=== PATIENT | male | born 1945 | race Caucasian/White ===

== ENCOUNTER 2019-04-22 17:12 | Inpatient (IN) | payer MEDICARE ==
[~2019-04-22] VITALS: Ht 177.8 cm; Wt 79.5 kg
[~2019-04-22 17:12] MED LIST: ASPIRIN EC81 M1 PO; CELEXA40 MG PO; GLUCOPHAGE850 MG PO; HYDROCODONE-APA1 TAB PO; IPRAT-ALBUT 0.5-3 ML UPD; NORVASC10 MG PO; PRILOSEC20 MG PO; ZOCOR20 MG PO
[2019-04-22] MEDS ORDERED: FAMOTIDINE10 MG PEG (17:16)
[2019-04-22] MEDS ORDERED: CARDURA2 MG PEG (17:16)
[2019-04-22] MEDS ORDERED: NEURONTIN 300300 MG PO (17:16)
[2019-04-22] MEDS ORDERED: LISINOPRIL40 MG PEG (17:17)
[2019-04-22] MEDS ORDERED: HYDRALAZINE HC100 MG PO (17:17)
[2019-04-22] MEDS ORDERED: BIOFREEZE118 ML TOPICAL (17:18)
[2019-04-22] MEDS ORDERED: ROBAXIN500 MG PEG (17:18)
[2019-04-22] MEDS ORDERED: ULTRAM50 MG PO (17:19)
[2019-04-22 17:52] LABS: BASOPHILS 0.2 % (0-2); EOSINOPHILS 0.8 % (0-7); HEMATOCRIT 31.4 % (42.0-54.0); HEMOGLOBIN 10.8 g/dL (13.5-17.5); IMMATURE GRANULOCYTES 0.4 % (0-5); LYMPHOCYTES 18.5 % (15-50); MCH 30.8 pg (26.0-34.0); MCHC 34.4 g/dL (31.0-37.0); MCV 89.5 fL (80.0-100.0); MEAN PLATELET VOLUME 9.5 fL (7.4-10.4); MONOCYTES 8.7 % (2-11); NEUTROPHILS 71.4 % (40-80); RBC 3.51 10x6/uL (4.20-6.10); RDW 15.9 % (11.5-14.5); WBC 9.5 10x3/uL (4.8-10.8)
[2019-04-22 17:53] LABS: PLATELET COUNT 193 10x3/uL (130-400)
[2019-04-22 18:08] LABS: ALKALINE PHOSPHATASE 73 U/L (46-116); ALT (SGPT) 23 U/L (10-68); BILIRUBIN - TOTAL 0.51 mg/dL (0.2-1.3); CALC OSMOLALITY 271 mosm/kg (275-300); CALCIUM 8.5 mg/dL (8.5-10.1); CARBON DIOXIDE 28.7 mmol/L (21.0-32.0); CHLORIDE - SERUM 101 mmol/L (98-107); CREATININE - SERUM 0.6 mg/dL (0.6-1.3); GLUCOSE 107 mg/dL (74-106); POTASSIUM - SERUM 4.2 mmol/L (3.5-5.1); PROTEIN - SERUM 6.4 g/dL (6.4-8.2); SODIUM 135 mmol/L (136-145); UREA NITROGEN 17 mg/dL (7-18); eGFR NON AFRICAN AMERICAN > 90 mL/min (90-120)
[2019-04-22 21:19] VITALS: BP 201/101
[2019-04-22 21:23] LABS: APPEARANCE SL CLDY (CLEAR); COLOR YELLOW (YELLOW); SPECIFIC GRAVITY 1.005 (1.005-1.020)
[2019-04-22 21:24] LABS: BILIRUBIN NEGATIVE (NEGATIVE); GLUCOSE NEGATIVE (NEGATIVE); KETONE NEGATIVE (NEGATIVE); NITRITE POSITIVE (NEGATIVE); PROTEIN NEGATIVE (NEGATIVE); UROBILINOGEN NORMAL (NORMAL)
[2019-04-22 21:25] LABS: BACTERIA MODERATE /hpf (NONE SEEN); EPITHELIAL CELLS 0-5 /hpf (0-5); RED CELLS - URINE RARE /hpf (0-5); WHITE CELLS - URINE 0-5 /hpf (0-5)
--- NOTE | 2019-04-22 21:42 | NUR ---
URINE TO LAB
[2019-04-22 23:34] VITALS: BP 153/77
--- NOTE | 2019-04-23 | NUR ---
PATIENT TO ROOM. DAUGHTER HELPED ANSWER QUESTIONS, ASSISTED WITH TRANSFERING PATIENT TO BED. PATIENT JAW SWOLLEN, RED AND WARM TO TOUCH.
[2019-04-23 03:43] VITALS: BP 155/81; BMI 26.4
--- NOTE | 2019-04-23 03:48 | NUR ---
PATIENT COMPLAINING OF PAIN IN RIGHT SIDE OF FACE. ASKED PATIENT IF HER WOULD LIKE AN ICE PACK. PATIENT STATED HE WOULD. APPLIED ICE.
[2019-04-23 04:42] LABS: BASOPHILS 0.3 % (0-2); EOSINOPHILS 0.3 % (0-7); HEMATOCRIT 33.2 % (42.0-54.0); HEMOGLOBIN 11.2 g/dL (13.5-17.5); IMMATURE GRANULOCYTES 0.3 % (0-5); LYMPHOCYTES 13.8 % (15-50); MCHC 33.7 g/dL (31.0-37.0); MEAN PLATELET VOLUME 9.4 fL (7.4-10.4); MONOCYTES 7.7 % (2-11); NEUTROPHILS 77.6 % (40-80); PLATELET COUNT 190 10x3/uL (130-400); RBC 3.73 10x6/uL (4.20-6.10); RDW 15.5 % (11.5-14.5); WBC 11.8 10x3/uL (4.8-10.8)
[2019-04-23 04:54] LABS: CALC OSMOLALITY 271 mosm/kg (275-300); CALCIUM 8.3 mg/dL (8.5-10.1); CARBON DIOXIDE 26.3 mmol/L (21.0-32.0); CHLORIDE - SERUM 101 mmol/L (98-107); CREATININE - SERUM 0.6 mg/dL (0.6-1.3); GLUCOSE 142 mg/dL (74-106); MAGNESIUM - SERUM 1.9 mg/dL (1.8-2.4); PHOSPHOROUS 3.8 mg/dL (2.5-4.9); SODIUM 135 mmol/L (136-145); UREA NITROGEN 13 mg/dL (7-18); eGFR NON AFRICAN AMERICAN > 90 mL/min (90-120)
[2019-04-23 08:53] VITALS: BP 186/97
[2019-04-23 08:56] VITALS: BMI 26.4
--- NOTE | 2019-04-23 11:47 | NUR ---
IV RIGHT AC HAD BEEN PULLED OUT. DC'D AND RESTARTED IN OUTER RIGHT AC WITH 22G X 1 ATTEMPT. PT TOLERATED WELL.
[2019-04-23 13:54] VITALS: BP 157/78
[2019-04-23 15:06] VITALS: Ht 177.8 cm; Wt 79.5 kg
[2019-04-23 15:31] LABS: % SATURATION 10 % (15-55); IRON 22 ug/dl (35-150); TOTAL IRON BIND CAPACITY 206 ug/dl (260-445); UNSAT IRON BIND CAPACITY 184 ug/dl (150-375)
[2019-04-23 18:25] VITALS: BP 167/82
--- NOTE | 2019-04-23 18:35 | NUR ---
RESTS IN BED WITH CALL LIGHT IN REACH. IV PATENT. WILL CONT. PLAN OF CARE.
--- NOTE | 2019-04-23 19:30 | NUR ---
SPOKE WITH FAMILY ABOUT PROPER POSITIONING, CHECKING RESIDUAL AND USING GRAVITY FOR SLOW BOLUS FEEDING TO HELP AVOID VOMITING AND ASPIRATION. ASSURED FAMILY THAT PROPER TECHNIQUE WILL BE EMPLOYED WITH FUTURE FEEDINGS. WROTE INSTRUCTIONS ON WHITE BOARD AND HOUSE SUPERVISORS NUMBER FOR FAMILY. NO OTHER NEEDS. FAMILY GOING HOME FOR NIGHT. WILL CONTINUE TO MONITOR.
[2019-04-23 20:00] VITALS: BP 123/60
--- NOTE | 2019-04-23 20:30 | NUR ---
REPOSITIONED PT, PULLED UP IN BED AND PUT GOWN ON. RAISED HOB TO 30 DEGREES. PT RESTING QUIETLY, EYES CLOSED. BED ALARM ON. CALL LIGHT IN REACH.
--- NOTE | 2019-04-23 22:00 | NUR ---
HOB AT 35 DEGREES. NO RESIDUAL NOTED IN TUBE. FLUSHED BEFORE AND AFTER MEDS. GAVE 1 CAN GLUCERNA FLUSHING AFTER EVERY 40 MLS ALL BY GRAVITY FOR TOTAL OF 240 FED AND 120 FLUSH. PT TOLERATED WELL WITH NO VOMITING OR REFLUX. LEFT HOB 30 DEGREES FOR ONE HOUR AFTER FEEDING. NO OTHER NEEDS. BED ALARM ON AND CALL LIGHT IN REACH.
[2019-04-24] VITALS: BP 97/55
--- NOTE | 2019-04-24 03:00 | NUR ---
PT C/O BACK PAIN. REPOSITIONED AND TURNED. OFFERED URINAL. PT STATES HE DOES NOT NEED TO VOID. RATES BACK PAIN 11/17. CHECKED RESIDUAL, NONE NOTED. HOB AT 30 DEGREES. GAVE ULTRAM 50 MG PER PEG TUBE. FLUSHED BEFORE AND AFTER. NO OTHER NEEDS. CALL LIGHT IN REACH.
[2019-04-24 04:00] VITALS: BP 104/60
[2019-04-24 05:01] LABS: BASOPHILS 0.3 % (0-2); EOSINOPHILS 1.1 % (0-7); HEMATOCRIT 28.5 % (42.0-54.0); HEMOGLOBIN 9.5 g/dL (13.5-17.5); IMMATURE GRANULOCYTES 0.4 % (0-5); LYMPHOCYTES 22.2 % (15-50); MCH 29.4 pg (26.0-34.0); MCHC 33.3 g/dL (31.0-37.0); MCV 88.2 fL (80.0-100.0); MEAN PLATELET VOLUME 9.3 fL (7.4-10.4); MONOCYTES 10.2 % (2-11); NEUTROPHILS 65.8 % (40-80); PLATELET COUNT 200 10x3/uL (130-400); RBC 3.23 10x6/uL (4.20-6.10); RDW 15.6 % (11.5-14.5); WBC 9.6 10x3/uL (4.8-10.8)
[2019-04-24 05:11] LABS: CALC OSMOLALITY 271 mosm/kg (275-300); CALCIUM 8.1 mg/dL (8.5-10.1); CARBON DIOXIDE 26.7 mmol/L (21.0-32.0); CHLORIDE - SERUM 102 mmol/L (98-107); CREATININE - SERUM 0.7 mg/dL (0.6-1.3); GLUCOSE 104 mg/dL (74-106); POTASSIUM - SERUM 3.9 mmol/L (3.5-5.1); SODIUM 135 mmol/L (136-145); eGFR NON AFRICAN AMERICAN > 90 mL/min (90-120)
[2019-04-24 05:16] LABS: UREA NITROGEN 17 mg/dL (7-18)
[2019-04-24 07:30] VITALS: BP 143/82
--- NOTE | 2019-04-24 07:41 | NUR ---
PT REQUESTED URINAL TO BE PLACED BETWEEN LEGS FOR A FEW MINUTES, STATES HE WILL CALL WHEN HE IS READY FOR IT TO BE TAKEN OUT. IV TO THE RIGHT AC IS SALINE LOCKED. BED IS IN LOW POSITION AND CALL LIGHT IS IN REACH. PATIENT DENIES ANY PAIN AT THIS TIME. WILL CONTINUE TO MONITOR
[2019-04-24 11:30] VITALS: BP 130/69
[2019-04-24 15:30] VITALS: BP 141/77
--- NOTE | 2019-04-24 19:30 | NUR ---
PT ALERT AND ORIENTED X4. CLEANED PT OF BOWEL MOVEMENT AND ADJUSTED POSITION TO LEFT SIDE AND SAT UP TO 40 DEGREE ANGLE. NO S/S OF DISTRESS AT THIS TIME. BED LOW CALL LIGHT WITHIN REACH. WILL CONTINUE TO MONITOR.
--- NOTE | 2019-04-24 19:37 | NUR ---
TELEMETRY INITIATED BY PRIMARY NURSE @ 1910. IMMEDIATE RHYTHM WAS 160'S SVT. REVIEWED MEDS, PT WAS TAKING CARDIZEM PER HOME MEDS, BUT THIS MED NOT ON CONTINUED MED LIST. PT DENIES PAIN OR DISCOMFORT. PRIMARY NURSE NOTIFYING MD FOR FURTHER ORDERS AFTER EKG OBTAINED.
[2019-04-24 20:00] VITALS: BP 153/76
--- NOTE | 2019-04-24 20:03 | NUR ---
PT RUNNING 173 ON TELEMETRY. EKG COMPLETE. JODEE BURNS PAGED
--- NOTE | 2019-04-24 20:25 | NUR ---
DR. LOUIS CONSULTED AND NOTIFIED. NEW ORDERS ESTABLISHED FOR CARDIZEM DRIP AT THIS TIME. CLINICAL REHAB SPECIALIST CALLED FOR MEDICATION. WILL CONTINUE TO MONITOR.
--- NOTE | 2019-04-24 20:26 | NUR ---
CARE BEING PROVIDED. PRIMARY NURSE HAS NOTIFIED ALL NECESSARY MDS/MOTHER HELPER AND CONSULT DR DANIELSON HAS BEEN CALLED WITH NEW ORDERS RECIEVED.
--- NOTE | 2019-04-24 21:08 | NUR ---
ADMINISTERED CARDIZEM 15MG SIVP X 1. CARDIZEM DRIP STARTED AT 10ML/HR TO RIGHT A/C. PT STATES SOME TIGHTNESS OF CHEST. WILL MONITOR RESPONSE TO MEDS GIVEN. CPOC. TELEMETRY IN PLACE.
--- NOTE | 2019-04-24 21:42 | NUR ---
PT NOW 95/SR. CATINA RAWLSIP INFUSING. WILL MONITOR.
[2019-04-25] VITALS: BP 115/63
--- NOTE | 2019-04-25 01:08 | NUR ---
ESTABLISHED 20G IV IN PT'S RIGHT WRIST. IV PATENT AND DRESSING INTACT. WILL CONTINUE TO MONITOR. VITALS STABLE AT THIS TIME.
--- NOTE | 2019-04-25 02:16 | NUR ---
PT RESTING IN BED WITH EYES CLOSED. PT HAS BRIEF MOMENTS OF APNEA. PT RUNNING 82 SINUS RYTHEM ON THE MONITOR. VITALS STABLE AT THIS TIME. NO S/S OF DISTRESS AT THIS TIME. BED LOW CALL LIGHT WITHIN REACH. WILL CONTINUE TO MONITOR.
--- NOTE | 2019-04-25 04:08 | NUR ---
PT RESTING IN BED WITH EYES CLOSED RR EVEN AND UNLABORED. NO S/S OF DISTRESS AT THIS TIME. BED LOW CALL LIGHT WITHIN REACH. WILL CONTINUE TO MONITOR.
[2019-04-25 04:30] VITALS: BP 135/71
[2019-04-25 04:50] LABS: EOSINOPHILS 2.6 % (0-7); HEMATOCRIT 28.5 % (42.0-54.0); HEMOGLOBIN 9.5 g/dL (13.5-17.5); IMMATURE GRANULOCYTES 0.3 % (0-5); MCH 29.9 pg (26.0-34.0); MCHC 33.3 g/dL (31.0-37.0); MCV 89.6 fL (80.0-100.0); MEAN PLATELET VOLUME 9.4 fL (7.4-10.4); MONOCYTES 11.9 % (2-11); NEUTROPHILS 58.2 % (40-80); PLATELET COUNT 214 10x3/uL (130-400); RBC 3.18 10x6/uL (4.20-6.10); RDW 15.4 % (11.5-14.5)
[2019-04-25 04:53] LABS: WBC 5.9 10x3/uL (4.8-10.8)
[2019-04-25 04:59] LABS: CALC OSMOLALITY 283 mosm/kg (275-300); CALCIUM 7.9 mg/dL (8.5-10.1); CARBON DIOXIDE 28.2 mmol/L (21.0-32.0); CHLORIDE - SERUM 107 mmol/L (98-107); CREATININE - SERUM 0.5 mg/dL (0.6-1.3); GLUCOSE 125 mg/dL (74-106); POTASSIUM - SERUM 3.9 mmol/L (3.5-5.1); SODIUM 141 mmol/L (136-145); UREA NITROGEN 19 mg/dL (7-18); eGFR NON AFRICAN AMERICAN > 90 mL/min (90-120)
--- NOTE | 2019-04-25 06:42 | NUR ---
I have reviewed this patient and I concur with the Shift Assessment completed by the Licensed Practical Nurse today this shift.
[2019-04-25 08:30] VITALS: BP 157/59
--- NOTE | 2019-04-25 08:44 | NUR ---
AM MEDS GIVEN VIA PEG TUBE AT THIS TIME. ALSO GAVE BOLUS FEEDING OF GLUCERNA 1.5. PT TOLERATED MEDS AND FEEDING WELL. PT A/O X4, RESP EVEN AND NONLABORED ON RA. RT WRIST INFUSING NS AT 100CC/HR AND RA AC INFUSING CARDIZEM AT 10CC/HR. PT DENIES ANY NEEDS AT THIS TIME. MARYSOL ONEILL APN AT BEDSIDE TO ASSESS PT. CALL LIGHT IN REACH, NAD NOTED,W ILL CONTINUE TO MONITOR.
--- NOTE | 2019-04-25 11:31 | NUR ---
BLOOD SUGAR OF 164, NO COVERAGE GIVEN AT THIS TIME. PT RESTING COMFORTABLY IN BED, DENIES ANY NEEDS AT THIS TIME. CALL LIGHT IN REACH, NAD NOTED, WILL CONTINUE TO MONITOR.
--- NOTE | 2019-04-25 12:16 | NUR ---
I spoke with Dr. Alarcon regarding patient diagnosis of parotitis. Dr Alarcon does not feel it is mumps but bacterial. Was started on 04/22/19 Vancomycin and Meropenem.
--- NOTE | 2019-04-25 12:24 | NUR ---
Nutrition Follow-up: Nurse reports pt tolerating TF. Per initial nutrition assessment, pt receiving Glucerna 1.5 QID + 60 mL flushes before and after feedings + 100 mL flush TID at [place]. Diet: Glucerna 1.5 QID Wt: 189# Last BM: 04/25 Labs noted: Na 141, Glu 125, Ca 7.9 Meds noted: Glucophage, NS 0.9% @ 100 mL/hr Continue Glucerna 1.[address] following.
[2019-04-25 13:04] VITALS: BP 124/55
--- NOTE | 2019-04-25 15:14 | NUR ---
GAVE NORCO FOR PAIN LEVEL OF 4/10. CAPACITOR ASSEMBLER AT BEDSIDE TO GET VITAL SIGNS. PT DENIES ANY OTHER NEEDS AT THIS TIME. CALL LIGHT IN REACH, NAD NOTED, WILL CONTINUE TO MONITOR.
[2019-04-25 15:56] VITALS: BP 117/62
--- NOTE | 2019-04-25 16:46 | NUR ---
BLOOD SUGAR OF 130, NO COVERAGE NEEDED PER S/S. PT RESTING COMFORTABLY IN BED, DENIES ANY NEEDS AT THIS TIME. CALL LIGHT IN REACH.
[2019-04-26] VITALS: BP 133/73
[2019-04-26 04:30] VITALS: BP 150/72
[2019-04-26 04:53] LABS: BASOPHILS 0.6 % (0-2); EOSINOPHILS 2.8 % (0-7); HEMATOCRIT 30.2 % (42.0-54.0); HEMOGLOBIN 10.2 g/dL (13.5-17.5); IMMATURE GRANULOCYTES 0.4 % (0-5); LYMPHOCYTES 24.5 % (15-50); MCH 29.7 pg (26.0-34.0); MCHC 33.8 g/dL (31.0-37.0); MEAN PLATELET VOLUME 9.2 fL (7.4-10.4); MONOCYTES 8.9 % (2-11); NEUTROPHILS 62.8 % (40-80); PLATELET COUNT 185 10x3/uL (130-400); RBC 3.43 10x6/uL (4.20-6.10); RDW 15.1 % (11.5-14.5); WBC 4.9 10x3/uL (4.8-10.8)
[2019-04-26 05:13] LABS: CALC OSMOLALITY 278 mosm/kg (275-300); CARBON DIOXIDE 27.4 mmol/L (21.0-32.0); CHLORIDE - SERUM 104 mmol/L (98-107); CREATININE - SERUM 0.5 mg/dL (0.6-1.3); GLUCOSE 114 mg/dL (74-106); POTASSIUM - SERUM 3.5 mmol/L (3.5-5.1); SODIUM 139 mmol/L (136-145); eGFR NON AFRICAN AMERICAN > 90 mL/min (90-120)
[2019-04-26 05:18] LABS: UREA NITROGEN 12 mg/dL (7-18)
--- NOTE | 2019-04-26 07:28 | NUR ---
REPORT RECEIVED. WILL CONTINUE WITH POC. PT CURRENTLY LYING SEMI FOWLERS. CALL LIGHT W/I REACH. PT IS RESTING AT THIS TIME WITH EYES CLOSED. RR EVEN AND UNLABORED ON RA. NS INFUSING @100ML/HR VIA L.WRIST PIV AND R.AC PIV IS SALINE LOCKED. G-TUBE CLAMPED. NO S/S OF DISTRESS NOTED. PT DENIES ANY NEEDS. WILL CTM.
[2019-04-26 10:03] VITALS: BP 165/99
--- NOTE | 2019-04-26 10:52 | NUR ---
AM MEDICATIONS ADMININSTERED VIA PEG TUBE. TUBE FEEDING PERFORMED. PEG FLUSHED BEFORE AND AFTER WITH 60ML OF WATER. PT TOLERATED WELL. NO S/S OF DISTRESS NOTED. WILL CTM.
[2019-04-26 12:00] VITALS: BP 146/65
--- NOTE | 2019-04-26 12:15 | NUR ---
PT HAD ONE EPISODE OF INCONTINENCE OF BOWEL. UPON ENTERING THE ROOM, THE PT WAS REQUESTING TO BE PLACED ON BEDPAN BUT A FAMILY MEMBER WALKED IN AND HE STATED THAT HE NO LONGER FELT THE NEED. I STEPPED OUT OF THE ROOM TO GET SUPPLIES AND REQUESTED NORCO FROM THE PT, WHEN ENTERING BACK INTO THE ROOM 5 MINUTES LATER, FAMILY MEMBER WAS IRRITATED THAT IT TOOK SEVERAL MINUTES TO COLLECT SUPPLIES THEREFORE SHE WENT AHEAD AND CLEANED PT. APOLOGIZED TO FAMILY THAT IT TOOK A FEW MINUTES TO GET WHAT THE PT NEEDED. SHE VERBALIZED UNDERSTANDING. WILL CTM.
--- NOTE | 2019-04-26 13:03 | EC ---
PATIENT:SHAYNE BRICEÑO DATE OF SERVICE: 04/22/19 SEX: M MEDICAL RECORD: [id number] DATE OF : [birth year] LOCATION:D.M2 D.211 AGE OF PATIENT: 73 ADMISSION DATE: 04/22/19 REFERRING PHYSICIAN: INTERPRETING PHYSICIAN: REBECCA DANIELSON MD ECHOCARDIOGRAM REPORT ECHO CHARGES 4 ECHO COMPLETE Date: 04/25/19 CLINICAL DIAGNOSIS: ATRIAL FLUTTER ECHOCARDIOGRAPHIC MEASUREMENTS (adult normal given) AC root (d.<3.7cm) 4.1 cm LV Septum d (<1.2 cm> 1.3 cm Valve Excursion 1.9 cm LV Septum (systole) 1.5 cm Left Atria (s.<4.0cm> 3.7 cm LVPW d(<1.2cm) 1.4 cm RV (d.<2.3cm) 3.8 cm LVPW (sytole) 1.8 cm LV diastole(<5.6CM) 5.1 cm MV E-F(>70mm/sec) cm LV systole 4.0 cm LVOT Diameter 1.8 cm MV exc.(>10mm) 1.8 cm Est.ejection fraction (50-75%) % DOPPLER: LVIT cm/sec A 63.0 cm/sec E 104 cm/sec LA cm/sec RVSP 29 mmHg LVOT 138 cm/sec AOP1/2T m/s Asc. Ao 199 cm/sec RVOT 94 cm/sec RA cm/sec PA 130 cm/sec AV Gradient Peak 15.86mmHg AV Mean 9.95 mmHg AV Area 2.0 cm MV Gradient Peak 5.05 mmHg MV Mean 1.89 mmHg MV Area cm COMMENTS: Certified Ophthalmic Technologist: 2 KADY ÁLVAREZ Cane Flume Chute Operator: 3 Dr. Villalobos TAPE# PACS Pericardial Effusion N DATE OF SERVICE: Adequate 2D, color flow, spectral Doppler, and M-mode. LVH is present. LV internal dimension is normal. Wall motion is normal. EF is greater than or equal to 55%. Aortic valve is tricuspid. No evidence of stenosis by Doppler interrogation. Left atrium is normal. Mitral valve shows no prolapse. Trace MR. Right-sided chambers are grossly normal. Trace TR. TRANSINT:[id number] Voice Confirmation ID: [id number] DOCUMENT ID: [id number] ECHOCARDIOGRAM REPORT [id number] BRICEÑO,REBECCA JASON MD at 1303 CC: [id number] DICTATION DATE: 04/25/19 1141 EXTRACORPOREAL TECHNICIAN: 04/25/19 1224 ADM IN [facility] [address] [id number]
--- NOTE | 2019-04-26 14:19 | NUR ---
I have reviewed this patient and I concur with the Shift Assessment completed by the Licensed Practical Nurse today this shift.
[2019-04-26 17:00] VITALS: BP 163/72
[2019-04-26 17:03] LABS: COLOR YELLOW (YELLOW)
[2019-04-26 17:04] LABS: APPEARANCE CLEAR (CLEAR); BILIRUBIN NEGATIVE (NEGATIVE); GLUCOSE NEGATIVE (NEGATIVE); KETONE NEGATIVE (NEGATIVE); NITRITE NEGATIVE (NEGATIVE); PROTEIN NEGATIVE (NEGATIVE); SPECIFIC GRAVITY 1.005 (1.005-1.020); UROBILINOGEN NORMAL (NORMAL)
--- NOTE | 2019-04-26 17:22 | NUR ---
IN AND OUT CATH PERFORMED. URINE ANALYSIS AND CULTURE SENT TO LAB. TUBE FEEDING PERFORMED AND PM MEDICATIONS ADMININSTERED. FAMILY AT BEDSIDE. PT DENIES ANY NEEDS. WILL CTM.
--- NOTE | 2019-04-26 19:53 | NUR ---
REPORT RECIEVED AND ROUNDING COMPLETE. PATIENT IN BED IN SUPINE POSITION. PATIENT HAS LOTS OF FAMILY IN THE ROOM AT THIS TIME. PATIENT ASKING FOR PAIN MEDICATION. WILL CHECK MAR AND TREAT ACCORDINGLY. PATIENT HAS RIGHT WRIST AND AC PIVS. PIVS SHOW NO S/SX OF INFECTION OR INFILTRATION AT THIS TIME. PATIENT HAS A PEG TUBE AND RECIEVES ALL HIS MED THROUGH IT. PATIENT HAS NO OTHER NEEDS AT THIS TIME. CALL LIGHT WITHIN REACH AND BED IN LOWEST POSITION.
[2019-04-26 20:00] VITALS: BP 161/81
[2019-04-27 00:30] VITALS: BP 151/72
--- NOTE | 2019-04-27 02:52 | NUR ---
I have reviewed this patient and I concur with the Shift Assessment completed by the Licensed Practical Nurse today this shift.
[2019-04-27 04:28] LABS: BASOPHILS 0.9 % (0-2); EOSINOPHILS 3.1 % (0-7); HEMATOCRIT 30.2 % (42.0-54.0); HEMOGLOBIN 10.2 g/dL (13.5-17.5); IMMATURE GRANULOCYTES 0.4 % (0-5); LYMPHOCYTES 35.5 % (15-50); MCH 29.3 pg (26.0-34.0); MCHC 33.8 g/dL (31.0-37.0); MCV 86.8 fL (80.0-100.0); MONOCYTES 11.3 % (2-11); NEUTROPHILS 48.8 % (40-80); PLATELET COUNT 191 10x3/uL (130-400); RBC 3.48 10x6/uL (4.20-6.10); RDW 14.9 % (11.5-14.5); WBC 4.6 10x3/uL (4.8-10.8)
[2019-04-27 04:30] VITALS: BP 156/87
[2019-04-27 04:53] LABS: CALC OSMOLALITY 272 mosm/kg (275-300); CALCIUM 7.9 mg/dL (8.5-10.1); CARBON DIOXIDE 26.7 mmol/L (21.0-32.0); CHLORIDE - SERUM 103 mmol/L (98-107); CREATININE - SERUM 0.5 mg/dL (0.6-1.3); GLUCOSE 99 mg/dL (74-106); POTASSIUM - SERUM 3.4 mmol/L (3.5-5.1); SODIUM 137 mmol/L (136-145); UREA NITROGEN 10 mg/dL (7-18); eGFR NON AFRICAN AMERICAN > 90 mL/min (90-120)
--- NOTE | 2019-04-27 07:20 | NUR ---
AM ROUNDS- PT IS RESTING COMFORTABLY IN BED WITH EYES OPEN, BREATHING EVEN AND UNLABORED, NO S/S OF DISTRESS NOTED AT THIS TIME. WILL CTM. 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
[2019-04-27 08:35] VITALS: BP 175/90
--- NOTE | 2019-04-27 09:03 | NUR ---
ADMINISTERED MORNING MEDICATION AT THIS TIME VIA PEG TUBE, FLUSHED WITH 60 CC BOLUS BEFORE AND AFTER ADMINISTRATION. NURSING STUDENTS AT BEDSIDE GIVING BED BATH. PT IS RESTING COMFORTABLY. DENIES ANY NEEDS. WILL CTM.
--- NOTE | 2019-04-27 11:45 | NUR ---
ASSESSED BLOOD SUGAR, NO INSULIN NEEDED PER SLIDING SCALE FOR BLOOD SUGAR OF 138. FAMILY AT BEDSIDE. INQUIRED ABOUT THE MEDICATIONS TAKEN BY PATIENT, PROVIDED EDUCATION TO PATIENT AND FAMILY MEMBERS. FAMILY REQUESTS BEING CONTATCED IF THE DOCTOR MAKES ROUNDS WHILE THEY ARE GONE. DENIES ANY OTHER NEEDS. PT RESTING COMFORTABLY IN BED AT THIS TIME. WILL CTM.
--- NOTE | 2019-04-27 12:27 | NUR ---
Nutrition Follow-up: Spoke with pt's nurse. She reports that pt is tolerating TF (Glucerna 1.5 QID). Per chart review, noted pt's reports pt sometimes has liquids PO without choking and was supposed to have a MBSS this week. Diet: Glucerna 1.5 QID Wt: 174# (rec reweigh; wt on 04/25 was 189#) Last BM: 04/26 Labs noted: Glu 99, Ca 7.9, K+ 3.4 Meds noted: Floranex, KCl, NS @ 100, Glucophage Continue current TF as tolerated. May consider ST consult. RD following.
[2019-04-27 12:45] VITALS: BP 102/48
--- NOTE | 2019-04-27 13:49 | NUR ---
PT IS GOING WITH XRAY FOR MODIFIED SWALLOW STUDY.
--- NOTE | 2019-04-27 14:27 | NUR ---
PT BACK IN ROOM. "PT CAN HAVE PUREE DIET AND NECTAR THICK LIQUIDS", PER MARIBEL, SPEECH THERAPY.
--- NOTE | 2019-04-27 15:54 | NUR ---
I have reviewed this patient and I concur with the Shift Assessment completed by the Licensed Practical Nurse today this shift.
[2019-04-27 16:45] VITALS: BP 143/82
--- NOTE | 2019-04-27 16:53 | MORECARE ---
CASE MANAGEMENT DISCHARGE SUMMARY PATIENT: SHAYNE BRICEÑO UNIT: [id number] ADM DATE: 04/22/19 AGE: 73 : 46 SEX: M ROOM/BED: D[facility] AUTHOR: MANNIE DIAL PHYSICIAN: REFERRING PHYSICIAN: KHOI SPAIN MD DATE OF SERVICE: 04/27/19 Discharge Plan Patient Name: SHAYNE BRICEÑO Facility: [facility]:[place] : 1945 Planned Disposition: Inpatient Rehab Anticipated Discharge Date: Discharge Date: Expected LOS: Initial Reviewer: [id number] Initial Review Date: 04/27/2019 Generated: 04/27/19 5:53 pm Coverage Notice Reviewer: [email or web address] Dez Skinner Notice Issued Date-Time: 04/27/2019 14:40 Notice Type: IM Discharge Notice Notice Delivered To: Family Member Relationship to Patient: Spouse Phlebotomy Technician Name: CHRISTIE BRICEÑO Delivery Method: HAND - Hand Delivered Tg Days: Prior Verbal Notification: Recipient Understood Notice: Yes Recipient Signature: Yes Med Rec Note Co-signed by Attending: Coverage Notice Comment: Reviewer: [email or web address] Dez Skinner Notice Issued Date-Time: 04/27/2019 9:05 Notice Type: Patient Choice Letter Notice Delivered To: Patient Relationship to Patient: Phlebotomy Technician Name: Delivery Method: HAND - Hand Delivered Tg Days: Prior Verbal Notification: Recipient Understood Notice: Yes Recipient Signature: Yes Med Rec Note Co-signed by Attending: Coverage Notice Comment: SANDEEP Patient Name: SHAYNE BRICEÑO Page [phone] at 1653 All edits/amendments must be made on the electronic document DICTATION DATE: 04/27/191652 ASSEMBLY OPERATOR: LENIN 04/27/191652 RPT#: [id number] OR DATE: STATUS: ADM IN [place] [address] [place] [address] END OF REPORT
--- NOTE | 2019-04-27 17:02 | MORECARE ---
CASE MANAGEMENT DISCHARGE SUMMARY PATIENT: SHAYNE BRICEÑO UNIT: [id number] ADM DATE: 04/22/19 AGE: 73 : 46 SEX: M ROOM/BED: D.2111 AUTHOR: JAYRO,DOC PHYSICIAN: REFERRING PHYSICIAN: KHOI SPAIN MD DATE OF SERVICE: 04/27/19 Discharge Plan Patient Name: SHAYNE BRICEÑO Facility: [facility]:[place] : 1945 Planned Disposition: Inpatient Rehab Anticipated Discharge Date: Discharge Date: Expected LOS: Initial Reviewer: [email or web address] Initial Review Date: 04/27/2019 Generated: 04/27/19 6:02 pm Comments DCP- Discharge Planning Updated by [id number]: Geovanni Skinner on 04/27/19 3:[address] Patient Name: SHAYNE BRICEÑO Admission Status: ER Accout number: [id number] Admission Date: 04-22-2019 : 1945 Admission Diagnosis:EDEMA, UNSPECIFIED Attending: KHOI SPAIN Current LOS: 5 Anticipated DC Date: Planned Disposition: Inpatient Rehab Primary Insurance: [employer] CHOICE PPO MCR ADVANT PLANNED [facility] Discharge Planning Comments: CM MET WITH PT IN ROOM TO DISCUSS DISCHARGE PLANNING AND NEEDS. PT STATES HE WAS AT [facility] AND MAY BE RETURNING THERE. CHOICE SIGNED. PT REQUESTED CM SPEAK TO HIS . CM LATER MET WITH PT'S WHO REPORTS THAT SHE WOULD LIKE PT CONSIDERED FOR INPATIENT REHAB AT [facility] IN [place]; SHE HAS DISCUSSED THIS WITH COMPLIANCE ENGINEER PRODUCTS AT [facility] AND SHE HOPES THIS LEVEL OF REHAB WILL BE APPROVED FOR PATIENT. IMPORTANT MESSAGE FROM MEDICARE PROVIDED AND EXPLAINED. CM TO CONTACT [facility], SOON POSSIBLE AND PROVIDE REFERRAL FOR INPATIENT REHAB SERVICES. PT WILL REQUIRE INSURANCE AUTHORIZATION FOR SERVICES. Occupational Health And Safety Adviser: Geovanni Skinner DCPIA - Discharge Planning Initial Assessment Updated by [id number]: Geovanni Skinner on 04/27/19 4:53 pm * Is the patient Alert and Oriented? Yes * How many steps to enter\exit or inside your home? * PCP DR. LOCO * [facility] [address] [facility] * Preadmission Environment Residential Facility * Facility Name [facility] * ADLs Partial Dependent * Partial ADLs (Assistance needed) Ambulation Bathing Dressing Medication Management Toileting Transfers * Equipment None * Other Equipment NO MEDICAL EQUIPMENT PROVIDER PREFERENCE * List name and contact numbers for known caregivers / representatives who currently or will assist patient after discharge: CHRISTIE BRICEÑO, SPOUSE, * Verbal permission to speak to the caregivers and representatives has been obtained from the patient. Yes * Community resources currently utilized None * Please name any agencies selected above. NONE * Additional services required to return to the preadmission environment? No * Can the patient safely return to the preadmission environment? Yes * Has this patient been hospitalized within the prior 30 days at any hospital? Yes Coverage Notice Reviewer: [id number] Skinner Notice Issued Date-Time: 04/27/2019 14:40 Notice Type: IM Discharge Notice Notice Delivered To: Family Member Relationship to Patient: Spouse Research Assistant Member Name: CHRISTIE BRICEÑO Delivery Method: HAND - Hand Delivered Tg Days: Prior Verbal Notification: Recipient Understood Notice: Yes Recipient Signature: Yes Med Rec Note Co-signed by Attending: Coverage Notice Comment: Reviewer: HERMILO Skinner Notice Issued Date-Time: 04/27/2019 9:05 Notice Type: Patient Choice Letter Notice Delivered To: Patient Relationship to Patient: Research Assistant Member Name: Delivery Method: HAND - Hand Delivered Tg Days: Prior Verbal Notification: Recipient Understood Notice: Yes Recipient Signature: Yes Med Rec Note Co-signed by Attending: Coverage Notice Comment: SANDEEP Ledesma DP export: 04/27/19 3:53 p Patient Name: SHAYNE BRICEÑO Page [phone] at 1702 All edits/amendments must be made on the electronic document DICTATION DATE: 04/27/191700 HOG CONFINEMENT SYSTEM MANAGER: LENIN 04/27/191700 RPT#: [id number] DC DATE: STATUS: ADM IN [facility] [address] [place] [address] END OF REPORT
--- NOTE | 2019-04-27 18:16 | NUR ---
ADMINISTERED INSULIN PER SLIDING SCALE FOR BLOOD SUGAR OF 170. PT FRIEND AT BEDSIDE, INQUIRED ABOUT IF PT SHOULD BE TAKING ASPIRIN AND XARELTO BECAUSE THEY ARE BLOOD THINNERS AND THE PT HAD A HEMORRHAGIC STROKE IN FEBRUARY OF 2019. WILL ASK DOCTOR TO CONFIRM. DENIES OTHER NEEDS. MEDICATION ADMINISTERED THROUGH PEG TUBE, NO PROBLEM. PT DIET WAS ADVANCED TO PUREE WITH THICKENED LIQUIDS, TIN STACKER INFORMED PT NEEDS ASSISTANCE EATING. WILL CTM.
--- NOTE | 2019-04-27 21:30 | NUR ---
AROUSES TO VERBAL STIMULI. NO COMPLAINTS VOCIED. RESP EVEN AND UNALBORED. NO DISTRESS NOTED. IV TO RIGHT WRIST INTACT WITHOUT REDNESS OR EDEMA NOTED. LEFT SIDE FLACID.HX OF STROKE. PEG TUBE PATENT WITH NO DRAINAGE FROM AROUND SITE. MED CRUSED AND GIVEN VIA PEG. TURNED AND POSITIONED FOR COMFORT. CL IN REACH
[2019-04-27 21:44] VITALS: BP 129/71
[2019-04-28 01:14] VITALS: BP 150/74
[2019-04-28 05:07] VITALS: BP 148/79
[2019-04-28 05:23] LABS: BASOPHILS 0.6 % (0-2); EOSINOPHILS 1.7 % (0-7); HEMATOCRIT 29.6 % (42.0-54.0); HEMOGLOBIN 10.1 g/dL (13.5-17.5); IMMATURE GRANULOCYTES 0.8 % (0-5); LYMPHOCYTES 29.8 % (15-50); MCH 29.6 pg (26.0-34.0); MCHC 34.1 g/dL (31.0-37.0); MCV 86.8 fL (80.0-100.0); MEAN PLATELET VOLUME 8.6 fL (7.4-10.4); MONOCYTES 10.6 % (2-11); NEUTROPHILS 56.5 % (40-80); PLATELET COUNT 170 10x3/uL (130-400); RBC 3.41 10x6/uL (4.20-6.10); RDW 15.2 % (11.5-14.5); WBC 5.3 10x3/uL (4.8-10.8)
[2019-04-28 05:56] LABS: CALC OSMOLALITY 280 mosm/kg (275-300); CALCIUM 8.1 mg/dL (8.5-10.1); CARBON DIOXIDE 26.4 mmol/L (21.0-32.0); CHLORIDE - SERUM 105 mmol/L (98-107); CREATININE - SERUM 0.6 mg/dL (0.6-1.3); GLUCOSE 111 mg/dL (74-106); POTASSIUM - SERUM 3.3 mmol/L (3.5-5.1); SODIUM 141 mmol/L (136-145); UREA NITROGEN 9 mg/dL (7-18); eGFR NON AFRICAN AMERICAN > 90 mL/min (90-120)
--- NOTE | 2019-04-28 07:35 | NUR ---
AM ROUNDS- PT IS RESTING COMFORTABLY IN BED WITH EYES CLOSED, BREATHING EVEN AND NONLABORED, NO S/S OF DISTRESS NOTED AT THIS TIME. BED IN LOWEST POSITION, BED RAILS X2, CALL LIGHT WITHIN REACH. PT HAS HISTORY OF A RIGHT SIDED STROKE IN FEBRUARY 2019, AFFECTING THE LEFT SIDE WHICH IS NOW FLACCID. PT IS ON ISOLATION FOR MULTI-RESISTANT ORGANISMS IN THE URINE. RIGHT WRIST IV WITH NORMAL SALINE @ 100 AND RIGHT AC (SALINE LOCKED), PT IS ON ROOM AIR AND RUNS SINUS RHYTHM ON TELEMETRY.
[2019-04-28 08:47] VITALS: BP 168/99
--- NOTE | 2019-04-28 08:48 | MORECARE ---
CASE MANAGEMENT DISCHARGE SUMMARY PATIENT: SHAYNE BRICEÑO UNIT: [id number] ADM DATE: 04/22/19 AGE: 73 : 46 SEX: M ROOM/BED: D.2111 AUTHOR: JAYRO,DOC PHYSICIAN: REFERRING PHYSICIAN: KHOI SPAIN MD DATE OF SERVICE: 04/28/19 Discharge Plan Patient Name: SHAYNE BRICEÑO Facility: [facility]:[place] : 1945 Planned Disposition: Inpatient Rehab Anticipated Discharge Date: Discharge Date: Expected LOS: Initial Reviewer: [email or web address] Initial Review Date: 04/27/2019 Generated: 04/28/19 9:48 am Comments DCP- Discharge Planning Updated by [id number]: Geovanni Skinner on 04/27/19 3:[address] Patient Name: HSAYNE BRICEÑO Admission Status: ER Accout number: [id number] Admission Date: 04-22-2019 : 1945 Admission Diagnosis:EDEMA, UNSPECIFIED Attending: KHOI SPAIN Current LOS: 5 Anticipated DC Date: Planned Disposition: Inpatient Rehab Primary Insurance: [employer] CHOICE PPO MCR ADVANT [facility]ANNED [facility] Discharge Planning Comments: CM MET WITH PT IN ROOM TO DISCUSS DISCHARGE PLANNING AND NEEDS. PT STATES HE WAS AT [facility] AND MAY BE RETURNING THERE. CHOICE SIGNED. PT REQUESTED CM SPEAK TO HIS . CM LATER MET WITH PT'S WHO REPORTS THAT SHE WOULD LIKE PT CONSIDERED FOR INPATIENT REHAB AT [facility] IN [place]; SHE HAS DISCUSSED THIS WITH ELECTRIC METER TESTER AT [facility] AND SHE HOPES THIS LEVEL OF REHAB WILL BE APPROVED FOR PATIENT. IMPORTANT MESSAGE FROM MEDICARE PROVIDED AND EXPLAINED. CM TO CONTACT [facility], SOON POSSIBLE AND PROVIDE REFERRAL FOR INPATIENT REHAB SERVICES. PT WILL REQUIRE INSURANCE AUTHORIZATION FOR SERVICES. Pumper Head: Geovanni Skinner DCPIA - Discharge Planning Initial Assessment Updated by [id number]: Geovanni Skinner on 04/27/19 4:53 pm * Is the patient Alert and Oriented? Yes * How many steps to enter\exit or inside your home? * PCP DR. LOCO * [facility] [address] [facility] * Preadmission Environment Long-Term Facility * Facility Name [facility] * ADLs Partial Dependent * Partial ADLs (Assistance needed) Ambulation Bathing Dressing Medication Management Toileting Transfers * Equipment None * Other Equipment NO MEDICAL EQUIPMENT PROVIDER PREFERENCE * List name and contact numbers for known caregivers / representatives who currently or will assist patient after discharge: CHRISTIE BRICEÑO, SPOUSE, * Verbal permission to speak to the caregivers and representatives has been obtained from the patient. Yes * Community resources currently utilized None * Please name any agencies selected above. NONE * Additional services required to return to the preadmission environment? No * Can the patient safely return to the preadmission environment? Yes * Has this patient been hospitalized within the prior 30 days at any hospital? Yes External Providers External Provider: [facility] David Contact Date: 04/28/2019 Service Request Date: Service Type: Resolution: Reviewer: Comments: Coverage Notice Reviewer: [email or web address] Skinner Notice Issued Date-Time: 04/27/2019 14:40 Notice Type: IM Discharge Notice Notice Delivered To: Family Member Relationship to Patient: Spouse Flattening Press Operator Name: CHRISTIE BRICEÑO Delivery Method: HAND - Hand Delivered Tg Days: Prior Verbal Notification: Recipient Understood Notice: Yes Recipient Signature: Yes Med Rec Note Co-signed by Attending: Coverage Notice Comment: Reviewer: HERMILO Skinner Notice Issued Date-Time: 04/27/2019 9:05 Notice Type: Patient Choice Letter Notice Delivered To: Patient Relationship to Patient: Flattening Press Operator Name: Delivery Method: HAND - Hand Delivered Tg Days: Prior Verbal Notification: Recipient Understood Notice: Yes Recipient Signature: Yes Med Rec Note Co-signed by Attending: Coverage Notice Comment: SANDEEP Ledesma DP export: 04/27/19 4:02 p Patient Name: SHAYNE BRICEÑO Page [phone] at 0848 All edits/amendments must be made on the electronic document DICTATION DATE: 04/28/19847 BROKERAGE OFFICE MANAGER: LENIN 04/28/19847 RPT#: [id number] DC DATE: STATUS: ADM IN [facility] [address] [place] [address] END OF REPORT
--- NOTE | 2019-04-28 09:07 | MORECARE ---
CASE MANAGEMENT DISCHARGE SUMMARY PATIENT: SHAYNE BRICEÑO UNIT: [id number] ADM DATE: 04/22/19 AGE: 73 : 46 SEX: M ROOM/BED: D[facility] AUTHOR: JAYRO,DOC PHYSICIAN: REFERRING PHYSICIAN: KHOI SPAIN MD DATE OF SERVICE: 04/28/19 Discharge Plan Patient Name: SHAYNE BRICEÑO Facility: [facility]:[place] : 1945 Planned Disposition: Inpatient Rehab Anticipated Discharge Date: Discharge Date: Expected LOS: Initial Reviewer: [id number] Initial Review Date: 04/27/2019 Generated: 04/28/19 10:06 am Comments DCP- Discharge Planning Updated by [email or web address]: Geovanni Skinner on 04/28/19 8:[address] Patient Name: SHAYNE BRICEÑO Encounter No: [id number] : 1945 Primary Insurance: HU[employer]NA CHOICE PPO [facility] ADVANT Anticipated DC Date: Planned Disposition: Inpatient Rehab External [facility] Provider[facility] Discharge Planning Comments: CM CALLED [facility], , PROVIDED REFERRAL FOR INPATIENT REHAB SERVICES. CM FAXED REFERRAL TO [facility] AT [phone]. CM WAITING OT EVALUATION AND WILL FAX TO [facility] SOON DOCUMENTED IN CHART. PATIENT WILL REQUIRE INSURANCE AUTHORIZATION FOR INPATIENT REHAB SERVICES. Highway Construction Inspector: Geovanni Skinner DCP- Discharge Planning Updated by [id number]: Geovanni Skinner on 04/27/19 3:[address] Patient Name: SHAYNE BRICEÑO Admission Status: ER Accout number: [id number] Admission Date: 04-22-2019 : 1945 Admission Diagnosis:EDEMA, UNSPECIFIED Attending: KHOI SPAIN Current LOS: 5 Anticipated DC Date: Planned Disposition: Inpatient Rehab Primary Insurance: [employer] CHOICE PPO [facility] ADVANT PLANNED EXTERNAL PROVIDER: [facility] INPATIENT [facility] Discharge Planning Comments: CM MET WITH PT IN ROOM TO DISCUSS DISCHARGE PLANNING AND NEEDS. PT STATES HE WAS AT [facility] FOR REHAB AND MAY BE RETURNING THERE. CHOICE SIGNED. PT REQUESTED CM SPEAK TO HIS . CM LATER MET WITH PT'S WHO REPORTS THAT SHE WOULD LIKE PT CONSIDERED FOR INPATIENT REHAB AT [facility] IN [place]; SHE HAS DISCUSSED THIS WITH FIRE ALARM DISPATCHER AT [facility] AND SHE HOPES THIS LEVEL OF REHAB WILL BE APPROVED FOR PATIENT. IMPORTANT MESSAGE FROM MEDICARE PROVIDED AND EXPLAINED. CM TO CONTACT [facility] [place], SOON POSSIBLE AND PROVIDE REFERRAL FOR INPATIENT REHAB SERVICES. PT WILL REQUIRE INSURANCE AUTHORIZATION FOR SERVICES. Highway Construction Inspector: Geovanni Skinner DCPIA - Discharge Planning Initial Assessment Updated by HERMILO: Geovanni Skinner on 04/27/19 4:53 pm * Is the patient Alert and Oriented? Yes * How many steps to enter\exit or inside your home? * PCP DR. LOCO * Pharmacy [facility] * Preadmission Environment Group Home Facility * Facility Name [facility] * ADLs Partial Dependent * Partial ADLs (Assistance needed) Ambulation Bathing Dressing Medication Management Toileting Transfers * Equipment None * Other Equipment NO MEDICAL EQUIPMENT PROVIDER PREFERENCE * List name and contact numbers for known caregivers / representatives who currently or will assist patient after discharge: CHRISTIE BRICEÑO, SPOUSE, * Verbal permission to speak to the caregivers and representatives has been obtained from the patient. Yes * Community resources currently utilized None * Please name any agencies selected above. NONE * Additional services required to return to the preadmission environment? No * Can the patient safely return to the preadmission environment? Yes * Has this patient been hospitalized within the prior 30 days at any hospital? Yes Coverage Notice Reviewer: [id number] Dez Skinner Notice Issued Date-Time: 04/27/2019 14:40 Notice Type: IM Discharge Notice Notice Delivered To: Family Member Relationship to Patient: Spouse Porcelain Enamel Installer Name: CHRISTIE BRICEÑO Delivery Method: HAND - Hand Delivered Tg Days: Prior Verbal Notification: Recipient Understood Notice: Yes Recipient Signature: Yes Med Rec Note Co-signed by Attending: Coverage Notice Comment: Reviewer: [id number] Dez Skinner Notice Issued Date-Time: 04/27/2019 9:05 Notice Type: Patient Choice Letter Notice Delivered To: Patient Relationship to Patient: Porcelain Enamel Installer Name: Delivery Method: HAND - Hand Delivered Tg Days: Prior Verbal Notification: Recipient Understood Notice: Yes Recipient Signature: Yes Med Rec Note Co-signed by Attending: Coverage Notice Comment: SANDEEP GAGE export: 04/28/19 7:48 a Patient Name: SHAYNE BRICEÑO Page [phone] at 0907 All edits/amendments must be made on the electronic document DICTATION DATE: 04/28/19905 LINE UP MACHINE OPERATOR: LENIN 04/28/19905 RPT#: [id number] DC DATE: STATUS: ADM IN [facility] [address] [place] [address] END OF REPORT
--- NOTE | 2019-04-28 10:02 | NUR ---
ADMINISTERED MORNING MEDICATION AT THIS TIME VIA PEG TUBE. FLUSHED BEFORE AND AFTER WITH 60 CC'S OF WATER. NO TROUBLE FLUSHING. HUNG IV ANTIBIOTIC. PT IS UPRIGHT IN BEDSIDE CHAIR, EATING BREAKFAST. REQUESTED TO GO BACK TO BED, PHYSICAL THERAPY INFORMED. DENIES OTHER NEEDS. WILL CTM.
--- NOTE | 2019-04-28 12:10 | NUR ---
ADMINISTERED MEDICATION VIA PEG TUBE, PRN POTASSIUM FOR POTASSIUM OF 3.5. AT BEDSIDE, STUDENT NURSES AT BEDSIDE. DENIES ANY NEEDS AT THIS TIME. WILL CTM.
[2019-04-28 12:30] VITALS: BP 119/59
--- NOTE | 2019-04-28 15:58 | NUR ---
ADMINISTERED MEDICATION VIA PEG TUBE, FLUSHED WITH 60 CC'S BEFORE AND AFTER. NO TROUBLE FLUSHING. ASSESSED BLOOD SUGAR NO INSULIN NEEDED FOR READING OF 130. DENIES ANY NEEDS. RESTING COMFORTABLY IN BED, AT BEDSIDE. WILL CTM.
--- NOTE | 2019-04-28 16:37 | NUR ---
I have reviewed this patient and I concur with the Shift Assessment completed by the Licensed Practical Nurse today this shift.
[2019-04-28 16:40] VITALS: BP 127/64
--- NOTE | 2019-04-28 17:43 | NUR ---
ADMINISTERED MEDICATION VIA PEG TUBE, FLUSHED BEFORE AND AFTER WITH 60 CC'S, NO TROUBLE FLUSHING. HUNG BAG OF IV IRON. PT IS RESTING COMFORTABLY WITH EYES CLOSED, BREATHING EVEN AND NONLABORED, NO S/S OF DISTRESS NOTED. WILL CTM.
--- NOTE | 2019-04-28 19:20 | NUR ---
OBSERVING CONTACT ISOLATION PT AWAKE WITH VISITER PRESENT AND SHE IS FULLY DAWNED IN PPE LCTA SKIN WARM AND DRY BOWEL SOUNDS X4 AND BED IS LOW I GAVE CALL LIGHT TO PT HE HAS SHOWED ABILITY TO USE IN THE PAST
[2019-04-28 20:00] VITALS: BP 120/63
[2019-04-29 00:32] VITALS: BP 148/85
--- NOTE | 2019-04-29 03:51 | NUR ---
I have reviewed this patient and I concur with the Shift Assessment completed by the Licensed Practical Nurse today this shift.
[2019-04-29 04:00] VITALS: BP 155/99
[2019-04-29 04:39] LABS: BASOPHILS 0.4 % (0-2); EOSINOPHILS 1.6 % (0-7); HEMATOCRIT 29.3 % (42.0-54.0); HEMOGLOBIN 9.8 g/dL (13.5-17.5); IMMATURE GRANULOCYTES 0.7 % (0-5); LYMPHOCYTES 29.3 % (15-50); MCH 29.4 pg (26.0-34.0); MCHC 33.4 g/dL (31.0-37.0); PLATELET COUNT 199 10x3/uL (130-400); RBC 3.33 10x6/uL (4.20-6.10); RDW 15.4 % (11.5-14.5)
[2019-04-29 04:51] LABS: WBC 6.7 10x3/uL (4.8-10.8)
[2019-04-29 05:06] LABS: ALBUMIN 2.6 g/dL (3.4-5.0); ALKALINE PHOSPHATASE 54 U/L (46-116); ALT (SGPT) 24 U/L (10-68); BILIRUBIN - TOTAL 0.45 mg/dL (0.2-1.3); CALCIUM 8.2 mg/dL (8.5-10.1); CARBON DIOXIDE 25.2 mmol/L (21.0-32.0); CHLORIDE - SERUM 106 mmol/L (98-107); CREATININE - SERUM 0.6 mg/dL (0.6-1.3); POTASSIUM - SERUM 3.5 mmol/L (3.5-5.1); PROTEIN - SERUM 5.5 g/dL (6.4-8.2); SODIUM 138 mmol/L (136-145); UREA NITROGEN 10 mg/dL (7-18); eGFR NON AFRICAN AMERICAN > 90 mL/min (90-120)
[2019-04-29 05:14] LABS: CALC OSMOLALITY 274 mosm/kg (275-300); GLUCOSE 90 mg/dL (74-106)
--- NOTE | 2019-04-29 06:52 | MORECARE ---
CASE MANAGEMENT DISCHARGE SUMMARY PATIENT: SHAYNE BRICEÑO UNIT: [id number] ADM DATE: 04/22/19 AGE: 73 : 46 SEX: M ROOM/BED: D.211 AUTHOR: JAYRO,DOC PHYSICIAN: REFERRING PHYSICIAN: KHOI SPAIN MD DATE OF SERVICE: 04/29/19 Discharge Plan Patient Name: SHAYNE BRICEÑO Facility: [facility]:[place] : 1945 Planned Disposition: Inpatient Rehab Anticipated Discharge Date: Discharge Date: Expected LOS: Initial Reviewer: [id number] Initial Review Date: 04/27/2019 Generated: 04/29/19 7:52 am DCP- Discharge Planning Updated by [email or web address]: Geovanni Skinner on 04/28/19 8:[address] Patient Name: SHAYNE BRICEÑO Encounter No: [id number] : 1945 Primary Insurance: HUMANA CHOICE PPO [facility] ADVANT Anticipated DC Date: Planned Disposition: Inpatient Rehab External Planned Provider[facility] Discharge Planning Comments: CM CALLED [facility], , PROVIDED REFERRAL FOR INPATIENT REHAB SERVICES. CM FAXED REFERRAL TO [facility] AT [phone]. CM WAITING OT EVALUATION AND WILL FAX TO [facility] SOON DOCUMENTED IN CHART. PATIENT WILL REQUIRE INSURANCE AUTHORIZATION FOR INPATIENT REHAB SERVICES. Electronic Die Maker: Geovanni Skinner DCP- Discharge Planning Updated by [id number]: Geovanni Skinner on 04/27/19 3:[address] Patient Name: SHAYNE BRICEÑO Admission Status: ER Accout number: [id number] Admission Date: 04-22-2019 : 1945 Admission Diagnosis:EDEMA, UNSPECIFIED Attending: KHOI SPAIN Current LOS: 5 Anticipated DC Date: Planned Disposition: Inpatient Rehab Primary Insurance: HUMANA CHOICE PPO MCR ADVANT PLANNED EXTERNAL PROVIDER: [facility] Discharge Planning Comments: CM MET WITH PT IN ROOM TO DISCUSS DISCHARGE PLANNING AND NEEDS. PT STATES HE WAS AT [facility] FOR REHAB AND MAY BE RETURNING THERE. CHOICE SIGNED. PT REQUESTED CM SPEAK TO HIS . CM LATER MET WITH PT'S WHO REPORTS THAT SHE WOULD LIKE PT CONSIDERED FOR INPATIENT REHAB AT [facility] IN [place]; SHE HAS DISCUSSED THIS WITH STAVE CUTTING SUPERVISOR AT [facility] AND SHE HOPES THIS LEVEL OF REHAB WILL BE APPROVED FOR PATIENT. IMPORTANT MESSAGE FROM MEDICARE PROVIDED AND EXPLAINED. CM TO CONTACT [facility] [place], SOON POSSIBLE AND PROVIDE REFERRAL FOR INPATIENT REHAB SERVICES. PT WILL REQUIRE INSURANCE AUTHORIZATION FOR SERVICES. Electronic Die Maker: Geovanni Skinner DCPIA - Discharge Planning Initial Assessment Updated by HERMILO: Geovanni Skinner on 04/27/19 4:53 pm * Is the patient Alert and Oriented? Yes * How many steps to enter\exit or inside your home? * PCP DR. LOCO * Pharmacy [facility] * Preadmission Environment Snf Facility * Facility Name [facility] * ADLs Partial Dependent * Partial ADLs (Assistance needed) Ambulation Bathing Dressing Medication Management Toileting Transfers * Equipment None * Other Equipment NO MEDICAL EQUIPMENT PROVIDER PREFERENCE * List name and contact numbers for known caregivers / representatives who currently or will assist patient after discharge: CHRISTIE BRICEÑO, SPOUSE, * Verbal permission to speak to the caregivers and representatives has been obtained from the patient. Yes * Community resources currently utilized None * Please name any agencies selected above. NONE * Additional services required to return to the preadmission environment? No * Can the patient safely return to the preadmission environment? Yes * Has this patient been hospitalized within the prior 30 days at any hospital? Yes Coverage Notice Reviewer: [id number] Dez Skinner Notice Issued Date-Time: 04/27/2019 14:40 Notice Type: IM Discharge Notice Notice Delivered To: Family Member Relationship to Patient: Spouse Entomology Teacher Name: CHRISTIE BRICEÑO Delivery Method: HAND - Hand Delivered Tg Days: Prior Verbal Notification: Recipient Understood Notice: Yes Recipient Signature: Yes Med Rec Note Co-signed by Attending: Coverage Notice Comment: Reviewer: [id number] Dez Skinner Notice Issued Date-Time: 04/27/2019 9:05 Notice Type: Patient Choice Letter Notice Delivered To: Patient Relationship to Patient: Entomology Teacher Name: Delivery Method: HAND - Hand Delivered Tg Days: Prior Verbal Notification: Recipient Understood Notice: Yes Recipient Signature: Yes Med Rec Note Co-signed by Attending: Coverage Notice Comment: SANDEEP GAGE export: 04/28/19 8:07 a Patient Name: SHAYNE BRICEÑO Page [phone] at 0652 All edits/amendments must be made on the electronic document DICTATION DATE: 04/29/19651 ENERGY ANALYST: LENIN 04/29/19651 RPT#: [id number] DC DATE: STATUS: ADM IN [address] [place] [address] END OF REPORT
--- NOTE | 2019-04-29 07:05 | MORECARE ---
CASE MANAGEMENT DISCHARGE SUMMARY PATIENT: SHAYNE BRICEÑO UNIT: [id number] ADM DATE: 04/22/19 AGE: 73 : 46 SEX: M ROOM/BED: D.2111 AUTHOR: JAYRO,DOC PHYSICIAN: REFERRING PHYSICIAN: KHOI SPAIN MD DATE OF SERVICE: 04/29/19 Discharge Plan Patient Name: SHAYNE BRICEÑO Facility: [facility]:[place] : 1945 Planned Disposition: Inpatient Rehab Anticipated Discharge Date: Discharge Date: Expected LOS: Initial Reviewer: [id number] Initial Review Date: 04/27/2019 Generated: 04/29/19 8:05 am Comments DCP- Discharge Planning Updated by [email or web address]: Geovanni Skinner on 04/29/19 6:[address] Patient Name: SHAYNE BRICEÑO Encounter No: [id number] : 1945 Primary Insurance: HUMANA CHOICE PPO [facility] ADVANT Anticipated DC Date: Planned Disposition: Inpatient Rehab External Planned Provider: [facility] INPATIENT [facility] Discharge Planning Comments: CM FAXED REFERRAL UPDATE WITH OCCUPATIONAL THERAPY EVALUATION TO [facility] AT [phone]. CM WAITING ADMISSION DETERMINATION WELL INSURANCE AUTHORIZATION FOR INPATIENT REHAB SERVICES AT [facility]. Green Building Materials Distributor: Geovanni Skinner DCP- Discharge Planning Updated by [id number]: Geovanni Skinner on 04/28/19 8:[address] Patient Name: SHAYNE BRICEÑO Encounter No: [id number] : 1945 Primary Insurance: HUMANA CHOICE PPO [facility] ADVANT Anticipated DC Date: Planned Disposition: Inpatient Rehab External Planned Provider: [facility] Discharge Planning Comments: CM CALLED [facility], , PROVIDED REFERRAL FOR INPATIENT REHAB SERVICES. CM FAXED REFERRAL TO [facility] AT [phone]. CM WAITING OT EVALUATION AND WILL FAX TO [facility] SOON DOCUMENTED IN CHART. PATIENT WILL REQUIRE INSURANCE AUTHORIZATION FOR INPATIENT REHAB SERVICES. Green Building Materials Distributor: Geovanni Skinner DCP- Discharge Planning Updated by [email or web address]: Geovanni Skinner on 04/27/19 3:[address] Patient Name: SHAYNE BRICEÑO Admission Status: ER Accout number: [id number] Admission Date: 04-22-2019 : 1945 Admission Diagnosis:EDEMA, UNSPECIFIED Attending: KHOI SPAIN Current LOS: 5 Anticipated DC Date: Planned Disposition: Inpatient Rehab Primary Insurance: [employer] CHOICE PPO MCR ADVANT PLANNED EXTERNAL PROVIDER: [facility] [place] Discharge Planning Comments: CM MET WITH PT IN ROOM TO DISCUSS DISCHARGE PLANNING AND NEEDS. PT STATES HE WAS AT [facility] FOR REHAB AND MAY BE RETURNING THERE. CHOICE SIGNED. PT REQUESTED CM SPEAK TO HIS . CM LATER MET WITH PT'S WHO REPORTS THAT SHE WOULD LIKE PT CONSIDERED FOR INPATIENT REHAB AT [facility] [place]; SHE HAS DISCUSSED THIS WITH CRYPTOLOGIC SUPERVISOR AT [facility] AND SHE HOPES THIS LEVEL OF REHAB WILL BE APPROVED FOR PATIENT. IMPORTANT MESSAGE FROM MEDICARE PROVIDED AND EXPLAINED. CM TO CONTACT [facility] INPATIENT [facility], [place], SOON POSSIBLE AND PROVIDE REFERRAL FOR INPATIENT REHAB SERVICES. PT WILL REQUIRE INSURANCE AUTHORIZATION FOR SERVICES. Green Building Materials Distributor: Ge[facility] Skinner [facility] - Discharge Planning Initial Assessment Updated by [id number]: Geovanni Skinner on 04/27/19 4:53 pm * Is the patient Alert and Oriented? Yes * How many steps to enter\exit or inside your home? * PCP DR. LOCO * Pharmacy [facility] * Preadmission Environment Senior Care Facility * Facility Name [facility] * ADLs Partial Dependent * Partial ADLs (Assistance needed) Ambulation Bathing Dressing Medication Management Toileting Transfers * Equipment None * Other Equipment NO MEDICAL EQUIPMENT PROVIDER PREFERENCE * List name and contact numbers for known caregivers / representatives who currently or will assist patient after discharge: CHRISTIE BRICEÑO, SPOUSE, * Verbal permission to speak to the caregivers and representatives has been obtained from the patient. Yes * Community resources currently utilized None * Please name any agencies selected above. NONE * Additional services required to return to the preadmission environment? No * Can the patient safely return to the preadmission environment? Yes * Has this patient been hospitalized within the prior 30 days at any hospital? Yes Coverage Notice Reviewer: [id number] - Geovanni Skinner Notice Issued Date-Time: 04/27/2019 14:40 Notice Type: IM Discharge Notice Notice Delivered To: Family Member Relationship to Patient: Spouse Planting Machine Crewman Name: CHRISTIE BRICEÑO Delivery Method: HAND - Hand Delivered Tg Days: Prior Verbal Notification: Recipient Understood Notice: Yes Recipient Signature: Yes Med Rec Note Co-signed by Attending: Coverage Notice Comment: Reviewer: [id number] Dez Skinner Notice Issued Date-Time: 04/27/2019 9:05 Notice Type: Patient Choice Letter Notice Delivered To: Patient Relationship to Patient: Planting Machine Crewman Name: Delivery Method: HAND - Hand Delivered Tg Days: Prior Verbal Notification: Recipient Understood Notice: Yes Recipient Signature: Yes Med Rec Note Co-signed by Attending: Coverage Notice Comment: SANDEEP Ledesma DP export: 04/29/19 5:52 a Patient Name: SHAYNE BRICEÑO Page [phone] at 0705 All edits/amendments must be made on the electronic document DICTATION DATE: 04/29/19703 CUSTOMER RETENTION SPECIALIST: LENIN 04/29/1904 RPT#: [id number] DC DATE: STATUS: ADM IN [facility] [address] [place] [address] END OF REPORT
--- NOTE | 2019-04-29 08:05 | NUR ---
PT RESTING IN BED. BROUGHT BREAKFAST TRAY IN. "PUT IT ON TABLE, MY WILL BE IN SHORTLY TO FEED ME". NO S/S OF ACUTE DISTRESS. CL IN PLACE.
[2019-04-29 08:50] VITALS: BP 188/91
[2019-04-29 12:21] VITALS: BP 162/87
--- NOTE | 2019-04-29 12:28 | NUR ---
Nutrition Follow-up: Swallow study done. ST recs puree with nectar thick liquids. Pt reports that he does not care for the food and is not eating much. Per Dede ELLSWORTH, pt will still need some TF to meet nutritional needs. Wt: 183# Last BM: 04/27 per chart; pt reports 4-5 days ago Labs reviewed Meds reviewed Since pt now receiving PO diet, will change TF regimen: if pt eats <50% of meal, bolus 1 can Glucerna 1.5 via PEG with 60 mL flush before and after feeding. RD following.
--- NOTE | 2019-04-29 14:35 | NUR ---
OT NOTE: PT STATING THAT HIS STOMACH HURTS ADN HE FEELS NAUSEOUS. NOTIFIED NURSING. BED MOB WITH MAX ASSIST; SIT TO STAND WITH MAX ASSIST X 2; PROM TO L UE; REPOSITIONED IN BED WITH MAX ASSIST. LOUIE JUSTICE, OTR/L
--- NOTE | 2019-04-29 15:55 | MORECARE ---
CASE MANAGEMENT DISCHARGE SUMMARY PATIENT: SHAYNE BRICEÑO UNIT: [id number] ADM DATE: 04/22/19 AGE: 73 : 46 SEX: M ROOM/BED: D.2111 AUTHOR: JAYRO,DOC PHYSICIAN: REFERRING PHYSICIAN: KHOI SPAIN MD DATE OF SERVICE: 04/29/19 Discharge Plan Patient Name: SHAYNE BRICEÑO Facility: [facility]:[place] : 1945 Planned Disposition: Inpatient Rehab Anticipated Discharge Date: Discharge Date: Expected LOS: Initial Reviewer: [id number] Initial Review Date: 04/27/2019 Generated: 04/29/19 4:54 pm DCP- Discharge Planning Updated by [email or web address]: Geovanni Skinner on 04/29/19 6:[address] Patient Name: SHAYNE BRICEÑO Encounter No: [id number] : 1945 Primary Insurance: HUMANA CHOICE PPO [facility] ADVANT Anticipated DC Date: Planned Disposition: Inpatient Rehab External Planned Provider: [facility] INPATIENT [facility] Discharge Planning Comments: CM FAXED REFERRAL UPDATE WITH OCCUPATIONAL THERAPY EVALUATION TO [facility] AT [phone]. CM WAITING ADMISSION DETERMINATION WELL INSURANCE AUTHORIZATION FOR INPATIENT REHAB SERVICES AT [facility]. Bobbin Winder: Geovanni Skinner DCP- Discharge Planning Updated by [email or web address]: Geovanni Skinner on 04/28/19 8:[address] Patient Name: SHAYNE BRICEÑO Encounter No: [id number] : 1945 Primary Insurance: HUMANA CHOICE PPO [facility] ADVANT Anticipated DC Date: Planned Disposition: Inpatient Rehab External Planned Provider: [facility] Discharge Planning Comments: CM CALLED [facility], , PROVIDED REFERRAL FOR INPATIENT REHAB SERVICES. CM FAXED REFERRAL TO [facility] AT [phone]. CM WAITING OT EVALUATION AND WILL FAX TO [facility] SOON DOCUMENTED IN CHART. PATIENT WILL REQUIRE INSURANCE AUTHORIZATION FOR INPATIENT REHAB SERVICES. Bobbin Winder: Geovanni Skinner DCP- Discharge Planning Updated by [id number]: Geovanni Skinner on 04/27/19 3:[address] Patient Name: SHAYNE BRICEÑO Admission Status: ER Accout number: [id number] Admission Date: 04-22-2019 : 1945 Admission Diagnosis:EDEMA, UNSPECIFIED Attending: KHOI SPAIN Current LOS: 5 Anticipated DC Date: Planned Disposition: Inpatient Rehab Primary Insurance: [employer] CHOICE PPO MCR ADVANT PLANNED EXTERNAL PROVIDER: [facility], [place] Discharge Planning Comments: CM MET WITH PT IN ROOM TO DISCUSS DISCHARGE PLANNING AND NEEDS. PT STATES HE WAS AT [facility] FOR REHAB AND MAY BE RETURNING THERE. CHOICE SIGNED. PT REQUESTED CM SPEAK TO HIS . CM LATER MET WITH PT'S WHO REPORTS THAT SHE WOULD LIKE PT CONSIDERED FOR INPATIENT REHAB AT [facility] IN [place]; SHE HAS DISCUSSED THIS WITH MANUFACTURING TEACHER AT [facility] AND SHE HOPES THIS LEVEL OF REHAB WILL BE APPROVED FOR PATIENT. IMPORTANT MESSAGE FROM MEDICARE PROVIDED AND EXPLAINED. CM TO CONTACT [facility] IN[facility]IENT [facility], [place], SOON POSSIBLE AND PROVIDE REFERRAL FOR INPATIENT REHAB SERVICES. PT WILL REQUIRE INSURANCE AUTHORIZATION FOR SERVICES. Bobbin Winder: Ge[facility] Skinner [facility] - Discharge Planning Initial Assessment Updated by [id number]: Geovanni Skinner on 04/27/19 4:53 pm * Is the patient Alert and Oriented? Yes * How many steps to enter\exit or inside your home? * PCP DR. LOCO * [facility] * Preadmission Environment [facility] Facility * Facility Name [facility] * ADLs Partial Dependent * Partial ADLs (Assistance needed) Ambulation Bathing Dressing Medication Management Toileting Transfers * Equipment None * Other Equipment NO MEDICAL EQUIPMENT PROVIDER PREFERENCE * List name and contact numbers for known caregivers / representatives who currently or will assist patient after discharge: CHRISTIE BRICEÑO, SPOUSE, * Verbal permission to speak to the caregivers and representatives has been obtained from the patient. Yes * Community resources currently utilized None * Please name any agencies selected above. NONE * Additional services required to return to the preadmission environment? No * Can the patient safely return to the preadmission environment? Yes * Has this patient been hospitalized within the prior 30 days at any hospital? Yes Coverage Notice Reviewer: [id number] - Geovanni Skinner Notice Issued Date-Time: 04/27/2019 14:40 Notice Type: IM Discharge Notice Notice Delivered To: Family Member Relationship to Patient: Spouse Sole Stainer Name: CHRISTIE BRICEÑO Delivery Method: HAND - Hand Delivered Tg Days: Prior Verbal Notification: Recipient Understood Notice: Yes Recipient Signature: Yes Med Rec Note Co-signed by Attending: Coverage Notice Comment: Reviewer: [id number] Dez Skinner Notice Issued Date-Time: 04/27/2019 9:05 Notice Type: Patient Choice Letter Notice Delivered To: Patient Relationship to Patient: Sole Stainer Name: Delivery Method: HAND - Hand Delivered Tg Days: Prior Verbal Notification: Recipient Understood Notice: Yes Recipient Signature: Yes Med Rec Note Co-signed by Attending: Coverage Notice Comment: SANDEEP Ledesma DP export: 04/29/19 6:05 a Patient Name: SHAYNE BRICEÑO Page [phone] at 1555 All edits/amendments must be made on the electronic document DICTATION DATE: 04/29/19 1554 EMPLOYMENT SERVICES DIRECTOR: LENIN 04/29/19 1554 RPT#: [id number] MO DATE: STATUS: ADM IN [facility] [address] [place] [address] END OF REPORT
--- NOTE | 2019-04-29 16:09 | MORECARE ---
CASE MANAGEMENT DISCHARGE SUMMARY PATIENT: SHAYNE BRICEÑO UNIT: [id number] ADM DATE: 04/22/19 AGE: 73 : 46 SEX: M ROOM/BED: D.2111 AUTHOR: JAYRO,DOC PHYSICIAN: REFERRING PHYSICIAN: KHOI SPAIN MD DATE OF SERVICE: 04/29/19 Discharge Plan Patient Name: SHAYNE BRICEÑO Facility: [facility]:[place] : 1945 Planned Disposition: Inpatient Rehab Anticipated Discharge Date: Discharge Date: Expected LOS: Initial Reviewer: [id number] Initial Review Date: 04/27/2019 Generated: 04/29/19 5:09 pm Comments DCP- Discharge Planning Updated by [id number]: Geovanni Skinner on 04/29/19 3:[address] Patient Name: SHAYNE BRICEÑO Encounter No: [id number] : 1945 Primary Insurance: HUMANA CHOICE PPO MCR ADVANT Anticipated DC Date: Planned Disposition: Inpatient Rehab External Planned Provider: [facility] DCP follow-up note: CM RECEIVED PHONE MESSAGE FROM ALEC OF [facility] [employer], , EXTENSION [phone], WHO INFORMED CM THAT PT HAS BEEN DECLINED FOR INPATIENT REHAB WITH RECOMMENDATION FOR [facility]. CM NOTIFIED JODEE SANZ WHO WILL DISCUSS WITH PHYSICIAN. IF PEER TO PEER REVIEW IS DESIRED, IT CAN BE ARRANGED PRIOR TO 05-05-19, BY CALLING [employer] AT . Geovanni Skinner, CASE DEANN DCP- Discharge Planning Updated by [id number]: Geovanni Skinner on 04/29/19 6:[address] Patient Name: SHAYNE BRICEÑO Encounter No: [id number] : 1945 Primary Insurance: HUMANA CHOICE PPO MCR ADVANT Anticipated DC Date: Planned Disposition: Inpatient Rehab External Planned Provider: [facility] Discharge Planning Comments: CM FAXED REFERRAL UPDATE WITH OCCUPATIONAL THERAPY EVALUATION TO [facility] AT [phone]. CM WAITING ADMISSION DETERMINATION WELL INSURANCE AUTHORIZATION FOR INPATIENT REHAB SERVICES AT [facility]. Roving Changer: Geovanni Skinner DCP- Discharge Planning Updated by [id number]: Geovanni Skinner on 04/28/19 8:[address] Patient Name: SHAYNE BRICEÑO Encounter No: [id number] : 1945 Primary Insurance: HUMANA CHOICE PPO MCR ADVANT Anticipated DC Date: Planned Disposition: Inpatient Rehab External Planned Provider[facility] Discharge Planning Comments: CM CALLED [facility], , PROVIDED REFERRAL FOR INPATIENT REHAB SERVICES. CM FAXED REFERRAL TO [facility] AT [phone]. CM WAITING OT EVALUATION AND WILL FAX TO [facility] SOON DOCUMENTED IN CHART. PATIENT WILL REQUIRE INSURANCE AUTHORIZATION FOR INPATIENT REHAB SERVICES. Roving Changer: Geovanni Skinner DCP- Discharge Planning Updated by [email or web address]: Geovanni Skinner on 04/27/19 3:[address] Patient Name: SHAYNE BRICEÑO Admission Status: ER Accout number: [id number] Admission Date: 04-22-2019 : 1945 Admission Diagnosis:EDEMA, UNSPECIFIED Attending: KHOI SPAIN Current LOS: 5 Anticipated DC Date: Planned Disposition: Inpatient Rehab Primary Insurance: HUMANA CHOICE PPO MCR ADVANT PLANNED EXTERNAL PROVIDER[facility] Discharge Planning Comments: CM MET WITH PT IN ROOM TO DISCUSS DISCHARGE PLANNING AND NEEDS. PT STATES HE WAS AT [facility] FOR REHAB AND MAY BE RETURNING THERE. CHOICE SIGNED. PT REQUESTED CM SPEAK TO HIS . CM LATER MET WITH PT'S WHO REPORTS THAT SHE WOULD LIKE PT CONSIDERED FOR INPATIENT REHAB AT [facility] IN [place]; SHE HAS DISCUSSED THIS WITH FIRE INVESTIGATION LIEUTENANT AT [facility] AND SHE HOPES THIS LEVEL OF REHAB WILL BE APPROVED FOR PATIENT. IMPORTANT MESSAGE FROM MEDICARE PROVIDED AND EXPLAINED. CM TO CONTACT [facility] AND PROVIDE REFERRAL FOR INPATIENT REHAB SERVICES. PT WILL REQUIRE INSURANCE AUTHORIZATION FOR SERVICES. Roving Changer: Geovanni Skinner DCPIA - Discharge Planning Initial Assessment Updated by [id number]: Geovanni Skinner on 04/27/19 4:53 pm * Is the patient Alert and Oriented? Yes * How many steps to enter\exit or inside your home? * PCP DR. LOCO * Pharmacy [facility] [address] * Preadmission Environment [facility] Facility * Facility Name [facility] * ADLs Partial Dependent * Partial ADLs (Assistance needed) Ambulation Bathing Dressing Medication Management Toileting Transfers * Equipment None * Other Equipment NO MEDICAL EQUIPMENT PROVIDER PREFERENCE * List name and contact numbers for known caregivers / representatives who currently or will assist patient after discharge: CHRISTIE BRICEÑO, SPOUSE, * Verbal permission to speak to the caregivers and representatives has been obtained from the patient. Yes * Community resources currently utilized None * Please name any agencies selected above. NONE * Additional services required to return to the preadmission environment? No * Can the patient safely return to the preadmission environment? Yes * Has this patient been hospitalized within the prior 30 days at any hospital? Yes Coverage Notice Reviewer: [id number] Skinner Notice Issued Date-Time: 04/27/2019 14:40 Notice Type: IM Discharge Notice Notice Delivered To: Family Member Relationship to Patient: Spouse Piggyback Clerk Name: CHRITSIE BRICEÑO Delivery Method: HAND - Hand Delivered Tg Days: Prior Verbal Notification: Recipient Understood Notice: Yes Recipient Signature: Yes Med Rec Note Co-signed by Attending: Coverage Notice Comment: Reviewer: HERMILO Skinner Notice Issued Date-Time: 04/27/2019 9:05 Notice Type: Patient Choice Letter Notice Delivered To: Patient Relationship to Patient: Piggyback Clerk Name: Delivery Method: HAND - Hand Delivered Tg Days: Prior Verbal Notification: Recipient Understood Notice: Yes Recipient Signature: Yes Med Rec Note Co-signed by Attending: Coverage Notice Comment: SANDEEP Ledesma DP export: 04/29/19 2:55 p Patient Name: SHAYNE BRICEÑO Page [id number] at 1609 All edits/amendments must be made on the electronic document DICTATION DATE: 04/29/19 160 FIELD CASHIER: LENIN 04/29/19 160 RPT#: [id number] [place] DATE: STATUS: ADM IN [facility] [address] [place] [address] END OF REPORT
[2019-04-29 16:50] VITALS: BP 114/55
--- NOTE | 2019-04-29 18:59 | NUR ---
PT RESTING IN BED. DC IV IN R FA AND R AC. RESITED 22G TO R FA. NS @100ML/HR. IV PATENT. NO S/S OF ACUTE DISTRESS. CL IN PLACE.
--- NOTE | 2019-04-29 19:27 | NUR ---
RECEIVED REPORT, WILL ASSUME CARE OF PT, SLEEPING NO DISTRESS NOTICED AT THIS TIME, BED IS LOW, SRX2, CALL LIGHT IN REACH, BED ALARM IS ON, WILL CONTINUE PLAN OF CARE
[2019-04-29 20:00] VITALS: BP 122/58
--- NOTE | 2019-04-29 22:03 | NUR ---
COMPLAINS OF BACK PAIN, GAVE NORCO ORDER
[2019-04-30 00:08] VITALS: BP 114/52
[2019-04-30 04:00] VITALS: BP 154/79
[2019-04-30 04:58] LABS: BASOPHILS 0.4 % (0-2); EOSINOPHILS 1.9 % (0-7); HEMOGLOBIN 10.2 g/dL (13.5-17.5); IMMATURE GRANULOCYTES 0.6 % (0-5); LYMPHOCYTES 30.4 % (15-50); MCH 29.8 pg (26.0-34.0); MCV 87.7 fL (80.0-100.0); MEAN PLATELET VOLUME 8.9 fL (7.4-10.4); MONOCYTES 11.4 % (2-11); NEUTROPHILS 55.3 % (40-80); PLATELET COUNT 186 10x3/uL (130-400); RBC 3.42 10x6/uL (4.20-6.10); RDW 15.4 % (11.5-14.5); WBC 6.9 10x3/uL (4.8-10.8)
[2019-04-30 05:32] LABS: ALBUMIN 2.7 g/dL (3.4-5.0); ALKALINE PHOSPHATASE 59 U/L (46-116); ALT (SGPT) 28 U/L (10-68); BILIRUBIN - TOTAL 0.28 mg/dL (0.2-1.3); CALC OSMOLALITY 280 mosm/kg (275-300); CALCIUM 8.3 mg/dL (8.5-10.1); CHLORIDE - SERUM 104 mmol/L (98-107); CREATININE - SERUM 0.7 mg/dL (0.6-1.3); GLUCOSE 108 mg/dL (74-106); POTASSIUM - SERUM 3.5 mmol/L (3.5-5.1); PROTEIN - SERUM 5.6 g/dL (6.4-8.2); SODIUM 140 mmol/L (136-145); eGFR NON AFRICAN AMERICAN > 90 mL/min (90-120)
[2019-04-30 05:36] LABS: UREA NITROGEN 14 mg/dL (7-18)
--- NOTE | 2019-04-30 05:48 | NUR ---
I have reviewed this patient and I concur with the Shift Assessment completed by the Licensed Practical Nurse today this shift.
--- NOTE | 2019-04-30 07:53 | NUR ---
PT RESTING PEACEFULLY, BREATHS EVEN/REGULAR/UNLABORED. NO SIGNS/SYMPTOMS OF ACUTE DISTRESS NOTED AT THIS TIME. NO FFAMILY PRESENT AT BEDSIDE. DID NOT FURTHER DISTURB. CL IN REACH, SRX2.
[2019-04-30 09:36] VITALS: BP 169/84
[2019-04-30 13:42] VITALS: BP 137/70
[2019-04-30 18:25] VITALS: BP 178/56
--- NOTE | 2019-04-30 19:10 | NUR ---
RECEIVED REPORT, WILL ASSUME CARE OF PT, ROBERT HILL IN ROOM CLEANING PT UP, BED IS LOW, SRX2, CALL LIGHT IN REACH, WILL CONTINUE PLAN OF CARE
[2019-04-30 20:00] VITALS: BP 147/75
[2019-05-01] VITALS: BP 152/65
--- NOTE | 2019-05-01 02:13 | NUR ---
I have reviewed this patient and I concur with the Shift Assessment completed by the Licensed Practical Nurse today this shift.
[2019-05-01 04:00] VITALS: BP 154/76
[2019-05-01 04:52] LABS: BASOPHILS 0.4 % (0-2); EOSINOPHILS 2.2 % (0-7); HEMATOCRIT 29.4 % (42.0-54.0); HEMOGLOBIN 9.8 g/dL (13.5-17.5); IMMATURE GRANULOCYTES 0.4 % (0-5); LYMPHOCYTES 31.2 % (15-50); MCH 29.3 pg (26.0-34.0); MCHC 33.3 g/dL (31.0-37.0); MCV 87.8 fL (80.0-100.0); MEAN PLATELET VOLUME 8.7 fL (7.4-10.4); MONOCYTES 10.2 % (2-11); NEUTROPHILS 55.6 % (40-80); PLATELET COUNT 174 10x3/uL (130-400); RBC 3.35 10x6/uL (4.20-6.10); RDW 15.2 % (11.5-14.5); WBC 6.9 10x3/uL (4.8-10.8)
[2019-05-01 05:15] LABS: ALBUMIN 2.7 g/dL (3.4-5.0); ALKALINE PHOSPHATASE 58 U/L (46-116); ALT (SGPT) 31 U/L (10-68); BILIRUBIN - TOTAL 0.31 mg/dL (0.2-1.3); CALC OSMOLALITY 279 mosm/kg (275-300); CALCIUM 8.4 mg/dL (8.5-10.1); CARBON DIOXIDE 28.1 mmol/L (21.0-32.0); CHLORIDE - SERUM 104 mmol/L (98-107); CREATININE - SERUM 0.7 mg/dL (0.6-1.3); GLUCOSE 106 mg/dL (74-106); POTASSIUM - SERUM 3.4 mmol/L (3.5-5.1); PROTEIN - SERUM 5.6 g/dL (6.4-8.2); SODIUM 140 mmol/L (136-145); UREA NITROGEN 14 mg/dL (7-18); eGFR NON AFRICAN AMERICAN > 90 mL/min (90-120)
--- NOTE | 2019-05-01 07:45 | NUR ---
PT AWAKE AND ORIENTED, SLOW TO RESPOND BUT NOT OUTSIDE THE PTS NORMAL. STATES HE'S HAPPY WITH THE TRAPIZE BAR AND HAS BEEN USING IT SUCCESSFULLY. NO COMPLAINTS, CONCERNS, OR QUESTIONS. NO FAMILY PRESENT AT BEDSIDE AT THIS TIME. CL IN REACH, SRX2.
[2019-05-01 13:47] VITALS: BP 108/54
[2019-05-01 17:13] VITALS: BP 138/64
--- NOTE | 2019-05-01 18:50 | NUR ---
PT RESITNG PEACEFULLY. CLEANED AND DRIED. NO COMPLAINTS/CONCERNS VOICED AT THSI TIME. NO FAMILY PRESENT. CL IN REACH, SRX2.
--- NOTE | 2019-05-01 19:15 | NUR ---
RECEIVED REPORT, WILL ASSUME CARE OF PT, PT IS SLEEPING, NO DISTRESS NOTICED AT THIS TIME, BED IS LOW, SRX2, CALL LIGHT IN REACH, WILL CONTINUE PLAN OF CARE
[2019-05-01 20:00] VITALS: BP 146/72
[2019-05-02] VITALS (7 sets, daily range): BP systolic 123–162; BP diastolic 56–864
--- NOTE | 2019-05-02 00:46 | NUR ---
I have reviewed this patient and I concur with the Shift Assessment completed by the Licensed Practical Nurse today this shift.
[2019-05-02 05:23] LABS: BASOPHILS 0.7 % (0-2); EOSINOPHILS 2.3 % (0-7); HEMATOCRIT 27.1 % (42.0-54.0); HEMOGLOBIN 9.1 g/dL (13.5-17.5); IMMATURE GRANULOCYTES 0.3 % (0-5); LYMPHOCYTES 34.5 % (15-50); MCH 29.6 pg (26.0-34.0); MCHC 33.6 g/dL (31.0-37.0); MCV 88.3 fL (80.0-100.0); MEAN PLATELET VOLUME 9.4 fL (7.4-10.4); MONOCYTES 9.7 % (2-11); NEUTROPHILS 52.5 % (40-80); PLATELET COUNT 168 10x3/uL (130-400); RBC 3.07 10x6/uL (4.20-6.10); RDW 15.4 % (11.5-14.5); WBC 5.8 10x3/uL (4.8-10.8)
[2019-05-02 05:47] LABS: ALBUMIN 2.5 g/dL (3.4-5.0); ALKALINE PHOSPHATASE 52 U/L (46-116); ALT (SGPT) 29 U/L (10-68); BILIRUBIN - TOTAL 0.31 mg/dL (0.2-1.3); CALC OSMOLALITY 280 mosm/kg (275-300); CALCIUM 8.2 mg/dL (8.5-10.1); CARBON DIOXIDE 28.2 mmol/L (21.0-32.0); CHLORIDE - SERUM 105 mmol/L (98-107); CREATININE - SERUM 0.7 mg/dL (0.6-1.3); GLUCOSE 87 mg/dL (74-106); POTASSIUM - SERUM 3.1 mmol/L (3.5-5.1); PROTEIN - SERUM 5.5 g/dL (6.4-8.2); SODIUM 141 mmol/L (136-145); UREA NITROGEN 14 mg/dL (7-18); eGFR NON AFRICAN AMERICAN > 90 mL/min (90-120)
--- NOTE | 2019-05-02 07:22 | NUR ---
PT RESTING PEACEFULLY WHEN I ENTERED, NO FAMILY PRESENT AT BEDSIDE. BREATHS EVEN, REGULAR, UNLABORED, NO SIGNS/SYMPTOMS OF ACUTE DISTRESS NOTED AT THIS TIME. CL IN REACH, SRX2, CHANGED I/V BAG. TRAPEZE IN PLACE.
--- NOTE | 2019-05-02 08:30 | MORECARE ---
CASE MANAGEMENT DISCHARGE SUMMARY PATIENT: SHAYNE BRICEÑO UNIT: [id number] ADM DATE: 04/22/19 AGE: 73 : 46 SEX: M ROOM/BED: D.2111 AUTHOR: JAYRO,DOC PHYSICIAN: REFERRING PHYSICIAN: KHOI SPAIN MD DATE OF SERVICE: 05/02/19 Discharge Plan Patient Name: SHAYNE BRICEÑO Facility: [facility]:[place] : 1945 Planned Disposition: Nursing Home Facility Anticipated Discharge Date: Discharge Date: Expected LOS: Initial Reviewer: [id number] Initial Review Date: 04/27/2019 Generated: 05/02/19 9:30 am Comments DCP- Discharge Planning Updated by [email or web address]: Geovanni Skinner on 05/02/19 7:[address] Patient Name: SHAYNE BRICEÑO Encounter No: [id number] : 1945 Primary Insurance: HUMANA CHOICE PPO MCR ADVANT Anticipated DC Date: Planned Disposition: Nursing Home Facility External Planned Provider: : DCP follow-up note: PT HAS BEEN DECLINED ON 04-29-19 BY INSURANCE FOR INPATIENT REHAB WITH RECOMMENDATION FOR DETENTION REHAB. CM FAXED UPDATE TO [facility] FOR POSSIBLE RETURN TO DETENTION REHAB IF PHYSICIAN AGREES WITH INSURANCE DETERMINATION. IF PEER TO PEER REVIEW IS DESIRED, IT CAN BE ARRANGED PRIOR TO 05-05-19, BY CALLING [employer] AT . Geovanni Skinner, BENIGNO MANAGEMENT DCP- Discharge Planning Updated by [id number]: Geovanni Skinner on 04/29/19 3:[address] Patient Name: SHAYNE BRICEÑO Encounter No: [id number] : 1945 Primary Insurance: HUMANA CHOICE PPO MCR ADVANT Anticipated DC Date: Planned Disposition: Inpatient Rehab External [facility] DCP follow-up note: CM RECEIVED PHONE MESSAGE FROM [facility] OF [employer], , EXTENSION [phone], WHO INFORMED CM THAT PT HAS BEEN DECLINED FOR INPATIENT REHAB WITH RECOMMENDATION FOR [facility]ENTION REHAB. CM NOTIFIED JODEE SANZ WHO WILL DISCUSS WITH PHYSICIAN. IF PEER TO PEER REVIEW IS DESIRED, IT CAN BE ARRANGED PRIOR TO 05-05-19, BY CALLING [facility] AT . BENIGNO Layton MANAGEMENT DCP- Discharge Planning Updated by [id number]: Geovanni Skinner on 04/29/19 6:[address] Patient Name: SHAYNE BRICEÑO Encounter No: [id number] : 1945 Primary Insurance: HUMANA CHOICE PPO MCR ADVANT Anticipated DC Date: Planned Disposition: Inpatient Rehab External Planned Provider[facility] Discharge Planning Comments: CM FAXED REFERRAL UPDATE WITH OCCUPATIONAL THERAPY EVALUATION TO [facility] AT [phone]. CM WAITING ADMISSION DETERMINATION WELL INSURANCE AUTHORIZATION FOR INPATIENT REHAB SERVICES AT [facility]. Management Scientist: Geovanni Skinner DCP- Discharge Planning Updated by [id number]: Geovanni Skinner on 04/28/19 8:[address] Patient Name: SHAYNE BRICEÑO Encounter No: [id number] : 1945 Primary Insurance: HUMANA CHOICE PPO [facility] ADVANT Anticipated DC Date: Planned Disposition: Inpatient Rehab External Planned Provider: [facility] Discharge Planning Comments: CM CALLED [facility], , PROVIDED REFERRAL FOR INPATIENT REHAB SERVICES. CM FAXED REFERRAL TO [facility] AT [phone]. CM WAITING OT EVALUATION AND WILL FAX TO [facility] SOON DOCUMENTED IN CHART. PATIENT WILL REQUIRE INSURANCE AUTHORIZATION FOR INPATIENT REHAB SERVICES. Management Scientist: Geovanni Skinner DCP- Discharge Planning Updated by [id number]: Geovanni Skinner on 04/27/19 3:[address] Patient Name: SHAYNE BRICEÑO Admission Status: ER Accout number: [id number] Admission Date: 04-22-2019 : 1945 Admission Diagnosis:EDEMA, UNSPECIFIED Attending: KHOI SPAIN Current LOS: 5 Anticipated DC Date: Planned Disposition: Inpatient Rehab Primary Insurance: HUMANA CHOICE PPO MCR ADVANT PLANNED EXTERNAL PROVIDER: [facility] Discharge Planning Comments: CM MET WITH PT IN ROOM TO DISCUSS DISCHARGE PLANNING AND NEEDS. PT STATES HE WAS AT [facility] FOR REHAB AND MAY BE RETURNING THERE. CHOICE SIGNED. PT REQUESTED CM SPEAK TO HIS . CM LATER MET WITH PT'S WHO REPORTS THAT SHE WOULD LIKE PT CONSIDERED FOR INPATIENT REHAB AT [facility] IN [place]; SHE HAS DISCUSSED THIS WITH PROCESS PLANT OPERATOR AT [facility] AND SHE HOPES THIS LEVEL OF REHAB WILL BE APPROVED FOR PATIENT. IMPORTANT MESSAGE FROM MEDICARE PROVIDED AND EXPLAINED. CM TO CONTACT [facility] INPATIENT REHAB, [place], SOON POSSIBLE AND PROVIDE REFERRAL FOR INPATIENT REHAB SERVICES. PT WILL REQUIRE INSURANCE AUTHORIZATION FOR SERVICES. Management Scientist: Geovanni Skinner DCPIA - Discharge Planning Initial Assessment Updated by [id number]: Geovanni Skinner on 04/27/19 4:53 pm * Is the patient Alert and Oriented? Yes * How many steps to enter\exit or inside your home? * PCP DR. LCOO * [facility] * Preadmission Environment Nursing Home Facility * Facility Name [facility] * ADLs Partial Dependent * Partial ADLs (Assistance needed) Ambulation Bathing Dressing Medication Management Toileting Transfers * Equipment None * Other Equipment NO MEDICAL EQUIPMENT PROVIDER PREFERENCE * List name and contact numbers for known caregivers / representatives who currently or will assist patient after discharge: CHRISTIE BRICEÑO, SPOUSE, * Verbal permission to speak to the caregivers and representatives has been obtained from the patient. Yes * Community resources currently utilized None * Please name any agencies selected above. NONE * Additional services required to return to the preadmission environment? No * Can the patient safely return to the preadmission environment? Yes * Has this patient been hospitalized within the prior 30 days at any hospital? Yes External Providers External Provider: [facility] Next Contact Date: 05/02/2019 Service Request Date: Service Type: Resolution: Reviewer: Comments: Coverage Notice Reviewer: [id number] Dez Skinner Notice Issued Date-Time: 04/27/2019 14:40 Notice Type: IM Discharge Notice Notice Delivered To: Family Member Relationship to Patient: Spouse Traffic Maintenance Supervisor Name: CHRISTIE BRICEÑO Delivery Method: HAND - Hand Delivered Tg Days: Prior Verbal Notification: Recipient Understood Notice: Yes Recipient Signature: Yes Med Rec Note Co-signed by Attending: Coverage Notice Comment: Reviewer: [id number] Dez Skinner Notice Issued Date-Time: 04/27/2019 9:05 Notice Type: Patient Choice Letter Notice Delivered To: Patient Relationship to Patient: Traffic Maintenance Supervisor Name: Delivery Method: HAND - Hand Delivered Tg Days: Prior Verbal Notification: Recipient Understood Notice: Yes Recipient Signature: Yes Med Rec Note Co-signed by Attending: Coverage Notice Comment: SANDEEP Ledesma DP export: 04/29/19 3:09 p Patient Name: SHAYNE BRICEÑO Page [id number] at 0830 All edits/amendments must be made on the electronic document DICTATION DATE: 05/02/19829 MINISTER ASSISTANT: LENIN 05/02/19829 RPT#: [id number] DC DATE: STATUS: ADM IN [facility] [address] [place] [address] END OF REPORT
--- NOTE | 2019-05-02 08:38 | MORECARE ---
CASE MANAGEMENT DISCHARGE SUMMARY PATIENT: SHAYNE BRICEÑO UNIT: [id number] ADM DATE: 04/22/19 AGE: 73 : 46 SEX: M ROOM/BED: D.2111 AUTHOR: JAYRO,DOC PHYSICIAN: REFERRING PHYSICIAN: KHOI SPAIN MD DATE OF SERVICE: 05/02/19 Discharge Plan Patient Name: SHAYNE BRICEÑO Facility: [facility]:[place] : 1945 Planned Disposition: Half-Way Facility Anticipated Discharge Date: Discharge Date: Expected LOS: Initial Reviewer: [id number] Initial Review Date: 04/27/2019 Generated: 05/02/19 9:37 am Comments DCP- Discharge Planning Updated by [id number]: Geovanni Skinner on 05/02/19 7:[address] Patient Name: SHAYNE BRICEÑO Encounter No: [id number] : 1945 Primary Insurance: HUMANA CHOICE PPO MCR ADVANT Anticipated DC Date: Planned Disposition: Half-Way Facility External Planned Provider: : DCP follow-up note: PT HAS BEEN DECLINED ON 04-29-19 BY INSURANCE FOR INPATIENT REHAB WITH RECOMMENDATION FOR LONG-TERM REHAB. CM [facility]ED UPDATE [facility], , FOR POSSIBLE RETURN TO LONG-TERM REHAB IF PHYSICIAN AGREES WITH INSURANCE DETERMINATION. IF PEER TO PEER REVIEW IS DESIRED, IT CAN BE ARRANGED PRIOR TO 05-05-19, BY CALLING [employer] AT . Geovanni Skinner, CASE MANAGEMENT DCP- Discharge Planning Updated by [id number]: Geovanni Skinner on 04/29/19 3:[address] Patient Name: SHAYNE BRICEÑO Encounter No: [id number] : 1945 Primary Insurance: HUMANA CHOICE PPO MCR ADVANT Anticipated DC Date: Planned Disposition: Inpatient Rehab External [facility] DCP follow-up note: CM RECEIVED PHONE MESSAGE FROM [facility] OF [employer], , EXTENSION [phone], WHO INFORMED CM THAT PT HAS BEEN DECLINED FOR INPATIENT REHAB WITH RECOMMENDATION FOR LONG-TERM REHAB. CM NOTIFIED JODEE SANZ WHO WILL DISCUSS WITH PHYSICIAN. IF PEER TO PEER REVIEW IS DESIRED, IT CAN BE ARRANGED PRIOR TO 05-05-19, BY CALLING [employer] AT . Geovanni Skinner, CASE MANAGEMENT DCP- Discharge Planning Updated by [id number]: Geovanni Skinner on 04/29/19 6:[address] Patient Name: SHAYNE BRICEÑO Encounter No: [id number] : 1945 Primary Insurance: HUMANA CHOICE PPO MCR ADVANT Anticipated DC Date: Planned Disposition: Inpatient Rehab External Planned Provider: [facility] Discharge Planning Comments: CM FAXED REFERRAL UPDATE WITH OCCUPATIONAL THERAPY EVALUATION TO [facility] AT [phone]. CM WAITING ADMISSION DETERMINATION WELL INSURANCE AUTHORIZATION FOR INPATIENT REHAB SERVICES AT [facility]. Black Pickler: Geovanni Skinner DCP- Discharge Planning Updated by [id number]: Geovanni Skinner on 04/28/19 8:[address] Patient Name: SHAYNE BRICEÑO Encounter No: [id number] : 1945 Primary Insurance: HUMANA CHOICE PPO [facility] ADVANT Anticipated DC Date: Planned Disposition: Inpatient Rehab External Planned Provider: [facility] INPATIENT [facility] Discharge Planning Comments: CM CALLED [facility], , PROVIDED REFERRAL FOR INPATIENT REHAB SERVICES. CM FAXED REFERRAL TO [facility] AT [phone]. CM WAITING OT EVALUATION AND WILL FAX TO [facility] SOON DOCUMENTED IN CHART. PATIENT WILL REQUIRE INSURANCE AUTHORIZATION FOR INPATIENT REHAB SERVICES. Black Pickler: Geovanni Skinner DCP- Discharge Planning Updated by [id number]: Geovanni Skinner on 04/27/19 3:[address] Patient Name: SHAYNE BRICEÑO Admission Status: ER Accout number: [id number] Admission Date: 04-22-2019 : 1945 Admission Diagnosis:EDEMA, UNSPECIFIED Attending: KHOI SPAIN Current LOS: 5 Anticipated DC Date: Planned Disposition: Inpatient Rehab Primary Insurance: HUMANA CHOICE PPO MCR ADVANT PLANNED EXTERNAL PROVIDER: [facility] Discharge Planning Comments: CM MET WITH PT IN ROOM TO DISCUSS DISCHARGE PLANNING AND NEEDS. PT STATES HE WAS AT [facility] FOR REHAB AND MAY BE RETURNING THERE. CHOICE SIGNED. PT REQUESTED CM SPEAK TO HIS . CM LATER MET WITH PT'S WHO REPORTS THAT SHE WOULD LIKE PT CONSIDERED FOR INPATIENT REHAB AT [facility] [place]; SHE HAS DISCUSSED THIS WITH BAND LOG MILL AND CARRIAGE OPERATOR AT [facility] AND SHE HOPES THIS LEVEL OF REHAB WILL BE APPROVED FOR PATIENT. IMPORTANT MESSAGE FROM MEDICARE PROVIDED AND EXPLAINED. CM TO CONTACT [facility] [place] AND PROVIDE REFERRAL FOR INPATIENT REHAB SERVICES. PT WILL REQUIRE INSURANCE AUTHORIZATION FOR SERVICES. Black Pickler: Geovanni Skinner DCPIA - Discharge Planning Initial Assessment Updated by [id number]: Geovanni Skinner on 04/27/19 4:53 pm * Is the patient Alert and Oriented? Yes * How many steps to enter\exit or inside your home? * PCP DR. LOCO * [facility] * Preadmission Environment Half-Way Facility * Facility Name [facility] * ADLs Partial Dependent * Partial ADLs (Assistance needed) Ambulation Bathing Dressing Medication Management Toileting Transfers * Equipment None * Other Equipment NO MEDICAL EQUIPMENT PROVIDER PREFERENCE * List name and contact numbers for known caregivers / representatives who currently or will assist patient after discharge: CHRISTIE BRICEÑO, SPOUSE, * Verbal permission to speak to the caregivers and representatives has been obtained from the patient. Yes * Community resources currently utilized None * Please name any agencies selected above. NONE * Additional services required to return to the preadmission environment? No * Can the patient safely return to the preadmission environment? Yes * Has this patient been hospitalized within the prior 30 days at any hospital? Yes Coverage Notice Reviewer: [id number] Dez Skinner Notice Issued Date-Time: 04/27/2019 14:40 Notice Type: IM Discharge Notice Notice Delivered To: Family Member Relationship to Patient: Spouse Autism Tutor Name: CHRISTIE BRICEÑO Delivery Method: HAND - Hand Delivered Tg Days: Prior Verbal Notification: Recipient Understood Notice: Yes Recipient Signature: Yes Med Rec Note Co-signed by Attending: Coverage Notice Comment: Reviewer: [id number] Dez Skinner Notice Issued Date-Time: 04/27/2019 9:05 Notice Type: Patient Choice Letter Notice Delivered To: Patient Relationship to Patient: Autism Tutor Name: Delivery Method: HAND - Hand Delivered Tg Days: Prior Verbal Notification: Recipient Understood Notice: Yes Recipient Signature: Yes Med Rec Note Co-signed by Attending: Coverage Notice Comment: SANDEEP Ledesma DP export: 05/02/19 7:30 a Patient Name: SHAYNE BRICEÑO Page [id number] at 0838 All edits/amendments must be made on the electronic document DICTATION DATE: 05/02/19836 LABORER TUR[employer] FARM: LENIN 05/02/19836 RPT#: [id number] DC DATE: STATUS: ADM IN [facility] [address] [place] [address] END OF REPORT
--- NOTE | 2019-05-02 12:44 | MORECARE ---
CASE MANAGEMENT DISCHARGE SUMMARY PATIENT: SHAYNE BRICEÑO UNIT: [id number] ADM DATE: 04/22/19 AGE: 73 : 47 SEX: M ROOM/BED: D.2111 AUTHOR: JAYRO,DOC PHYSICIAN: REFERRING PHYSICIAN: KHOI SPAIN MD DATE OF SERVICE: 05/02/19 Discharge Plan Patient Name: SHAYNE BRICEÑO Facility: [facility]:[place] : 1945 Planned Disposition: Penitentiary Facility Anticipated Discharge Date: Discharge Date: Expected LOS: Initial Reviewer: [id number] Initial Review Date: 04/27/2019 Generated: 05/02/19 1:43 pm Comments DCP- Discharge Planning Updated by [id number]: Geovanni Skinner on 05/02/19 11:[address] Patient Name: SHAYNE BRICEÑO Encounter No: [id number] : 1945 Primary Insurance: [employer] CHOICE PPO MCR ADVANT Anticipated DC Date: Planned Disposition: Penitentiary Facility External Planned Provider: [facility] DCP follow-up note: CM SPOKE TO JODEE THOMPSON REGARDING INPATIENT REHAB DENIAL THAT WAS RECEIVED ON THURSDAY, JODEE THOMPSON AGREED WITH ASSISTED AND DIRECTED CM TO CHECK WITH DR. SPAIN REGARDING PEER TO PEER WITH INSURANCE [employer]. CM CONTACTED DR. SPAIN WHO DECLINED PEER TO PEER AND AGREED WITH ASSISTED PLACEMENT FOR REHAB. CM CALLED AND SPOKE TO PT'S SPOUSE, CHRISTIE KEITA, WHO DISAGREED WITH THE INSURANCE COMPANY AND ASKED FOR APPEAL NUMBER THAT SHE CAN CALL. CM CALLED CARSON AT [facility], , WHO WILL CHECK TO SEE IF ANY FAX WAS RECEIVED FROM INSURANCE [employer]. SHE WAS NOT ABLE TO LOCATE A FAXED DENIAL. CM CALLED PT'S INSURANCE COMPANY, [employer] AT , SPOKE TO DANIEL WHO ADVISED THAT THE CLAIM HAD NOT BEEN DENIED, AND THAT THE REQUIREMENTS ENGINEER REACHED OUT FOR PEER TO PEER WITH HOSPITAL PHYSICIAN PRIOR TO MAKING DETERMINATION REGARDING INPATIENT REHAB. DANIEL JACOBSON INFORMED CM THAT PT DOES NOT HAVE ANY APPEAL RIGHTS UNLESS THE CLAIM IS DENIEDS. CM SPOKE TO DR. SPAIN WHO IS WILLING FOR PEER TO PEER TOMORROW, 05-03-19. CM CALLED [employer] AT , SPOKE TO DANIEL AND ARRANGED FOR DR. ERICKSON OF [facility] TO CALL DR. SPAIN 05-03-19 BETWEEN 1:30PM AND 1:45 PM FOR PEER TO PEER. CM NOTIFIED DR. SPAIN AND PT'S SPOUSE. PT'S SPOUSE ADVISED THAT SHE IS NOT THINKING OF RETURNING PT TO [facility] IF INPATIENT IS DECLINED AND WILL LOOK INTO OTHER ASSISTED FACILITIES "PLAN B" AND WILL LET CM KNOW WHAT HER CHOICE WILL BE. CM WAITING PEER TO PEER DISCUSSION BETWEEN DR. SPAIN AND DR. ERICKSON FOR INSURANCE TO MAKE DETERMINATION REGARDING INPATIENT REHAB SERVICES. Geovanni Skinner, CASE MANAGEMENT Geovanni Skinner DCP- Discharge Planning Updated by [id number]: Geovanni Skinner on 05/02/19 7:[address] Patient Name: SHAYNE BRICEÑO Encounter No: [id number] : 1945 Primary Insurance: [employer] CHOICE PPO MCR ADVANT Anticipated DC Date: Planned Disposition: Penitentiary Facility External Planned Provider: : DCP follow-up note: PT HAS BEEN DECLINED ON 04-29-19 BY INSURANCE FOR INPATIENT REHAB WITH RECOMMENDATION FOR ASSISTED REHAB. CM FAXED UPDATE TO [facility], , FOR POSSIBLE RETURN TO ASSISTED REHAB IF PHYSICIAN AGREES WITH INSURANCE DETERMINATION. IF PEER TO PEER REVIEW IS DESIRED, IT CAN BE ARRANGED PRIOR TO 05-05-19, BY CALLING [employer] AT . BENIGNO Layton DCP- Discharge Planning Updated by [id number]: Geovanni Skinner on 04/29/19 3:[address] Patient Name: SHAYNE BRICEÑO Encounter No: [id number] : 1945 Primary Insurance: [employer] CHOICE PPO MCR ADVANT Anticipated DC Date: Planned Disposition: Inpatient Rehab External Planned Provider: [facility] [place] DCP follow-up note: CM RECEIVED PHONE MESSAGE FROM [facility], , EXTENSION [phone], WHO INFORMED CM THAT PT HAS BEEN DECLINED FOR INPATIENT REHAB WITH RECOMMENDATION FOR ASSISTED REHAB. CM NOTIFIED JODEE SANZ WHO WILL DISCUSS WITH PHYSICIAN. IF PEER TO PEER REVIEW IS DESIRED, IT CAN BE ARRANGED PRIOR TO 05-05-19, BY CALLING [employer] AT . BENIGNO Layton MANAGEMENT DCP- Discharge Planning Updated by [id number]: Geovanni Skinner on 04/29/19 6:[address] Patient Name: SHAYNE BRICEÑO Encounter No: [id number] : 1945 Primary Insurance: [employer] CHOICE PPO MCR ADVANT Anticipated DC Date: Planned Disposition: Inpatient Rehab External Planned Provider: [facility]PATIENT [facility] Discharge Planning Comments: CM FAXED REFERRAL UPDATE WITH OCCUPATIONAL THERAPY EVALUATION TO [facility] AT [phone]. CM WAITING ADMISSION DETERMINATION WELL INSURANCE AUTHORIZATION FOR INPATIENT REHAB SERVICES AT [facility]. Department Mgr: Geovanni Skinner DCP- Discharge Planning Updated by [id number]: Geovanni Skinner on 04/28/19 8:[address] Patient Name: SHAYNE BRICEÑO Encounter No: [id number] : 1945 Primary Insurance: HU[employer] CHOICE PPO [facility] ADVANT Anticipated DC Date: Planned Disposition: Inpatient Rehab External Planned Provider: [facility] Discharge Planning Comments: CM CALLED CARSON OF [facility], , PROVIDED REFERRAL FOR INPATIENT REHAB SERVICES. CM FAXED REFERRAL TO [facility] AT [phone]. CM WAITING OT EVALUATION AND WILL FAX TO [facility] SOON DOCUMENTED IN CHART. PATIENT WILL REQUIRE INSURANCE AUTHORIZATION FOR INPATIENT REHAB SERVICES. Department Mgr: Geovanni Skinner DCP- Discharge Planning Updated by [id number]: Geovanni Skinner on 04/27/19 3:[address] Patient Name: SHAYNE BRICEÑO Admission Status: ER Accout number: [id number] Admission Date: 04-22-2019 : 1945 Admission Diagnosis:EDEMA, UNSPECIFIED Attending: KOHI SPAIN Current LOS: 5 Anticipated DC Date: Planned Disposition: Inpatient Rehab Primary Insurance: [employer] CHOICE PPO MCR ADVANT PLANNED EXTERNAL PROVIDER: [facility] Discharge Planning Comments: CM MET WITH PT IN ROOM TO DISCUSS DISCHARGE PLANNING AND NEEDS. PT STATES HE WAS AT [facility] FOR REHAB AND MAY BE RETURNING THERE. CHOICE SIGNED. PT REQUESTED CM SPEAK TO HIS . CM LATER MET WITH PT'S WHO REPORTS THAT SHE WOULD LIKE PT CONSIDERED FOR INPATIENT REHAB AT [facility] IN [place]; SHE HAS DISCUSSED THIS WITH CIVIL LABORATORY TECHNICIAN AT [facility] AND SHE HOPES THIS LEVEL OF REHAB WILL BE APPROVED FOR PATIENT. IMPORTANT MESSAGE FROM MEDICARE PROVIDED AND EXPLAINED. CM TO CONTACT [facility] [place], SOON POSSIBLE AND PROVIDE REFERRAL FOR INPATIENT REHAB SERVICES. PT WILL REQUIRE INSURANCE AUTHORIZATION FOR SERVICES. Department Mgr: Geovanni Skinner DCPIA - Discharge Planning Initial Assessment Updated by HERMILO: Geovanni Skinner on 04/27/19 4:53 pm * Is the patient Alert and Oriented? Yes * How many steps to enter\\exit or inside your home? * PCP DR. LOCO * [facility] * Preadmission Environment Penitentiary Facility * Facility Name [facility] * ADLs Partial Dependent * Partial ADLs (Assistance needed) Ambulation Bathing Dressing Medication Management Toileting Transfers * Equipment None * Other Equipment NO MEDICAL EQUIPMENT PROVIDER PREFERENCE * List name and contact numbers for known caregivers / representatives who currently or will assist patient after discharge: CHRISTIE BRICEÑO, SPOUSE, * Verbal permission to speak to the caregivers and representatives has been obtained from the patient. Yes * Community resources currently utilized None * Please name any agencies selected above. NONE * Additional services required to return to the preadmission environment? No * Can the patient safely return to the preadmission environment? Yes * Has this patient been hospitalized within the prior 30 days at any hospital? Yes Coverage Notice Reviewer: [id number] Dez Skinner Notice Issued Date-Time: 04/27/2019 14:40 Notice Type: IM Discharge Notice Notice Delivered To: Family Member Relationship to Patient: Spouse Financial Accounting Manager Name: CHRISTIE BRICEÑO Delivery Method: HAND - Hand Delivered Tg Days: Prior Verbal Notification: Recipient Understood Notice: Yes Recipient Signature: Yes Med Rec Note Co-signed by Attending: Coverage Notice Comment: Reviewer: [id number] Dez Skinner Notice Issued Date-Time: 04/27/2019 9:05 Notice Type: Patient Choice Letter Notice Delivered To: Patient Relationship to Patient: Financial Accounting Manager Name: Delivery Method: HAND - Hand Delivered Tg Days: Prior Verbal Notification: Recipient Understood Notice: Yes Recipient Signature: Yes Med Rec Note Co-signed by Attending: Coverage Notice Comment: SANDEEP Ledesma DP export: 05/02/19 7:38 a Patient Name: SHAYNE BRICEÑO Page [id number] at 1244 All edits/amendments must be made on the electronic document DICTATION DATE: 05/02/191242 SALESPERSON AUTOMOBILES: LENIN 05/02/19 1243 RPT#: [id number] DC DATE: STATUS: ADM IN [facility] [address] [place] [address] END OF REPORT
--- NOTE | 2019-05-02 12:59 | NUR ---
Nutrition Follow-up: Spoke with pt's nurse who stated that pt ate >=50% of meals yesterday so did not receive TF but ate <50% of breakfast so received bolus of 1 can Glucerna 1.5. Also reports pt experienced diarrhea Thursday but none currently. ST following; they continue to rec puree with nectar thick liquids. Diet: Diabetic, Puree with [place] Thick Liquids Glucerna 1.5, bolus 1 can if pt eats <50% of meal Wt: 175# Last BM: 05/01 Labs noted: K+ 3.1, Ca 8.2 Meds noted: KCl, Glucophage, NS @ 100, Floranex Continue current diet/TF as tolerated. RD following.
--- NOTE | 2019-05-02 14:32 | NUR ---
OT NOTE: PT COMPLETED BED MOB WITH MAX A FOR SUPINE TO SIT. PT EXHIBITED DECREASED TRUNK CONTROL AND REQUIRED MIN A FOR STATIC SITTING AT EOB. PT COMPLETED BED TO CHAIR TRANSFER WITH MAX A X2. PT COMPLETED SIMPLE FACE WASH WITH SET UP. PT COMPLETED POSITIONING OF LUE WITH MAX A. PT STATED THAT HIS LUE WAS PAINFUL. CRUZ NOTIFIED NURSING. THANK YOU, NANCY MO
--- NOTE | 2019-05-02 14:37 | NUR ---
OT NOTE: PT REQUIRED REPOSITIONING IN CHAIR WITH MAX A X2. PT CHAIR EXTENDING OUT TO PREVENT SLIDING. PT IS EXHIBITING INCREASED TRUNK EXTENSION AND DECREASED TRUNK CONTROL. THANK YOU, NANCY MO
--- NOTE | 2019-05-02 14:54 | NUR ---
I have reviewed this patient and I concur with the Shift Assessment completed by the Licensed Practical Nurse today this shift.
--- NOTE | 2019-05-02 19:10 | NUR ---
PT CARE ASSUMED. BEDSIDE SHIFT REPORT COMPLETE. PT IN BED RR EVEN AND UNLABORED. NO S/S OF DISTRESS NOTED. PT VOICES NO C/O OF PAIN OR DISCOMFORT AT THIS TIME. NO NEEDS EXPRESSED. CALL LIGHT IN REACH. WILL CPOC.
[2019-05-03 04:00] VITALS: BP 168/74
[2019-05-03 06:27] LABS: BASOPHILS 0.5 % (0-2); EOSINOPHILS 1.9 % (0-7); HEMATOCRIT 29.7 % (42.0-54.0); IMMATURE GRANULOCYTES 0.5 % (0-5); LYMPHOCYTES 28.4 % (15-50); MCH 29.7 pg (26.0-34.0); MCHC 33.7 g/dL (31.0-37.0); MCV 88.1 fL (80.0-100.0); MEAN PLATELET VOLUME 9.5 fL (7.4-10.4); MONOCYTES 9.6 % (2-11); NEUTROPHILS 59.1 % (40-80); PLATELET COUNT 187 10x3/uL (130-400); RBC 3.37 10x6/uL (4.20-6.10); RDW 15.3 % (11.5-14.5); WBC 6.3 10x3/uL (4.8-10.8)
[2019-05-03 06:48] LABS: ALBUMIN 2.8 g/dL (3.4-5.0); ALKALINE PHOSPHATASE 59 U/L (46-116); ALT (SGPT) 31 U/L (10-68); BILIRUBIN - TOTAL 0.52 mg/dL (0.2-1.3); CALC OSMOLALITY 278 mosm/kg (275-300); CALCIUM 8.5 mg/dL (8.5-10.1); CARBON DIOXIDE 26.9 mmol/L (21.0-32.0); CHLORIDE - SERUM 104 mmol/L (98-107); CREATININE - SERUM 0.8 mg/dL (0.6-1.3); GLUCOSE 85 mg/dL (74-106); PROTEIN - SERUM 6.1 g/dL (6.4-8.2); SODIUM 141 mmol/L (136-145); UREA NITROGEN 11 mg/dL (7-18); eGFR NON AFRICAN AMERICAN > 90 mL/min (90-120)
--- NOTE | 2019-05-03 07:00 | NUR ---
RECEIVED REPORT. ASSUMED CARE OF PATIENT. CALL LIGHT WITHIN REACH. NO DISTRESS. RESTING WITH EYES CLOSED, RESP EVEN AND UNLABORED.
--- NOTE | 2019-05-03 07:20 | MORECARE ---
CASE MANAGEMENT DISCHARGE SUMMARY PATIENT: SHAYNE BRICEÑO UNIT: [id number] ADM DATE: 04/22/19 AGE: 73 : 46 SEX: M ROOM/BED: D.2111 AUTHOR: JAYRO,DOC PHYSICIAN: REFERRING PHYSICIAN: KHOI SPAIN MD DATE OF SERVICE: 05/03/19 Discharge Plan Patient Name: SHAYNE BRICEÑO Facility: [facility]:[place] : 1945 Planned Disposition: Snf Facility Anticipated Discharge Date: Discharge Date: Expected LOS: Initial Reviewer: [id number] Initial Review Date: 04/27/2019 Generated: 05/03/19 8:20 am Comments DCP- Discharge Planning Updated by [id number]: Geovanni Skinner on 05/02/19 11:[address] Patient Name: SHAYNE BRICEÑO Encounter No: [id number] : 1945 Primary Insurance: [employer] CHOICE PPO MCR ADVANT Anticipated DC Date: Planned Disposition: Snf Facility External Planned Provider: [facility] DCP follow-up note: CM SPOKE TO JODEE THOMPSON REGARDING INPATIENT REHAB DENIAL THAT WAS RECEIVED ON THURSDAY, JODEE THOMPSON AGREED WITH INTERMEDIATE AND DIRECTED CM TO CHECK WITH DR. SPAIN REGARDING PEER TO PEER WITH INS[employer]ANCE [employer]. CM CONTACTED DR. SPAIN WHO DECLINED PEER TO PEER AND AGREED WITH INTERMEDIATE PLACEMENT FOR REHAB. CM CALLED AND SPOKE TO PT'S SPOUSE, CHRISTIE KEITA, WHO DISAGREED WITH THE INSURANCE COMPANY AND ASKED FOR APPEAL NUMBER THAT SHE CAN CALL. CM CALLED CARSON AT [facility], , WHO WILL CHECK TO SEE IF ANY FAX WAS RECEIVED FROM INSURANCE [employer]. SHE WAS NOT ABLE TO LOCATE A FAXED DENIAL. CM CALLED PT'S INSURANCE COMPANY, [employer] AT , SPOKE TO DANIEL WHO ADVISED THAT THE CLAIM HAD NOT BEEN DENIED, AND THAT THE WAITER/WAITRESS CLUB REACHED OUT FOR PEER TO PEER WITH HOSPITAL PHYSICIAN PRIOR TO MAKING DETERMINATION REGARDING INPATIENT REHAB. DANIEL JACOBSON INFORMED CM THAT PT DOES NOT HAVE ANY APPEAL RIGHTS UNLESS THE CLAIM IS DENIEDS. CM SPOKE TO DR. SPAIN WHO IS WILLING FOR PEER TO PEER TOMORROW, 05-03-19. CM CALLED [employer] AT , SPOKE TO DANIEL AND ARRANGED FOR DR. ERICKSON OF [facility] TO CALL DR. SPAIN 05-03-19 BETWEEN 1:30PM AND 1:45 PM FOR PEER TO PEER. CM NOTIFIED DR. SPAIN AND PT'S SPOUSE. PT'S SPOUSE ADVISED THAT SHE IS NOT THINKING OF RETURNING PT TO [facility] IF INPATIENT IS DECLINED AND WILL LOOK INTO OTHER INTERMEDIATE FACILITIES "PLAN B" AND WILL LET CM KNOW WHAT HER CHOICE WILL BE. CM WAITING PEER TO PEER DISCUSSION BETWEEN DR. SPAIN AND DR. ERICKSON FOR INSURANCE TO MAKE DETERMINATION REGARDING INPATIENT REHAB SERVICES. Geovanni Skinner, CASE MANAGEMENT Geovanni Skinner DCP- Discharge Planning Updated by [id number]: Geovanni Skinner on 05/02/19 7:[address] Patient Name: SHAYNE BRICEÑO Encounter No: [id number] : 1945 Primary Insurance: [employer] CHO[employer] PPO MCR ADVANT Anticipated DC Date: Planned Disposition: Snf Facility External Planned Provider: : DCP follow-up note: PT HAS BEEN DECLINED ON 04-29-19 BY INSURANCE FOR INPATIENT REHAB WITH RECOMMENDATION FOR INTERMEDIATE REHAB. CM FAXED UPDATE TO [facility], , FOR POSSIBLE RETURN TO INTERMEDIATE REHAB IF PHYSICIAN AGREES WITH INSURANCE DETERMINATION. IF PEER TO PEER REVIEW IS DESIRED, IT CAN BE ARRANGED PRIOR TO 05-05-19, BY CALLING [employer] AT . BENIGNO Layton DCP- Discharge Planning Updated by [id number]: Geovanni Skinner on 04/29/19 3:[address] Patient Name: SHAYNE BRICEÑO Encounter No: [id number] : 1945 Primary Insurance: [employer] CHO[employer] PPO MCR ADVANT Anticipated DC Date: Planned Disposition: Inpatient Rehab External Planned Provider: [facility] [place] DCP follow-up note: CM RECEIVED PHONE MESSAGE FROM [facility] [employer], , EXTENSION [phone], WHO INFORMED CM THAT PT HAS BEEN DECLINED FOR INPATIENT REHAB WITH RECOMMENDATION FOR INTERMEDIATE REHAB. CM NOTIFIED JODEE SANZ WHO WILL DISCUSS WITH PHYSICIAN. IF PEER TO PEER REVIEW IS DESIRED, IT CAN BE ARRANGED PRIOR TO 05-05-19, BY CALLING [employer] AT . BENIGNO Layton MANAGEMENT DCP- Discharge Planning Updated by [id number]: Geovanni Skinner on 04/29/19 6:[address] Patient Name: SHAYNE BRICEÑO Encounter No: [id number] : 1945 Primary Insurance: [employer] CHO[employer] PPO MCR ADVANT Anticipated DC Date: Planned Disposition: Inpatient Rehab External Planned Provider: [facility] Discharge Planning Comments: CM FAXED REFERRAL UPDATE WITH OCCUPATIONAL THERAPY EVALUATION TO [facility] AT [phone]. CM WAITING ADMISSION DETERMINATION WELL INSURANCE AUTHORIZATION FOR INPATIENT REHAB SERVICES AT [facility]. Orthotist/Prosthetist: Geovanni Skinner DCP- Discharge Planning Updated by [id number]: Geovanni Skinner on 04/28/19 8:[address] Patient Name: SHAYNE BRICEÑO Encounter No: [id number] : 1945 Primary Insurance: [employer] CHOICE PPO [facility] ADVANT Anticipated DC Date: Planned Disposition: Inpatient Rehab External Planned Provider: [facility] Discharge Planning Comments: CM CALLED CARSON OF [facility], , PROVIDED REFERRAL FOR INPATIENT REHAB SERVICES. CM FAXED REFERRAL TO [facility] AT [phone]. CM WAITING OT EVALUATION AND WILL FAX TO [facility] SOON DOCUMENTED IN CHART. PATIENT WILL REQUIRE INSURANCE AUTHORIZATION FOR INPATIENT REHAB SERVICES. Orthotist/Prosthetist: Geovanni Skinner DCP- Discharge Planning Updated by [id number]: Geovanni Skinner on 04/27/19 3:[address] Patient Name: SHAYNE BRICEÑO Admission Status: ER Accout number: [id number] Admission Date: 04-22-2019 : 1945 Admission Diagnosis:EDEMA, UNSPECIFIED Attending: KHOI SPAIN Current LOS: 5 Anticipated DC Date: Planned Disposition: Inpatient Rehab Primary Insurance: [employer] CHOICE PPO MCR ADVANT PLANNED EXTERNAL PROVIDER: [facility] Discharge Planning Comments: CM MET WITH PT IN ROOM TO DISCUSS DISCHARGE PLANNING AND NEEDS. PT STATES HE WAS AT [facility] FOR REHAB AND MAY BE RETURNING THERE. CHOICE SIGNED. PT REQUESTED CM SPEAK TO HIS . CM LATER MET WITH PT'S WHO REPORTS THAT SHE WOULD LIKE PT CONSIDERED FOR INPATIENT REHAB AT [facility] IN [place]; SHE HAS DISCUSSED THIS WITH OFFSET PLATE MAKER AT [facility] AND SHE HOPES THIS LEVEL OF REHAB WILL BE APPROVED FOR PATIENT. IMPORTANT MESSAGE FROM MEDICARE PROVIDED AND EXPLAINED. CM TO CONTACT [facility] [place], SOON POSSIBLE AND PROVIDE REFERRAL FOR INPATIENT REHAB SERVICES. PT WILL REQUIRE INSURANCE AUTHORIZATION FOR SERVICES. Orthotist/Prosthetist: Geovanni Skinner DCPIA - Discharge Planning Initial Assessment Updated by HERMILO: Geovanni Skinner on 04/27/19 4:53 pm * Is the patient Alert and Oriented? Yes * How many steps to enter\\exit or inside your home? * PCP DR. LOCO * [facility] * Preadmission Environment Snf Facility * Facility Name [facility] * ADLs Partial Dependent * Partial ADLs (Assistance needed) Ambulation Bathing Dressing Medication Management Toileting Transfers * Equipment None * Other Equipment NO MEDICAL EQUIPMENT PROVIDER PREFERENCE * List name and contact numbers for known caregivers / representatives who currently or will assist patient after discharge: CHRISTIE BRICEÑO, SPOUSE, * Verbal permission to speak to the caregivers and representatives has been obtained from the patient. Yes * Community resources currently utilized None * Please name any agencies selected above. NONE * Additional services required to return to the preadmission environment? No * Can the patient safely return to the preadmission environment? Yes * Has this patient been hospitalized within the prior 30 days at any hospital? Yes Coverage Notice Reviewer: [id number] Dez Skinner Notice Issued Date-Time: 04/27/2019 14:40 Notice Type: IM Discharge Notice Notice Delivered To: Family Member Relationship to Patient: Spouse Stone Carver Name: CHRISTIE BRICEÑO Delivery Method: HAND - Hand Delivered Tg Days: Prior Verbal Notification: Recipient Understood Notice: Yes Recipient Signature: Yes Med Rec Note Co-signed by Attending: Coverage Notice Comment: Reviewer: [id number] Dez Skinner Notice Issued Date-Time: 04/27/2019 9:05 Notice Type: Patient Choice Letter Notice Delivered To: Patient Relationship to Patient: Stone Carver Name: Delivery Method: HAND - Hand Delivered Tg Days: Prior Verbal Notification: Recipient Understood Notice: Yes Recipient Signature: Yes Med Rec Note Co-signed by Attending: Coverage Notice Comment: SANDEEP Ledesma DP export: 05/02/19 11:44 a Patient Name: SHAYNE BRICEÑO Page 61811 at 0720 All edits/amendments must be made on the electronic document DICTATION DATE: 05/03/19719 RETURN TO VENDOR: LENIN 05/03/19719 RPT#: [id number] DC DATE: STATUS: ADM IN [facility] [address] [place] [address] END OF REPORT
[2019-05-03 08:00] VITALS: BP 186/85
--- NOTE | 2019-05-03 09:30 | NUR ---
22 GAUGE IV REMOVED FROM RIGHT FOREARM, CATHETER TIP INTACT. NO BLEEDING FROM SITE. 2X2 GAUZE APPLIED AND SECURED WITH TAPE. NO DISTRESS.
--- NOTE | 2019-05-03 10:30 | NUR ---
JOEL DONALDSON ATTEMPTED TO PLACE IV X 2 TO RIGHT FOREARM, UNSUCCESSFUL EACH ATTEMPT. VASCUALR NURSE HAS BEEN CALLED.
--- NOTE | 2019-05-03 11:07 | NUR ---
22 GAUGE IV PLACED TO RIGHT WRIST X 1 STICK VIA VASCULAR ACCESS NURSE SANDER. TAPED, DATED AND SECURED. TOLERATED IV PLACEMENT WELL. NO DISTRESS.
--- NOTE | 2019-05-03 11:24 | NUR ---
FSBS 109. NO INSULIN PER SLIDING SCALE.
[2019-05-03 12:04] VITALS: BP 128/55
[2019-05-03 15:07] VITALS: BP 137/81
--- NOTE | 2019-05-03 15:08 | NUR ---
PATIENTS GOING HOME FOR A LITTLE WHILE AND MADE A REQUEST THAT THE MD GIVE THE PATEINT SOMETHING TO HELP HIM SLEEP AT NIGHT SO HE DOESN'T SLEEP ALL DAY.
--- NOTE | 2019-05-03 15:16 | NUR ---
OT NOTE: PT REQUIRED MAX A SIMPLE BED MOB TASKS. PT COMPLETED GROOMING TASKS WITH RUE REQUIRED SET UP. PT COMPLETED LUE POSITIONING WITH MAX A. THANK YOU, NANCY MO
--- NOTE | 2019-05-03 16:30 | NUR ---
FSBS 129. NO INSULIN PER SLIDING SCALE.
--- NOTE | 2019-05-03 17:11 | MORECARE ---
CASE MANAGEMENT DISCHARGE SUMMARY PATIENT: SHAYNE BRICEÑO UNIT: [id number] ADM DATE: 04/22/19 AGE: 73 : 46 SEX: M ROOM/BED: D.2111 AUTHOR: JAYRODOC PHYSICIAN: REFERRING PHYSICIAN: KHOI SPAIN MD DATE OF SERVICE: 05/03/19 Discharge Plan Patient Name: SHAYNE BRICEÑO Facility: [facility]:[place] : 1945 Planned Disposition: Senior Living Facility Anticipated Discharge Date: Discharge Date: Expected LOS: Initial Reviewer: [id number] Initial Review Date: 04/27/2019 Generated: 05/03/19 6:10 pm Comments DCP- Discharge Planning Updated by [id number]: Geovanni Skinner on 05/03/19 4:[address] Patient Name: SHAYNE BRICEÑO Encounter No: [id number] : 1945 Primary Insurance: HUMANA CHOICE PPO MCR ADVANT Anticipated DC Date: Planned Disposition: Senior Living Facility External Planned Provider: WAITING ON FAMILY DECISION DCP follow-up note: CM RECEIVED INPATIENT REHAB DENIAL. CM PROVIDED COPY TO PT WHO INSTRUCTED CM TO CALL HIS . CM ALLED CHRISTIE BRICEÑO, SPOUSE, , INFORMED OF DENIAL AND COPY IN PT'S ROOM. CHRISTIE STATES SHE WILL CALL INSURANCE COMPANY TOMORROW TO APPEAL THE DECISION. CHRISTIE HAS NOT MADE ANY DECISION REGARDING FDC FACILITY PLACEMENT AND IS WAITING ON HER DAUGHTERS TO ASSIST HER WITH DECISION. CM EXPLAINED THAT PT IS MEDICALLY STABLE FOR DISCHARGE NOW AND FDC CHOICES NEED TO BE MADE EVEN IF THEY ARE APPEALING INSURANCE DECISION. CHRISTIE REPORTS SHE WILL CALL INSURANCE AND PROVIDE FDC FACILITY CHOICES SOON POSSIBLE. INSURANCE DECLINED INPATIENT REHAB. IS GOING TO CALL INSURANCE TO APPEAL DENIAL OF INPATIENT REHAB. SPEAKING TO FAMILY TO MAKE FDC FACILITY CHOICES. CM WAITING ON PT'S TO PROVIDE FDC FACLITY CHOICES. Geovanni Skinner, CASE MANAGEMENT DCP- Discharge Planning Updated by [id number]: Geovanni Skinner on 05/02/19 11:[address] Patient Name: SHAYNE BRICEÑO Encounter No: [id number] : 1945 Primary Insurance: HUMANA CHOICE PPO MCR ADVANT Anticipated DC Date: Planned Disposition: Senior Living Facility External Planned Provider: [facility] DCP follow-up note: CM SPOKE TO JODEE THOMPSON REGARDING INPATIENT REHAB DENIAL THAT WAS RECEIVED ON THURSDAY, JODEE THOMPSON AGREED WITH FDC AND DIRECTED CM TO CHECK WITH DR. SPAIN REGARDING PEER TO PEER WITH INSURANCE COMPANY. CM CONTACTED DR. SPAIN WHO DECLINED PEER TO PEER AND AGREED WITH FDC PLACEMENT FOR REHAB. CM CALLED AND SPOKE TO PT'S SPOUSE, CHRISTIE KEITA, WHO DISAGREED WITH THE INSURANCE COMPANY AND ASKED FOR APPEAL NUMBER THAT SHE CAN CALL. CM CALLED CARSON AT [facility], , WHO WILL CHECK TO SEE IF ANY FAX WAS RECEIVED FROM INSURANCE COMPANY. SHE WAS NOT ABLE TO LOCATE A FAXED DENIAL. CM CALLED PT'S INSURANCE COMPANY, [employer] AT , SPOKE TO DANIEL WHO ADVISED THAT THE CLAIM HAD NOT BEEN DENIED, AND THAT THE PIPE [employer] SERVICE REACHED OUT FOR PEER TO PEER WITH HOSPITAL PHYSICIAN PRIOR TO MAKING DETERMINATION REGARDING INPATIENT REHAB. DANIEL JACOBSON INFORMED CM THAT PT DOES NOT HAVE ANY APPEAL RIGHTS UNLESS THE CLAIM IS DENIEDS. CM SPOKE TO DR. SPAIN WHO IS WILLING FOR PEER TO PEER TOMORROW, 05-03-19. CM CALLED [employer] AT , SPOKE TO DANIEL AND ARRANGED FOR DR. ERICKSON OF [employer] TO CALL DR. SPAIN 05-03-19 BETWEEN 1:30PM AND 1:45 PM FOR PEER TO PEER. CM NOTIFIED DR. SPAIN AND PT'S SPOUSE. PT'S SPOUSE ADVISED THAT SHE IS NOT THINKING OF RETURNING PT TO [facility] IF INPATIENT IS DECLINED AND WILL LOOK INTO OTHER FDC FACILITIES "PLAN B" AND WILL LET CM KNOW WHAT HER CHOICE WILL BE. CM WAITING PEER TO PEER DISCUSSION BETWEEN DR. SPAIN AND DR. ERICKSON FOR INSURANCE TO MAKE DETERMINATION REGARDING INPATIENT REHAB SERVICES. Geovanni Skinner, CASE MANAGEMENT Geovanni Skinner DCP- Discharge Planning Updated by [id number]: Geovanni Skinner on 05/02/19 7:[address] Patient Name: SHAYNE BRICEÑO Encounter No: [id number] : 1945 Primary Insurance: HUMANA CHOICE PPO MCR ADVANT Anticipated DC Date: Planned Disposition: Senior Living Facility External Planned Provider: : DCP follow-up note: PT HAS BEEN DECLINED ON 04-29-19 BY INSURANCE FOR INPATIENT REHAB WITH RECOMMENDATION FOR FDC REHAB. CM FAXED UPDATE TO [facility], , FOR POSSIBLE RETURN TO FDC REHAB IF PHYSICIAN AGREES WITH INSURANCE DETERMINATION. IF PEER TO PEER REVIEW IS DESIRED, IT CAN BE ARRANGED PRIOR TO 05-05-19, BY CALLING [employer] AT . BENIGNO Layton DCP- Discharge Planning Updated by [id number]: Geovanni Skinner on 04/29/19 3:[address] Patient Name: SHAYNE BRICEÑO Encounter No: [id number] : 1945 Primary Insurance: HUMANA CHOICE PPO MCR ADVANT Anticipated DC Date: Planned Disposition: Inpatient Rehab External Planned Provider: [facility] INPATIENT [facility] DCP follow-up note: CM RECEIVED PHONE MESSAGE FROM [facility] OF [employer], , EXTENSION [phone], WHO INFORMED CM THAT PT HAS BEEN DECLINED FOR INPATIENT REHAB WITH RECOMMENDATION FOR FDC REHAB. CM NOTIFIED JODEE SANZ WHO WILL DISCUSS WITH PHYSICIAN. IF PEER TO PEER REVIEW IS DESIRED, IT CAN BE ARRANGED PRIOR TO 05-05-19, BY CALLING [employer] AT . BENIGNO Layton DCP- Discharge Planning Updated by [id number]: Geovanni Skinner on 04/29/19 6:[address] Patient Name: SHAYNE BRICEÑO Encounter No: [id number] : 1945 Primary Insurance: HUMANA CHOICE PPO MCR ADVANT Anticipated DC Date: Planned Disposition: Inpatient Rehab External Planned Provider: [facility] Discharge Planning Comments: CM FAXED REFERRAL UPDATE WITH OCCUPATIONAL THERAPY EVALUATION TO [facility] AT [phone]. CM WAITING ADMISSION DETERMINATION WELL INSURANCE AUTHORIZATION FOR INPATIENT REHAB SERVICES AT [facility]. Metal Box Maker: Geovanni Skinner DCP- Discharge Planning Updated by [id number]: Geovanni Skinner on 04/28/19 8:[address] Patient Name: SHAYNE BRICEÑO Encounter No: [id number] : 1945 Primary Insurance: HUMANA CHOICE PPO MCR ADVANT Anticipated DC Date: Planned Disposition: Inpatient Rehab External Planned Provider[facility] Discharge Planning Comments: CM CALLED CARSON OF [facility], , PROVIDED REFERRAL FOR INPATIENT REHAB SERVICES. CM FAXED REFERRAL TO [facility] AT [phone]. CM WAITING OT EVALUATION AND WILL FAX TO [facility] SOON DOCUMENTED IN CHART. PATIENT WILL REQUIRE INSURANCE AUTHORIZATION FOR INPATIENT REHAB SERVICES. Metal Box Maker: Geovanni Skinner DCP- Discharge Planning Updated by [id number]: Geovanni Skinner on 04/27/19 3:[address] Patient Name: SHAYNE BRICEÑO Admission Status: ER Accout number: [id number] Admission Date: 04-22-2019 : 1945 Admission Diagnosis:EDEMA, UNSPECIFIED Attending: KHOI SPAIN Current LOS: 5 Anticipated DC Date: Planned Disposition: Inpatient Rehab Primary Insurance: HUMANA CHOICE PPO MCR ADVANT PLANNED EXTERNAL PROVIDER[facility] Discharge Planning Comments: CM MET WITH PT IN ROOM TO DISCUSS DISCHARGE PLANNING AND NEEDS. PT STATES HE WAS AT [facility] FOR REHAB AND MAY BE RETURNING THERE. CHOICE SIGNED. PT REQUESTED CM SPEAK TO HIS . CM LATER MET WITH PT'S WHO REPORTS THAT SHE WOULD LIKE PT CONSIDERED FOR INPATIENT REHAB AT [facility] IN [place]; SHE HAS DISCUSSED THIS WITH GRAIN LOADER AT [facility] AND SHE HOPES THIS LEVEL OF REHAB WILL BE APPROVED FOR PATIENT. IMPORTANT MESSAGE FROM MEDICARE PROVIDED AND EXPLAINED. CM TO CONTACT [facility] [place], SOON POSSIBLE AND PROVIDE REFERRAL FOR INPATIENT REHAB SERVICES. PT WILL REQUIRE INSURANCE AUTHORIZATION FOR SERVICES. Metal Box Maker: Geovanni Skinner DCPIA - Discharge Planning Initial Assessment Updated by [email or web address]: Geovanni Skinner on 04/27/19 4:53 pm * Is the patient Alert and Oriented? Yes * How many steps to enter\\exit or inside your home? * PCP DR. LOCO * Pharmacy [facility] * Preadmission Environment Senior Living Facility * Facility Name [facility] * ADLs Partial Dependent * Partial ADLs (Assistance needed) Ambulation Bathing Dressing Medication Management Toileting Transfers * Equipment None * Other Equipment NO MEDICAL EQUIPMENT PROVIDER PREFERENCE * List name and contact numbers for known caregivers / representatives who currently or will assist patient after discharge: CHRISTIE BRICEÑO, SPOUSE, * Verbal permission to speak to the caregivers and representatives has been obtained from the patient. Yes * Community resources currently utilized None * Please name any agencies selected above. NONE * Additional services required to return to the preadmission environment? No * Can the patient safely return to the preadmission environment? Yes * Has this patient been hospitalized within the prior 30 days at any hospital? Yes Coverage Notice Reviewer: [id number] Skinner Notice Issued Date-Time: 04/27/2019 14:40 Notice Type: IM Discharge Notice Notice Delivered To: Family Member Relationship to Patient: Spouse Communication And Outreach Manager Name: CHRISTIE BRICEÑO Delivery Method: HAND - Hand Delivered Tg Days: Prior Verbal Notification: Recipient Understood Notice: Yes Recipient Signature: Yes Med Rec Note Co-signed by Attending: Coverage Notice Comment: Reviewer: [id number] Skinner Notice Issued Date-Time: 04/27/2019 9:05 Notice Type: Patient Choice Letter Notice Delivered To: Patient Relationship to Patient: Communication And Outreach Manager Name: Delivery Method: HAND - Hand Delivered Tg Days: Prior Verbal Notification: Recipient Understood Notice: Yes Recipient Signature: Yes Med Rec Note Co-signed by Attending: Coverage Notice Comment: SANDEEP GAGE export: 05/03/19 6:20 a Patient Name: SHAYNE BRICEÑO Page 14635 at 1711 All edits/amendments must be made on the electronic document DICTATION DATE: 05/03/191709 CHAMBER WALKER: LENIN 05/03/191709 RPT#: [id number] DC DATE: STATUS: ADM IN [facility] [address] [place] [address] END OF REPORT
--- NOTE | 2019-05-03 17:20 | MORECARE ---
CASE MANAGEMENT DISCHARGE SUMMARY PATIENT: SHAYNE BRICEÑO UNIT: [id number] ADM DATE: 04/22/19 AGE: 73 : 46 SEX: M ROOM/BED: D.2111 AUTHOR: JAYRO,DOC PHYSICIAN: REFERRING PHYSICIAN: KHOI SPAIN MD DATE OF SERVICE: 05/03/19 Discharge Plan Patient Name: SHAYNE BRICEÑO Facility: [facility]:[place] : 1945 Planned Disposition: Group Home Facility Anticipated Discharge Date: Discharge Date: Expected LOS: Initial Reviewer: [id number] Initial Review Date: 04/27/2019 Generated: 05/03/19 6:20 pm Comments DCP- Discharge Planning Updated by [email or web address]: Geovanni Skinner on 05/03/19 4:[address] Patient Name: SHAYNE BRICEÑO Encounter No: [id number] : 1945 Primary Insurance: HUMANA CHOICE PPO MCR ADVANT Anticipated DC Date: Planned Disposition: Group Home Facility External Planned Provider: WAITING ON FAMILY DECISION DCP follow-up note: CM RECEIVED INPATIENT REHAB DENIAL. CM PROVIDED COPY TO PT WHO INSTRUCTED CM TO CALL HIS . CM ALLED CHRISTIE BRICEÑO, SPOUSE, , INFORMED OF DENIAL AND COPY IN PT'S ROOM. CHRISTIE STATES SHE WILL CALL INSURANCE COMPANY TOMORROW TO APPEAL THE DECISION. CHRISTIE HAS NOT MADE ANY DECISION REGARDING FDC FACILITY PLACEMENT AND IS WAITING ON HER DAUGHTERS TO ASSIST HER WITH DECISION. CM EXPLAINED THAT PT IS MEDICALLY STABLE FOR DISCHARGE NOW AND FDC CHOICES NEED TO BE MADE EVEN IF THEY ARE APPEALING INSURANCE DECISION. CHRISTIE REPORTS SHE WILL CALL INSURANCE AND PROVIDE FDC FACILITY CHOICES SOON POSSIBLE. CHRISTIE IS NOT WANTING TO RETURN PT TO [facility]. INSURANCE DECLINED INPATIENT REHAB. IS GOING TO CALL INSURANCE TO APPEAL DENIAL OF INPATIENT REHAB. SPEAKING TO FAMILY TO MAKE FDC FACILITY CHOICES. CM WAITING ON PT'S TO PROVIDE FDC FACLITY CHOICES. Geovanni Skinner, CASE MANAGEMENT DCP- Discharge Planning Updated by [id number]: Geovanni Skinner on 05/02/19 11:[address] Patient Name: SHAYNE BRICEÑO Encounter No: [id number] : 1945 Primary Insurance: HUMANA CHOICE PPO MCR ADVANT Anticipated DC Date: Planned Disposition: Group Home Facility External Planned Provider: [facility] DCP follow-up note: CM SPOKE TO JODEE THOMPSON REGARDING INPATIENT REHAB DENIAL THAT WAS RECEIVED ON THURSDAY, JODEE THOMPSON AGREED WITH FDC AND DIRECTED CM TO CHECK WITH DR. SPAIN REGARDING PEER TO PEER WITH INSURANCE COMPANY. CM CONTACTED DR. SPAIN WHO DECLINED PEER TO PEER AND AGREED WITH FDC PLACEMENT FOR REHAB. CM CALLED AND SPOKE TO PT'S SPOUSE, CHRISTIE KEITA, WHO DISAGREED WITH THE INSURANCE COMPANY AND ASKED FOR APPEAL NUMBER THAT SHE CAN CALL. CM CALLED CARSON AT [facility], , WHO WILL CHECK TO SEE IF ANY FAX WAS RECEIVED FROM INSURANCE COMPANY. SHE WAS NOT ABLE TO LOCATE A FAXED DENIAL. CM CALLED PT'S INSURANCE COMPANY, [employer] AT , SPOKE TO DANIEL WHO ADVISED THAT THE CLAIM HAD NOT BEEN DENIED, AND THAT THE ORNAMENTAL BRICK INSTALLER REACHED OUT FOR PEER TO PEER WITH HOSPITAL PHYSICIAN PRIOR TO MAKING DETERMINATION REGARDING INPATIENT REHAB. DANIEL JACOBSON INFORMED CM THAT PT DOES NOT HAVE ANY APPEAL RIGHTS UNLESS THE CLAIM IS DENIEDS. CM SPOKE TO DR. SPAIN WHO IS WILLING FOR PEER TO PEER TOMORROW, 05-03-19. CM CALLED [employer] AT , SPOKE TO DANIEL AND ARRANGED FOR DR. ERICKSON OF [employer] TO CALL DR. SPAIN 05-03-19 BETWEEN 1:30PM AND 1:45 PM FOR PEER TO PEER. CM NOTIFIED DR. SPAIN AND PT'S SPOUSE. PT'S SPOUSE ADVISED THAT SHE IS NOT THINKING OF RETURNING PT TO [facility] IF INPATIENT IS DECLINED AND WILL LOOK INTO OTHER FDC FACILITIES "PLAN B" AND WILL LET CM KNOW WHAT HER CHOICE WILL BE. CM WAITING PEER TO PEER DISCUSSION BETWEEN DR. SPAIN AND DR. ERICKSON FOR INSURANCE TO MAKE DETERMINATION REGARDING INPATIENT REHAB SERVICES. Geovanni Skinner, CASE MANAGEMENT Geovanni Skinner DCP- Discharge Planning Updated by [id number]: Geovanni Skinner on 05/02/19 7:[address] Patient Name: SHAYNE BRICEÑO Encounter No: [id number] : 1945 Primary Insurance: HUMANA CHOICE PPO MCR ADVANT Anticipated DC Date: Planned Disposition: Group Home Facility External Planned Provider: : DCP follow-up note: PT HAS BEEN DECLINED ON 04-29-19 BY INSURANCE FOR INPATIENT REHAB WITH RECOMMENDATION FOR FDC REHAB. CM FAXED UPDATE TO [facility], , FOR POSSIBLE RETURN TO FDC REHAB IF PHYSICIAN AGREES WITH INSURANCE DETERMINATION. IF PEER TO PEER REVIEW IS DESIRED, IT CAN BE ARRANGED PRIOR TO 05-05-19, BY CALLING [employer] AT . BENIGNO Layton DCP- Discharge Planning Updated by [id number]: Geovanni Skinner on 04/29/19 3:[address] Patient Name: SHAYNE BRICEÑO Encounter No: [id number] : 1945 Primary Insurance: HUMANA CHOICE PPO MCR ADVANT Anticipated DC Date: Planned Disposition: Inpatient Rehab External Planned Provider: [facility] INPATIENT [facility] DCP follow-up note: CM RECEIVED PHONE MESSAGE FROM [facility] OF [employer], , EXTENSION [phone], WHO INFORMED CM THAT PT HAS BEEN DECLINED FOR INPATIENT REHAB WITH RECOMMENDATION FOR FDC REHAB. CM NOTIFIED JODEE SANZ WHO WILL DISCUSS WITH PHYSICIAN. IF PEER TO PEER REVIEW IS DESIRED, IT CAN BE ARRANGED PRIOR TO 05-05-19, BY CALLING [employer] AT . BENIGNO Layton DCP- Discharge Planning Updated by [id number]: Geovanni Skinner on 04/29/19 6:[address] Patient Name: SHAYNE BRICEÑO Encounter No: [id number] : 1945 Primary Insurance: HUMANA CHOICE PPO MCR ADVANT Anticipated DC Date: Planned Disposition: Inpatient Rehab External Planned Provider: [facility] INPATIENT [facility] Discharge Planning Comments: CM FAXED REFERRAL UPDATE WITH OCCUPATIONAL THERAPY EVALUATION TO [facility] AT [phone]. CM WAITING ADMISSION DETERMINATION WELL INSURANCE AUTHORIZATION FOR INPATIENT REHAB SERVICES AT [facility]. Chrome Plater Helper: Geovanni Skinner DCP- Discharge Planning Updated by [id number]: Geovanni Skinner on 04/28/19 8:[address] Patient Name: SHAYNE BRICEÑO Encounter No: [id number] : 1945 Primary Insurance: HUMANA CHOICE PPO MCR ADVANT Anticipated DC Date: Planned Disposition: Inpatient Rehab External Planned Provider: [facility] INPATIENT [facility] Discharge Planning Comments: CM CALLED CARSON OF [facility], , PROVIDED REFERRAL FOR INPATIENT REHAB SERVICES. CM FAXED REFERRAL TO [facility] AT [phone]. CM WAITING OT EVALUATION AND WILL FAX TO [facility] SOON DOCUMENTED IN CHART. PATIENT WILL REQUIRE INSURANCE AUTHORIZATION FOR INPATIENT REHAB SERVICES. Chrome Plater Helper: Geovanni Skinner DCP- Discharge Planning Updated by [id number]: Geovanni Skinner on 04/27/19 3:[address] Patient Name: SHAYNE BRICEÑO Admission Status: ER Accout number: [id number] Admission Date: 04-22-2019 : 1945 Admission Diagnosis:EDEMA, UNSPECIFIED Attending: KHOI SPAIN Current LOS: 5 Anticipated DC Date: Planned Disposition: Inpatient Rehab Primary Insurance: HUMANA CHOICE PPO MCR ADVANT PLANNED EXTERNAL PROVIDER[facility] Discharge Planning Comments: CM MET WITH PT IN ROOM TO DISCUSS DISCHARGE PLANNING AND NEEDS. PT STATES HE WAS AT [facility] FOR REHAB AND MAY BE RETURNING THERE. CHOICE SIGNED. PT REQUESTED CM SPEAK TO HIS . CM LATER MET WITH PT'S WHO REPORTS THAT SHE WOULD LIKE PT CONSIDERED FOR INPATIENT REHAB AT [facility] IN [place]; SHE HAS DISCUSSED THIS WITH PIPE CLEANING MACHINE OPERATOR AT [facility] AND SHE HOPES THIS LEVEL OF REHAB WILL BE APPROVED FOR PATIENT. IMPORTANT MESSAGE FROM MEDICARE PROVIDED AND EXPLAINED. CM TO CONTACT [facility] SOON POSSIBLE AND PROVIDE REFERRAL FOR INPATIENT REHAB SERVICES. PT WILL REQUIRE INSURANCE AUTHORIZATION FOR SERVICES. Chrome Plater Helper: Geovanni Skinner DCPIA - Discharge Planning Initial Assessment Updated by [id number]: Geovanni Skinner on 04/27/19 4:53 pm * Is the patient Alert and Oriented? Yes * How many steps to enter\\exit or inside your home? * PCP DR. LOCO * Pharmacy [facility] * Preadmission Environment Group Home Facility * Facility Name [facility] * ADLs Partial Dependent * Partial ADLs (Assistance needed) Ambulation Bathing Dressing Medication Management Toileting Transfers * Equipment None * Other Equipment NO MEDICAL EQUIPMENT PROVIDER PREFERENCE * List name and contact numbers for known caregivers / representatives who currently or will assist patient after discharge: CHRISTIE BRICEÑO, SPOUSE, * Verbal permission to speak to the caregivers and representatives has been obtained from the patient. Yes * Community resources currently utilized None * Please name any agencies selected above. NONE * Additional services required to return to the preadmission environment? No * Can the patient safely return to the preadmission environment? Yes * Has this patient been hospitalized within the prior 30 days at any hospital? Yes Coverage Notice Reviewer: [id number] Skinner Notice Issued Date-Time: 04/27/2019 14:40 Notice Type: IM Discharge Notice Notice Delivered To: Family Member Relationship to Patient: Spouse Weigher Alloy Name: CHRISTIE BRICEÑO Delivery Method: HAND - Hand Delivered Tg Days: Prior Verbal Notification: Recipient Understood Notice: Yes Recipient Signature: Yes Med Rec Note Co-signed by Attending: Coverage Notice Comment: Reviewer: [id number] Skinner Notice Issued Date-Time: 04/27/2019 9:05 Notice Type: Patient Choice Letter Notice Delivered To: Patient Relationship to Patient: Weigher Alloy Name: Delivery Method: HAND - Hand Delivered Tg Days: Prior Verbal Notification: Recipient Understood Notice: Yes Recipient Signature: Yes Med Rec Note Co-signed by Attending: Coverage Notice Comment: SANDEEP GAGE export: 05/03/19 4:11 p Patient Name: SHAYNE BRICEÑO Page [id number] at 1720 All edits/amendments must be made on the electronic document DICTATION DATE: 05/03/191719 STOCK TRADER: LENIN 05/03/191719 RPT#: [id number] DC DATE: STATUS: ADM IN [facility] [address] [place] [address] END OF REPORT
--- NOTE | 2019-05-03 18:15 | NUR ---
COMPLETE LINEN CHANGE AND INCONTINENT CARES PROVIDED. NO DISTRESS. PATIENT NOW RESTING IN BED WITH ATTENTION TOWARD TELEVISION. CALL LIGHT WITHINR EACH. IV FLUIDS INFUSING ORDERED.
--- NOTE | 2019-05-03 19:56 | NUR ---
PT CARE ASSUMED. BEDSIDE SHIFT REPORT COMPLETE. PP EVEN AND UNLABORED ON RA. NO S/S OF DISTESS NOTED AT THIS TIME. PT HAD A LARGE BM, BED CHANGE PROVIDED. NO FURTHER VOICED C/O OR CONCERNS AT THIS TIME. NO NEEDS EXPRESSED. WILL CPOC.
[2019-05-03 20:00] VITALS: BP 153/70
[2019-05-04] VITALS: BP 147/68
[2019-05-04 04:00] VITALS: BP 136/66
[2019-05-04 06:24] LABS: CALC OSMOLALITY 277 mosm/kg (275-300); CALCIUM 8.6 mg/dL (8.5-10.1); CARBON DIOXIDE 28.6 mmol/L (21.0-32.0); CHLORIDE - SERUM 102 mmol/L (98-107); CREATININE - SERUM 0.7 mg/dL (0.6-1.3); GLUCOSE 101 mg/dL (74-106); SODIUM 139 mmol/L (136-145); UREA NITROGEN 13 mg/dL (7-18); eGFR NON AFRICAN AMERICAN > 90 mL/min (90-120)
--- NOTE | 2019-05-04 07:10 | NUR ---
REPORT RECEIVED FOR DISABILITY MANAGER AND PATIENT CARE ASSUMED. PATIENT LAYING IN BED ON LEFT SIDE WITH EYES CLOSED AND BREATHING EVENLY. PATIENT IS STABLE AND VSS. WILL CONTINUE WITH PLAN OF CARE. SR UP X 2 BED IN LOW POSITION AND CALL LIGHT IN REACH.
--- NOTE | 2019-05-04 07:10 | NUR ---
REPORT RECEIVED FROM TELEGRAPH DISPATCHER AND PATIENT CARE ASSUMED. PATIENT LAYING IN BED ON LEFT SIDE WITH EYES CLOSED AND BREATHING EVENLY. WILL CONTINUE WITH PLAN OF CARE. SR UP X 2 BED IN LOW POSITION AND CALL LIGHT IN REACH.
[2019-05-04 07:25] LABS: POTASSIUM - SERUM 2.9 mmol/L (3.5-5.1)
[2019-05-04 07:30] LABS: BASOPHILS 0.3 % (0-2); EOSINOPHILS 1.5 % (0-7); HEMATOCRIT 29.4 % (42.0-54.0); IMMATURE GRANULOCYTES 0.5 % (0-5); LYMPHOCYTES 26.2 % (15-50); MCH 29.7 pg (26.0-34.0); MCV 87.2 fL (80.0-100.0); MEAN PLATELET VOLUME 9.3 fL (7.4-10.4); MONOCYTES 9.7 % (2-11); NEUTROPHILS 61.8 % (40-80); PLATELET COUNT 194 10x3/uL (130-400); RBC 3.37 10x6/uL (4.20-6.10); RDW 15.2 % (11.5-14.5); WBC 6.2 10x3/uL (4.8-10.8)
--- NOTE | 2019-05-04 10:00 | NUR ---
PATIENT IS STABLE AND VSS. PATIENT DENIES ANY NEEDS OR PAIN. AT BS. WILL CONTINUE TO MONITOR. SR UP X 2 BEDE IN LOW POSITION AND CALL LIGHT IN REACH.
--- NOTE | 2019-05-04 11:30 | NUR ---
PATIENT UP TO BS CHAIR WITH PT. AT SIDE. WILL CONTINUE TO MONITOR. CALL LIGHT IN REACH.
[2019-05-04 12:56] VITALS: BP 146/68
--- NOTE | 2019-05-04 13:20 | NUR ---
PATIENT BACK TO BED WITH PT. PATIENT IS STABLE AND VSS. AND DTR AT BS. WILL CONTINUE TO MONITOR. SR UP X 2 BED IN LOW POSITION AND CALL LIGHT IN REACH.
--- NOTE | 2019-05-04 15:01 | MORECARE ---
CASE MANAGEMENT DISCHARGE SUMMARY PATIENT: SHAYNE BRICEÑO UNIT: [id number] ADM DATE: 04/22/19 AGE: 73 : 47 SEX: M ROOM/BED: D.2111 AUTHOR: JAYRO,DOC PHYSICIAN: REFERRING PHYSICIAN: KHOI SPAIN MD DATE OF SERVICE: 05/04/19 Discharge Plan Patient Name: SHAYNE BRICEÑO Facility: [facility]:[place] : 1945 Planned Disposition: Fdc Facility Anticipated Discharge Date: Discharge Date: Expected LOS: Initial Reviewer: [id number] Initial Review Date: 04/27/2019 Generated: 05/04/19 4:00 pm Comments DCP- Discharge Planning Updated by [email or web address]: Dinorah Fay on 05/04/19 1:[address] SPOKE WITH ISRAEL WITH [facility]. SHE WANTED TO SEE IF I WAS AWARE OF THE PATIENT FILING A [employer] APPEAL TO DISCHARGE. I EXPLAINED YES AND THAT I HAVE ALREADY FAXED THE INFORMATION TO [employer] LETTING THEM KNOW THAT THE PATIENT IS NOT DISCHARGED. I HAVE EXPLAINED THAT THE HAD CALLED [facility] TO ASK THEM TO FIGHT THE DENIAL FOR INPATIENT REHAB FOR THEM THAT SHE WAS UNHAPPY THAT THE P2P WAS UNSUCCESSFUL. ALL INFORMATION WAS GIVEN TO ISRAEL THAT SHE REQUESTED. SHE NOW HAS MY DIRECT NUMBER AND WILL CALL ME IF SHE HAS ANY FURTHER QUESTIONS OR NEEDS ANY FURTHER INFORMATION. DCP- Discharge Planning Updated by [id number]: Geovanni Skinner on 05/03/19 4:[address] Patient Name: SHAYNE BRICEÑO Encounter No: [id number] : 1945 Primary Insurance: [employer] CHOICE PPO MCR ADVANT Anticipated DC Date: Planned Disposition: Fdc Facility External Planned Provider: WAITING ON FAMILY DECISION DCP follow-up note: CM RECEIVED INPATIENT REHAB DENIAL. CM PROVIDED COPY TO PT WHO INSTRUCTED CM TO CALL HIS . CM ALLED CHRISTIE BRICEÑO, SPOUSE, , INFORMED OF DENIAL AND COPY IN PT'S ROOM. CHRISTIE STATES SHE WILL CALL INSURANCE COMPANY TOMORROW TO APPEAL THE DECISION. CHRISTIE HAS NOT MADE ANY DECISION REGARDING USP FACILITY PLACEMENT AND IS WAITING ON HER DAUGHTERS TO ASSIST HER WITH DECISION. CM EXPLAINED THAT PT IS MEDICALLY STABLE FOR DISCHARGE NOW AND USP CHOICES NEED TO BE MADE EVEN IF THEY ARE APPEALING INSURANCE DECISION. CHRISTIE REPORTS SHE WILL CALL INSURANCE AND PROVIDE USP FACILITY CHOICES SOON POSSIBLE. CHRISTIE IS NOT WANTING TO RETURN PT TO [facility] INSURANCE DECLINED INPATIENT REHAB. IS GOING TO CALL INSURANCE TO APPEAL DENIAL OF INPATIENT REHAB. SPEAKING TO FAMILY TO MAKE USP FACILITY CHOICES. CM WAITING ON PT'S TO PROVIDE USP FACLITY CHOICES. Geovanni Skinner, CASE MANAGEMENT DCP- Discharge Planning Updated by [id number]: Geovanni Skinner on 05/02/19 11:[address] Patient Name: SHAYNE BRICEÑO Encounter No: [id number] : 1945 Primary Insurance: [employer] CHOICE PPO MCR ADVANT Anticipated DC Date: Planned Disposition: Fdc Facility External Planned Provider: [facility] DCP follow-up note: CM SPOKE TO JODEE THOMPSON REGARDING INPATIENT REHAB DENIAL THAT WAS RECEIVED ON THURSDAY, JODEE THOMPSON AGREED WITH [facility] AND DIRECTED CM TO CHECK WITH DR. SPAIN REGARDING PEER TO PEER WITH INSURANCE COMPANY. CM CONTACTED DR. SPAIN WHO DECLINED PEER TO PEER AND AGREED WITH USP PLACEMENT FOR REHAB. CM CALLED AND SPOKE TO PT'S SPOUSE, CHRISTIE KEITA, WHO DISAGREED WITH THE INSURANCE COMPANY AND ASKED FOR APPEAL NUMBER THAT SHE CAN CALL. CM CALLED [facility]SON AT [facility], , WHO WILL CHECK TO SEE IF ANY FAX WAS RECEIVED FROM INSURANCE COMPANY. SHE WAS NOT ABLE TO LOCATE A FAXED DENIAL. CM CALLED PT'S INSURANCE COMPANY, [employer] AT , SPOKE TO DANIEL WHO ADVISED THAT THE CLAIM HAD NOT BEEN DENIED, AND THAT THE BALANCE WHEEL SCREW HOLE DRILLER REACHED OUT FOR PEER TO PEER WITH HOSPITAL PHYSICIAN PRIOR TO MAKING DETERMINATION REGARDING INPATIENT REHAB. DANIEL JACOBSON INFORMED CM THAT PT DOES NOT HAVE ANY APPEAL RIGHTS UNLESS THE CLAIM IS DENIEDS. CM SPOKE TO DR. SPAIN WHO IS WILLING FOR PEER TO PEER TOMORROW, 05-03-19. CM CALLED [employer] AT , SPOKE TO DANIEL AND ARRANGED FOR DR. ERICKSON OF [employer] TO CALL DR. SPAIN 05-03-19 BETWEEN 1:30PM AND 1:45 PM FOR PEER TO PEER. CM NOTIFIED DR. SPAIN AND PT'S SPOUSE. PT'S SPOUSE ADVISED THAT SHE IS NOT THINKING OF RETURNING PT TO [facility] IF INPATIENT IS DECLINED AND WILL LOOK INTO OTHER USP FACILITIES "PLAN B" AND WILL LET CM KNOW WHAT HER CHOICE WILL BE. CM WAITING PEER TO PEER DISCUSSION BETWEEN DR. SPAIN AND DR. ERICKSON FOR INSURANCE TO MAKE DETERMINATION REGARDING INPATIENT REHAB SERVICES. Geovanni Skinner, CASE MANAGEMENT Geovanni Skinner DCP- Discharge Planning Updated by [id number]: Geovanni Skinner on 05/02/19 7:[address] Patient Name: SHAYNE BRICEÑO Encounter No: [id number] : 1945 Primary Insurance: HU[employer]NA CHOICE PPO [facility] ADVANT Anticipated DC Date: Planned Disposition: Fdc Facility External Planned Provider: : DCP follow-up note: PT HAS BEEN DECLINED ON 04-29-19 BY INSURANCE FOR INPATIENT REHAB WITH RECOMMENDATION FOR [facility] REHAB. CM FAXED UPDATE TO [facility], , FOR POSSIBLE RETURN TO [facility] REHAB IF PHYSICIAN AGREES WITH INSURANCE DETERMINATION. IF PEER TO PEER REVIEW IS DESIRED, IT CAN BE ARRANGED PRIOR TO 05-05-19, BY CALLING [employer] AT . BENIGNO Layton DCP- Discharge Planning Updated by [id number]: Geovanni Skinner on 04/29/19 3:[address] Patient Name: SHAYNE BRICEÑO Encounter No: [id number] : 1945 Primary Insurance: HU[employer] CHOICE PPO [facility] ADVANT Anticipated DC Date: Planned Disposition: Inpatient Rehab External Planned Provider: [facility] [place] DCP follow-up note: CM RECEIVED PHONE MESSAGE FROM [facility] OF [employer], , EXTENSION [phone], WHO INFORMED CM THAT PT HAS BEEN DECLINED FOR INPATIENT REHAB WITH RECOMMENDATION FOR [facility] REHAB. CM NOTIFIED JODEE SANZ WHO WILL DISCUSS WITH PHYSICIAN. IF PEER TO PEER REVIEW IS DESIRED, IT CAN BE ARRANGED PRIOR TO 05-05-19, BY CALLING [employer] AT . BENIGNO Layton DCP- Discharge Planning Updated by [id number]: Geovanni Skinner on 04/29/19 6:[address] Patient Name: SHAYNE BRICEÑO Encounter No: [id number] : 1945 Primary Insurance: [employer] CHOICE PPO MCR ADVANT Anticipated DC Date: Planned Disposition: Inpatient Rehab External Planned Provider[facility] Discharge Planning Comments: CM FAXED REFERRAL UPDATE WITH OCCUPATIONAL THERAPY EVALUATION TO [facility] AT [phone]. CM WAITING ADMISSION DETERMINATION WELL INSURANCE AUTHORIZATION FOR INPATIENT REHAB SERVICES AT [facility]. Plant Etiologist: Geovanni Skinner DCP- Discharge Planning Updated by [id number]: Geovanni Skinner on 04/28/19 8:[address] Patient Name: SHAYNE BRICEÑO Encounter No: [id number] : 1945 Primary Insurance: [employer] CHOICE PPO MCR ADVANT Anticipated DC Date: Planned Disposition: Inpatient Rehab External Planned Provider: [facility] INPATIENT [facility] Discharge Planning Comments: CM CALLED [facility] OF [facility], , PROVIDED REFERRAL FOR INPATIENT REHAB SERVICES. CM FAXED REFERRAL TO [facility] AT [phone]. CM WAITING OT EVALUATION AND WILL FAX TO [facility] SOON DOCUMENTED IN CHART. PATIENT WILL REQUIRE INSURANCE AUTHORIZATION FOR INPATIENT REHAB SERVICES. Plant Etiologist: Geovanni Skinner DCP- Discharge Planning Updated by [id number]: Geovanni Skinner on 04/27/19 3:[address] Patient Name: SHAYNE BRICEÑO Admission Status: ER Accout number: [id number] Admission Date: 04-22-2019 : 1945 Admission Diagnosis:EDEMA, UNSPECIFIED Attending: KHOI SPAIN Current LOS: 5 Anticipated DC Date: Planned Disposition: Inpatient Rehab Primary Insurance: [employer] CHOICE PPO MCR ADVANT PLANNED EXTERNAL PROVIDER: [facility] INPATIENT [facility] Discharge Planning Comments: CM MET WITH PT IN ROOM TO DISCUSS DISCHARGE PLANNING AND NEEDS. PT STATES HE WAS AT [facility] FOR REHAB AND MAY BE RETURNING THERE. CHOICE SIGNED. PT REQUESTED CM SPEAK TO HIS . CM LATER MET WITH PT'S WHO REPORTS THAT SHE WOULD LIKE PT CONSIDERED FOR INPATIENT REHAB AT [facility] IN [place]; SHE HAS DISCUSSED THIS WITH MOTION PICTURE CAMERA LENS TECHNICIAN AT [facility] AND SHE HOPES THIS LEVEL OF REHAB WILL BE APPROVED FOR PATIENT. IMPORTANT MESSAGE FROM MEDICARE PROVIDED AND EXPLAINED. CM TO CONTACT [facility] [place], SOON POSSIBLE AND PROVIDE REFERRAL FOR INPATIENT REHAB SERVICES. PT WILL REQUIRE INSURANCE AUTHORIZATION FOR SERVICES. Plant Etiologist: Geovanni Skinner DCPIA - Discharge Planning Initial Assessment Updated by [id number]: Geovanni Skinner on 04/27/19 4:53 pm * Is the patient Alert and Oriented? Yes * How many steps to enter\\exit or inside your home? * PCP DR. LOCO * Pharmacy [facility] * Preadmission Environment Fdc Facility * Facility Name [facility] * ADLs Partial Dependent * Partial ADLs (Assistance needed) Ambulation Bathing Dressing Medication Management Toileting Transfers * Equipment None * Other Equipment NO MEDICAL EQUIPMENT PROVIDER PREFERENCE * List name and contact numbers for known caregivers / representatives who currently or will assist patient after discharge: CHRISTIE BRICEÑO, SPOUSE, * Verbal permission to speak to the caregivers and representatives has been obtained from the patient. Yes * Community resources currently utilized None * Please name any agencies selected above. NONE * Additional services required to return to the preadmission environment? No * Can the patient safely return to the preadmission environment? Yes * Has this patient been hospitalized within the prior 30 days at any hospital? Yes Coverage Notice Reviewer: [id number] Dez Skinner Notice Issued Date-Time: 04/27/2019 14:40 Notice Type: IM Discharge Notice Notice Delivered To: Family Member Relationship to Patient: Spouse Press Officer Name: CHRISTIE BRICEÑO Delivery Method: HAND - Hand Delivered Tg Days: Prior Verbal Notification: Recipient Understood Notice: Yes Recipient Signature: Yes Med Rec Note Co-signed by Attending: Coverage Notice Comment: Reviewer: [email or web address] Dez Skinner Notice Issued Date-Time: 04/27/2019 9:05 Notice Type: Patient Choice Letter Notice Delivered To: Patient Relationship to Patient: Press Officer Name: Delivery Method: HAND - Hand Delivered Tg Days: Prior Verbal Notification: Recipient Understood Notice: Yes Recipient Signature: Yes Med Rec Note Co-signed by Attending: Coverage Notice Comment: SANDEEP Ledesma DP export: 05/03/19 4:20 p Patient Name: SHAYNE BRICEÑO Page [phone] at 1501 All edits/amendments must be made on the electronic document DICTATION DATE: 05/04/191499 AUTOMATIC GRINDING MACHINE OPERATOR: LENIN 05/04/191499 RPT#: [id number] DC DATE: STATUS: ADM IN [facility] [address] [place] [address] END OF REPORT
--- NOTE | 2019-05-04 16:22 | NUR ---
PATIENT LAYING IN BED ON BACK. EYES ARE CLOSED AND BREATHING EVENLY. SR UP X 2 BED IN LOW POSITION AND CALL LIGHT IN REACH.
--- NOTE | 2019-05-04 16:29 | NUR ---
OT NOTE: PT COMPLETED LUE PROM TO FACILITATE NEURO PLASTICITY. PT COMPLETED BED MOB WITH MAX A. PT COMPLETED SIT TO STAND WITH TOTAL A. PT COMPLETED FACE WASH WITH SET UP USING RUE. THANK YOU, NANCY MO
[2019-05-04 17:27] VITALS: BP 142/69
[2019-05-04 20:00] VITALS: BP 154/69
[2019-05-05] VITALS: BP 142/68
[2019-05-05 04:00] VITALS: BP 131/72
[2019-05-05 06:57] LABS: BASOPHILS 0.3 % (0-2); EOSINOPHILS 2.7 % (0-7); HEMATOCRIT 30.5 % (42.0-54.0); HEMOGLOBIN 10.2 g/dL (13.5-17.5); IMMATURE GRANULOCYTES 0.3 % (0-5); LYMPHOCYTES 30.7 % (15-50); MCH 29.4 pg (26.0-34.0); MCHC 33.4 g/dL (31.0-37.0); MCV 87.9 fL (80.0-100.0); MEAN PLATELET VOLUME 9.4 fL (7.4-10.4); MONOCYTES 9.2 % (2-11); NEUTROPHILS 56.8 % (40-80); PLATELET COUNT 202 10x3/uL (130-400); RBC 3.47 10x6/uL (4.20-6.10); RDW 15.3 % (11.5-14.5); WBC 5.9 10x3/uL (4.8-10.8)
--- NOTE | 2019-05-05 07:10 | NUR ---
REPORT RECEIVED FROM MATERIAL CONTROL SPECIALIST AND PATIENT CARE ASSUMED. PATIENT LAYING IN BED ON BACK WITH EYES CLOSED AND BREATHING EVENLY. WILL CONTINUE WITH PLAN OF CARE. SR UP X 2 BED IN LOW POSITION AND CALL LIGHT IN REACH.
[2019-05-05 07:13] LABS: CALC OSMOLALITY 279 mosm/kg (275-300); CALCIUM 8.7 mg/dL (8.5-10.1); CARBON DIOXIDE 27.8 mmol/L (21.0-32.0); CHLORIDE - SERUM 105 mmol/L (98-107); CREATININE - SERUM 0.8 mg/dL (0.6-1.3); GLUCOSE 92 mg/dL (74-106); POTASSIUM - SERUM 3.3 mmol/L (3.5-5.1); SODIUM 140 mmol/L (136-145); UREA NITROGEN 14 mg/dL (7-18); eGFR NON AFRICAN AMERICAN > 90 mL/min (90-120)
[2019-05-05 08:00] VITALS: BP 164/71
--- NOTE | 2019-05-05 11:30 | NUR ---
PATIENT HAD BEDBATH, ORAL CARE AND COMPLETE LINEN CHANGE. PATIENT IS STABLE AND VSS. WILL CONTINUE TO MONITOR. SR UP X 2 BED IN LOW POSITION AND CALL LIGHT IN REACH.
[2019-05-05 12:00] VITALS: BP 180/89
--- NOTE | 2019-05-05 13:32 | NUR ---
Nutrition Follow-up: Discussed pt with nurse, Kera. She reports pt typically only eats ~10% of meals and has been receiving Glucerna 1.5 via PEG TID with tolerance. Being followed by ST; continues to rec puree with nectar thick liquids. Diet: Diabetic, Puree, [place] Thick Liquids Glucerna 1.5 - bolus 1 can if meal intake <50% No new wt Labs reviewed Meds reviewed Continue current diet as tolerated with consistencies per ST. +1 can Glucerna 1.5 @ 1999 in addition to current TF regimen. RD following.
--- NOTE | 2019-05-05 14:15 | NUR ---
PATIENT HAD LARGE, LIQUID BROWN STOOL. PATIENT CLEANED AND COMPLETE LINEN CHANGE. SR UP X 2 BED IN LOW POSITION AND CALL LIGHT IN REACH.
--- NOTE | 2019-05-05 15:48 | NUR ---
OT NOTE: PT COMPLETED LUE PROM TO FACILITATE FUNCTIONAL RETURN. PT COMPLETED BED MOB WITH MAX A. PT COMPLETED TRANSFER WITH TOTAL A. PT COMPLETED SIMPLE FACE WASH WITH SET UP USING RUE. PT COMPLETED EOB SITTING BALANCE WITH MAX A. PT EXHIBITS POOR TRUNK STABILITY/CONTROL. THANK YOU, NANCY MO
--- NOTE | 2019-05-05 15:51 | NUR ---
OT NOTE: PT COMPLETED SIT TO STAND WITH TOTAL A. PT COMPLETED LUE POSITIONING WITH MAX A. THANK YOU, NANCY MO
[2019-05-05 16:00] VITALS: BP 139/65
--- NOTE | 2019-05-05 16:40 | MORECARE ---
CASE MANAGEMENT DISCHARGE SUMMARY PATIENT: SHAYNE BRICEÑO UNIT: [id number] ADM DATE: 04/22/19 AGE: 73 : 47 SEX: M ROOM/BED: D.2111 AUTHOR: JAYRODOC PHYSICIAN: REFERRING PHYSICIAN: KHOI SPAIN MD DATE OF SERVICE: 05/05/19 Discharge Plan Patient Name: SHAYNE BRICEÑO Facility: [facility]:[place] : 1945 Planned Disposition: Halfway Facility Anticipated Discharge Date: Discharge Date: Expected LOS: Initial Reviewer: [id number] Initial Review Date: 04/27/2019 Generated: 05/05/19 5:40 pm Comments DCP- Discharge Planning Updated by [id number]: April Strong on 05/05/19 3:[address] Patient Name: SHAYNE BRICEÑO Admission Status: ER Accout number: [id number] Admission Date: 04-22-2019 : 1945 Admission Diagnosis:EDEMA, UNSPECIFIED Attending: KHOI SPAIN Current LOS: 13 Anticipated DC Date: Planned Disposition: Halfway Facility Primary Insurance: [employer] CHOICE PPO MCR ADVANT Discharge Planning Comments: CM AND DR. SPAIN SPOKE AT LENGTH WITH PATIENT TODAY. [facility] [place] AND THEY WILL DISCUSS WHAT SNF. I WILL MEET WITH HER TOMORROW. CM TO FOLLOW. Cell Reliner: April Strong DCP- Discharge Planning Updated by [id number]: Dinorah Fay on 05/04/19 1:[address] SPOKE WITH ISRAEL WITH [facility]. SHE WANTED TO SEE IF I WAS AWARE OF THE PATIENT FILING A [employer] APPEAL TO DISCHARGE. I EXPLAINED YES AND THAT I HAVE ALREADY FAXED THE INFORMATION TO [employer] LETTING THEM KNOW THAT THE PATIENT IS NOT DISCHARGED. I HAVE EXPLAINED THAT THE HAD CALLED [facility] TO ASK THEM TO FIGHT THE DENIAL FOR INPATIENT REHAB FOR THEM THAT SHE WAS UNHAPPY THAT THE P2P WAS UNSUCCESSFUL. ALL INFORMATION WAS GIVEN TO ISRAEL THAT SHE REQUESTED. SHE NOW HAS MY DIRECT NUMBER AND WILL CALL ME IF SHE HAS ANY FURTHER QUESTIONS OR NEEDS ANY FURTHER INFORMATION. DCP- Discharge Planning Updated by [id number]: Geovanni Skinner on 05/03/19 4:[address] Patient Name: SHAYNE BRICEÑO Encounter No: [id number] : 1945 Primary Insurance: [employer] CHOICE PPO MCR ADVANT Anticipated DC Date: Planned Disposition: Halfway Facility External Planned Provider: WAITING ON FAMILY DECISION DCP follow-up note: CM RECEIVED INPATIENT REHAB DENIAL. CM PROVIDED COPY TO PT WHO INSTRUCTED CM TO CALL HIS . CM ALLED CHRISTIE BRICEÑO, SPOUSE, , INFORMED OF DENIAL AND COPY IN PT'S ROOM. CHRISTIE STATES SHE WILL CALL INSURANCE COMPANY TOMORROW TO APPEAL THE DECISION. CHRISTIE HAS NOT MADE ANY DECISION REGARDING SHELTER FACILITY PLACEMENT AND IS WAITING ON HER DAUGHTERS TO ASSIST HER WITH DECISION. CM EXPLAINED THAT PT IS MEDICALLY STABLE FOR DISCHARGE NOW AND SHELTER CHOICES NEED TO BE MADE EVEN IF THEY ARE APPEALING INSURANCE DECISION. CHRISTIE REPORTS SHE WILL CALL INSURANCE AND PROVIDE SHELTER FACILITY CHOICES SOON POSSIBLE. CHRISTIE IS NOT WANTING TO RETURN PT TO [facility]. INSURANCE DECLINED INPATIENT REHAB. IS GOING TO CALL INSURANCE TO APPEAL DENIAL OF INPATIENT REHAB. SPEAKING TO FAMILY TO MAKE SHELTER FACILITY CHOICES. CM WAITING ON PT'S TO PROVIDE SHELTER FACLITY CHOICES. Geovanni Skinner, CASE MANAGEMENT DCP- Discharge Planning Updated by [id number]: Geovanni Skinner on 05/02/19 11:[address] Patient Name: SHAYNE BRICEÑO Encounter No: [id number] : 1945 Primary Insurance: [employer] CHOICE PPO MCR ADVANT Anticipated DC Date: Planned Disposition: Halfway Facility External Planned Provider: [facility] DCP follow-up note: CM SPOKE TO JODEE THOMPSON REGARDING INPATIENT REHAB DENIAL THAT WAS RECEIVED ON THURSDAY, JODEE THOMPSON AGREED WITH SHELTER AND DIRECTED CM TO CHECK WITH DR. SPAIN REGARDING PEER TO PEER WITH INSURANCE COMPANY. CM CONTACTED DR. SPAIN WHO DECLINED PEER TO PEER AND AGREED WITH SHELTER PLACEMENT FOR REHAB. CM CALLED AND SPOKE TO PT'S SPOUSE, CHRISTIE KEITA, WHO DISAGREED WITH THE INSURANCE COMPANY AND ASKED FOR APPEAL NUMBER THAT SHE CAN CALL. CM CALLED CARSON AT [facility], , WHO WILL CHECK TO SEE IF ANY FAX WAS RECEIVED FROM INSURANCE [employer]. SHE WAS NOT ABLE TO LOCATE A FAXED DENIAL. CM CALLED PT'S INSURANCE COMPANY, [employer] AT , SPOKE TO DANIEL WHO ADVISED THAT THE CLAIM HAD NOT BEEN DENIED, AND THAT THE WINDOWS DEPLOYMENT TECHNICIAN REACHED OUT FOR PEER TO PEER WITH HOSPITAL PHYSICIAN PRIOR TO MAKING DETERMINATION REGARDING INPATIENT REHAB. DANIEL JACOBSON INFORMED CM THAT PT DOES NOT HAVE ANY APPEAL RIGHTS UNLESS THE CLAIM IS DENIEDS. CM SPOKE TO DR. SPAIN WHO IS WILLING FOR PEER TO PEER TOMORROW, 05-03-19. CM CALLED [employer] AT , SPOKE TO DANIEL AND ARRANGED FOR DR. ERICKSON OF [employer] TO CALL DR. SPAIN 05-03-19 BETWEEN 1:30PM AND 1:45 PM FOR PEER TO PEER. CM NOTIFIED DR. SPAIN AND PT'S SPOUSE. PT'S SPOUSE ADVISED THAT SHE IS NOT THINKING OF RETURNING PT TO [facility] IF INPATIENT IS DECLINED AND WILL LOOK INTO OTHER SHELTER FACILITIES "PLAN B" AND WILL LET CM KNOW WHAT HER CHOICE WILL BE. CM WAITING PEER TO PEER DISCUSSION BETWEEN DR. SPAIN AND DR. ERICKSON FOR INSURANCE TO MAKE DETERMINATION REGARDING INPATIENT REHAB SERVICES. Geovanni Skinner, CASE MANAGEMENT Geovanni Skinner DCP- Discharge Planning Updated by [id number]: Geovanni Skinner on 05/02/19 7:[address] Patient Name: SHAYNE BRICEÑO Encounter No: [id number] : 1945 Primary Insurance: [employer] CHOICE PPO MCR ADVANT Anticipated DC Date: Planned Disposition: Halfway Facility External Planned Provider: : DCP follow-up note: PT HAS BEEN DECLINED ON 04-29-19 BY INSURANCE FOR INPATIENT REHAB WITH RECOMMENDATION FOR SHELTER REHAB. CM FAXED UPDATE TO [facility], , FOR POSSIBLE RETURN TO SHELTER REHAB IF PHYSICIAN AGREES WITH INSURANCE DETERMINATION. IF PEER TO PEER REVIEW IS DESIRED, IT CAN BE ARRANGED PRIOR TO 05-05-19, BY CALLING [employer] AT . Geovanni Skinner, CASE MANAGEMENT DCP- Discharge Planning Updated by [id number]: Geovanni Skinner on 04/29/19 3:[address] Patient Name: SHAYNE BRICEÑO Encounter No: [id number] : 1945 Primary Insurance: [employer] CHOICE PPO MCR ADVANT Anticipated DC Date: Planned Disposition: Inpatient Rehab External Planned Provider: [facility] DCP follow-up note: CM RECEIVED PHONE MESSAGE FROM [facility] OF [employer], , EXTENSION [phone], WHO INFORMED CM THAT PT HAS BEEN DECLINED FOR INPATIENT REHAB WITH RECOMMENDATION FOR SHELTER REHAB. CM NOTIFIED JODEE SANZ WHO WILL DISCUSS WITH PHYSICIAN. IF PEER TO PEER REVIEW IS DESIRED, IT CAN BE ARRANGED PRIOR TO 05-05-19, BY CALLING [employer] AT . Geovanni Skinner, CASE MANAGEMENT DCP- Discharge Planning Updated by [id number]: Geovanni Skinner on 04/29/19 6:[address] Patient Name: SHAYNE BRICEÑO Encounter No: [id number] : 1945 Primary Insurance: [employer] CHOICE PPO MCR ADVANT Anticipated DC Date: Planned Disposition: Inpatient Rehab External Planned Provider: [facility] INPATIENT [facility] Discharge Planning Comments: CM FAXED REFERRAL UPDATE WITH OCCUPATIONAL THERAPY EVALUATION TO [facility] AT [phone]. CM WAITING ADMISSION DETERMINATION WELL INSURANCE AUTHORIZATION FOR INPATIENT REHAB SERVICES AT [facility]. Cell Reliner: Geovanni Skinner DCP- Discharge Planning Updated by [id number]: Geovanni Skinner on 04/28/19 8:[address] Patient Name: SHAYNE BRICEÑO Encounter No: [id number] : 1945 Primary Insurance: [employer]NA New [employer] MD PPO MCR ADVANT Anticipated DC Date: Planned Disposition: Inpatient Rehab External Planned Provider: [facility] INPATIENT [facility] Discharge Planning Comments: CM CALLED CARSON OF [facility], , PROVIDED REFERRAL FOR INPATIENT REHAB SERVICES. CM FAXED REFERRAL TO [facility] AT [phone]. CM WAITING OT EVALUATION AND WILL FAX TO [facility] SOON DOCUMENTED IN CHART. PATIENT WILL REQUIRE INSURANCE AUTHORIZATION FOR INPATIENT REHAB SERVICES. Cell Reliner: Geovanni Skinner DCP- Discharge Planning Updated by [id number]: Geovanni Skinner on 04/27/19 3:[address] Patient Name: SHAYNE BRICEÑO Admission Status: ER Accout number: [id number] Admission Date: 04-22-2019 : 1945 Admission Diagnosis:EDEMA, UNSPECIFIED Attending: KHOI SPAIN Current LOS: 5 Anticipated DC Date: Planned Disposition: Inpatient Rehab Primary Insurance: [employer] CHOICE PPO MCR ADVANT PLANNED EXTERNAL [facility] Discharge Planning Comments: CM MET WITH PT IN ROOM TO DISCUSS DISCHARGE PLANNING AND NEEDS. PT STATES HE WAS AT [facility] FOR REHAB AND MAY BE RETURNING THERE. CHOICE SIGNED. PT REQUESTED CM SPEAK TO HIS . CM LATER MET WITH PT'S WHO REPORTS THAT SHE WOULD LIKE PT CONSIDERED FOR INPATIENT REHAB AT [facility] IN [place]; SHE HAS DISCUSSED THIS WITH CHAIRMAN OF THE BOARD AT [facility] AND SHE HOPES THIS LEVEL OF REHAB WILL BE APPROVED FOR PATIENT. IMPORTANT MESSAGE FROM MEDICARE PROVIDED AND EXPLAINED. CM TO CONTACT [facility] INPATIENT REHAB, [place], SOON POSSIBLE AND PROVIDE REFERRAL FOR INPATIENT REHAB SERVICES. PT WILL REQUIRE INSURANCE AUTHORIZATION FOR SERVICES. Cell Reliner: Geovanni Skinner DCPIA - Discharge Planning Initial Assessment Updated by [id number]: Geovanni Skinner on 04/27/19 4:53 pm * Is the patient Alert and Oriented? Yes * How many steps to enter\\exit or inside your home? * PCP DR. LOCO * [facility] * Preadmission Environment Halfway Facility * Facility Name [facility] * ADLs Partial Dependent * Partial ADLs (Assistance needed) Ambulation Bathing Dressing Medication Management Toileting Transfers * Equipment None * Other Equipment NO MEDICAL EQUIPMENT PROVIDER PREFERENCE * List name and contact numbers for known caregivers / representatives who currently or will assist patient after discharge: CHRISTIE BRICEÑO, SPOUSE, * Verbal permission to speak to the caregivers and representatives has been obtained from the patient. Yes * Community resources currently utilized None * Please name any agencies selected above. NONE * Additional services required to return to the preadmission environment? No * Can the patient safely return to the preadmission environment? Yes * Has this patient been hospitalized within the prior 30 days at any hospital? Yes Coverage Notice Reviewer: [id number] - Geovanni Skinner Notice Issued Date-Time: 04/27/2019 14:40 Notice Type: IM Discharge Notice Notice Delivered To: Family Member Relationship to Patient: Spouse Commercial Title Examiner Name: CHRISTIE BRICEÑO Delivery Method: HAND - Hand Delivered Tg Days: Prior Verbal Notification: Recipient Understood Notice: Yes Recipient Signature: Yes Med Rec Note Co-signed by Attending: Coverage Notice Comment: Reviewer: [id number] Dez Skinner Notice Issued Date-Time: 04/27/2019 9:05 Notice Type: Patient Choice Letter Notice Delivered To: Patient Relationship to Patient: Commercial Title Examiner Name: Delivery Method: HAND - Hand Delivered Tg Days: Prior Verbal Notification: Recipient Understood Notice: Yes Recipient Signature: Yes Med Rec Note Co-signed by Attending: Coverage Notice Comment: SANDEEP Ledesma DP export: 05/04/19 2:01 p Patient Name: SHAYNE BRICEÑO Page [id number] at 1640 All edits/amendments must be made on the electronic document DICTATION DATE: 05/05/19 1640 GREY GOODS MARKER: LENIN 05/05/19 1640 RPT#: [id number] DC DATE: STATUS: ADM IN [facility] [address] [place] [address] END OF REPORT
--- NOTE | 2019-05-05 17:58 | NUR ---
PATIENT SITTING UP IN BED . FAMILY ATTEMPTING TO FEED PATIENT . PATIENT IS REFUSING. OTHERWISE, PATIENT IS STABLE AND VSS. WILL CONTINUE TO MONITOR. SR UP X 2 BED IN LOW POSITION AND CALL LIGHT IN REACH.
[2019-05-05 20:00] VITALS: BP 145/64
--- NOTE | 2019-05-05 21:04 | NUR ---
PT CARE ASSUMED. BEDSIDE SHIFT REPORT COMPLETED. PT IN BED RR EVEN AND UNLABORED ON RA. NO S/S OF DISTRESS NOTED AT THIS TIME. PT DENIES NEEDS. INCONT CARE PROVIDED. NO FURTHER NEEDS EXPRESSED. CALL LIGHT IN REACH. WILL CPOC.
[2019-05-06] VITALS: BP 141/69
[2019-05-06 04:30] VITALS: BP 158/78
[2019-05-06 05:36] LABS: BASOPHILS 0.4 % (0-2); EOSINOPHILS 2.9 % (0-7); HEMATOCRIT 31.6 % (42.0-54.0); HEMOGLOBIN 10.4 g/dL (13.5-17.5); IMMATURE GRANULOCYTES 0.4 % (0-5); LYMPHOCYTES 33.5 % (15-50); MCH 29.5 pg (26.0-34.0); MCHC 32.9 g/dL (31.0-37.0); MCV 89.8 fL (80.0-100.0); MEAN PLATELET VOLUME 8.9 fL (7.4-10.4); MONOCYTES 7.3 % (2-11); NEUTROPHILS 55.5 % (40-80); PLATELET COUNT 179 10x3/uL (130-400); RBC 3.52 10x6/uL (4.20-6.10); RDW 14.9 % (11.5-14.5); WBC 5.5 10x3/uL (4.8-10.8)
[2019-05-06 05:53] LABS: CALC OSMOLALITY 278 mosm/kg (275-300); CALCIUM 8.7 mg/dL (8.5-10.1); CARBON DIOXIDE 27.9 mmol/L (21.0-32.0); CHLORIDE - SERUM 101 mmol/L (98-107); CREATININE - SERUM 0.8 mg/dL (0.6-1.3); GLUCOSE 103 mg/dL (74-106); POTASSIUM - SERUM 3.4 mmol/L (3.5-5.1); SODIUM 139 mmol/L (136-145); UREA NITROGEN 14 mg/dL (7-18); eGFR NON AFRICAN AMERICAN > 90 mL/min (90-120)
--- NOTE | 2019-05-06 07:10 | NUR ---
REPORT RECEVED FROM DOGMAN/WOMAN AND PATIENT CARE ASSUMED. PATIENT LAYING IN BED ON BACK WITH EYES CLOSED AND BREATHING EVENLY. VSS. WILL CONTINUE WITH PLAN OF CARE. SR UP X 2 BED IN LOW POSITION AND CALL LIGHT IN REACH.
[2019-05-06 08:20] VITALS: BP 138/78
--- NOTE | 2019-05-06 09:51 | NUR ---
PATIENT COMPLAINS OF PAIN AT A 10 AND STATES TYLENOL NOT HELPING. PATIENT STATES TAKES HYDROCODONE AT HOME. CALLED JODEE LEIVA AND RECEIVED NEW ORDER FOR HYDROCODONE 7.5 MG PO EVERY 4 HOURS PRN. REPOSITIONED PATIENT FOR COMFORT. SR UP X 2 BED IN LOW POSITION AND CALL LIGHT IN REACH.
[2019-05-06 12:13] VITALS: BP 136/61
--- NOTE | 2019-05-06 14:46 | NUR ---
OT NOTE: PT COMPLETED LUE PROM TO FACILITATE AROM. PT COMPLETED BED MOB TASKS WITH MAX/TOTAL A. THANK YOU, NANCY MO
--- NOTE | 2019-05-06 14:58 | MORECARE ---
CASE MANAGEMENT DISCHARGE SUMMARY PATIENT: SHAYNE BRICEÑO UNIT: [id number] ADM DATE: 04/22/19 AGE: 73 : 46 SEX: M ROOM/BED: D.2111 AUTHOR: JAYRODOC PHYSICIAN: REFERRING PHYSICIAN: KHOI SPAIN MD DATE OF SERVICE: 05/06/19 Discharge Plan Patient Name: SHAYNE BRICEÑO Facility: [facility]:[place] : 1945 Planned Disposition: Residential Facility Anticipated Discharge Date: Discharge Date: Expected LOS: Initial Reviewer: [id number] Initial Review Date: 04/27/2019 Generated: 05/06/19 3:57 pm Comments DCP- Discharge Planning Updated by [id number]: April Strong on 05/05/19 3:[address] Patient Name: SHAYNE BRICEÑO Admission Status: ER Accout number: [id number] Admission Date: 04-22-2019 : 1945 Admission Diagnosis:EDEMA, UNSPECIFIED Attending: KHOI SPAIN Current LOS: 13 Anticipated DC Date: Planned Disposition: Residential Facility Primary Insurance: [employer] CHOICE PPO MCR ADVANT Discharge Planning Comments: CM AND DR. SPAIN SPOKE AT LENGTH WITH PATIENT TODAY. [facility] [place] AND THEY WILL DISCUSS WHAT SNF. I WILL MEET WITH HER TOMORROW. CM TO FOLLOW. Sign Designer: April Strong DCP- Discharge Planning Updated by [id number]: Dinorah Fay on 05/04/19 1:[address] SPOKE WITH ISRAEL WITH [facility]. SHE WANTED TO SEE IF I WAS AWARE OF THE PATIENT FILING A [employer] APPEAL TO DISCHARGE. I EXPLAINED YES AND THAT I HAVE ALREADY FAXED THE INFORMATION TO [employer] LETTING THEM KNOW THAT THE PATIENT IS NOT DISCHARGED. I HAVE EXPLAINED THAT THE HAD CALLED [facility] TO ASK THEM TO FIGHT THE DENIAL FOR INPATIENT REHAB FOR THEM THAT SHE WAS UNHAPPY THAT THE P2P WAS UNSUCCESSFUL. ALL INFORMATION WAS GIVEN TO ISRAEL THAT SHE REQUESTED. SHE NOW HAS MY DIRECT NUMBER AND WILL CALL ME IF SHE HAS ANY FURTHER QUESTIONS OR NEEDS ANY FURTHER INFORMATION. DCP- Discharge Planning Updated by [id number]: Geovanni Skinner on 05/03/19 4:[address] Patient Name: SHAYNE BRICEÑO Encounter No: [id number] : 1945 Primary Insurance: [employer] CHOICE PPO MCR ADVANT Anticipated DC Date: Planned Disposition: Residential Facility External Planned Provider: WAITING ON FAMILY DECISION DCP follow-up note: CM RECEIVED INPATIENT REHAB DENIAL. CM PROVIDED COPY TO PT WHO INSTRUCTED CM TO CALL HIS . CM ALLED CHRISTIE BRICEÑO, SPOUSE, , INFORMED OF DENIAL AND COPY IN PT'S ROOM. CHRISTIE STATES SHE WILL CALL INSURANCE COMPANY TOMORROW TO APPEAL THE DECISION. CHRISTIE HAS NOT MADE ANY DECISION REGARDING INTERMEDIATE FACILITY PLACEMENT AND IS WAITING ON HER DAUGHTERS TO ASSIST HER WITH DECISION. CM EXPLAINED THAT PT IS MEDICALLY STABLE FOR DISCHARGE NOW AND INTERMEDIATE CHOICES NEED TO BE MADE EVEN IF THEY ARE APPEALING INSURANCE DECISION. CHRISTIE REPORTS SHE WILL CALL INSURANCE AND PROVIDE INTERMEDIATE FACILITY CHOICES SOON POSSIBLE. CHRISTIE IS NOT WANTING TO RETURN PT TO [facility]. INSURANCE DECLINED INPATIENT REHAB. IS GOING TO CALL INSURANCE TO APPEAL DENIAL OF INPATIENT REHAB. SPEAKING TO FAMILY TO MAKE INTERMEDIATE FACILITY CHOICES. CM WAITING ON PT'S TO PROVIDE INTERMEDIATE FACLITY CHOICES. Geovanni Skinner, CASE MANAGEMENT DCP- Discharge Planning Updated by [id number]: Geovanni Skinner on 05/02/19 11:[address] Patient Name: SHAYNE BRICEÑO Encounter No: [id number] : 1945 Primary Insurance: HU[employer]NA CHOICE PPO MCR ADVANT Anticipated DC Date: Planned Disposition: Residential Facility External Planned Provider: [facility] DCP follow-up note: CM SPOKE TO JODEE THOMPSON REGARDING INPATIENT REHAB DENIAL THAT WAS RECEIVED ON THURSDAY, JODEE THOMPSON AGREED WITH INTERMEDIATE AND DIRECTED CM TO CHECK WITH DR. SPAIN REGARDING PEER TO PEER WITH INSURANCE COMPANY. CM CONTACTED DR. SPAIN WHO DECLINED PEER TO PEER AND AGREED WITH INTERMEDIATE PLACEMENT FOR REHAB. CM CALLED AND SPOKE TO PT'S SPOUSE, CHRISTIE KEITA, WHO DISAGREED WITH THE INSURANCE COMPANY AND ASKED FOR APPEAL NUMBER THAT SHE CAN CALL. CM CALLED CARSON AT [facility], , WHO WILL CHECK TO SEE IF ANY FAX WAS RECEIVED FROM INSURANCE [employer]. SHE WAS NOT ABLE TO LOCATE A FAXED DENIAL. CM CALLED PT'S INSURANCE COMPANY, [employer] AT , SPOKE TO DANIEL WHO ADVISED THAT THE CLAIM HAD NOT BEEN DENIED, AND THAT THE LIBRARY CIRCULATION ASSISTANT REACHED OUT FOR PEER TO PEER WITH HOSPITAL PHYSICIAN PRIOR TO MAKING DETERMINATION REGARDING INPATIENT REHAB. DANIEL JACOBSON INFORMED CM THAT PT DOES NOT HAVE ANY APPEAL RIGHTS UNLESS THE CLAIM IS DENIEDS. CM SPOKE TO DR. SPAIN WHO IS WILLING FOR PEER TO PEER TOMORROW, 05-03-19. CM CALLED [employer] AT , SPOKE TO DANIEL AND ARRANGED FOR DR. ERICKSON OF [employer] TO CALL DR. SPAIN 05-03-19 BETWEEN 1:30PM AND 1:45 PM FOR PEER TO PEER. CM NOTIFIED DR. SPAIN AND PT'S SPOUSE. PT'S SPOUSE ADVISED THAT SHE IS NOT THINKING OF RETURNING PT TO [facility] IF INPATIENT IS DECLINED AND WILL LOOK INTO OTHER INTERMEDIATE FACILITIES "PLAN B" AND WILL LET CM KNOW WHAT HER CHOICE WILL BE. CM WAITING PEER TO PEER DISCUSSION BETWEEN DR. SPAIN AND DR. ERICKSON FOR INSURANCE TO MAKE DETERMINATION REGARDING INPATIENT REHAB SERVICES. Geovanni Skinner, CASE MANAGEMENT Geovanni Skinner DCP- Discharge Planning Updated by [id number]: Geovanni Skinner on 05/02/19 7:[address] Patient Name: SHAYNE BRICEÑO Encounter No: [id number] : 1945 Primary Insurance: HU[employer]NA CHOICE PPO MCR ADVANT Anticipated DC Date: Planned Disposition: Residential Facility External Planned Provider: : DCP follow-up note: PT HAS BEEN DECLINED ON 04-29-19 BY INSURANCE FOR INPATIENT REHAB WITH RECOMMENDATION FOR INTERMEDIATE REHAB. CM FAXED UPDATE TO [facility], , FOR POSSIBLE RETURN TO INTERMEDIATE REHAB IF PHYSICIAN AGREES WITH INSURANCE DETERMINATION. IF PEER TO PEER REVIEW IS DESIRED, IT CAN BE ARRANGED PRIOR TO 05-05-19, BY CALLING [employer] AT . Geovanni Skinner, CASE MANAGEMENT DCP- Discharge Planning Updated by [id number]: Geovanni Skinner on 04/29/19 3:[address] Patient Name: SHAYNE BRICEÑO Encounter No: [id number] : 1945 Primary Insurance: [employer] CHOICE PPO MCR ADVANT Anticipated DC Date: Planned Disposition: Inpatient Rehab External Planned Provider: [facility] DCP follow-up note: CM RECEIVED PHONE MESSAGE FROM [facility] OF [employer], , EXTENSION [phone], WHO INFORMED CM THAT PT HAS BEEN DECLINED FOR INPATIENT REHAB WITH RECOMMENDATION FOR INTERMEDIATE REHAB. CM NOTIFIED JODEE SANZ WHO WILL DISCUSS WITH PHYSICIAN. IF PEER TO PEER REVIEW IS DESIRED, IT CAN BE ARRANGED PRIOR TO 05-05-19, BY CALLING [employer] AT . Geovanni Skinner, CASE MANAGEMENT DCP- Discharge Planning Updated by [email or web address]: Geovanni Skinner on 04/29/19 6:[address] Patient Name: SHAYNE BRICEÑO Encounter No: [id number] : 1945 Primary Insurance: [employer] CHOICE PPO MCR ADVANT Anticipated DC Date: Planned Disposition: Inpatient Rehab External Planned Provider: [facility] INPATIENT [facility] Discharge Planning Comments: CM FAXED REFERRAL UPDATE WITH OCCUPATIONAL THERAPY EVALUATION TO [facility] AT [phone]. CM WAITING ADMISSION DETERMINATION WELL INSURANCE AUTHORIZATION FOR INPATIENT REHAB SERVICES AT [facility]. Sign Designer: Geovanni Skinner DCP- Discharge Planning Updated by [id number]: Geovanni Skinner on 04/28/19 8:[address] Patient Name: SHAYNE BRICEÑO Encounter No: [id number] : 1945 Primary Insurance: [employer]NA [employer] PPO MCR ADVANT Anticipated DC Date: Planned Disposition: Inpatient Rehab External Planned Provider: [facility] INPATIENT [facility] Discharge Planning Comments: CM CALLED CARSON OF [facility], , PROVIDED REFERRAL FOR INPATIENT REHAB SERVICES. CM FAXED REFERRAL TO [facility] AT [phone]. CM WAITING OT EVALUATION AND WILL FAX TO [facility] SOON DOCUMENTED IN CHART. PATIENT WILL REQUIRE INSURANCE AUTHORIZATION FOR INPATIENT REHAB SERVICES. Sign Designer: Geovanni Skinner DCP- Discharge Planning Updated by [id number]: Geovanni Skinner on 04/27/19 3:[address] Patient Name: SHAYNE BRICEÑO Admission Status: ER Accout number: [id number] Admission Date: 04-22-2019 : 1945 Admission Diagnosis:EDEMA, UNSPECIFIED Attending: KHOI SPAIN Current LOS: 5 Anticipated DC Date: Planned Disposition: Inpatient Rehab Primary Insurance: [employer]NA CHOICE PPO MCR ADVANT PLANNED [facility] Discharge Planning Comments: CM MET WITH PT IN ROOM TO DISCUSS DISCHARGE PLANNING AND NEEDS. PT STATES HE WAS AT [facility] FOR REHAB AND MAY BE RETURNING THERE. CHOICE SIGNED. PT REQUESTED CM SPEAK TO HIS . CM LATER MET WITH PT'S WHO REPORTS THAT SHE WOULD LIKE PT CONSIDERED FOR INPATIENT REHAB AT [facility] IN [place]; SHE HAS DISCUSSED THIS WITH NURSE PLASTICS AT [facility] AND SHE HOPES THIS LEVEL OF REHAB WILL BE APPROVED FOR PATIENT. IMPORTANT MESSAGE FROM MEDICARE PROVIDED AND EXPLAINED. CM TO CONTACT [facility] INPATIENT REHAB, [place], SOON POSSIBLE AND PROVIDE REFERRAL FOR INPATIENT REHAB SERVICES. PT WILL REQUIRE INSURANCE AUTHORIZATION FOR SERVICES. Sign Designer: Geovanni Skinner DCPIA - Discharge Planning Initial Assessment Updated by [id number]: Geovanni Skinner on 04/27/19 4:53 pm * Is the patient Alert and Oriented? Yes * How many steps to enter\\exit or inside your home? * PCP DR. LOCO * [facility] * Preadmission Environment Residential Facility * Facility Name [facility] * ADLs Partial Dependent * Partial ADLs (Assistance needed) Ambulation Bathing Dressing Medication Management Toileting Transfers * Equipment None * Other Equipment NO MEDICAL EQUIPMENT PROVIDER PREFERENCE * List name and contact numbers for known caregivers / representatives who currently or will assist patient after discharge: CHRISTIE BRICEÑO, SPOUSE, * Verbal permission to speak to the caregivers and representatives has been obtained from the patient. Yes * Community resources currently utilized None * Please name any agencies selected above. NONE * Additional services required to return to the preadmission environment? No * Can the patient safely return to the preadmission environment? Yes * Has this patient been hospitalized within the prior 30 days at any hospital? Yes External Providers External Provider: [facility] Next Contact Date: Service Request Date: Service Type: Resolution: Reviewer: Comments: Coverage Notice Reviewer: [id number] - Geovanni Skinner Notice Issued Date-Time: 04/27/2019 14:40 Notice Type: IM Discharge Notice Notice Delivered To: Family Member Relationship to Patient: Spouse Executive Vice President Name: CHRISTIE BRICEÑO Delivery Method: HAND - Hand Delivered Tg Days: Prior Verbal Notification: Recipient Understood Notice: Yes Recipient Signature: Yes Med Rec Note Co-signed by Attending: Coverage Notice Comment: Reviewer: [id number] - Geovanni Skinner Notice Issued Date-Time: 04/27/2019 9:05 Notice Type: Patient Choice Letter Notice Delivered To: Patient Relationship to Patient: Executive Vice President Name: Delivery Method: HAND - Hand Delivered Tg Days: Prior Verbal Notification: Recipient Understood Notice: Yes Recipient Signature: Yes Med Rec Note Co-signed by Attending: Coverage Notice Comment: SANDEEP Ledesma DP export: 05/05/19 3:40 p Patient Name: SHAYNE BRICEÑO Page 68571 at 1458 All edits/amendments must be made on the electronic document DICTATION DATE: 05/06/191456 BLOWING WEASAND: LENIN 05/06/191456 RPT#: [id number] DC DATE: STATUS: ADM IN [facility] [address] [place] [address] END OF REPORT
--- NOTE | 2019-05-06 15:07 | MORECARE ---
CASE MANAGEMENT DISCHARGE SUMMARY PATIENT: SHAYNE BRICEÑO UNIT: [id number] ADM DATE: 04/22/19 AGE: 73 : 46 SEX: M ROOM/BED: D.2111 AUTHOR: MANNIE DIAL PHYSICIAN: REFERRING PHYSICIAN: KHOI SPAIN MD DATE OF SERVICE: 05/06/19 Discharge Plan Patient Name: SHAYNE BRICEÑO Facility: [facility]:[place] : 1945 Planned Disposition: Fci Facility Anticipated Discharge Date: Discharge Date: Expected LOS: Initial Reviewer: [id number] Initial Review Date: 04/27/2019 Generated: 05/06/19 4:06 pm Comments DCP- Discharge Planning Updated by [id number]: Aprilsandy Strong on 05/06/19 2:[address] Patient Name: SHAYNE BRICEÑO Admission Status: ER Accout number: [id number] Admission Date: 04-22-2019 : 1945 Admission Diagnosis:EDEMA, UNSPECIFIED Attending: KHOI SPAIN Current LOS: 14 Anticipated DC Date: Planned Disposition: Fci Facility Primary Insurance: HUMANA CHOICE PPO [facility] ADVANT Discharge Planning Comments: I SPOKE WITH THE PATIENT'S AND SHE WOULD LIKE [facility]. I FAXED REFERRAL AND SHE WILL SIGN SANTOS. CM TO FOLLOW AND ASSIST. Pulling Unit Operator: April Strong DCP- Discharge Planning Updated by [id number]: April Strong on 05/05/19 3:[address] Patient Name: SHAYNE BRICEÑO Admission Status: ER Accout number: [id number] Admission Date: 04-22-2019 : 1945 Admission Diagnosis:EDEMA, UNSPECIFIED Attending: KHOI SPAIN Current LOS: 13 Anticipated DC Date: Planned Disposition: Fci Facility Primary Insurance: [employer] CHOICE PPO [facility] ADVANT Discharge Planning Comments: CM AND DR. SPAIN SPOKE AT LENGTH WITH PATIENT TODAY. OTHER DAUGHTER IS COMING IN TONIGHT FROM OUT OF TOWN AND THEY WILL DISCUSS WHAT SNF. I WILL MEET WITH HER TOMORROW. CM TO FOLLOW. Pulling Unit Operator: April Strong DCP- Discharge Planning Updated by [id number]: Dinorah Fay on 05/04/19 1:[address] SPOKE WITH ISRAEL WITH [employer]. SHE WANTED TO SEE IF I WAS AWARE OF THE PATIENT FILING A [employer] APPEAL TO DISCHARGE. I EXPLAINED YES AND THAT I HAVE ALREADY FAXED THE INFORMATION TO [employer] LETTING THEM KNOW THAT THE PATIENT IS NOT DISCHARGED. I HAVE EXPLAINED THAT THE HAD CALLED [employer] TO ASK THEM TO FIGHT THE DENIAL FOR INPATIENT REHAB FOR THEM THAT SHE WAS UNHAPPY THAT THE P2P WAS UNSUCCESSFUL. ALL INFORMATION WAS GIVEN TO ISRAEL THAT SHE REQUESTED. SHE NOW HAS MY DIRECT NUMBER AND WILL CALL ME IF SHE HAS ANY FURTHER QUESTIONS OR NEEDS ANY FURTHER INFORMATION. DCP- Discharge Planning Updated by [id number]: Geovanni Skinner on 05/03/19 4:[address] Patient Name: SHAYNE BRICEÑO Encounter No: [id number] : 1945 Primary Insurance: [employer] CHOICE PPO MCR ADVANT Anticipated DC Date: Planned Disposition: Fci Facility External Planned Provider: WAITING ON FAMILY DECISION DCP follow-up note: CM RECEIVED INPATIENT REHAB DENIAL. CM PROVIDED COPY TO PT WHO INSTRUCTED CM TO CALL HIS . CM ALLED CHRISTIE BRICEÑO, SPOUSE, , INFORMED OF DENIAL AND COPY IN PT'S ROOM. CHRISTIE STATES SHE WILL CALL INSURANCE COMPANY TOMORROW TO APPEAL THE DECISION. CHRISTIE HAS NOT MADE ANY DECISION REGARDING FDC FACILITY PLACEMENT AND IS WAITING ON HER DAUGHTERS TO ASSIST HER WITH DECISION. CM EXPLAINED THAT PT IS MEDICALLY STABLE FOR DISCHARGE NOW AND FDC CHOICES NEED TO BE MADE EVEN IF THEY ARE APPEALING INSURANCE DECISION. CHRISTIE REPORTS SHE WILL CALL INSURANCE AND PROVIDE FDC FACILITY CHOICES SOON POSSIBLE. CHRISTIE IS NOT WANTING TO RETURN PT TO [facility]. INSURANCE DECLINED INPATIENT REHAB. IS GOING TO CALL INSURANCE TO APPEAL DENIAL OF INPATIENT REHAB. SPEAKING TO FAMILY TO MAKE FDC FACILITY CHOICES. CM WAITING ON PT'S TO PROVIDE FDC FACLITY CHOICES. Geovanni Skinner, CASE MANAGEMENT DCP- Discharge Planning Updated by [id number]: Geovanni Skinner on 05/02/19 11:[address] Patient Name: SHAYNE BRICEÑO Encounter No: [id number] : 1945 Primary Insurance: [employer] CHOICE PPO MCR ADVANT Anticipated DC Date: Planned Disposition: Fci Facility External Planned Provider: [facility] DCP follow-up note: CM SPOKE TO JODEE THOMPSON REGARDING INPATIENT REHAB DENIAL THAT WAS RECEIVED ON THURSDAY, JODEE THOMPSON AGREED WITH FDC AND DIRECTED CM TO CHECK WITH DR. SPAIN REGARDING PEER TO PEER WITH INSURANCE COMPANY. CM CONTACTED DR. SPAIN WHO DECLINED PEER TO PEER AND AGREED WITH FDC PLACEMENT FOR REHAB. CM CALLED AND SPOKE TO PT'S SPOUSE, CHRISTIE KEITA, WHO DISAGREED WITH THE INSURANCE COMPANY AND ASKED FOR APPEAL NUMBER THAT SHE CAN CALL. CM CALLED CARSON AT [facility], , WHO WILL CHECK TO SEE IF ANY FAX WAS RECEIVED FROM INSURANCE COMPANY. SHE WAS NOT ABLE TO LOCATE A FAXED DENIAL. CM CALLED PT'S INSURANCE COMPANY, [employer] AT , SPOKE TO DANIEL WHO ADVISED THAT THE CLAIM HAD NOT BEEN DENIED, AND THAT THE FSR REACHED OUT FOR PEER TO PEER WITH HOSPITAL PHYSICIAN PRIOR TO MAKING DETERMINATION REGARDING INPATIENT REHAB. DANIEL JACOBSON INFORMED CM THAT PT DOES NOT HAVE ANY APPEAL RIGHTS UNLESS THE CLAIM IS DENIEDS. CM SPOKE TO DR. SPAIN WHO IS WILLING FOR PEER TO PEER TOMORROW, 05-03-19. CM CALLED [employer] AT , SPOKE TO DANIEL AND ARRANGED FOR DR. ERICKSON OF [employer] TO CALL DR. SPAIN 05-03-19 BETWEEN 1:30PM AND 1:45 PM FOR PEER TO PEER. CM NOTIFIED DR. SPAIN AND PT'S SPOUSE. PT'S SPOUSE ADVISED THAT SHE IS NOT THINKING OF RETURNING PT TO [facility] IF INPATIENT IS DECLINED AND WILL LOOK INTO OTHER FDC FACILITIES "PLAN B" AND WILL LET CM KNOW WHAT HER CHOICE WILL BE. CM WAITING PEER TO PEER DISCUSSION BETWEEN DR. SPAIN AND DR. ERICKSON FOR INSURANCE TO MAKE DETERMINATION REGARDING INPATIENT REHAB SERVICES. Geovanni Skinner, CASE MANAGEMENT Geovanni Skinner DCP- Discharge Planning Updated by [id number]: Geovanni Skinner on 05/02/19 7:[address] Patient Name: SHAYNE BRICEÑO Encounter No: [id number] : 1945 Primary Insurance: [employer] CHOICE PPO MCR ADVANT Anticipated DC Date: Planned Disposition: Fci Facility External Planned Provider: : DCP follow-up note: PT HAS BEEN DECLINED ON 04-29-19 BY INSURANCE FOR INPATIENT REHAB WITH RECOMMENDATION FOR FDC REHAB. CM FAXED UPDATE TO [facility], , FOR POSSIBLE RETURN TO FDC REHAB IF PHYSICIAN AGREES WITH INSURANCE DETERMINATION. IF PEER TO PEER REVIEW IS DESIRED, IT CAN BE ARRANGED PRIOR TO 05-05-19, BY CALLING [employer] AT . BENIGNO Layton DCP- Discharge Planning Updated by [id number]: Geovanni Skinner on 04/29/19 3:[address] Patient Name: SHAYNE BRICEÑO Encounter No: [id number] : 1945 Primary Insurance: [employer] CHO[employer] PPO MCR ADVANT Anticipated DC Date: Planned Disposition: Inpatient Rehab External Planned Provider: [facility] DCP follow-up note: CM RECEIVED PHONE MESSAGE FROM ALEC OF [employer], , EXTENSION [phone], WHO INFORMED CM THAT PT HAS BEEN DECLINED FOR INPATIENT REHAB WITH RECOMMENDATION FOR FDC REHAB. CM NOTIFIED JODEE SANZ WHO WILL DISCUSS WITH PHYSICIAN. IF PEER TO PEER REVIEW IS DESIRED, IT CAN BE ARRANGED PRIOR TO 05-05-19, BY CALLING [employer] AT . BENIGNO Layton DCP- Discharge Planning Updated by [id number]: Geovanni Skinner on 04/29/19 6:[address] Patient Name: SHAYNE BRICEÑO Encounter No: [id number] : 1945 Primary Insurance: [employer] CHO[employer] PPO MCR ADVANT Anticipated DC Date: Planned Disposition: Inpatient Rehab External Planned Provider: [facility] Discharge Planning Comments: CM FAXED REFERRAL UPDATE WITH OCCUPATIONAL THERAPY EVALUATION TO [facility] AT [phone]. CM WAITING ADMISSION DETERMINATION WELL INSURANCE AUTHORIZATION FOR INPATIENT REHAB SERVICES AT [facility]. Pulling Unit Operator: Geovanni Skinner DCP- Discharge Planning Updated by [id number]: Geovanni Skinner on 04/28/19 8:[address] Patient Name: SHAYNE BRICEÑO Encounter No: [id number] : 1945 Primary Insurance: [employer] CHOICE PPO MCR ADVANT Anticipated DC Date: Planned Disposition: Inpatient Rehab External Planned Provider: [facility] Discharge Planning Comments: CM CALLED CARSON OF [facility], , PROVIDED REFERRAL FOR INPATIENT REHAB SERVICES. CM FAXED REFERRAL TO [facility] AT [phone]. CM WAITING OT EVALUATION AND WILL FAX TO [facility] SOON DOCUMENTED IN CHART. PATIENT WILL REQUIRE INSURANCE AUTHORIZATION FOR INPATIENT REHAB SERVICES. Pulling Unit Operator: Geovanni Skinner DCP- Discharge Planning Updated by [id number]: Geovanni Skinner on 04/27/19 3:[address] Patient Name: SHAYNE BRICEÑO Admission Status: ER Accout number: [id number] Admission Date: 04-22-2019 : 1945 Admission Diagnosis:EDEMA, UNSPECIFIED Attending: KHOI SPAIN Current LOS: 5 Anticipated DC Date: Planned Disposition: Inpatient Rehab Primary Insurance: [employer] CHOICE PPO MCR ADVANT PLANNED EXTERNAL [facility] Discharge Planning Comments: CM MET WITH PT IN ROOM TO DISCUSS DISCHARGE PLANNING AND NEEDS. PT STATES HE WAS AT [facility] FOR REHAB AND MAY BE RETURNING THERE. CHOICE SIGNED. PT REQUESTED CM SPEAK TO HIS . CM LATER MET WITH PT'S WHO REPORTS THAT SHE WOULD LIKE PT CONSIDERED FOR INPATIENT REHAB AT [facility] IN [place]; SHE HAS DISCUSSED THIS WITH [employer] REPAIRER AT [facility] AND SHE HOPES THIS LEVEL OF REHAB WILL BE APPROVED FOR PATIENT. IMPORTANT MESSAGE FROM MEDICARE PROVIDED AND EXPLAINED. CM TO CONTACT [facility] INPATIENT REH[facility], [place], SOON POSSIBLE AND PROVIDE REFERRAL FOR INPATIENT REHAB SERVICES. PT WILL REQUIRE INSURANCE AUTHORIZATION FOR SERVICES. Pulling Unit Operator: Geovanni Skinner DCPIA - Discharge Planning Initial Assessment Updated by [id number]: Geovanni Skinner on 04/27/19 4:53 pm * Is the patient Alert and Oriented? Yes * How many steps to enter\\exit or inside your home? * PCP DR. LOCO * Pharmacy [facility] [address] * Preadmission Environment Fci Facility * Facility Name [facility] * ADLs Partial Dependent * Partial ADLs (Assistance needed) Ambulation Bathing Dressing Medication Management Toileting Transfers * Equipment None * Other Equipment NO MEDICAL EQUIPMENT PROVIDER PREFERENCE * List name and contact numbers for known caregivers / representatives who currently or will assist patient after discharge: CHRISTIE BRICEÑO, SPOUSE, * Verbal permission to speak to the caregivers and representatives has been obtained from the patient. Yes * Community resources currently utilized None * Please name any agencies selected above. NONE * Additional services required to return to the preadmission environment? No * Can the patient safely return to the preadmission environment? Yes * Has this patient been hospitalized within the prior 30 days at any hospital? Yes Coverage Notice Reviewer: [id number] Dez Skinner Notice Issued Date-Time: 04/27/2019 14:40 Notice Type: IM Discharge Notice Notice Delivered To: Family Member Relationship to Patient: Spouse Admissions Gate Attendant Name: CHRISTIE BRICEÑO Delivery Method: HAND - Hand Delivered Tg Days: Prior Verbal Notification: Recipient Understood Notice: Yes Recipient Signature: Yes Med Rec Note Co-signed by Attending: Coverage Notice Comment: Reviewer: [id number] Skinner Notice Issued Date-Time: 04/27/2019 9:05 Notice Type: Patient Choice Letter Notice Delivered To: Patient Relationship to Patient: Admissions Gate Attendant Name: Delivery Method: HAND - Hand Delivered Tg Days: Prior Verbal Notification: Recipient Understood Notice: Yes Recipient Signature: Yes Med Rec Note Co-signed by Attending: Coverage Notice Comment: SANDEEP Ledesma DP export: 05/06/19 1:58 p Patient Name: SHAYNE BRICEÑO Page 76520 at 1507 All edits/amendments must be made on the electronic document DICTATION DATE: 05/06/19 1506 RN WOUND CARE: LENIN 05/06/19 1506 RPT#: [id number] DC DATE: STATUS: ADM IN [facility] [address] [place] [address] END OF REPORT
--- NOTE | 2019-05-06 16:11 | NUR ---
PATIENT RESTING COMFORTABLY IN BED. AT BS. PATIENT DENIES ANY PAIN. PATIENT IS STABLE AND VSS. WILL CONTINUE TO MONITOR.
[2019-05-06 16:14] VITALS: BP 127/72
--- NOTE | 2019-05-06 19:15 | NUR ---
PATIENT ALERT AND ORIENTED WHEN ENTERING THE ROOM. HOB AT 30 DEGREE ANGLE. PT RESPONDS WHEN SPOKEN TO. PATIENT INCONTINENT OF BOWEL. BED CHANGE PROVIDED. PATIENT HAS PEG TUBE IN THE UPPER LEFT QUADRANT. SITE IS CLEAN WITH NO REDNESS OR IRRITATION NOTED AROUND THE INSERTION SITE. DENIES FURTHER NEEDS AT THIS TIME. CONTACT ISOLATION PRECAUTIONS. PATIENT ROOM CLOSE TO NURSES STATION FOR CONTINUAL MONTIORING. CPOC.
[2019-05-06 20:00] VITALS: BP 108/58
--- NOTE | 2019-05-06 20:00 | NUR ---
PATIENT VSS 108/58. SPOKE WITH CHARGE NURSE, KALYN MALDONADO AND REVEIWED 100 MG OF HYDRALAZINE. CHARGE NURSE ADVISED TO HOLD HYDRALAZINE AT THIS TIME.
[2019-05-07] VITALS: BP 115/56
--- NOTE | 2019-05-07 02:01 | NUR ---
I have reviewed this patient and I concur with the Shift Assessment completed by the Licensed Practical Nurse today this shift.
[2019-05-07 04:00] VITALS: BP 145/66
[2019-05-07 05:13] LABS: BASOPHILS 0.5 % (0-2); EOSINOPHILS 2.7 % (0-7); HEMATOCRIT 31.9 % (42.0-54.0); HEMOGLOBIN 10.4 g/dL (13.5-17.5); LYMPHOCYTES 36.6 % (15-50); MCH 29.5 pg (26.0-34.0); MCHC 32.6 g/dL (31.0-37.0); MCV 90.6 fL (80.0-100.0); MEAN PLATELET VOLUME 9.3 fL (7.4-10.4); NEUTROPHILS 51.2 % (40-80); RBC 3.52 10x6/uL (4.20-6.10); RDW 15.1 % (11.5-14.5); WBC 5.6 10x3/uL (4.8-10.8)
[2019-05-07 05:24] LABS: PLATELET COUNT 222 10x3/uL (130-400)
[2019-05-07 05:46] LABS: CALC OSMOLALITY 281 mosm/kg (275-300); CALCIUM 8.7 mg/dL (8.5-10.1); CARBON DIOXIDE 29.1 mmol/L (21.0-32.0); CHLORIDE - SERUM 102 mmol/L (98-107); CREATININE - SERUM 0.9 mg/dL (0.6-1.3); GLUCOSE 98 mg/dL (74-106); POTASSIUM - SERUM 3.7 mmol/L (3.5-5.1); SODIUM 140 mmol/L (136-145); eGFR NON AFRICAN AMERICAN 88 mL/min (90-120)
[2019-05-07 05:47] LABS: UREA NITROGEN 21 mg/dL (7-18)
[2019-05-07 09:17] VITALS: BP 164/77
--- NOTE | 2019-05-07 12:26 | NUR ---
MOVED PATIENT AND REPOSITIONED. PEG TUBE FEEDING WENT WELL. DRAINS BY GRAVITY.
[2019-05-07 12:29] VITALS: BP 144/71
[2019-05-07 16:52] VITALS: BP 137/69
[2019-05-07 20:00] VITALS: BP 150/100
--- NOTE | 2019-05-07 22:20 | NUR ---
INITIAL ROUNDS COMPLETED AT 1915HRS. PT RESTING WITH EYES CLOSED. RESP EVEN AND REGULAR. ASSESSMENT COMPLETED AT 1999 HRS. VSS. PT ALERT,FOLLOWS COMMANDS WELL. NO IV. L SIDE FLACCID THOUGH PT ABLE TO DRAW UP L LEG. LUNGS DIMINISHED IN BASES BILAT. PEG TUBE NOTED. BUTTOCKS SLIGHTLY RED. PT INCONTINENT OF URINE. INCONTINENT CARE DONE. PT REPOSITIONED IN BED FOR COMFORT. FSBS 119. NO COVERAGE NEEDED. 1 CAN GLUCERNA 1.5 GIVEN VIA GRAVITY TO PEG AND FLUSHED WITH 60CC OF H2O. PM MEDS GIVEN. PT INCONTINENT OF STOOL AT 2154 HRS. INCONTINENT CARE DONE. PT REPOSITIONED IN BED. PT CURRNTLY WATCHING TV. SR UP X2, CALL LIGHT WITHIN REACH, HOB UP 30 DEGREES AND BED ALARM ON.
[2019-05-08] VITALS: BP 113/57
--- NOTE | 2019-05-08 00:42 | NUR ---
PT RESTING WITH EYES CLOSED. RESP EVEN AND REGULAR. SR UP X2,CALL LIGHT WITHIN REACH AND BED ALARM ON.
--- NOTE | 2019-05-08 02:10 | NUR ---
PT RESTING WITH EYES CLOSED. RESP EVEN AND REGULAR. SR UP X2, CALL LIGHT WITHIN REACH AND BED ALARM ON.
[2019-05-08 04:00] VITALS: BP 145/63
--- NOTE | 2019-05-08 04:28 | NUR ---
PT AWAKE; DENIES ANY DISCOMFORT. PT CLEAN AND DRY AT THIS TIME. SR UP X2, CALL LIGHT WITHIN REACH AND BED ALARM ON.
--- NOTE | 2019-05-08 05:38 | NUR ---
VSS THROUGHOUT NIGHT. PT DENIED ANY DISCOMFORT. INC OF STOOL AND URINE X1 DURING SHIFT. NEEDS MET; WILL CONTINUE TO MONITOR.
[2019-05-08 06:58] LABS: BASOPHILS 0.4 % (0-2); EOSINOPHILS 2.5 % (0-7); HEMATOCRIT 31.5 % (42.0-54.0); HEMOGLOBIN 10.3 g/dL (13.5-17.5); IMMATURE GRANULOCYTES 0.2 % (0-5); LYMPHOCYTES 34.6 % (15-50); MCH 29.6 pg (26.0-34.0); MCHC 32.7 g/dL (31.0-37.0); MCV 90.5 fL (80.0-100.0); MEAN PLATELET VOLUME 9.4 fL (7.4-10.4); MONOCYTES 10.2 % (2-11); NEUTROPHILS 52.1 % (40-80); PLATELET COUNT 195 10x3/uL (130-400); RBC 3.48 10x6/uL (4.20-6.10); RDW 14.9 % (11.5-14.5); WBC 5.1 10x3/uL (4.8-10.8)
--- NOTE | 2019-05-08 07:10 | NUR ---
PT RESTING PEACEFULLY, NO SIGNS/SYMTPOMS OF ACUTE DISTRESS. BREATHS EVEN, REGULAR AND UNALBORED. CL IN REACH, SRX2, NO FAMILY PRESENT AT BEDSIDE.
[2019-05-08 07:16] LABS: CALC OSMOLALITY 283 mosm/kg (275-300); CALCIUM 8.6 mg/dL (8.5-10.1); CARBON DIOXIDE 29.4 mmol/L (21.0-32.0); CHLORIDE - SERUM 103 mmol/L (98-107); CREATININE - SERUM 0.8 mg/dL (0.6-1.3); GLUCOSE 110 mg/dL (74-106); POTASSIUM - SERUM 3.5 mmol/L (3.5-5.1); SODIUM 140 mmol/L (136-145); UREA NITROGEN 24 mg/dL (7-18); eGFR NON AFRICAN AMERICAN > 90 mL/min (90-120)
[2019-05-08 08:36] VITALS: BP 147/70
[2019-05-08 12:17] VITALS: BP 144/74
--- NOTE | 2019-05-08 16:25 | NUR ---
I have reviewed this patient and I concur with the Shift Assessment completed by the Licensed Practical Nurse today this shift.
[2019-05-08 16:45] VITALS: BP 134/68
[2019-05-08 20:00] VITALS: BP 143/68
--- NOTE | 2019-05-08 22:00 | NUR ---
INITIAL ROUNDS COMPLETED AT 1910 HRS. PT DENIED ANY DISCOMFORT. URINAL EMPTIED OF 350CC OF URINE. ASSESSMENT COMPLETED AT 1999 HRS. VSS. PT ALERT, FOLLOW COMMANDS AND ANSWERS QUESTIONS APPROPRIATELY. NO IV. LUNGS DIMINISHED IN BASES BILAT. L ARM FLACCID. L LEG ABLE TO DRAW UP. PALPABLE PERIPHERAL PULSES. PT INCONTINENT OF URINE. INCONTINENT CARE DONE. BUTTOCKS SLIGHTLY RED. PM FSBS 158. 4 UNITS REG INSULIN GIVEN SUB-Q TO UPPER L ARM. PM MEDS GIVEN CRUSHED IN PUDDING WITH HOB UP 40 DEGREES. PT SWALLOWED WTIHOUT DIFFICULTY. 1 CAN GLUCERNA 1.5 GIVEN FREE FLOW GRAVITY VIA PEG FOLLOWED BY 60CC OF H2O. PT CURRENTLY WATCHING A FOOTBALL GAME. SR UP X2, CALL LIGHT WITHIN REACH AND BED ALRM ON.
--- NOTE | 2019-05-08 23:39 | NUR ---
PT REPOSITIONED ONTO R SIDE. EXPLAINED TO PT RATIONALE FOR GETTING OFF L HIP AT THIS TIME. STATED UNDERSTANDING. SR UP X2,CALL LIGHT WITHIN REACH AND BED ALARM ON.
[2019-05-09] VITALS: BP 132/84
--- NOTE | 2019-05-09 01:58 | NUR ---
PT RESTING WTIH EYES CLOSED. RESP EVEN AND REGULAR. SR UP X2, CALL LIGHT WITHIN REACH AND BED ALARM ON.
--- NOTE | 2019-05-09 04:26 | NUR ---
PT RESTING WITH EYES CLOSED. RESP EVEN AND REGULAR. PT REPOSITIONED ONTO BACK. SR UP X3, CALL LIGHT WITHIN REACH.
[2019-05-09 04:30] VITALS: BP 136/83
--- NOTE | 2019-05-09 06:22 | NUR ---
VSS THROUGHOUT NIGHT. PT DENIED ANY DISCOMFORT. AM FSBS 103. NO COVERAGE NECESSARY. NEEDS MET; WILL CONTINUE TO MONITOR.
--- NOTE | 2019-05-09 07:39 | NUR ---
PT AWAKE AND ORIENTED, CL IN REACH, SRX2. VERY SLEEPY, DOES NOT WANT TO BE DISTURBED AT THIS TIME. C
[2019-05-09 08:08] VITALS: BP 156/73
[2019-05-09 11:54] VITALS: BP 145/67
--- NOTE | 2019-05-09 11:57 | NUR ---
OT NOTE: PRACTICED EXTENSIVE BED MOB TRAINING IN ATTEMPTS TO IMPROVE INDEP. PT ABLE TO PERFORM MAJORITY OF SUPINE TO SIT WITH NUMEROUS VERBAL CUES ONLY, HOWEVER, MOD ASSIST FOR PUSHING UP TO SITTING POSITION. PRACTICED SITTING BALANCE ACT AND PT CONTINUES TO BE UNABLE TO RIGHT HIMSELF WITHOUT VERBAL AND TACTILE CUES. PRACTICED STANDING WITH USE OF SAMIR WALKER AND MAX ASSIST. REQUIRED POSITIONING AND BLOCKING OF L KNEE, HOWEVER, PT WAS ABLE TO MAINTAIN STANDING FOR APPROX 1.5 MIN. BACK TO BED WITH MOD ASSIST. PT WITH INCONT OF BOWEL. PT WAS CLEANED AND ENCORPORATED ROLLING AND POSITIONING WHILE CLEANING PT. LOUIE JUSTICE, OTR/L
--- NOTE | 2019-05-09 14:14 | NUR ---
OT NOTE: ASSISTED TO EOB AND TO STANDING TO ALLOW NURSING TO PLACE EGGCRATE ON BED. MOD ASSIST FOR SUPINE TO SIT. WITH ASSIST OF P.T , WE WERE ABLE TO STAND PT WITH PLATFORM WALKER AND BLOCK L LE WITH L UE IN ARM TROUGH. PT AGAIN ABLE TO STAND FOR APPROX 2 MIN. BACK TO BED WITH MOD ASSIST. LOUIE JUSTICE, OTR/L
[2019-05-09 16:13] VITALS: BP 126/73
--- NOTE | 2019-05-09 17:33 | NUR ---
I have reviewed this patient and I concur with the Shift Assessment completed by the Licensed Practical Nurse today this shift.
--- NOTE | 2019-05-09 19:30 | NUR ---
PT OPENS EYES TO VERBAL, FOLLOWS COMMANDS,PEG INTACT AND CLAMPED, BRIEF IN USE FOR INCONTINENCE, NO DISTRESS NOTED
[2019-05-09 20:00] VITALS: BP 158/74
[2019-05-10 00:30] VITALS: BP 127/60
[2019-05-10 04:30] VITALS: BP 143/76
[2019-05-10 06:20] LABS: BASOPHILS 0.7 % (0-2); EOSINOPHILS 2.4 % (0-7); HEMATOCRIT 31.6 % (42.0-54.0); HEMOGLOBIN 10.3 g/dL (13.5-17.5); IMMATURE GRANULOCYTES 0.2 % (0-5); LYMPHOCYTES 37.4 % (15-50); MCH 29.3 pg (26.0-34.0); MCHC 32.6 g/dL (31.0-37.0); MCV 89.8 fL (80.0-100.0); MEAN PLATELET VOLUME 9.8 fL (7.4-10.4); MONOCYTES 10.1 % (2-11); NEUTROPHILS 49.2 % (40-80); PLATELET COUNT 223 10x3/uL (130-400); RBC 3.52 10x6/uL (4.20-6.10); RDW 14.8 % (11.5-14.5); WBC 5.8 10x3/uL (4.8-10.8)
[2019-05-10 06:22] LABS: CALC OSMOLALITY 278 mosm/kg (275-300); CALCIUM 8.9 mg/dL (8.5-10.1); CARBON DIOXIDE 28.4 mmol/L (21.0-32.0); CHLORIDE - SERUM 101 mmol/L (98-107); CREATININE - SERUM 0.7 mg/dL (0.6-1.3); GLUCOSE 99 mg/dL (74-106); POTASSIUM - SERUM 3.3 mmol/L (3.5-5.1); SODIUM 138 mmol/L (136-145); UREA NITROGEN 22 mg/dL (7-18); eGFR NON AFRICAN AMERICAN > 90 mL/min (90-120)
--- NOTE | 2019-05-10 07:25 | NUR ---
REPORT RECEIVED. WILL CONTINUE WITH POC. PT CURRENTLY LYING SEMI FOWLERS. CALL LIGHT W/I REACH. RR EVEN AND UNLABORED ON RA. NO PIV NOTED. PT DENIES ANY NEEDS AT THIS TIME. NO S/S OF DISTRESS NOTED. WILL CTM.
[2019-05-10 07:35] VITALS: BP 152/74
--- NOTE | 2019-05-10 09:51 | NUR ---
AM MEDICATIONS CRUSHED AND ADMININSTERED VIA PEG TUBE ALONG WITH ONE CAN OF TUBE FEEDING. WILL CTM.
[2019-05-10 11:07] VITALS: BP 103/54
--- NOTE | 2019-05-10 11:39 | NUR ---
OT NOTE: PRACTICED EXTENSIVE BED MOB WITH MOD ASSIST. HAD PT DO MUCH ON HIS OWN POSSIBLE. SITTING BALANCE FAIR WITH MIN TACTILE AND MOD VERBAL CUES FOR RIGHTING SELF. MAX ASSIST TO TRANSFER TO CHAIR. ATTEMPTED AROM EXS.. PT WITH TRACE QUAD AND HAMSTRING MOVEMENT IN L LE. NO MOVEMENT IN L UE AT THIS TIME. PROM AND POSITIONING TO L UE. LOUIE JUSTICE, OTR/L
[2019-05-10 15:15] VITALS: BP 137/65
--- NOTE | 2019-05-10 16:08 | NUR ---
I have reviewed this patient and I concur with the Shift Assessment completed by the Licensed Practical Nurse today this shift.
--- NOTE | 2019-05-10 17:54 | NUR ---
PM MEDICATIONS ADMININSTERED VIA PEG. TUBE FEEDING COMPLETED. PT CURRENTLY EATING DINNER. NO S/S OF DISTRESS NOTED. PT DENIES ANY NEEDS. WILL CTM.
--- NOTE | 2019-05-10 19:38 | NUR ---
BEDSIDE REPORT RECEIVED FROM DAY SHIFT, PT CARE ASSUMED. INTRODUCED SELF AND WROTE NAME ON BOARD. PT LYING IN BED WATCHING TV AND FEEDING SELF WITHOUT DIFFICULTY. DENIES ANY NEEDS AT THIS TIME. BED IN LOWEST POSITION, SR X3, CALL LIGHT WITHIN REACH. WILL CONTINUE TO MONITOR.
[2019-05-10 20:00] VITALS: BP 138/68
--- NOTE | 2019-05-10 22:37 | NUR ---
PT LYING IN BED WITH EYES CLOSED, RR EVEN AND NONLABORED, NO S/S OF DISTRESS, AROUSES EASILY TO VOICE. FSBS 109. NIGHT TIME MEDS ADMINISTERED, PER ORDER. DENIES ANY OTHER NEEDS AT THIS TIME. BED IN LOWEST POSITION, SR X2, CALL LIGHT WITHIN REACH. WILL CONTINUE TO MONITOR.
[2019-05-11] VITALS: BP 136/72
[2019-05-11 04:00] VITALS: BP 110/72
[2019-05-11 05:40] LABS: BASOPHILS 0.6 % (0-2); CALC OSMOLALITY 281 mosm/kg (275-300); CALCIUM 8.6 mg/dL (8.5-10.1); CHLORIDE - SERUM 103 mmol/L (98-107); EOSINOPHILS 2.2 % (0-7); GLUCOSE 101 mg/dL (74-106); HEMATOCRIT 30.9 % (42.0-54.0); HEMOGLOBIN 10.2 g/dL (13.5-17.5); LYMPHOCYTES 37.1 % (15-50); MCH 29.6 pg (26.0-34.0); MCV 89.6 fL (80.0-100.0); MEAN PLATELET VOLUME 9.9 fL (7.4-10.4); MONOCYTES 10.4 % (2-11); NEUTROPHILS 49.7 % (40-80); PLATELET COUNT 225 10x3/uL (130-400); POTASSIUM - SERUM 3.8 mmol/L (3.5-5.1); RBC 3.45 10x6/uL (4.20-6.10); RDW 14.8 % (11.5-14.5); SODIUM 139 mmol/L (136-145); UREA NITROGEN 23 mg/dL (7-18); eGFR NON AFRICAN AMERICAN 88 mL/min (90-120)
[2019-05-11 05:49] LABS: CREATININE - SERUM 0.9 mg/dL (0.6-1.3)
--- NOTE | 2019-05-11 07:19 | MORECARE ---
CASE MANAGEMENT DISCHARGE SUMMARY PATIENT: SHAYNE BRICEÑO UNIT: [id number] ADM DATE: 04/22/19 AGE: 73 : 46 SEX: M ROOM/BED: D.2111 AUTHOR: MANNIE DIAL PHYSICIAN: REFERRING PHYSICIAN: KHOI SPAIN MD DATE OF SERVICE: 05/11/19 Discharge Plan Patient Name: SHAYNE BRICEÑO Facility: [facility]:[place] : 1945 Planned Disposition: Halfway Facility Anticipated Discharge Date: Discharge Date: Expected LOS: Initial Reviewer: [id number] Initial Review Date: 04/27/2019 Generated: 05/11/19 8:19 am Comments DCP- Discharge Planning Updated by [id number]: Geovanni Skinner on 05/11/19 6:[address] Patient Name: SHAYNE BRICEÑO Encounter No: [id number] : 1945 Primary Insurance: HUMANA CHOICE PPO MCR ADVANT Anticipated DC Date: Planned Disposition: Halfway Facility External Planned Provider: [facility], MEDICARE REHAB BED LATE ENTRY FROM 05-10-19. DCP follow-up note: CM RECEIVED CALL FROM NICK [facility] WHO IS PROCESSING PT FOR REHAB ADMISSION TO [place]. NICK REQUESTED UPDATED PHYSICIAN NOTES AND THERAPY NOTES TO SUBMIT TO INSURANCE. CM FAXED REQUESTED INFORMAITION TO NICK MANDEL, . CM WAITING INSURANCE AUTHORIZATION FOR REHAB SERVICES AT [facility] AND [facility]. BENIGNO DUKE DCP- Discharge Planning Updated by [id number]: April Strong on 05/06/19 2:[address] Patient Name: SHAYNE BRICEÑO Admission Status: ER Accout number: [id number] Admission Date: 04-22-2019 : 1945 Admission Diagnosis:EDEMA, UNSPECIFIED Attending: KHOI SPAIN Current LOS: 14 Anticipated DC Date: Planned Disposition: Halfway Facility Primary Insurance: HUMANA CHOICE PPO MCR ADVANT Discharge Planning Comments: I SPOKE WITH THE PATIENT'S AND SHE WOULD LIKE [facility]. I FAXED REFERRAL AND SHE WILL SIGN SANTOS. CM TO FOLLOW AND ASSIST. Quality Assurance Consultant: April Strong DCP- Discharge Planning Updated by [id number]: April Strong on 05/05/19 3:[address] Patient Name: SHAYNE BRICEÑO Admission Status: ER Accout number: [id number] Admission Date: 04-22-2019 : 1945 Admission Diagnosis:EDEMA, UNSPECIFIED Attending: KHOI SPAIN Current LOS: 13 Anticipated DC Date: Planned Disposition: Halfway Facility Primary Insurance: HUMANA CHOICE PPO MCR ADVANT Discharge Planning Comments: CM AND DR. SPAIN SPOKE AT LENGTH WITH PATIENT TODAY. OTHER DAUGHTER IS COMING IN TONIGHT FROM OUT OF TOWN AND THEY WILL DISCUSS WHAT SNF. I WILL MEET WITH HER TOMORROW. CM TO FOLLOW. Quality Assurance Consultant: April Strong DCP- Discharge Planning Updated by [id number]: Dinorah Sumeet on 05/04/19 1:[address] SPOKE WITH ISRAEL WITH [facility]. SHE WANTED TO SEE IF I WAS AWARE OF THE PATIENT FILING A [facility] APPEAL TO DISCHARGE. I EXPLAINED YES AND THAT I HAVE ALREADY FAXED THE INFORMATION TO [facility] LETTING THEM KNOW THAT THE PATIENT IS NOT DISCHARGED. I HAVE EXPLAINED THAT THE HAD CALLED [facility] TO ASK THEM TO FIGHT THE DENIAL FOR INPATIENT REHAB FOR THEM THAT SHE WAS UNHAPPY THAT THE P2P WAS UNSUCCESSFUL. ALL INFORMATION WAS GIVEN TO ISRAEL THAT SHE REQUESTED. SHE NOW HAS MY DIRECT NUMBER AND WILL CALL ME IF SHE HAS ANY FURTHER QUESTIONS OR NEEDS ANY FURTHER INFORMATION. DCP- Discharge Planning Updated by [id number]: Geovanni Skinner on 05/03/19 4:[address] Patient Name: SHAYNE BRICEÑO Encounter No: [id number] : 1945 Primary Insurance: HUMANA CHOICE PPO MCR ADVANT Anticipated DC Date: Planned Disposition: Halfway Facility External Planned Provider: WAITING ON FAMILY DECISION DCP follow-up note: CM RECEIVED INPATIENT REHAB DENIAL. CM PROVIDED COPY TO PT WHO INSTRUCTED CM TO CALL HIS . CM ALLED CHRISTIE BRICEÑO, SPOUSE, , INFORMED OF DENIAL AND COPY IN PT'S ROOM. CHRISTIE STATES SHE WILL CALL INSURANCE COMPANY TOMORROW TO APPEAL THE DECISION. CHRISTIE HAS NOT MADE ANY DECISION REGARDING [facility] FACILITY PLACEMENT AND IS WAITING ON HER DAUGHTERS TO ASSIST HER WITH DECISION. CM EXPLAINED THAT PT IS MEDICALLY STABLE FOR DISCHARGE NOW AND [facility] CHOICES NEED TO BE MADE EVEN IF THEY ARE APPEALING INSURANCE DECISION. CHRISTIE REPORTS SHE WILL CALL INSURANCE AND PROVIDE [facility] FACILITY CHOICES SOON POSSIBLE. CHRISTIE IS NOT WANTING TO RETURN PT TO [facility]. INSURANCE DECLINED INPATIENT REHAB. IS GOING TO CALL INSURANCE TO APPEAL DENIAL OF INPATIENT REHAB. SPEAKING TO FAMILY TO MAKE [facility] FACILITY CHOICES. CM WAITING ON PT'S TO PROVIDE [facility] FACLITY CHOICES. Geovanni Skinner, CASE MANAGEMENT DCP- Discharge Planning Updated by [id number]: Geovanni Skinner on 05/02/19 11:[address] Patient Name: SHAYNE BRICEÑO Encounter No: [id number] : 1945 Primary Insurance: HUMANA CHOICE PPO MCR ADVANT Anticipated DC Date: Planned Disposition: Halfway Facility External Planned Provider: [facility] DCP follow-up note: CM SPOKE TO JODEE THOMPSON REGARDING INPATIENT REHAB DENIAL THAT WAS RECEIVED ON THURSDAY, JODEE THOMPSON AGREED WITH [facility] AND DIRECTED CM TO CHECK WITH DR. SPAIN REGARDING PEER TO PEER WITH INSURANCE COMPANY. CM CONTACTED DR. SPAIN WHO DECLINED PEER TO PEER AND AGREED WITH [facility] PLACEMENT FOR REHAB. CM CALLED AND SPOKE TO PT'S SPOUSE, CHRISTIE KEITA, WHO DISAGREED WITH THE INSURANCE COMPANY AND ASKED FOR APPEAL NUMBER THAT SHE CAN CALL. CM CALLED CARSON AT [facility], , WHO WILL CHECK TO SEE IF ANY FAX WAS RECEIVED FROM INSURANCE COMPANY. SHE WAS NOT ABLE TO LOCATE A FAXED DENIAL. CM CALLED PT'S INSURANCE COMPANY, [employer] [facility] , SPOKE TO DANIEL WHO ADVISED THAT THE CLAIM HAD NOT BEEN DENIED, AND THAT THE PATTERN FINISHER REACHED OUT FOR PEER TO PEER WITH HOSPITAL PHYSICIAN PRIOR TO MAKING DETERMINATION REGARDING INPATIENT REHAB. DANIEL JACOBSON INFORMED CM THAT PT DOES NOT HAVE ANY APPEAL RIGHTS UNLESS THE CLAIM IS DENIEDS. CM SPOKE TO DR. SPAIN WHO IS WILLING FOR PEER TO PEER TOMORROW, 05-03-19. CM CALLED [employer] [facility] , SPOKE TO DANIEL AND ARRANGED FOR DR. ERICKSON OF [employer] TO CALL DR. SPAIN 05-03-19 BETWEEN 1:30PM AND 1:45 PM FOR PEER TO PEER. CM NOTIFIED DR. SPAIN AND PT'S SPOUSE. PT'S SPOUSE ADVISED THAT SHE IS NOT THINKING OF RETURNING PT TO [facility] IF INPATIENT IS DECLINED AND WILL LOOK INTO OTHER [facility] FACILITIES "PLAN B" AND WILL LET CM KNOW WHAT HER CHOICE WILL BE. CM WAITING PEER TO PEER DISCUSSION BETWEEN DR. SPAIN AND DR. ERICKSON FOR INSURANCE TO MAKE DETERMINATION REGARDING INPATIENT REHAB SERVICES. Gevoanni Skinner, CASE MANAGEMENT Geovanni Skinner DCP- Discharge Planning Updated by [id number]: Geovanni Skinner on 05/02/19 7:[address] Patient Name: SHAYNE BRICEÑO Encounter No: [id number] : 1945 Primary Insurance: HUMANA CHOICE PPO MCR ADVANT Anticipated DC Date: Planned Disposition: Halfway Facility External Planned Provider: : DCP follow-up note: PT HAS BEEN DECLINED ON 04-29-19 BY INSURANCE FOR INPATIENT REHAB WITH RECOMMENDATION FOR [facility] RE[facility]AB. CM FAXED UPDATE TO [facility] AND [facility], , FOR POSSIBLE RETURN TO [facility] RE[facility]AB IF PHYSICIAN AGREES WITH INSURANCE DETERMINATION. IF PEER TO PEER REVIEW IS DESIRED, IT CAN BE ARRANGED PRIOR TO 05-05-19, BY CALLING [employer] [facility] . BENIGNO Duke DCP- Discharge Planning Updated by [id number]: Geovanni Skinner on 04/29/19 3:[address] Patient Name: SHAYNE BRICEÑO Encounter No: [id number] : 1945 Primary Insurance: HUMANA CHOICE PPO MCR ADVANT Anticipated DC Date: Planned Disposition: Inpatient Rehab External Planned Provider: [facility] [place] DCP follow-up note: CM RECEIVED PHONE MESSAGE FROM [facility] OF [employer], , EXTENSION [id number], WHO INFORMED CM THAT PT HAS BEEN DECLINED FOR INPATIENT REHAB WITH RECOMMENDATION FOR [facility] RE[facility]AB. CM NOTIFIED JODEE SANZ WHO WILL DISCUSS WITH PHYSICIAN. IF PEER TO PEER REVIEW IS DESIRED, IT CAN BE ARRANGED PRIOR TO 05-05-19, BY CALLING [employer] [facility] . BENIGNO Duke DCP- Discharge Planning Updated by [id number]: Geovanni Skinner on 04/29/19 6:[address] Patient Name: SHAYNE BRICEÑO Encounter No: [id number] : 1945 Primary Insurance: HUMANA CHOICE PPO MCR ADVANT Anticipated DC Date: Planned Disposition: Inpatient Rehab External Planned Provider[facility] Discharge Planning Comments: CM FAXED REFERRAL UPDATE WITH OCCUPATIONAL THERAPY EVALUATION TO [facility] AT [phone]. CM WAITING ADMISSION DETERMINATION WELL INSURANCE AUTHORIZATION FOR INPATIENT REHAB SERVICES AT [facility]. Quality Assurance Consultant: Geovanni Skinner DCP- Discharge Planning Updated by [id number]: Geovanni Skinner on 04/28/19 8:[address] Patient Name: SHAYNE BRICEÑO Encounter No: [id number] : 1945 Primary Insurance: HUMANA CHOICE PPO MCR ADVANT Anticipated DC Date: Planned Disposition: Inpatient Rehab External Planned Provider: [facility]PATIENT [facility] Discharge Planning Comments: CM CALLED [facility] OF [facility], , PROVIDED REFERRAL FOR INPATIENT REHAB SERVICES. CM FAXED REFERRAL TO [facility] AT [phone]. CM WAITING OT EVALUATION AND WILL FAX TO [facility] SOON DOCUMENTED IN CHART. PATIENT WILL REQUIRE INSURANCE AUTHORIZATION FOR INPATIENT REHAB SERVICES. Quality Assurance Consultant: Geovanni Skinner DCP- Discharge Planning Updated by [id number]: Geovanni Skinner on 04/27/19 3:[address] Patient Name: SHAYNE BRICEÑO Admission Status: ER Accout number: [id number] Admission Date: 04-22-2019 : 1945 Admission Diagnosis:EDEMA, UNSPECIFIED Attending: KHOI SAPIN Current LOS: 5 Anticipated DC Date: Planned Disposition: Inpatient Rehab Primary Insurance: HUMANA CHOICE PPO MCR ADVANT PLANNED EXTERNAL PROVIDER: [facility] INPATIENT [facility] Discharge Planning Comments: CM MET WITH PT IN ROOM TO DISCUSS DISCHARGE PLANNING AND NEEDS. PT STATES HE WAS AT [facility] FOR REHAB AND MAY BE RETURNING THERE. CHOICE SIGNED. PT REQUESTED CM SPEAK TO HIS . CM LATER MET WITH PT'S WHO REPORTS THAT SHE WOULD LIKE PT CONSIDERED FOR INPATIENT REHAB AT [facility] IN [place]; SHE HAS DISCUSSED THIS WITH HEADING MACHINE OPERATOR AT [facility] AND SHE HOPES THIS LEVEL OF REHAB WILL BE APPROVED FOR PATIENT. IMPORTANT MESSAGE FROM MEDICARE PROVIDED AND EXPLAINED. CM TO CONTACT [facility], [place], SOON POSSIBLE AND PROVIDE REFERRAL FOR INPATIENT REHAB SERVICES. PT WILL REQUIRE INSURANCE AUTHORIZATION FOR SERVICES. Quality Assurance Consultant: Geovanni Skinner DCPIA - Discharge Planning Initial Assessment Updated by [id number]: Geovanni Skinner on 04/27/19 4:53 pm * Is the patient Alert and Oriented? Yes * How many steps to enter\\exit or inside your home? * PCP DR. LOCO * Pharmacy [facility] * Preadmission Environment Halfway Facility * Facility Name [facility] * ADLs Partial Dependent * Partial ADLs (Assistance needed) Ambulation Bathing Dressing Medication Management Toileting Transfers * Equipment None * Other Equipment NO MEDICAL EQUIPMENT PROVIDER PREFERENCE * List name and contact numbers for known caregivers / representatives who currently or will assist patient after discharge: CHRISTIE BRICEÑO, SPOUSE, * Verbal permission to speak to the caregivers and representatives has been obtained from the patient. Yes * Community resources currently utilized None * Please name any agencies selected above. NONE * Additional services required to return to the preadmission environment? No * Can the patient safely return to the preadmission environment? Yes * Has this patient been hospitalized within the prior 30 days at any hospital? Yes Coverage Notice Reviewer: [id number] Dez Skinner Notice Issued Date-Time: 04/27/2019 14:40 Notice Type: IM Discharge Notice Notice Delivered To: Family Member Relationship to Patient: Spouse Mind Reader Name: CHRISTIE BRICEÑO Delivery Method: HAND - Hand Delivered Tg Days: Prior Verbal Notification: Recipient Understood Notice: Yes Recipient Signature: Yes Med Rec Note Co-signed by Attending: Coverage Notice Comment: Reviewer: [id number] - Geovanni Skinner Notice Issued Date-Time: 04/27/2019 9:05 Notice Type: Patient Choice Letter Notice Delivered To: Patient Relationship to Patient: Mind Reader Name: Delivery Method: HAND - Hand Delivered Tg Days: Prior Verbal Notification: Recipient Understood Notice: Yes Recipient Signature: Yes Med Rec Note Co-signed by Attending: Coverage Notice Comment: SANDEEP Reviewer: [email or web address] Dez Strong Notice Issued Date-Time: 05/06/2019 15:59 Notice Type: Patient Choice Letter Notice Delivered To: Family Member Relationship to Patient: Mind Reader Name: Delivery Method: HAND - Hand Delivered Tg Days: Prior Verbal Notification: Recipient Understood Notice: Yes Recipient Signature: Yes Med Rec Note Co-signed by Attending: Coverage Notice Comment: [facility] for [facility] Last DP export: 05/06/19 2:07 p Patient Name: SHAYNE BRICEÑO Page [id number] at 0719 All edits/amendments must be made on the electronic document DICTATION DATE: 05/11/19717 RESIDENTIAL PROGRAM DIRECTOR: LENIN 05/11/19717 RPT#: [id number] DC DATE: STATUS: ADM IN [facility] [address] [place] [address] END OF REPORT
--- NOTE | 2019-05-11 07:26 | MORECARE ---
CASE MANAGEMENT DISCHARGE SUMMARY PATIENT: SHAYNE BRICEÑO UNIT: [id number] ADM DATE: 04/22/19 AGE: 73 : 47 SEX: M ROOM/BED: D.2111 AUTHOR: MANNIE DIAL PHYSICIAN: REFERRING PHYSICIAN: KHOI SPAIN MD DATE OF SERVICE: 05/11/19 Discharge Plan Patient Name: SHAYNE BRICEÑO Facility: [facility]:[place] : 1945 Planned Disposition: [facility] Facility Anticipated Discharge Date: Discharge Date: Expected LOS: Initial Reviewer: [email or web address] Initial Review Date: 04/27/2019 Generated: 05/11/19 8:25 am Comments DCP- Discharge Planning Updated by [id number]: Geovanni Skinner on 05/11/19 6:[address] Patient Name: SHAYNE BRICEÑO Encounter No: [id number] : 1945 Primary Insurance: HU[employer]NA CHOICE PPO MCR ADVANT Anticipated DC Date: Planned Disposition: [facility] Facility External Planned Provider: [facility], MEDICARE REHAB BED LATE ENTRY FROM 05-10-19. DCP follow-up note: CM RECEIVED CALL FROM [facility] WHO IS PROCESSING PT FOR REHAB ADMISSION TO [place]. NICK REQUESTED UPDATED PHYSICIAN NOTES AND THERAPY NOTES TO SUBMIT TO INSURANCE. CM FAXED REQUESTED INFORMAITION TO NICK AMNDEL, . CM WAITING INSURANCE AUTHORIZATION FOR REHAB SERVICES AT [facility]. BENIGNO DUKE DCP- Discharge Planning Updated by [id number]: April Strong on 05/06/19 2:[address] Patient Name: SHAYNE BRICEÑO Admission Status: ER Accout number: [id number] Admission Date: 04-22-2019 : 1945 Admission Diagnosis:EDEMA, UNSPECIFIED Attending: KHOI SPAIN Current LOS: 14 Anticipated DC Date: Planned Disposition: [facility] Facility Primary Insurance: HUMANA CHOICE PPO MCR ADVANT Discharge Planning Comments: I SPOKE WITH THE PATIENT'S AND SHE WOULD LIKE [facility]. I FAXED REFERRAL AND SHE WILL SIGN SANTOS. CM TO FOLLOW AND ASSIST. Cadastral Engineer: April Strong DCP- Discharge Planning Updated by [id number]: April Strong on 05/05/19 3:[address] Patient Name: SHAYNE BRICEÑO Admission Status: ER Accout number: [id number] Admission Date: 04-22-2019 : 1945 Admission Diagnosis:EDEMA, UNSPECIFIED Attending: KHOI SPAIN Current LOS: 13 Anticipated DC Date: Planned Disposition: [facility] Facility Primary Insurance: HUMANA CHOICE PPO MCR ADVANT Discharge Planning Comments: CM AND DR. SPAIN SPOKE AT LENGTH WITH PATIENT TODAY. OTHER DAUGHTER IS COMING IN TONIGHT FROM OUT OF TOWN AND THEY WILL DISCUSS WHAT SNF. I WILL MEET WITH HER TOMORROW. CM TO FOLLOW. Cadastral Engineer: April Strong DCP- Discharge Planning Updated by [id number]: Dinorah Sumeet on 05/04/19 1:[address] SPOKE WITH ISRAEL WITH [facility]. SHE WANTED TO SEE IF I WAS AWARE OF THE PATIENT FILING A [facility] APPEAL TO DISCHARGE. I EXPLAINED YES AND THAT I HAVE ALREADY FAXED THE INFORMATION TO [facility] LETTING THEM KNOW THAT THE PATIENT IS NOT DISCHARGED. I HAVE EXPLAINED THAT THE HAD CALLED [facility] TO ASK THEM TO FIGHT THE DENIAL FOR INPATIENT REHAB FOR THEM THAT SHE WAS UNHAPPY THAT THE P2P WAS UNSUCCESSFUL. ALL INFORMATION WAS GIVEN TO ISRAEL THAT SHE REQUESTED. SHE NOW HAS MY DIRECT NUMBER AND WILL CALL ME IF SHE HAS ANY FURTHER QUESTIONS OR NEEDS ANY FURTHER INFORMATION. DCP- Discharge Planning Updated by [id number]: Geovanni Skinner on 05/03/19 4:[address] Patient Name: SHAYNE BRICEÑO Encounter No: [id number] : 1945 Primary Insurance: HUMANA CHOICE PPO MCR ADVANT Anticipated DC Date: Planned Disposition: [facility] Facility External Planned Provider: WAITING ON FAMILY DECISION DCP follow-up note: CM RECEIVED INPATIENT REHAB DENIAL. CM PROVIDED COPY TO PT WHO INSTRUCTED CM TO CALL HIS . CM ALLED CHRISTIE BRICEÑO, SPOUSE, , INFORMED OF DENIAL AND COPY IN PT'S ROOM. CHRISTIE STATES SHE WILL CALL INSURANCE COMPANY TOMORROW TO APPEAL THE DECISION. CHRISTIE HAS NOT MADE ANY DECISION REGARDING LONG-TERM FACILITY PLACEMENT AND IS WAITING ON HER DAUGHTERS TO ASSIST HER WITH DECISION. CM EXPLAINED THAT PT IS MEDICALLY STABLE FOR DISCHARGE NOW AND LONG-TERM CHOICES NEED TO BE MADE EVEN IF THEY ARE APPEALING INSURANCE DECISION. CHRISTIE REPORTS SHE WILL CALL INSURANCE AND PROVIDE LONG-TERM FACILITY CHOICES SOON POSSIBLE. CHRISTIE IS NOT WANTING TO RETURN PT TO [facility]. INSURANCE DECLINED INPATIENT REHAB. IS GOING TO CALL INSURANCE TO APPEAL DENIAL OF INPATIENT REHAB. SPEAKING TO FAMILY TO MAKE LONG-TERM FACILITY CHOICES. CM WAITING ON PT'S TO PROVIDE LONG-TERM FACLITY CHOICES. Geovanni Skinner, CASE MANAGEMENT DCP- Discharge Planning Updated by [id number]: Geovanni Skinner on 05/02/19 11:[address] Patient Name: SHAYNE BRICEÑO Encounter No: [id number] : 1945 Primary Insurance: HUMANA CHOICE PPO MCR ADVANT Anticipated DC Date: Planned Disposition: [facility] Facility External Planned Provider: [facility] DCP follow-up note: CM SPOKE TO JODEE THOMPSON REGARDING INPATIENT REHAB DENIAL THAT WAS RECEIVED ON THURSDAY, JODEE THOMPSON AGREED WITH LONG-TERM AND DIRECTED CM TO CHECK WITH DR. SPAIN REGARDING PEER TO PEER WITH INSURANCE COMPANY. CM CONTACTED DR. SPAIN WHO DECLINED PEER TO PEER AND AGREED WITH LONG-TERM PLACEMENT FOR REHAB. CM CALLED AND SPOKE TO PT'S SPOUSE, CHRISTIE KEITA, WHO DISAGREED WITH THE INSURANCE COMPANY AND ASKED FOR APPEAL NUMBER THAT SHE CAN CALL. CM CALLED CARSON AT [facility], , WHO WILL CHECK TO SEE IF ANY FAX WAS RECEIVED FROM INSURANCE COMPANY. SHE WAS NOT ABLE TO LOCATE A FAXED DENIAL. CM CALLED PT'S INSURANCE COMPANY, [employer] AT , SPOKE TO DANIEL WHO ADVISED THAT THE CLAIM HAD NOT BEEN DENIED, AND THAT THE POWERHOUSE OPERATOR REACHED OUT FOR PEER TO PEER WITH HOSPITAL PHYSICIAN PRIOR TO MAKING DETERMINATION REGARDING INPATIENT REHAB. DANIEL JACOBSON INFORMED CM THAT PT DOES NOT HAVE ANY APPEAL RIGHTS UNLESS THE CLAIM IS DENIEDS. CM SPOKE TO DR. SPAIN WHO IS WILLING FOR PEER TO PEER TOMORROW, 05-03-19. CM CALLED [employer] AT , SPOKE TO DANIEL AND ARRANGED FOR DR. ERICKSON OF [employer] TO CALL DR. SPAIN 05-03-19 BETWEEN 1:30PM AND 1:45 PM FOR PEER TO PEER. CM NOTIFIED DR. SPAIN AND PT'S SPOUSE. PT'S SPOUSE ADVISED THAT SHE IS NOT THINKING OF RETURNING PT TO [facility] IF INPATIENT IS DECLINED AND WILL LOOK INTO OTHER LONG-TERM FACILITIES "PLAN B" AND WILL LET CM KNOW WHAT HER CHOICE WILL BE. CM WAITING PEER TO PEER DISCUSSION BETWEEN DR. SPAIN AND DR. ERICKSON FOR INSUR[employer] TO MAKE DETERMINATION REGARDING INPATIENT REHAB SERVICES. Geovanni Skinner, CASE MANAGEMENT Geovanni Skinner DCP- Discharge Planning Updated by [id number]: Geovanni Skinner on 05/02/19 7:[address] Patient Name: SHAYNE BRICEÑO Encounter No: [id number] : 1945 Primary Insurance: HU[employer]NA CHOICE PPO MCR ADVANT Anticipated DC Date: Planned Disposition: [facility] Facility External Planned Provider: : DCP follow-up note: PT HAS BEEN DECLINED ON 04-29-19 BY INSURANCE FOR INPATIENT REHAB WITH RECOMMENDATION FOR LONG-TERM REHAB. CM FAXED UPDATE TO [facility], , FOR POSSIBLE RETURN TO LONG-TERM REHAB IF PHYSICIAN AGREES WITH INSURANCE DETERMINATION. IF PEER TO PEER REVIEW IS DESIRED, IT CAN BE ARRANGED PRIOR TO 05-05-19, BY CALLING [employer] AT . BENIGNO Duke DCP- Discharge Planning Updated by [id number]: Geovanni Skinner on 04/29/19 3:[address] Patient Name: SHAYNE BRICEÑO Encounter No: [id number] : 1945 Primary Insurance: HUMANA CHOICE PPO MCR ADVANT Anticipated DC Date: Planned Disposition: Inpatient Rehab External Planned Provider: [facility] [place] DCP follow-up note: CM RECEIVED PHONE MESSAGE FROM [facility] OF [employer], , EXTENSION [phone], WHO INFORMED CM THAT PT HAS BEEN DECLINED FOR INPATIENT REHAB WITH RECOMMENDATION FOR LONG-TERM REHAB. CM NOTIFIED JODEE SANZ WHO WILL DISCUSS WITH PHYSICIAN. IF PEER TO PEER REVIEW IS DESIRED, IT CAN BE ARRANGED PRIOR TO 05-05-19, BY CALLING [employer] AT . BENIGNO Duke DCP- Discharge Planning Updated by [id number]: Geovanni Skinner on 04/29/19 6:[address] Patient Name: SHAYNE BRICEÑO Encounter No: [id number] : 1945 Primary Insurance: HUMANA CHOICE PPO MCR ADVANT Anticipated DC Date: Planned Disposition: Inpatient Rehab External Planned Provider[facility] Discharge Planning Comments: CM FAXED REFERRAL UPDATE WITH OCCUPATIONAL THERAPY EVALUATION TO [facility] AT [phone]. CM WAITING ADMISSION DETERMINATION WELL INSURANCE AUTHORIZATION FOR INPATIENT REHAB SERVICES AT [facility]. Cadastral Engineer: Geovanni Skinner DCP- Discharge Planning Updated by [id number]: Geovanni Skinner on 04/28/19 8:[address] Patient Name: SHAYNE BRICEÑO Encounter No: [id number] : 1945 Primary Insurance: HUMANA CHOICE PPO MCR ADVANT Anticipated DC Date: Planned Disposition: Inpatient Rehab External Planned Provider: [facility] INPATIENT [facility] Discharge Planning Comments: CM CALLED CARSON OF [facility], , PROVIDED REFERRAL FOR INPATIENT REHAB SERVICES. CM FAXED REFERRAL TO [facility] AT [phone]. CM WAITING OT EVALUATION AND WILL FAX TO [facility] SOON DOCUMENTED IN CHART. PATIENT WILL REQUIRE INSURANCE AUTHORIZATION FOR INPATIENT REHAB SERVICES. Cadastral Engineer: Geovanni Skinner DCP- Discharge Planning Updated by [id number]: Geovanni Skinner on 04/27/19 3:[address] Patient Name: SHAYNE BRICEÑO Admission Status: ER Accout number: [id number] Admission Date: 04-22-2019 : 1945 Admission Diagnosis:EDEMA, UNSPECIFIED Attending: KHOI SPAIN Current LOS: 5 Anticipated DC Date: Planned Disposition: Inpatient Rehab Primary Insurance: HUMANA CHOICE PPO MCR ADVANT PLANNED EXTERNAL PROVIDER: [facility] INPATIENT [facility] Discharge Planning Comments: CM MET WITH PT IN ROOM TO DISCUSS DISCHARGE PLANNING AND NEEDS. PT STATES HE WAS AT [facility] FOR REHAB AND MAY BE RETURNING THERE. CHOICE SIGNED. PT REQUESTED CM SPEAK TO HIS . CM LATER MET WITH PT'S WHO REPORTS THAT SHE WOULD LIKE PT CONSIDERED FOR INPATIENT REHAB AT [facility] [place]; SHE HAS DISCUSSED THIS WITH FORESTRY ENGINEER AT [facility] AND SHE HOPES THIS LEVEL OF REHAB WILL BE APPROVED FOR PATIENT. IMPORTANT MESSAGE FROM MEDICARE PROVIDED AND EXPLAINED. CM TO CONTACT [facility], [place], SOON POSSIBLE AND PROVIDE REFERRAL FOR INPATIENT REHAB SERVICES. PT WILL REQUIRE INSURANCE AUTHORIZATION FOR SERVICES. Cadastral Engineer: Geovanni Skinner DCPIA - Discharge Planning Initial Assessment Updated by [id number]: Geovanni Skinner on 04/27/19 4:53 pm * Is the patient Alert and Oriented? Yes * How many steps to enter\\exit or inside your home? * PCP DR. LOCO * Pharmacy [facility] * Preadmission Environment [facility] Facility * [facility] * ADLs Partial Dependent * Partial ADLs (Assistance needed) Ambulation Bathing Dressing Medication Management Toileting Transfers * Equipment None * Other Equipment NO MEDICAL EQUIPMENT PROVIDER PREFERENCE * List name and contact numbers for known caregivers / representatives who currently or will assist patient after discharge: CHRISTIE BRICEÑO, SPOUSE, * Verbal permission to speak to the caregivers and representatives has been obtained from the patient. Yes * Community resources currently utilized None * Please name any agencies selected above. NONE * Additional services required to return to the preadmission environment? No * Can the patient safely return to the preadmission environment? Yes * Has this patient been hospitalized within the prior 30 days at any hospital? Yes Coverage Notice Reviewer: [id number] Dez Strong Notice Issued Date-Time: 05/06/2019 15:59 Notice Type: Patient Choice Letter Notice Delivered To: Family Member Relationship to Patient: Manager Assessment Name: Delivery Method: HAND - Hand Delivered Tg Days: Prior Verbal Notification: Recipient Understood Notice: Yes Recipient Signature: Yes Med Rec Note Co-signed by Attending: Coverage Notice Comment: [facility] for [facility] Reviewer: [id number] - Geovanni Skinner Notice Issued Date-Time: 04/27/2019 14:40 Notice Type: IM Discharge Notice Notice Delivered To: Family Member Relationship to Patient: Spouse Manager Assessment Name: CHRISTIE BRICEÑO Delivery Method: HAND - Hand Delivered Tg Days: Prior Verbal Notification: Recipient Understood Notice: Yes Recipient Signature: Yes Med Rec Note Co-signed by Attending: Coverage Notice Comment: Reviewer: [email or web address] Dez Skinner Notice Issued Date-Time: 04/27/2019 9:05 Notice Type: Patient Choice Letter Notice Delivered To: Patient Relationship to Patient: Manager Assessment Name: Delivery Method: HAND - Hand Delivered Tg Days: Prior Verbal Notification: Recipient Understood Notice: Yes Recipient Signature: Yes Med Rec Note Co-signed by Attending: Coverage Notice Comment: SANDEEP Ledesma DP export: 05/06/19 2:07 p Patient Name: SHAYNE BRICEÑO Page [id number] at 0726 All edits/amendments must be made on the electronic document DICTATION DATE: 05/11/19724 PULLER OVER: LENIN 05/11/19724 RPT#: [id number] DC DATE: STATUS: ADM IN [facility] [address] [place] [address] END OF REPORT
[2019-05-11 08:00] VITALS: BP 127/68
--- NOTE | 2019-05-11 12:01 | NUR ---
Nutrition Follow-up: Nurse reports pt did not eat breakfast this AM. Tolerating TF; reports some indigestion afterwards. ST continues to rec puree with nectar thick liquids. Diet: Diabetic, Puree with [place] Thick Liquids Glucerna 1.5 - bolus 1 can if <50% of meal eaten + 1 can @ 1999 No new wt Last BM: 05/11 Labs reviewed Meds reviewed Continue current diet/TF as tolerated. RD following.
[2019-05-11 13:59] VITALS: BP 134/62
--- NOTE | 2019-05-11 15:42 | NUR ---
OT NOTE: PRACTICED EXTENSIVE BED MOB INCLUDING ROLLING SIDE TO SIDE AND SUPINE TO SIT AND SIT TO SUPINE. PT DOING BETTER WITH THIS. CONT TO REQUIRE MIN/MOD ASSIST WITH SUPINE TO SIT AND SIT TO SUPINE. PRACTICED CORE STRENGTHENING ACT. PT VERY WEAK AND UNABLE TO MAINTAIN STATIC SITTING WITHOUT SUPPORT FOR GREATER THAN APPROX 20-30 SEC. PT ABLE TO WASH FACE WITH CLOTH AND R HAND. PRACTICED WASHING L HAND WITH R HAND. SIT TO STAND WITH MOD ASSIST X 2, BLOCKING R KNEE, AND PLATFORM WALKER. PROM TO L UE/LE. LOUIE JUSTICE, OTR/L
--- NOTE | 2019-05-11 16:52 | MORECARE ---
CASE MANAGEMENT DISCHARGE SUMMARY PATIENT: SHAYNE BRICEÑO UNIT: [id number] ADM DATE: 04/22/19 AGE: 73 : 47 SEX: M ROOM/BED: D.2111 AUTHOR: JAYRO,DOC PHYSICIAN: REFERRING PHYSICIAN: KHOI SPAIN MD DATE OF SERVICE: 05/11/19 Discharge Plan Patient Name: SHAYNE BRICEÑO Facility: [facility]:[place] : 1945 Planned Disposition: Nursing Home Facility Anticipated Discharge Date: Discharge Date: Expected LOS: Initial Reviewer: [id number] Initial Review Date: 04/27/2019 Generated: 05/11/19 5:52 pm Comments DCP- Discharge Planning Updated by [id number]: Santos Marmolejo on 05/11/19 3:[address] Patient Name: SHAYNE BRICEÑO Encounter No: [id number] : 1945 Primary Insurance: HUMANA CHOICE PPO MCR ADVANT Anticipated DC Date: Planned Disposition: Nursing Home Facility External Planned Provider: [facility], MEDICARE REHAB BED DCP follow-up note: CM RECEIVED CALL FROM [facility]TY [facility] WHO INFORMED CM THAT THEY ARE OFFERING PEER TO PEER REVIEW PRIOR TO DENIAL OF INTERMEDIATE REHAB REQUEST AND IT CAN BE DONE BEFORE 05-12-19 AT NOON. THE NUMBER TO CALL IS [phone], OPTION 5. THE PROVIDER CAN CALL THIS DIRECTLY FOR PEER TO PEER. THE PENDING DENIAL IS BASED ON INFORMATION PROVIDED DOES NOT SUPPORT PT'S ABILITY FOR REHAB SERVICES AND PT APPEARS TO BE MORE APPROPRIATE FOR PENITENTIARY CARE. CM NOTIFIED JODEE SANZ WHO INFORMED CM SHE WILL DO THE PEER TO PEER. CM SPOKE TO [facility], , NOTIFIED OF ABOVE. CM WAITING RESULT OF PEER TO PEER CALL TO INSURANCE COMPANY IN HOPES OF GETTING FURTHER INTERMEDIATE FACILITY SERVICES AUTHORIZED. Santos Marmolejo, CASE MANAGEMENT DCP- Discharge Planning Updated by [id number]: Santos Marmolejo on 05/11/19 6:[address] Patient Name: SHAYNE BRICEÑO Encounter No: [id number] : 1945 Primary Insurance: HUMANA CHOICE PPO MCR ADVANT Anticipated DC Date: Planned Disposition: Nursing Home Facility External Planned Provider: [facility]HAB BED LATE ENTRY FROM 05-10-19. DCP follow-up note: CM RECEIVED CALL FROM [facility]ICK [facility] WHO IS PROCESSING PT FOR REHAB ADMISSION TO [place]. NICK REQUESTED UPDATED PHYSICIAN NOTES AND THERAPY NOTES TO SUBMIT TO INSURANCE. CM FAXED REQUESTED INFORMAITION TO NICK MANDEL, . CM WAITING INSURANCE AUTHORIZATION FOR REHAB SERVICES AT [facility]. SANTOS MARMOLEJO, CASE MANAGEMENT DCP- Discharge Planning Updated by [id number]: April Strong on 05/06/19 2:[address] Patient Name: SHAYNE BRICEÑO Admission Status: ER Accout number: [id number] Admission Date: 04-22-2019 : 1945 Admission Diagnosis:EDEMA, UNSPECIFIED Attending: KHOI SPAIN Current LOS: 14 Anticipated DC Date: Planned Disposition: Nursing Home Facility Primary Insurance: HUMANA CHOICE PPO [facility] ADVANT Discharge Planning Comments: I SPOKE WITH THE PATIENT'S AND SHE WOULD LIKE [facility]. I FAXED REFERRAL AND SHE WILL SIGN SANTOS. CM TO FOLLOW AND ASSIST. Freelance Photographer: April Strong DCP- Discharge Planning Updated by [id number]: April Strong on 05/05/19 3:[address] Patient Name: SHAYNE BRICEÑO Admission Status: ER Accout number: [id number] Admission Date: 04-22-2019 : 1945 Admission Diagnosis:EDEMA, UNSPECIFIED Attending: KHOI SPAIN Current LOS: 13 Anticipated DC Date: Planned Disposition: Nursing Home Facility Primary Insurance: HUMANA CHOICE PPO [facility] ADVANT Discharge Planning Comments: CM AND DR. SPAIN SPOKE AT LENGTH WITH PATIENT TODAY. OTHER DAUGHTER IS COMING IN TONIGHT FROM OUT OF TOWN AND THEY WILL DISCUSS WHAT SNF. I WILL MEET WITH HER TOMORROW. CM TO FOLLOW. Freelance Photographer: April Strong DCP- Discharge Planning Updated by [id number]: Dinorah Fay on 05/04/19 1:[address] SPOKE WITH ISRAEL WITH [employer]. SHE WANTED TO SEE IF I WAS AWARE OF THE PATIENT FILING A [employer] APPEAL TO DISCHARGE. I EXPLAINED YES AND THAT I HAVE ALREADY FAXED THE INFORMATION TO [employer] LETTING THEM KNOW THAT THE PATIENT IS NOT DISCHARGED. I HAVE EXPLAINED THAT THE HAD CALLED [employer] TO ASK THEM TO FIGHT THE DENIAL FOR INPATIENT REHAB FOR THEM THAT SHE WAS UNHAPPY THAT THE P2P WAS UNSUCCESSFUL. ALL INFORMATION WAS GIVEN TO ISRAEL THAT SHE REQUESTED. SHE NOW HAS MY DIRECT NUMBER AND WILL CALL ME IF SHE HAS ANY FURTHER QUESTIONS OR NEEDS ANY FURTHER INFORMATION. DCP- Discharge Planning Updated by [id number]: Santos Marmolejo on 05/03/19 4:[address] Patient Name: SHAYNE BRICEÑO Encounter No: [id number] : 1945 Primary Insurance: HUMANA CHOICE PPO MCR ADVANT Anticipated DC Date: Planned Disposition: Nursing Home Facility External Planned Provider: WAITING ON FAMILY DECISION DCP follow-up note: CM RECEIVED INPATIENT REHAB DENIAL. CM PROVIDED COPY TO PT WHO INSTRUCTED CM TO CALL HIS . CM ALLED CHRISTIE BRICEÑO, SPOUSE, , INFORMED OF DENIAL AND COPY IN PT'S ROOM. CHRISTIE STATES SHE WILL CALL INSURANCE COMPANY TOMORROW TO APPEAL THE DECISION. CHRISTIE HAS NOT MADE ANY DECISION REGARDING INTERMEDIATE FACILITY PLACEMENT AND IS WAITING ON HER DAUGHTERS TO ASSIST HER WITH DECISION. CM EXPLAINED THAT PT IS MEDICALLY STABLE FOR DISCHARGE NOW AND INTERMEDIATE CHOICES NEED TO BE MADE EVEN IF THEY ARE APPEALING INSURANCE DECISION. CHRISTIE REPORTS SHE WILL CALL INSURANCE AND PROVIDE INTERMEDIATE FACILITY CHOICES SOON POSSIBLE. CHRISTIE IS NOT WANTING TO RETURN PT TO [facility]. INSURANCE DECLINED INPATIENT REHAB. IS GOING TO CALL INSURANCE TO APPEAL DENIAL OF INPATIENT REHAB. SPEAKING TO FAMILY TO MAKE INTERMEDIATE FACILITY CHOICES. CM WAITING ON PT'S TO PROVIDE INTERMEDIATE FACLITY CHOICES. Santos Marmolejo, CASE MANAGEMENT DCP- Discharge Planning Updated by [id number]: Santos Marmolejo on 05/02/19 11:[address] Patient Name: SHAYNE BRICEÑO Encounter No: [id number] : 1945 Primary Insurance: HUMANA CHOICE PPO MCR ADVANT Anticipated DC Date: Planned Disposition: Nursing Home Facility External Planned Provider: [facility] DCP follow-up note: CM SPOKE TO JODEE THOMPSON REGARDING INPATIENT REHAB DENIAL THAT WAS RECEIVED ON THURSDAY, JODEE THOMPSON AGREED WITH INTERMEDIATE AND DIRECTED CM TO CHECK WITH DR. SPAIN REGARDING PEER TO PEER WITH INSURANCE COMPANY. CM CONTACTED DR. SPAIN WHO DECLINED PEER TO PEER AND AGREED WITH INTERMEDIATE PLACEMENT FOR REHAB. CM CALLED AND SPOKE TO PT'S SPOUSE, CHRISTIE KEITA, WHO DISAGREED WITH THE INSURANCE COMPANY AND ASKED FOR APPEAL NUMBER THAT SHE CAN CALL. CM CALLED CARSON AT [facility], , WHO WILL CHECK TO SEE IF ANY FAX WAS RECEIVED FROM INSURANCE COMPANY. SHE WAS NOT ABLE TO LOCATE A FAXED DENIAL. CM CALLED PT'S INSURANCE COMPANY, [employer] AT , SPOKE TO DANIEL WHO ADVISED THAT THE CLAIM HAD NOT BEEN DENIED, AND THAT THE HOT WIRE GLASS TUBE CUTTER REACHED OUT FOR PEER TO PEER WITH HOSPITAL PHYSICIAN PRIOR TO MAKING DETERMINATION REGARDING INPATIENT REHAB. DANIEL JACOBSON INFORMED CM THAT PT DOES NOT HAVE ANY APPEAL RIGHTS UNLESS THE CLAIM IS DENIEDS. CM SPOKE TO DR. SPAIN WHO IS WILLING FOR PEER TO PEER TOMORROW, 05-03-19. CM CALLED CHRISTINA AT , SPOKE TO DANIEL AND ARRANGED FOR DR. ERICKSON OF [employer] TO CALL DR. SPAIN 05-03-19 BETWEEN 1:30PM AND 1:45 PM FOR PEER TO PEER. CM NOTIFIED DR. SPAIN AND PT'S SPOUSE. PT'S SPOUSE ADVISED THAT SHE IS NOT THINKING OF RETURNING PT TO [facility] IF INPATIENT IS DECLINED AND WILL LOOK INTO OTHER INTERMEDIATE FACILITIES "PLAN B" AND WILL LET CM KNOW WHAT HER CHOICE WILL BE. CM WAITING PEER TO PEER DISCUSSION BETWEEN DR. SPAIN AND DR. ERICKSON FOR INSUR[employer] TO MAKE DETERMINATION REGARDING INPATIENT REHAB SERVICES. Santos Marmolejo, CASE MANAGEMENT Santos Marmolejo DCP- Discharge Planning Updated by [id number]: Santos Marmolejo on 05/02/19 7:[address] Patient Name: SHAYNE BRICEÑO Encounter No: [id number] : 1945 Primary Insurance: HU[employer]NA CHOICE PPO MCR ADVANT Anticipated DC Date: Planned Disposition: Nursing Home Facility External Planned Provider: : DCP follow-up note: PT HAS BEEN DECLINED ON 04-29-19 BY INSURANCE FOR INPATIENT REHAB WITH RECOMMENDATION FOR INTERMEDIATE REHAB. CM FAXED UPDATE TO [facility], , FOR POSSIBLE RETURN TO INTERMEDIATE REHAB IF PHYSICIAN AGREES WITH INSURANCE DETERMINATION. IF PEER TO PEER REVIEW IS DESIRED, IT CAN BE ARRANGED PRIOR TO 05-05-19, BY CALLING [employer] AT . BENIGNO Layton DCP- Discharge Planning Updated by [id number]: Santos Marmolejo on 04/29/19 3:[address] Patient Name: SHAYNE BRICEÑO Encounter No: [id number] : 1945 Primary Insurance: HUMANA CHOICE PPO MCR ADVANT Anticipated DC Date: Planned Disposition: Inpatient Rehab External Planned Provider: [facility] DCP follow-up note: CM RECEIVED PHONE MESSAGE FROM [facility] OF [employer], , EXTENSION [id number], WHO INFORMED CM THAT PT HAS BEEN DECLINED FOR INPATIENT REHAB WITH RECOMMENDATION FOR INTERMEDIATE REHAB. CM NOTIFIED JODEE SANZ WHO WILL DISCUSS WITH PHYSICIAN. IF PEER TO PEER REVIEW IS DESIRED, IT CAN BE ARRANGED PRIOR TO 05-05-19, BY CALLING [employer] AT . BENIGNO Layton DCP- Discharge Planning Updated by [id number]: Santos Marmolejo on 04/29/19 6:[address] Patient Name: SHAYNE BRICEÑO Encounter No: [id number] : 1945 Primary Insurance: [employer] CHOICE PPO MCR ADVANT Anticipated DC Date: Planned Disposition: Inpatient Rehab External Planned Provider: [facility] Discharge Planning Comments: CM FAXED REFERRAL UPDATE WITH OCCUPATIONAL THERAPY EVALUATION TO [facility] AT [phone]. CM WAITING ADMISSION DETERMINATION WELL INSURANCE AUTHORIZATION FOR INPATIENT REHAB SERVICES AT [facility]. Freelance Photographer: Santos Marmolejo DCP- Discharge Planning Updated by [id number]: Santos Marmolejo on 04/28/19 8:[address] Patient Name: SHAYNE BRICEÑO Encounter No: [id number] : 1945 Primary Insurance: HU[employer]NA CHOICE PPO MCR ADVANT Anticipated DC Date: Planned Disposition: Inpatient Rehab External Planned Provider: [facility] Discharge Planning Comments: CM CALLED CARSON OF [facility], , PROVIDED REFERRAL FOR INPATIENT REHAB SERVICES. CM FAXED REFERRAL TO [facility] AT [phone]. CM WAITING OT EVALUATION AND WILL FAX TO [facility] SOON DOCUMENTED IN CHART. PATIENT WILL REQUIRE INSURANCE AUTHORIZATION FOR INPATIENT REHAB SERVICES. Freelance Photographer: Santos Marmolejo DCP- Discharge Planning Updated by [id number]: Santos Marmolejo on 04/27/19 3:[address] Patient Name: SHAYNE BRICEÑO Admission Status: ER Accout number: [id number] Admission Date: 04-22-2019 : 1945 Admission Diagnosis:EDEMA, UNSPECIFIED Attending: KHOI SPAIN Current LOS: 5 Anticipated DC Date: Planned Disposition: Inpatient Rehab Primary Insurance: [employer] CHOICE PPO MCR ADVANT PLANNED EXTERNAL PROVIDER: [facility] [place] Discharge Planning Comments: CM MET WITH PT IN ROOM TO DISCUSS DISCHARGE PLANNING AND NEEDS. PT STATES HE WAS AT [facility] FOR REHAB AND MAY BE RETURNING THERE. CHOICE SIGNED. PT REQUESTED CM SPEAK TO HIS . CM LATER MET WITH PT'S WHO REPORTS THAT SHE WOULD LIKE PT CONSIDERED FOR [facility] [place]; SHE HAS DISCUSSED THIS WITH INDUSTRIAL HEALTH AND SAFETY PROFESSOR AT [facility] AND SHE HOPES THIS LEVEL OF REHAB WILL BE APPROVED FOR PATIENT. IMPORTANT MESSAGE FROM MEDICARE PROVIDED AND EXPLAINED. CM TO CONTACT [facility] [place], SOON POSSIBLE AND PROVIDE REFERRAL FOR INPATIENT REHAB SERVICES. PT WILL REQUIRE INSURANCE AUTHORIZATION FOR SERVICES. Freelance Photographer: Santos Marmolejo MIPIA - Discharge Planning Initial Assessment Updated by [id number]: Santos Marmolejo on 04/27/19 4:53 pm * Is the patient Alert and Oriented? Yes * How many steps to enter\\exit or inside your home? * PCP DR. LOCO * [facility] * Preadmission Environment Nursing Home Facility * Facility Name [facility] * ADLs Partial Dependent * Partial ADLs (Assistance needed) Ambulation Bathing Dressing Medication Management Toileting Transfers * Equipment None * Other Equipment NO MEDICAL EQUIPMENT PROVIDER PREFERENCE * List name and contact numbers for known caregivers / representatives who currently or will assist patient after discharge: CHRISTIE BRICEÑO, SPOUSE, * Verbal permission to speak to the caregivers and representatives has been obtained from the patient. Yes * Community resources currently utilized None * Please name any agencies selected above. NONE * Additional services required to return to the preadmission environment? No * Can the patient safely return to the preadmission environment? Yes * Has this patient been hospitalized within the prior 30 days at any hospital? Yes Coverage Notice Reviewer: [id number] Dez Marmolejo Notice Issued Date-Time: 04/27/2019 14:40 Notice Type: IM Discharge Notice Notice Delivered To: Family Member Relationship to Patient: Spouse Ux Developer Designer Name: CHRISTIE BRICEÑO Delivery Method: HAND - Hand Delivered Tg Days: Prior Verbal Notification: Recipient Understood Notice: Yes Recipient Signature: Yes Med Rec Note Co-signed by Attending: Coverage Notice Comment: Reviewer: [id number] Dez Marmolejo Notice Issued Date-Time: 04/27/2019 9:05 Notice Type: Patient Choice Letter Notice Delivered To: Patient Relationship to Patient: Ux Developer Designer Name: Delivery Method: HAND - Hand Delivered Tg Days: Prior Verbal Notification: Recipient Understood Notice: Yes Recipient Signature: Yes Med Rec Note Co-signed by Attending: Coverage Notice Comment: SANDEEP Reviewer: [id number] Dez Strong Notice Issued Date-Time: 05/06/2019 15:59 Notice Type: Patient Choice Letter Notice Delivered To: Family Member Relationship to Patient: Ux Developer Designer Name: Delivery Method: HAND - Hand Delivered Tg Days: Prior Verbal Notification: Recipient Understood Notice: Yes Recipient Signature: Yes Med Rec Note Co-signed by Attending: Coverage Notice Comment: [facility] Last DP export: 05/11/19 6:26 a Patient Name: SHAYNE BRICEÑO Page [id number] at 1652 All edits/amendments must be made on the electronic document DICTATION DATE: 05/11/191651 CORE PILER: LENIN 05/11/191651 RPT#: [id number] DC DATE: STATUS: ADM IN [facility] [address] [place] [address] END OF REPORT
--- NOTE | 2019-05-11 17:00 | NUR ---
OT NOTE: PT COMPLETED BED MOB TASKS WITH MAX A. PT COMPLETED EOB SITTING BALANCE TO INCREASE/FACILITATE TRUNK CONTROL WITH MAX A. PT COMPLETED WT BEARING ON LUE. PT COMPLETED FACE WASHING WITH SET UP USING RUE. THANK YOU, NANCY MO
[2019-05-11 17:19] VITALS: BP 124/77; BP 159/73
--- NOTE | 2019-05-11 19:15 | NUR ---
REPORT RECEIVED, WILL CONTINUE POC. PATIENT IS A/OX3, BEDFAST. PATIENT IS INCONTINENT OF BOWEL. PEG TUBE TO LEFT SIDE OF ABDOMEN, CLAMPED, DRGS C/D/I. NO S/S OF DISTRESS OBSERVED. PATIENT DENIES NEEDS AT THIS TIME. CL IN REACH, BED LOCKED AND LOWERED. CONTACT PRECAUTIONS FOLLOWED. WILL CTM.
[2019-05-11 20:00] VITALS: BP 194/71
--- NOTE | 2019-05-11 22:00 | NUR ---
HS MEDS AND TUBE FEED ADMINISTERED. PATIENT TOLERATED WELL.
[2019-05-12] VITALS: BP 129/62
[2019-05-12 05:13] LABS: BASOPHILS 0.4 % (0-2); EOSINOPHILS 2.1 % (0-7); HEMATOCRIT 30.3 % (42.0-54.0); HEMOGLOBIN 9.9 g/dL (13.5-17.5); IMMATURE GRANULOCYTES 0.2 % (0-5); LYMPHOCYTES 44.6 % (15-50); MCH 29.2 pg (26.0-34.0); MCHC 32.7 g/dL (31.0-37.0); MCV 89.4 fL (80.0-100.0); MEAN PLATELET VOLUME 9.5 fL (7.4-10.4); MONOCYTES 10.1 % (2-11); NEUTROPHILS 42.6 % (40-80); PLATELET COUNT 221 10x3/uL (130-400); RBC 3.39 10x6/uL (4.20-6.10); RDW 14.6 % (11.5-14.5); WBC 5.2 10x3/uL (4.8-10.8)
[2019-05-12 05:31] LABS: CALC OSMOLALITY 278 mosm/kg (275-300); CALCIUM 8.7 mg/dL (8.5-10.1); CARBON DIOXIDE 30.3 mmol/L (21.0-32.0); CHLORIDE - SERUM 101 mmol/L (98-107); CREATININE - SERUM 0.7 mg/dL (0.6-1.3); GLUCOSE 104 mg/dL (74-106); POTASSIUM - SERUM 3.6 mmol/L (3.5-5.1); SODIUM 138 mmol/L (136-145); UREA NITROGEN 20 mg/dL (7-18); eGFR NON AFRICAN AMERICAN > 90 mL/min (90-120)
[2019-05-12 09:45] VITALS: BP 155/77
[2019-05-12 13:22] VITALS: BP 123/57
--- NOTE | 2019-05-12 17:31 | NUR ---
PT SET UP FOR MEALS. IS FEEDING HIMSELF SOUP. PILLS CRUSHED AND GIVEN IN APPLESAUCE. PT REFUSED FEED BOLUS. HE WANTS TO TRY TO EAT.
--- NOTE | 2019-05-12 17:35 | MORECARE ---
CASE MANAGEMENT DISCHARGE SUMMARY PATIENT: SHAYNE BRICEÑO UNIT: [id number] ADM DATE: 04/22/19 AGE: 73 : [birth year] SEX: M ROOM/BED: D.2111 AUTHOR: MANNIE DIAL PHYSICIAN: REFERRING PHYSICIAN: KHOI SPAIN MD DATE OF SERVICE: 05/12/19 Discharge Plan Patient Name: SHAYNE BRICEÑO Facility: [facility]:[place] : 1945 Planned Disposition: [facility] Facility Anticipated Discharge Date: Discharge Date: Expected LOS: Initial Reviewer: [id number] Initial Review Date: 04/27/2019 Generated: 05/12/19 6:35 pm Comments DCP- Discharge Planning Updated by [id number]: Santos Marmolejo on 05/12/19 4:[address] Patient Name: SHAYNE BRICEÑO Encounter No: [id number] : 1945 Primary Insurance: [employer] PPO MCR ADVANT Anticipated DC Date: Planned Disposition: [facility] Facility External Planned Provider: [facility], [facility] CARE MEDICAID BED DCP follow-up note: CM RECEIVED CALL FROM NICK MANDEL OF [facility] AND [facility], , PT HAS BEEN DECLINED REHAB SERVICES BY INSURANCE AT HALFWAY AND RECOMMENDED M[facility] CARE SERVICES. NICK WILL CALL PT'S SPOUSE AND DISCUSS DENIAL WELL POSSIBLE EXPEDITION SUPERVISOR CARE AT [facility]; NICK REPORTS EXPEDITION SUPERVISOR CARE BED IS AVAILABLE. CM WAITING ON MCC CARE ARRANGEMENTS BY [facility] AND PT'S SPOUSE. Santos Marmolejo, CASE MANAGEMENT DCP- Discharge Planning Updated by [id number]: Santos Marmolejo on 05/11/19 3:[address] Patient Name: SHAYNE BRICEÑO Encounter No: [id number] : 1945 Primary Insurance: HU[employer]NA CHOICE PPO MCR ADVANT Anticipated DC Date: Planned Disposition: [facility] Facility External Planned Provider: [facility], MEDICARE REHAB BED DCP follow-up note: CM RECEIVED CALL FROM ZORAIDA WHO INFORMED CM THAT THEY ARE OFFERING PEER TO PEER REVIEW PRIOR TO DENIAL OF HALFWAY REHAB REQUEST AND IT CAN BE DONE BEFORE 05-12-19 AT NOON. THE NUMBER TO CALL IS [phone], OPTION 5. THE PROVIDER CAN CALL THIS DIRECTLY FOR PEER TO PEER. THE PENDING DENIAL IS BASED ON INFORMATION PROVIDED DOES NOT SUPPORT PT'S ABILITY FOR REHAB SERVICES AND PT APPEARS TO BE MORE APPROPRIATE FOR EXPEDITION SUPERVISOR CARE. CM NOTIFIED JODEE SANZ WHO INFORMED CM SHE WILL DO THE PEER TO PEER. CM SPOKE TO DEBORAH OF [facility], , NOTIFIED OF ABOVE. CM WAITING RESULT OF PEER TO PEER CALL TO INSURANCE COMPANY IN HOPES OF GETTING FURTHER HALFWAY FACILITY SERVICES AUTHORIZED. Santos Marmolejo, CASE MANAGEMENT DCP- Discharge Planning Updated by [id number]: Santos Marmolejo on 05/11/19 6:[address] Patient Name: SHAYNE BRICEÑO Encounter No: [id number] : 1945 Primary Insurance: HUMANA CHOICE PPO MCR ADVANT Anticipated DC Date: Planned Disposition: [facility] Facility External Planned Provider: [facility] AND [facility], MEDICARE REHAB BED LATE ENTRY FROM 05-10-19. DCP follow-up note: CM RECEIVED CALL FROM NICK MANDEL OF [facility] WHO IS PROCESSING PT FOR REHAB ADMISSION TO [facility]. NICK REQUESTED UPDATED PHYSICIAN NOTES AND THERAPY NOTES TO SUBMIT TO INSURANCE. CM FAXED REQUESTED INFORMAITION TO NICK MANDEL, . CM WAITING INSURANCE AUTHORIZATION FOR REHAB SERVICES AT [facility]. SANTOS MARMOLEJO, CASE MANAGEMENT DCP- Discharge Planning Updated by [id number]: April Strong on 05/06/19 2:[address] Patient Name: SHAYNE BRICEÑO Admission Status: ER Accout number: [id number] Admission Date: 04-22-2019 : 1945 Admission Diagnosis:EDEMA, UNSPECIFIED Attending: KHOI SPAIN Current LOS: 14 Anticipated DC Date: Planned Disposition: [facility] Facility Primary Insurance: HUMANA CHOICE PPO MCR ADVANT Discharge Planning Comments: I SPOKE WITH THE PATIENT'S AND SHE WOULD LIKE [facility]. I FAXED REFERRAL AND SHE WILL SIGN SANTOS. CM TO FOLLOW AND ASSIST. Chlorinator: April Strong DCP- Discharge Planning Updated by [id number]: April Strong on 05/05/19 3:[address] Patient Name: SHAYNE BRICEÑO Admission Status: ER Accout number: [id number] Admission Date: 04-22-2019 : 1945 Admission Diagnosis:EDEMA, UNSPECIFIED Attending: KHOI SPAIN Current LOS: 13 Anticipated DC Date: Planned Disposition: [facility] Primary Insurance: HUMANA CHOICE PPO MCR ADVANT Discharge Planning Comments: CM AND DR. SPAIN SPOKE AT LENGTH WITH PATIENT TODAY. [facility] [place] AND THEY WILL DISCUSS WHAT SNF. I WILL MEET WITH HER TOMORROW. CM TO FOLLOW. Chlorinator: April Strong DCP- Discharge Planning Updated by [id number]: Dinorah Fay on 05/04/19 1:[address] SPOKE WITH ISRAEL WITH [facility]. SHE WANTED TO SEE IF I WAS AWARE OF THE PATIENT FILING A [employer] APPEAL TO DISCHARGE. I EXPLAINED YES AND THAT I HAVE ALREADY FAXED THE INFORMATION TO [employer] LETTING THEM KNOW THAT THE PATIENT IS NOT DISCHARGED. I HAVE EXPLAINED THAT THE HAD CALLED [employer] TO ASK THEM TO FIGHT THE DENIAL FOR INPATIENT REHAB FOR THEM THAT SHE WAS UNHAPPY THAT THE P2P WAS UNSUCCESSFUL. ALL INFORMATION WAS GIVEN TO ISRAEL THAT SHE REQUESTED. SHE NOW HAS MY DIRECT NUMBER AND WILL CALL ME IF SHE HAS ANY FURTHER QUESTIONS OR NEEDS ANY FURTHER INFORMATION. DCP- Discharge Planning Updated by [id number]: Santos Marmolejo on 05/03/19 4:[address] Patient Name: SHAYNE BRICEÑO Encounter No: [id number] : 1945 Primary Insurance: HUMANA CHOICE PPO MCR ADVANT Anticipated DC Date: Planned Disposition: [facility] Facility External Planned Provider: WAITING ON FAMILY DECISION DCP follow-up note: CM RECEIVED INPATIENT REHAB DENIAL. CM PROVIDED COPY TO PT WHO INSTRUCTED CM TO CALL HIS . CM ALLED CHRISTIE BRICEÑO, SPOUSE, , INFORMED OF DENIAL AND COPY IN PT'S ROOM. CHRISTIE STATES SHE WILL CALL INSURANCE COMPANY TOMORROW TO APPEAL THE DECISION. CHRISTIE HAS NOT MADE ANY DECISION REGARDING HALFWAY FACILITY PLACEMENT AND IS WAITING ON HER DAUGHTERS TO ASSIST HER WITH DECISION. CM EXPLAINED THAT PT IS MEDICALLY STABLE FOR DISCHARGE NOW AND HALFWAY CHOICES NEED TO BE MADE EVEN IF THEY ARE APPEALING INSURANCE DECISION. CHRISTIE REPORTS SHE WILL CALL INSURANCE AND PROVIDE HALFWAY FACILITY CHOICES SOON POSSIBLE. CHRISTIE IS NOT WANTING TO RETURN PT TO [facility]. INSURANCE DECLINED INPATIENT REHAB. IS GOING TO CALL INSURANCE TO APPEAL DENIAL OF INPATIENT REHAB. SPEAKING TO FAMILY TO MAKE HALFWAY FACILITY CHOICES. CM WAITING ON PT'S TO PROVIDE HALFWAY FACLITY CHOICES. Santos Marmolejo, CASE MANAGEMENT DCP- Discharge Planning Updated by [id number]: Santos Marmolejo on 05/02/19 11:[address] Patient Name: SHAYNE BRICEÑO Encounter No: [id number] : 1945 Primary Insurance: HU[employer] CHOICE PPO MCR ADVANT Anticipated DC Date: Planned Disposition: [facility] Facility External Planned Provider: [facility] DCP follow-up note: CM SPOKE TO JODEE THOMPSON REGARDING INPATIENT REHAB DENIAL THAT WAS RECEIVED ON THURSDAY, JODEE THOMPSON AGREED WITH HALFWAY AND DIRECTED CM TO CHECK WITH DR. SPAIN REGARDING PEER TO PEER WITH INSURANCE COMPANY. CM CONTACTED DR. SPAIN WHO DECLINED PEER TO PEER AND AGREED WITH HALFWAY PLACEMENT FOR REHAB. CM CALLED AND SPOKE TO PT'S SPOUSE, CHRISTIE KEITA, WHO DISAGREED WITH THE INSURANCE COMPANY AND ASKED FOR APPEAL NUMBER THAT SHE CAN CALL. CM CALLED CARSON AT [facility], , WHO WILL CHECK TO SEE IF ANY FAX WAS RECEIVED FROM INSURANCE COMPANY. SHE WAS NOT ABLE TO LOCATE A FAXED DENIAL. CM CALLED PT'S INSURANCE COMPANY, [employer] AT , SPOKE TO DANIEL WHO ADVISED THAT THE CLAIM HAD NOT BEEN DENIED, AND THAT THE DRAWBRIDGE OPERATOR REACHED OUT FOR PEER TO PEER WITH HOSPITAL PHYSICIAN PRIOR TO MAKING DETERMINATION REGARDING INPATIENT REHAB. DANIEL JACOBSON INFORMED CM THAT PT DOES NOT HAVE ANY APPEAL RIGHTS UNLESS THE CLAIM IS DENIEDS. CM SPOKE TO DR. SPAIN WHO IS WILLING FOR PEER TO PEER TOMORROW, 05-03-19. CM CALLED [employer] AT , SPOKE TO DANIEL AND ARRANGED FOR DR. ERICKSON OF [employer] TO CALL DR. SPAIN 05-03-19 BETWEEN 1:30PM AND 1:45 PM FOR PEER TO PEER. CM NOTIFIED DR. SPAIN AND PT'S SPOUSE. PT'S SPOUSE ADVISED THAT SHE IS NOT THINKING OF RETURNING PT TO [facility] IF INPATIENT IS DECLINED AND WILL LOOK INTO OTHER HALFWAY FACILITIES "PLAN B" AND WILL LET CM KNOW WHAT HER CHOICE WILL BE. CM WAITING PEER TO PEER DISCUSSION BETWEEN DR. SPAIN AND DR. ERICKSON FOR INSURANCE TO MAKE DETERMINATION REGARDING INPATIENT REHAB SERVICES. Santos Marmolejo CASE MANAGEMENT Santos Marmolejo DCP- Discharge Planning Updated by [id number]: Santos Marmolejo on 05/02/19 7:[address] Patient Name: SHAYNE BRICEÑO Encounter No: [id number] : 1945 Primary Insurance: HU[employer]NA CHOICE PPO MCR ADVANT Anticipated DC Date: Planned Disposition: [facility] External Planned Provider: : DCP follow-up note: PT HAS BEEN DECLINED ON 04-29-19 BY INSURANCE FOR INPATIENT REHAB WITH RECOMMENDATION FOR HALFWAY REHAB. CM FAXED UPDATE TO [facility], , FOR POSSIBLE RETURN TO HALFWAY REHAB IF PHYSICIAN AGREES WITH INSURANCE DETERMINATION. IF PEER TO PEER REVIEW IS DESIRED, IT CAN BE ARRANGED PRIOR TO 05-05-19, BY CALLING [employer] AT . BENIGNO Layton DCP- Discharge Planning Updated by [id number]: Santos Marmolejo on 04/29/19 3:[address] Patient Name: SHAYNE BRICEÑO Encounter No: [id number] : 1945 Primary Insurance: HU[employer]NA CHOICE PPO MCR ADVANT Anticipated DC Date: Planned Disposition: Inpatient Rehab External Planned [facility] DCP follow-up note: CM RECEIVED PHONE MESSAGE FROM [facility] OF [employer], , EXTENSION [phone], WHO INFORMED CM THAT PT HAS BEEN DECLINED FOR INPATIENT REHAB WITH RECOMMENDATION FOR HALFWAY REHAB. CM NOTIFIED JODEE SANZ WHO WILL DISCUSS WITH PHYSICIAN. IF PEER TO PEER REVIEW IS DESIRED, IT CAN BE ARRANGED PRIOR TO 05-05-19, BY CALLING [employer] AT . BENIGNO Layton DCP- Discharge Planning Updated by [id number]: Santos Marmolejo on 04/29/19 6:[address] Patient Name: SHAYNE BRICEÑO Encounter No: [id number] : 1945 Primary Insurance: HUMANA CHOICE PPO MCR ADVANT Anticipated DC Date: Planned Disposition: Inpatient Rehab External Planned Provider[facility] Discharge Planning Comments: CM FAXED REFERRAL UPDATE WITH OCCUPATIONAL THERAPY EVALUATION TO [facility] AT [phone]. CM WAITING ADMISSION DETERMINATION WELL INSURANCE AUTHORIZATION FOR INPATIENT REHAB SERVICES AT [facility]. Chlorinator: Santos Marmolejo DCP- Discharge Planning Updated by [email or web address]: Santos Marmolejo on 04/28/19 8:[address] Patient Name: SHAYNE BRICEÑO Encounter No: [id number] : 1945 Primary Insurance: HUMANA CHOICE PPO MCR ADVANT Anticipated DC Date: Planned Disposition: Inpatient Rehab External Planned Provider[facility] Discharge Planning Comments: CM CALLED CARSON OF [facility], , PROVIDED REFERRAL FOR INPATIENT REHAB SERVICES. CM FAXED REFERRAL TO [facility] AT [phone]. CM WAITING OT EVALUATION AND WILL FAX TO [facility] SOON DOCUMENTED IN CHART. PATIENT WILL REQUIRE INSURANCE AUTHORIZATION FOR INPATIENT REHAB SERVICES. Chlorinator: Santos Marmolejo [facility]- Discharge Planning Updated by [id number]: Santos Marmolejo on 04/27/19 3:[address] Patient Name: SHAYNE BRICEÑO Admission Status: ER Accout number: [id number] Admission Date: 04-22-2019 : 1945 Admission Diagnosis:EDEMA, UNSPECIFIED Attending: KHOI SPAIN Current LOS: 5 Anticipated DC Date: Planned Disposition: Inpatient Rehab Primary Insurance: HUMANA CHOICE PPO MCR ADVANT PLANNED EXTERNAL PROVIDER: [facility] INPATIENT [facility] Discharge Planning Comments: CM MET WITH PT IN ROOM TO DISCUSS DISCHARGE PLANNING AND NEEDS. PT STATES HE WAS AT [facility] FOR REHAB AND MAY BE RETURNING THERE. CHOICE SIGNED. PT REQUESTED CM SPEAK TO HIS . CM LATER MET WITH PT'S WHO REPORTS THAT SHE WOULD LIKE PT CONSIDERED FOR INPATIENT REHAB AT [facility] IN [place]; SHE HAS DISCUSSED THIS WITH SECURITY AGENT AT [facility] AND SHE HOPES THIS LEVEL OF REHAB WILL BE APPROVED FOR PATIENT. IMPORTANT MESSAGE FROM MEDICARE PROVIDED AND EXPLAINED. CM TO CONTACT [facility], SOON POSSIBLE AND PROVIDE REFERRAL FOR INPATIENT REHAB SERVICES. PT WILL REQUIRE INSURANCE AUTHORIZATION FOR SERVICES. Chlorinator: Santos Marmolejo DCPIA - Discharge Planning Initial Assessment Updated by [id number]: Santos Marmolejo on 04/27/19 4:53 pm * Is the patient Alert and Oriented? Yes * How many steps to enter\\exit or inside your home? * PCP DR. LOCO * Pharmacy [facility] [address] * Preadmission Environment [facility] * Facility Name [facility] * ADLs Partial Dependent * Partial ADLs (Assistance needed) Ambulation Bathing Dressing Medication Management Toileting Transfers * Equipment None * Other Equipment NO MEDICAL EQUIPMENT PROVIDER PREFERENCE * List name and contact numbers for known caregivers / representatives who currently or will assist patient after discharge: CHRISTIE BRICEÑO, SPOUSE, * Verbal permission to speak to the caregivers and representatives has been obtained from the patient. Yes * Community resources currently utilized None * Please name any agencies selected above. NONE * Additional services required to return to the preadmission environment? No * Can the patient safely return to the preadmission environment? Yes * Has this patient been hospitalized within the prior 30 days at any hospital? Yes Coverage Notice Reviewer: [id number] Dez Marmolejo Notice Issued Date-Time: 04/27/2019 14:40 Notice Type: IM Discharge Notice Notice Delivered To: Family Member Relationship to Patient: Spouse Sampler Pickup Name: CHRISTIE BRICEÑO Delivery Method: HAND - Hand Delivered Tg Days: Prior Verbal Notification: Recipient Understood Notice: Yes Recipient Signature: Yes Med Rec Note Co-signed by Attending: Coverage Notice Comment: Reviewer: [id number] Dez Marmolejo Notice Issued Date-Time: 04/27/2019 9:05 Notice Type: Patient Choice Letter Notice Delivered To: Patient Relationship to Patient: Sampler Pickup Name: Delivery Method: HAND - Hand Delivered Tg Days: Prior Verbal Notification: Recipient Understood Notice: Yes Recipient Signature: Yes Med Rec Note Co-signed by Attending: Coverage Notice Comment: SANDEEP Reviewer: [id number] - April Strong Notice Issued Date-Time: 05/06/2019 15:59 Notice Type: Patient Choice Letter Notice Delivered To: Family Member Relationship to Patient: Sampler Pickup Name: Delivery Method: HAND - Hand Delivered Tg Days: Prior Verbal Notification: Recipient Understood Notice: Yes Recipient Signature: Yes Med Rec Note Co-signed by Attending: Coverage Notice Comment: santos for [facility] Last DP export: 05/11/19 3:52 p Patient Name: SHAYNE BRICEÑO Page [phone] at 1735 All edits/amendments must be made on the electronic document DICTATION DATE: 05/12/191734 WEALTH MANAGEMENT ADVISOR: LENIN 05/12/191734 RPT#: [id number] DC DATE: STATUS: ADM IN [facility] [address] [place] [address] END OF REPORT
[2019-05-12 17:36] VITALS: BP 121/66
--- NOTE | 2019-05-12 19:30 | NUR ---
PT CARE ASSUMED. BEDSIDE SHIFT REPORT COMPLETE. PT A&O, RR EVEN AND UNLABORED ON RA. NO S/S OF DISTRESS NOTED AT THIS TIME. PT DENIES PAIN OR DISCOMFORT. NO NEEDS EXPRESSED. CALL LIGHT IN REACH. WILL CPOC.
[2019-05-12 20:00] VITALS: BP 155/66
[2019-05-13] VITALS: BP 123/56
[2019-05-13 04:00] VITALS: BP 143/66
[2019-05-13 05:12] LABS: BASOPHILS 0.4 % (0-2); EOSINOPHILS 1.1 % (0-7); HEMATOCRIT 30.2 % (42.0-54.0); HEMOGLOBIN 9.9 g/dL (13.5-17.5); IMMATURE GRANULOCYTES 0.3 % (0-5); LYMPHOCYTES 20.8 % (15-50); MCH 29.2 pg (26.0-34.0); MCHC 32.8 g/dL (31.0-37.0); MCV 89.1 fL (80.0-100.0); MEAN PLATELET VOLUME 9.6 fL (7.4-10.4); MONOCYTES 8.7 % (2-11); NEUTROPHILS 68.7 % (40-80); PLATELET COUNT 195 10x3/uL (130-400); RBC 3.39 10x6/uL (4.20-6.10); RDW 14.6 % (11.5-14.5)
[2019-05-13 05:28] LABS: CALC OSMOLALITY 278 mosm/kg (275-300); CALCIUM 8.7 mg/dL (8.5-10.1); CARBON DIOXIDE 30.6 mmol/L (21.0-32.0); CHLORIDE - SERUM 102 mmol/L (98-107); CREATININE - SERUM 0.8 mg/dL (0.6-1.3); GLUCOSE 100 mg/dL (74-106); POTASSIUM - SERUM 3.3 mmol/L (3.5-5.1); SODIUM 139 mmol/L (136-145); UREA NITROGEN 16 mg/dL (7-18); eGFR NON AFRICAN AMERICAN > 90 mL/min (90-120)
[2019-05-13 05:30] LABS: WBC 7.8 10x3/uL (4.8-10.8)
[2019-05-13 08:32] VITALS: BP 166/75
--- NOTE | 2019-05-13 10:23 | NUR ---
Joaquin GOT PT INTO RECLINER CHAIR. SPEECH THERAPY WORKING WITH PT NOW.
--- NOTE | 2019-05-13 11:40 | NUR ---
PT REFUSED LUNCH TRAY.
--- NOTE | 2019-05-13 17:43 | NUR ---
I have reviewed this patient and I concur with the Shift Assessment completed by the Licensed Practical Nurse today this shift.
--- NOTE | 2019-05-13 19:22 | NUR ---
RPEORT RECEIEVED AND ROUNDING COMPLETE. PATIENT IN BED IN LOW FOWLERS POSITION. PATIENT REQUESTING A DRINK OF WATER WHEN I ENTERED ROOM. ASSISTED PATIENT WITH THIS. PATIENT IS ON ISO FOR MDRO IN URINE. PATIENT STATES NO OTHER NEEDS AT THIS TIME. CALL LIGHT WITHIN REACH AND BED IN LOWEST POSITION. PATIENT SHOWING NO S/SX OF DISTRESS AT THIS TIME.
[2019-05-13 20:00] VITALS: BP 152/68
[2019-05-14] VITALS: BP 145/66
[2019-05-14 04:00] VITALS: BP 134/62
[2019-05-14 05:04] LABS: BASOPHILS 0.3 % (0-2); EOSINOPHILS 0.5 % (0-7); HEMATOCRIT 30.8 % (42.0-54.0); HEMOGLOBIN 10.1 g/dL (13.5-17.5); IMMATURE GRANULOCYTES 0.1 % (0-5); LYMPHOCYTES 18.5 % (15-50); MCH 29.4 pg (26.0-34.0); MCHC 32.8 g/dL (31.0-37.0); MCV 89.8 fL (80.0-100.0); MEAN PLATELET VOLUME 9.7 fL (7.4-10.4); MONOCYTES 7.5 % (2-11); NEUTROPHILS 73.1 % (40-80); PLATELET COUNT 183 10x3/uL (130-400); RBC 3.43 10x6/uL (4.20-6.10); RDW 14.8 % (11.5-14.5); WBC 7.6 10x3/uL (4.8-10.8)
[2019-05-14 05:17] LABS: CALC OSMOLALITY 278 mosm/kg (275-300); CARBON DIOXIDE 28.9 mmol/L (21.0-32.0); CHLORIDE - SERUM 101 mmol/L (98-107); CREATININE - SERUM 0.8 mg/dL (0.6-1.3); GLUCOSE 129 mg/dL (74-106); SODIUM 137 mmol/L (136-145); UREA NITROGEN 20 mg/dL (7-18); eGFR NON AFRICAN AMERICAN > 90 mL/min (90-120)
[2019-05-14 05:20] LABS: POTASSIUM - SERUM 3.9 mmol/L (3.5-5.1)
--- NOTE | 2019-05-14 07:00 | NUR ---
RECEIVED REPORT. ASSUMED CARE OF PATIENT. CALL LIGHT WITHIN REACH. RESP EVEN AND UNLABORED. EYES CLOSED, RESTING PEACEFULLY. NO DISTRESS. NO FAMILY AT BEDSIDE.
--- NOTE | 2019-05-14 09:30 | NUR ---
RESTING IN BED WITH EYES OPEN. PATIENT STATES HE IS NOT EATING THE MEALS PROVIDED TO HIM. PATIENT REFUSED ORAL MEDICATION ADMINISTRATION AND MEDICATIONS ADMINISTERED VIA GTUBE REQUESTED. CALL LIGHT WITHIN REACH. NO DISTRESS.
--- NOTE | 2019-05-14 10:15 | NUR ---
INCONTINENT CARE PROVIDED. NO DISTRESS.
[2019-05-14 10:35] VITALS: BP 131/71
--- NOTE | 2019-05-14 11:47 | NUR ---
fsbs 189. 4 units humulin r administered per sliding scale.
[2019-05-14 12:50] VITALS: BP 123/61
--- NOTE | 2019-05-14 13:45 | NUR ---
TUBE FEEDING ADMINISTERED. NO DISTRESS. ATTENTION TOWARD TELEVISION.
--- NOTE | 2019-05-14 16:48 | NUR ---
FSBS 115. NO INSULIN PER SLIDING SCALE.
--- NOTE | 2019-05-14 19:30 | NUR ---
PT RESTING IN BED AT A 40 DEGREE ANGLE. RR EVEN AND UNLABORED. WITALS STABLE. NO S/S OF DISTRESS AT THIS TIME. BED LOW CALL LIGHT WITHIN REACH. FALL PERCAUTIONS IN PLACE. WILL CONTINUE TO MONITOR.
[2019-05-14 20:00] VITALS: BP 146/64
--- NOTE | 2019-05-14 22:36 | NUR ---
CHANGED PT'S LINEN. PT RR EVEN AND UNLABORED AT THIS TIME. WILL CONTINUE TO MONITOR.
[2019-05-15 00:30] VITALS: BP 133/62
[2019-05-15 04:00] VITALS: BP 129/72
[2019-05-15 04:42] LABS: BASOPHILS 0.5 % (0-2); EOSINOPHILS 2.4 % (0-7); HEMATOCRIT 28.8 % (42.0-54.0); HEMOGLOBIN 9.4 g/dL (13.5-17.5); IMMATURE GRANULOCYTES 0.3 % (0-5); LYMPHOCYTES 30.6 % (15-50); MCHC 32.6 g/dL (31.0-37.0); MCV 88.9 fL (80.0-100.0); MEAN PLATELET VOLUME 9.6 fL (7.4-10.4); MONOCYTES 11.9 % (2-11); NEUTROPHILS 54.3 % (40-80); PLATELET COUNT 172 10x3/uL (130-400); RBC 3.24 10x6/uL (4.20-6.10); RDW 14.7 % (11.5-14.5); WBC 6.5 10x3/uL (4.8-10.8)
--- NOTE | 2019-05-15 04:54 | NUR ---
I have reviewed this patient and I concur with the Shift Assessment completed by the Licensed Practical Nurse today this shift.
[2019-05-15 05:00] LABS: ALKALINE PHOSPHATASE 65 U/L (46-116); ALT (SGPT) 15 U/L (10-68); BILIRUBIN - TOTAL 0.48 mg/dL (0.2-1.3); CALC OSMOLALITY 273 mosm/kg (275-300); CALCIUM 8.5 mg/dL (8.5-10.1); CHLORIDE - SERUM 99 mmol/L (98-107); CREATININE - SERUM 0.8 mg/dL (0.6-1.3); GLUCOSE 97 mg/dL (74-106); POTASSIUM - SERUM 3.7 mmol/L (3.5-5.1); PROTEIN - SERUM 6.4 g/dL (6.4-8.2); SODIUM 135 mmol/L (136-145); UREA NITROGEN 23 mg/dL (7-18); eGFR NON AFRICAN AMERICAN > 90 mL/min (90-120)
--- NOTE | 2019-05-15 05:42 | NUR ---
PT RESTING WITH EYES CLOSED RR EVEN AND UNLABORED. NO S/S OF DISTRESS AT THIS TIME. BED LOW CALL LIGHT WITHIN REACH. WILL CONTINUE TO MONITOR.
--- NOTE | 2019-05-15 07:00 | NUR ---
RECEIVED REPORT. ASSUMED CARE OF PATIENT. RESTING WELL WITH EYES CLOSED. RESP EVEN AND UNLABORED. NO DISTRESS. CALL LIGHT WITHIN REACH. NO FAMILY AT BEDSIDE.
[2019-05-15 07:51] VITALS: BP 149/70
--- NOTE | 2019-05-15 09:00 | NUR ---
PATIENT OOB TO CHAIR BY PT. NO DISTRESS.
--- NOTE | 2019-05-15 11:25 | NUR ---
FSBS 124. NO INSULIN PER SLIDING SCALE TO BE ADMINISTERED.
[2019-05-15 12:11] VITALS: BP 104/49
--- NOTE | 2019-05-15 13:20 | NUR ---
PATIENT REFUSED HIS SUPPLEMENT FEEDING OF GLUCERNA BECAUSE HE STATES HE IS FULL. PATIENT ATE ABOUT 40% OF NOON. MEAL.
--- NOTE | 2019-05-15 14:11 | NUR ---
REVIEWING PROGRESS NOTES. HAVE NOT DISCUSSED THIS PATIENT WITH ANY PROVIDER BUT THIS DOUGH PANNER IS LISTED IN PROGRESS NOTES.
[2019-05-15 15:39] VITALS: BP 124/63
--- NOTE | 2019-05-15 16:19 | NUR ---
PATIENTS HERE REQUESING MEDICAL RECORDS FOR THIS VISIT STAY. THE REQUEST IS FOR PERSONAL AND INSURANCE PURPOSES. MONIQUE, METEOROLOGICAL EQUIPMENT REPAIRER, TOOK PATIENT DOWNSTAIRS TO MEDICAL RECORDS OFFICE TO HAVE RECORDS PRINTED. THIS CONTACT PERSON COULD NOT PRINT RECORDS BEING REQUESTED DUE TO THIS WRITERS PRIVILEDGES.
--- NOTE | 2019-05-15 16:37 | NUR ---
FSBS 106. NO INSULIN PER SLIDING SCALE.
--- NOTE | 2019-05-15 17:28 | NUR ---
PATIENT CONSUMED ABOUT 25 PERCENT OF DINNER FED TO HIM BY HIS DAUGHTER. PATIENT TOLERATED SUPPLEMENTAL FEEDING AT THIS TIME. PATIENTS WAS PROVIDED A COMPLETE COPY OF PATIENTS MEDICAL RECORDS. SALES TEAM LEADER, PARVEZ, AUTHORIZED INSPECTOR WIRE [employer], TO PRINT THE MEDICAL RECORDS DUE TO HIDE DROPPER TERESA, NOT BEING HELPFUL AND SHORT WITH THE PATIENTS . SIGNED AUTHORIZATION FOR USE AND DISCLOURE OF PROTECT HEALTH INFORMATION SIGNED AND PLACED ON PATIENT CHART.
--- NOTE | 2019-05-15 19:35 | NUR ---
RECIEVED BEDSIDE REPORT FROM JOEL RODRIGUEZ. PT RESTING IN BED WITH EYES CLOSED. RR EVEN AND UNLABORED. NO S/S OF DISTRESS AT THIS TIME. BED LOW CALL LIGHT WITHIN REACH. WILL CONTINUE TO MONITOR.
[2019-05-15 20:00] VITALS: BP 140/66
--- NOTE | 2019-05-15 23:43 | NUR ---
PT COMPLAINS OF PAIN IN BACK. PRN TYLENOL GIVEN THROUGH PEG TUBE. WILL CONTINUE TO MONITOR.
[2019-05-16] VITALS: BP 104/46
--- NOTE | 2019-05-16 03:30 | NUR ---
PT RESTING IN BED WITH EYES CLOSED. RR EVEN AND UNLABORED. NO S/S OF DISTRESS. BED LOW CALL LIGHT WITHIN REACH. WILL CONTINUE TO MONITOR.
--- NOTE | 2019-05-16 03:51 | NUR ---
I have reviewed this patient and I concur with the Shift Assessment completed by the Licensed Practical Nurse today this shift.
[2019-05-16 04:00] VITALS: BP 110/52
[2019-05-16 04:29] LABS: BASOPHILS 0.3 % (0-2); EOSINOPHILS 3.2 % (0-7); HEMATOCRIT 29.5 % (42.0-54.0); HEMOGLOBIN 9.5 g/dL (13.5-17.5); IMMATURE GRANULOCYTES 0.2 % (0-5); LYMPHOCYTES 32.9 % (15-50); MCH 28.9 pg (26.0-34.0); MCHC 32.2 g/dL (31.0-37.0); MCV 89.7 fL (80.0-100.0); MEAN PLATELET VOLUME 9.9 fL (7.4-10.4); MONOCYTES 14.5 % (2-11); NEUTROPHILS 48.9 % (40-80); PLATELET COUNT 194 10x3/uL (130-400); RBC 3.29 10x6/uL (4.20-6.10); RDW 14.8 % (11.5-14.5); WBC 5.9 10x3/uL (4.8-10.8)
[2019-05-16 04:50] LABS: ALBUMIN 2.9 g/dL (3.4-5.0); ALKALINE PHOSPHATASE 61 U/L (46-116); BILIRUBIN - TOTAL 0.41 mg/dL (0.2-1.3); CALC OSMOLALITY 276 mosm/kg (275-300); CALCIUM 8.9 mg/dL (8.5-10.1); CARBON DIOXIDE 28.9 mmol/L (21.0-32.0); CHLORIDE - SERUM 100 mmol/L (98-107); CREATININE - SERUM 0.7 mg/dL (0.6-1.3); GLUCOSE 96 mg/dL (74-106); POTASSIUM - SERUM 3.9 mmol/L (3.5-5.1); PROTEIN - SERUM 6.4 g/dL (6.4-8.2); SODIUM 137 mmol/L (136-145); UREA NITROGEN 21 mg/dL (7-18); eGFR NON AFRICAN AMERICAN > 90 mL/min (90-120)
[2019-05-16 05:00] LABS: ALT (SGPT) 23 U/L (10-68)
--- NOTE | 2019-05-16 07:30 | NUR ---
REPORT RECIEVED. PT SITTING SEMI FOWLERS IN BED. RR EVEN AND UNLABORED. PT HAS A GTUBE TO THE LUQ. BED LOCKED AND IN LOWEST POISITION, CALL LIGHT WITHIN REACH. WILL CTM
[2019-05-16 09:28] VITALS: BP 138/59
[2019-05-16 11:06] VITALS: BP 111/50
[2019-05-16] MEDS ORDERED: BETAPACE 80 MG80 MG PO (12:29)
[2019-05-16] MEDS ORDERED: XARELTO20 MG PO (12:29)
--- NOTE | 2019-05-16 14:02 | MORECARE ---
CASE MANAGEMENT DISCHARGE SUMMARY PATIENT: SHAYNE BRICEÑO UNIT: [id number] ADM DATE: 04/22/19 AGE: 73 : 47 SEX: M ROOM/BED: D.2111 AUTHOR: MANNIE DIAL PHYSICIAN: REFERRING PHYSICIAN: KHOI SPAIN MD DATE OF SERVICE: 05/16/19 Discharge Plan Patient Name: SHAYNE BRICEÑO Facility: [facility]:[place] : 1945 Planned Disposition: Assisted Facility Anticipated Discharge Date: 05/16/19 Discharge Date: Expected LOS: 24 Initial Reviewer: [id number] Initial Review Date: 04/27/2019 Generated: 05/16/19 3:02 pm Comments DCP- Discharge Planning Updated by [id number]: Santos Marmolejo on 05/12/19 4:[address] Patient Name: SHAYNE BRICEÑO Encounter No: [id number] : 1945 Primary Insurance: [employer] PPO MCR ADVANT Anticipated DC Date: Planned Disposition: Assisted Facility External Planned Provider: [facility], CARE HOME CARE MEDICAID BED DCP follow-up note: CM RECEIVED CALL FROM NICK MANDEL OF [facility], , PT HAS BEEN DECLINED REHAB SERVICES BY INSURANCE AT RETIREMENT AND RECOMMENDED TRAINING LEAD CARE SERVICES. NICK WILL CALL PT'S SPOUSE AND DISCUSS DENIAL WELL POSSIBLE CARE HOME CARE AT [place]; NICK REPORTS CARE HOME CARE BED IS AVAILABLE. CM WAITING ON TRAINING LEAD CARE ARRANGEMENTS BY [facility] AND PT'S SPOUSE. Santos Marmolejo, CASE MANAGEMENT DCP- Discharge Planning Updated by [id number]: Santos Marmolejo on 05/11/19 3:[address] Patient Name: SHAYNE BRICEÑO Encounter No: [id number] : 1945 Primary Insurance: [employer] PPO MCR ADVANT Anticipated DC Date: Planned Disposition: Assisted Facility External Planned Provider: [facility], MEDICARE REHAB BED DCP follow-up note: CM RECEIVED CALL FROM [employer] WHO INFORMED CM THAT THEY ARE OFFERING PEER TO PEER REVIEW PRIOR TO DENIAL OF RETIREMENT REHAB REQUEST AND IT CAN BE DONE BEFORE 05-12-19 AT NOON. THE NUMBER TO CALL IS [phone], OPTION 5. THE PROVIDER CAN CALL THIS DIRECTLY FOR PEER TO PEER. THE PENDING DENIAL IS BASED ON INFORMATION PROVIDED DOES NOT SUPPORT PT'S ABILITY FOR REHAB SERVICES AND PT APPEARS TO BE MORE APPROPRIATE FOR TRAINING LEAD CARE. CM NOTIFIED JODEE SANZ WHO INFORMED CM SHE WILL DO THE PEER TO PEER. CM SPOKE TO [facility], , NOTIFIED OF ABOVE. CM WAITING RESULT OF PEER TO PEER CALL TO INSURANCE COMPANY IN HOPES OF GETTING FURTHER RETIREMENT FACILITY SERVICES AUTHORIZED. Santos Marmolejo, CASE MANAGEMENT DCP- Discharge Planning Updated by [id number]: Santos Marmolejo on 05/11/19 6:[address] Patient Name: SHAYNE BRICEÑO Encounter No: [id number] : 1945 Primary Insurance: [employer]NA CHOICE PPO MCR ADVANT Anticipated DC Date: Planned Disposition: Assisted Facility External Planned Provider: [facility], MEDICARE REHAB BED LATE ENTRY FROM 05-10-19. DCP follow-up note: CM RECEIVED CALL FROM NICK MANDEL OF [facility] WHO IS PROCESSING PT FOR REHAB ADMISSION TO [place]. NICK REQUESTED UPDATED PHYSICIAN NOTES AND THERAPY NOTES TO SUBMIT TO INSURANCE. CM FAXED REQUESTED INFORMAITION TO NICK MANDEL, . CM WAITING INSURANCE AUTHORIZATION FOR REHAB SERVICES AT [facility]. SANTOS MARMOLEJO CASE MANAGEMENT DCP- Discharge Planning Updated by [id number]: April Strong on 05/06/19 2:[address] Patient Name: SHAYNE BRICEÑO Admission Status: ER Accout number: [id number] Admission Date: 04-22-2019 : 1945 Admission Diagnosis:EDEMA, UNSPECIFIED Attending: KHOI SPAIN Current LOS: 14 Anticipated DC Date: Planned Disposition: Assisted Facility Primary Insurance: HUMANA CHOICE PPO MCR ADVANT Discharge Planning Comments: I SPOKE WITH THE PATIENT'S AND SHE WOULD LIKE [place] [facility]. I FAXED REFERRAL AND SHE WILL SIGN SANTOS. CM TO FOLLOW AND ASSIST. Windows Systems Administrator: April Strong DCP- Discharge Planning Updated by [id number]: April Strong on 05/05/19 3:[address] Patient Name: SHAYNE BRICEÑO Admission Status: ER Accout number: [id number] Admission Date: 04-22-2019 : 1945 Admission Diagnosis:EDEMA, UNSPECIFIED Attending: KHOI SPAIN Current LOS: 13 Anticipated DC Date: Planned Disposition: Assisted Facility Primary Insurance: HUMANA CHOICE PPO MCR ADVANT Discharge Planning Comments: CM AND DR. SPAIN SPOKE AT LENGTH WITH PATIENT TODAY. OTHER DAUGHTER IS COMING IN TONIGHT FROM OUT OF TOWN AND THEY WILL DISCUSS WHAT SNF. I WILL MEET WITH HER TOMORROW. CM TO FOLLOW. Windows Systems Administrator: April Strong DCP- Discharge Planning Updated by [id number]: Dinorah Fay on 05/04/19 1:[address] SPOKE WITH ISRAEL WITH [facility]. SHE WANTED TO SEE IF I WAS AWARE OF THE PATIENT FILING A [employer] APPEAL TO DISCHARGE. I EXPLAINED YES AND THAT I HAVE ALREADY FAXED THE INFORMATION TO [employer] LETTING THEM KNOW THAT THE PATIENT IS NOT DISCHARGED. I HAVE EXPLAINED THAT THE HAD CALLED [employer] TO ASK THEM TO FIGHT THE DENIAL FOR INPATIENT REHAB FOR THEM THAT SHE WAS UNHAPPY THAT THE P2P WAS UNSUCCESSFUL. ALL INFORMATION WAS GIVEN TO ISRAEL THAT SHE REQUESTED. SHE NOW HAS MY DIRECT NUMBER AND WILL CALL ME IF SHE HAS ANY FURTHER QUESTIONS OR NEEDS ANY FURTHER INFORMATION. DCP- Discharge Planning Updated by [id number]: Santos Marmolejo on 05/03/19 4:[address] Patient Name: SHAYNE BRICEÑO Encounter No: [id number] : 1945 Primary Insurance: HUMANA CHOICE PPO MCR ADVANT Anticipated DC Date: Planned Disposition: Assisted Facility External Planned Provider: WAITING ON FAMILY DECISION DCP follow-up note: CM RECEIVED INPATIENT REHAB DENIAL. CM PROVIDED COPY TO PT WHO INSTRUCTED CM TO CALL HIS . CM ALLED CHRISTIE BRICEÑO, SPOUSE, , INFORMED OF DENIAL AND COPY IN PT'S ROOM. CHRISTIE STATES SHE WILL CALL INSURANCE COMPANY TOMORROW TO APPEAL THE DECISION. CHRISTIE HAS NOT MADE ANY DECISION REGARDING RETIREMENT FACILITY PLACEMENT AND IS WAITING ON HER DAUGHTERS TO ASSIST HER WITH DECISION. CM EXPLAINED THAT PT IS MEDICALLY STABLE FOR DISCHARGE NOW AND RETIREMENT CHOICES NEED TO BE MADE EVEN IF THEY ARE APPEALING INSURANCE DECISION. CHRISTIE REPORTS SHE WILL CALL INSURANCE AND PROVIDE RETIREMENT FACILITY CHOICES SOON POSSIBLE. CHRISTIE IS NOT WANTING TO RETURN PT TO [facility]. INSURANCE DECLINED INPATIENT REHAB. IS GOING TO CALL INSURANCE TO APPEAL DENIAL OF INPATIENT REHAB. SPEAKING TO FAMILY TO MAKE RETIREMENT FACILITY CHOICES. CM WAITING ON PT'S TO PROVIDE RETIREMENT FACLITY CHOICES. Santos Marmolejo, CASE MANAGEMENT DCP- Discharge Planning Updated by [id number]: Santos Marmolejo on 05/02/19 11:[address] Patient Name: SHAYNE BRICEÑO Encounter No: [id number] : 1945 Primary Insurance: HUMANA CHOICE PPO MCR ADVANT Anticipated DC Date: Planned Disposition: Assisted Facility External Planned Provider: [facility] DCP follow-up note: CM SPOKE TO JODEE THOMPSON REGARDING INPATIENT REHAB DENIAL THAT WAS RECEIVED ON THURSDAY, JODEE THOMPSON AGREED WITH RETIREMENT AND DIRECTED CM TO CHECK WITH DR. SPAIN REGARDING PEER TO PEER WITH INSURANCE COMPANY. CM CONTACTED DR. SPAIN WHO DECLINED PEER TO PEER AND AGREED WITH RETIREMENT PLACEMENT FOR REHAB. CM CALLED AND SPOKE TO PT'S SPOUSE, CHRISTIE KEITA, WHO DISAGREED WITH THE INSURANCE COMPANY AND ASKED FOR APPEAL NUMBER THAT SHE CAN CALL. CM CALLED CARSON AT [facility], , WHO WILL CHECK TO SEE IF ANY FAX WAS RECEIVED FROM INSURANCE COMPANY. SHE WAS NOT ABLE TO LOCATE A FAXED DENIAL. CM CALLED PT'S INSURANCE COMPANY, [employer] AT , SPOKE TO DANIEL WHO ADVISED THAT THE CLAIM HAD NOT BEEN DENIED, AND THAT THE STONER HAND REACHED OUT FOR PEER TO PEER WITH HOSPITAL PHYSICIAN PRIOR TO MAKING DETERMINATION REGARDING INPATIENT REHAB. DANIEL JACOBSON INFORMED CM THAT PT DOES NOT HAVE ANY APPEAL RIGHTS UNLESS THE CLAIM IS DENIEDS. CM SPOKE TO DR. SPAIN WHO IS WILLING FOR PEER TO PEER TOMORROW, 05-03-19. CM CALLED [employer] AT , SPOKE TO DANIEL AND ARRANGED FOR DR. ERICKSON OF [employer] TO CALL DR. SPAIN 05-03-19 BETWEEN 1:30PM AND 1:45 PM FOR PEER TO PEER. CM NOTIFIED DR. SPAIN AND PT'S SPOUSE. PT'S SPOUSE ADVISED THAT SHE IS NOT THINKING OF RETURNING PT TO [facility] IF INPATIENT IS DECLINED AND WILL LOOK INTO OTHER RETIREMENT FACILITIES "PLAN B" AND WILL LET CM KNOW WHAT HER CHOICE WILL BE. CM WAITING PEER TO PEER DISCUSSION BETWEEN DR. SPAIN AND DR. ERICKSON FOR [employer] TO MAKE DETERMINATION REGARDING INPATIENT REHAB SERVICES. Santos Marmolejo, CASE MANAGEMENT Santos Marmolejo DCP- Discharge Planning Updated by [id number]: Santos Marmolejo on 05/02/19 7:[address] Patient Name: SHAYNE BRICEÑO Encounter No: [id number] : 1945 Primary Insurance: HU[employer]NA CHOICE PPO MCR ADVANT Anticipated DC Date: Planned Disposition: Assisted Facility External Planned Provider: : DCP follow-up note: PT HAS BEEN DECLINED ON 04-29-19 BY INSURANCE FOR INPATIENT REHAB WITH RECOMMENDATION FOR RETIREMENT REHAB. CM FAXED UPDATE TO [facility], , FOR POSSIBLE RETURN TO RETIREMENT REHAB IF PHYSICIAN AGREES WITH INSURANCE DETERMINATION. IF PEER TO PEER REVIEW IS DESIRED, IT CAN BE ARRANGED PRIOR TO 05-05-19, BY CALLING [employer] AT . BENIGNO Layton DCP- Discharge Planning Updated by [id number]: Santos Marmolejo on 04/29/19 3:[address] Patient Name: SHAYNE BRICEÑO Encounter No: [id number] : 1945 Primary Insurance: HU[employer]NA CHOICE PPO MCR ADVANT Anticipated DC Date: Planned Disposition: Inpatient Rehab External Planned Provider: [facility] [place] DCP follow-up note: CM RECEIVED PHONE MESSAGE FROM [facility] OF [employer], , EXTENSION [id number], WHO INFORMED CM THAT PT HAS BEEN DECLINED FOR INPATIENT REHAB WITH RECOMMENDATION FOR RETIREMENT REHAB. CM NOTIFIED JODEE SANZ WHO WILL DISCUSS WITH PHYSICIAN. IF PEER TO PEER REVIEW IS DESIRED, IT CAN BE ARRANGED PRIOR TO 05-05-19, BY CALLING [employer] AT . BENIGNO Layton MANAGEMENT DCP- Discharge Planning Updated by [id number]: Santos Marmolejo on 04/29/19 6:[address] Patient Name: SHAYNE BRICEÑO Encounter No: [id number] : 1945 Primary Insurance: HU[employer] CHOICE PPO MCR ADVANT Anticipated DC Date: Planned Disposition: Inpatient Rehab External Planned Provider[facility] Discharge Planning Comments: CM FAXED REFERRAL UPDATE WITH OCCUPATIONAL THERAPY EVALUATION TO [facility] AT [phone]. CM WAITING ADMISSION DETERMINATION WELL INSURANCE AUTHORIZATION FOR INPATIENT REHAB SERVICES AT [facility]. Windows Systems Administrator: Santos Marmoljeo DCP- Discharge Planning Updated by [id number]: Santos Marmolejo on 04/28/19 8:[address] Patient Name: SHAYNE BRICEÑO Encounter No: [id number] : 1945 Primary Insurance: HU[employer]NA CHOICE PPO MCR ADVANT Anticipated DC Date: Planned Disposition: Inpatient Rehab External Planned Provider: [facility] Discharge Planning Comments: CM CALLED CARSON OF [facility], , PROVIDED REFERRAL FOR INPATIENT REHAB SERVICES. CM FAXED REFERRAL TO [facility] AT [phone]. CM WAITING OT EVALUATION AND WILL FAX TO [facility] SOON DOCUMENTED IN CHART. PATIENT WILL REQUIRE INSURANCE AUTHORIZATION FOR INPATIENT REHAB SERVICES. Windows Systems Administrator: Santos Marmolejo DCP- Discharge Planning Updated by [id number]: Santos Marmolejo on 04/27/19 3:[address] Patient Name: SHAYNE BRICEÑO Admission Status: ER Accout number: [id number] Admission Date: 04-22-2019 : 1945 Admission Diagnosis:EDEMA, UNSPECIFIED Attending: KHOI SPAIN Current LOS: 5 Anticipated DC Date: Planned Disposition: Inpatient Rehab Primary Insurance: HUMANA CHOICE PPO MCR ADVANT PLANNED EXTERNAL PROVIDER: [facility] INPATIENT [facility] Discharge Planning Comments: CM MET WITH PT IN ROOM TO DISCUSS DISCHARGE PLANNING AND NEEDS. PT STATES HE WAS AT [facility] FOR REHAB AND MAY BE RETURNING THERE. CHOICE SIGNED. PT REQUESTED CM SPEAK TO HIS . CM LATER MET WITH PT'S WHO REPORTS THAT SHE WOULD LIKE PT CONSIDERED FOR INPATIENT REHAB AT [facility] IN [place]; SHE HAS DISCUSSED THIS WITH FIRE PREVENTION CAPTAIN AT [facility] AND SHE HOPES THIS LEVEL OF REHAB WILL BE APPROVED FOR PATIENT. IMPORTANT MESSAGE FROM MEDICARE PROVIDED AND EXPLAINED. [facility] SOON POSSIBLE AND PROVIDE REFERRAL FOR INPATIENT REHAB SERVICES. PT WILL REQUIRE INSURANCE AUTHORIZATION FOR SERVICES. Windows Systems Administrator: Santos Marmolejo DCPIA - Discharge Planning Initial Assessment Updated by [id number]: Santos Marmolejo on 04/27/19 4:53 pm * Is the patient Alert and Oriented? Yes * How many steps to enter\\exit or inside your home? * PCP DR. LOCO * Pharmacy [facility] [address] * Preadmission Environment Assisted Facility * [facility] * ADLs Partial Dependent * Partial ADLs (Assistance needed) Ambulation Bathing Dressing Medication Management Toileting Transfers * Equipment None * Other Equipment NO MEDICAL EQUIPMENT PROVIDER PREFERENCE * List name and contact numbers for known caregivers / representatives who currently or will assist patient after discharge: CHRISTIE BRICEÑO, SPOUSE, * Verbal permission to speak to the caregivers and representatives has been obtained from the patient. Yes * Community resources currently utilized None * Please name any agencies selected above. NONE * Additional services required to return to the preadmission environment? No * Can the patient safely return to the preadmission environment? Yes * Has this patient been hospitalized within the prior 30 days at any hospital? Yes Coverage Notice Reviewer: [id number] - Santos Marmolejo Notice Issued Date-Time: 04/27/2019 14:40 Notice Type: IM Discharge Notice Notice Delivered To: Family Member Relationship to Patient: Spouse Lobster Fisherman Name: CHRISTIE BRICEÑO Delivery Method: HAND - Hand Delivered Tg Days: Prior Verbal Notification: Recipient Understood Notice: Yes Recipient Signature: Yes Med Rec Note Co-signed by Attending: Coverage Notice Comment: Reviewer: [id number] Dez Marmolejo Notice Issued Date-Time: 04/27/2019 9:05 Notice Type: Patient Choice Letter Notice Delivered To: Patient Relationship to Patient: Lobster Fisherman Name: Delivery Method: HAND - Hand Delivered Tg Days: Prior Verbal Notification: Recipient Understood Notice: Yes Recipient Signature: Yes Med Rec Note Co-signed by Attending: Coverage Notice Comment: SANDEEP Reviewer: [id number] Dez Strong Notice Issued Date-Time: 05/06/2019 15:59 Notice Type: Patient Choice Letter Notice Delivered To: Family Member Relationship to Patient: Lobster Fisherman Name: Delivery Method: HAND - Hand Delivered Tg Days: Prior Verbal Notification: Recipient Understood Notice: Yes Recipient Signature: Yes Med Rec Note Co-signed by Attending: Coverage Notice Comment: santos for [facility] Last DP export: 05/12/19 4:35 p Patient Name: SHAYNE BRICEÑO Page [id number] at 1402 All edits/amendments must be made on the electronic document DICTATION DATE: 05/16/191401 BURSAR: LENIN 05/16/191401 RPT#: [id number] DC DATE: STATUS: ADM IN [facility] [address] [place] [address] END OF REPORT
--- NOTE | 2019-05-16 14:03 | NUR ---
REPORT CALLED TO CARMELITA AT [facility] AT THIS TIME. SHE SAID TRANSPORT IS RUNNING BEHIND AND SOMEONE WILL LET US KNOW AROUND WHEN THEY WILL BE HERE TO GET PT.
--- NOTE | 2019-05-16 14:20 | MORECARE ---
CASE MANAGEMENT DISCHARGE SUMMARY PATIENT: SHAYNE BRICEÑO UNIT: [id number] ADM DATE: 04/22/19 AGE: 73 : 47 SEX: M ROOM/BED: D.2111 AUTHOR: JAYRO,DOC PHYSICIAN: REFERRING PHYSICIAN: KHOI SPAIN MD DATE OF SERVICE: 05/16/19 Discharge Plan Patient Name: SHAYNE BRICEÑO Facility: [facility]:[address] : 1945 Planned Disposition: Nursing Home Facility Anticipated Discharge Date: 05/16/19 Discharge Date: Expected LOS: 24 Initial Reviewer: [id number] Initial Review Date: 04/27/2019 Generated: 05/16/19 3:19 pm Comments DCP- Discharge Planning Updated by [id number]: Geovanni Skinner on 05/16/19 1:[address] Patient Name: SHAYNE BRICEÑO Encounter No: [id number] : 1945 Primary Insurance: HUMANA CHOICE PPO MCR ADVANT Anticipated DC Date: 05-16-2019 Planned Disposition: Nursing Home Facility External Planned Provider: [facility], MEDICARE REHAB BED DCP follow-up note: EDIE CALL[place] AND [place]POKE [place] [facility] [place] [facility] ; NICK HAS TALKED TO PT'S SPOUSE WHO INFORMED NICK THAT SHE PLANS TO APPEAL THE DENIAL FOR SKILLED REHAB SERVICES WITH INSURANCE. CM CALLED AND SPOKE TO CHRISTIE BRICEÑO WHO INFORMED CM THAT SHE HAS APPEALED THE DENIAL FOR ASSISTED REHAB AND WILL CALL THE INSURANCE COMMMISSIONER TODAY. EDIE LATER INFORMED DR SPAIN AND TREATMENT TEAM OF THESE COMMUNICATIONS AT THE MULTIDISCIPLINARY TREATMENT TEAM MEETING. CM RECEIVED CALL FROM [facility]ICK [facility] [facility] [place] [facility], , THEY HAVE RECEIVED AUTHORIZATION FROM PT'S INSURANCE FOR ASSISTED, THEY WILL ACCEPT TODAY AND CAN CUTTER AND PASTER PRESS CLIPPINGS AT 3:30PM. CM CALLED AND SPOKE TO PT'S SPOUSE VIA PHONE WHO IS IN AGREEMENT WITH DISCHARGE PLAN. CM SPOKE TO PT IN ROOM WHO IS IN AGREEMENT WITH DISCHARGE PLAN. IMPORTANT MESSAGE FROM MEDICARE PROVIDED AND EXPLAINED. CM FAXED DISCHARGE INFORMATION TO [facility] VIA [employer] AT [phone]. FABRICS AND MATERIAL CUTTER AND BEDSIDE NURSE NOTIFIED. NURSE REPORT TO BE CALLED TO [facility] AT [phone]; [facility] TO CUTTER AND PASTER PRESS CLIPPINGS PT AT 4PM TODAY. Geovanni Skinner CASE MANAGEMENT DCP- Discharge Planning Updated by [id number]: Geovanni Skinner on 05/12/19 4:[address] Patient Name: SHAYNE BRICEÑO Encounter No: [id number] : 1945 Primary Insurance: HUMANA CHOICE PPO MCR ADVANT Anticipated DC Date: Planned Disposition: Nursing Home Facility External Planned Provider: [facility], DIGITAL PRE PRESS OPERATOR CARE MEDICAID BED DCP follow-up note: CM RECEIVED CALL FROM NICK MANDEL OF [facility], , PT HAS BEEN DECLINED REHAB SERVICES BY INSURANCE AT ASSISTED AND RECOMMENDED SENIOR CARE CARE SERVICES. NICK WILL CALL PT'S SPOUSE AND DISCUSS DENIAL WELL POSSIBLE SENIOR CARE CARE AT [facility]; NICK REPORTS SENIOR CARE CARE BED IS AVAILABLE. CM WAITING ON DIGITAL PRE PRESS OPERATOR CARE ARRANGEMENTS BY [facility] AND PT'S SPOUSE. Geovanni Skinner CASE MANAGEMENT DCP- Discharge Planning Updated by [id number]: Geovanni Skinner on 05/11/19 3:[address] Patient Name: SHAYNE BRICEÑO Encounter No: [id number] : 1945 Primary Insurance: HUMANA CHOICE PPO MCR ADVANT Anticipated DC Date: Planned Disposition: Nursing Home Facility External Planned Provider: [facility], MEDICARE REHAB BED DCP follow-up note: CM RECEIVED CALL FROM ZORAIDA WHO INFORMED CM THAT THEY ARE OFFERING PEER TO PEER REVIEW PRIOR TO DENIAL OF ASSISTED REHAB REQUEST AND IT CAN BE DONE BEFORE 05-12-19 AT NOON. THE NUMBER TO CALL IS [phone], OPTION 5. THE PROVIDER CAN CALL THIS DIRECTLY FOR PEER TO PEER. THE PENDING DENIAL IS BASED ON INFORMATION PROVIDED DOES NOT SUPPORT PT'S ABILITY FOR REHAB SERVICES AND PT APPEARS TO BE MORE APPROPRIATE FOR SENIOR CARE CARE. CM NOTIFIED JODEE SANZ WHO INFORMED CM SHE WILL DO THE PEER TO PEER. CM SPOKE TO DEBORAH OF [facility], , NOTIFIED OF ABOVE. CM WAITING RESULT OF PEER TO PEER CALL TO INSURANCE COMPANY IN HOPES OF GETTING FURTHER ASSISTED FACILITY SERVICES AUTHORIZED. BENIGNO Layton DCP- Discharge Planning Updated by [id number]: Geovanni Skinner on 05/11/19 6:[address] Patient Name: SHAYNE BRICEÑO Encounter No: [id number] : 1945 Primary Insurance: HUMANA CHOICE PPO MCR ADVANT Anticipated DC Date: Planned Disposition: Nursing Home Facility External Planned Provider: [facility], MEDICARE REHAB BED LATE ENTRY FROM 05-10-19. DCP follow-up note: CM RECEIVED CALL FROM NICK MANDEL [facility] WHO IS PROCESSING PT FOR REHAB ADMISSION TO [facility]. NICK REQUESTED UPDATED PHYSICIAN NOTES AND THERAPY NOTES TO SUBMIT TO INSURANCE. CM FAXED REQUESTED INFORMAITION TO NICK MANDEL, . CM WAITING INSURANCE AUTHORIZATION FOR REHAB SERVICES AT [facility]. BENIGNO LAYTON DCP- Discharge Planning Updated by [id number]: April Strong on 05/06/19 2:[address] Patient Name: SHAYNE BRICEÑO Admission Status: ER Accout number: [id number] Admission Date: 04-22-2019 : 1945 Admission Diagnosis:EDEMA, UNSPECIFIED Attending: KHOI SPAIN Current LOS: 14 Anticipated DC Date: Planned Disposition: Nursing Home Facility Primary Insurance: HUMANA CHOICE PPO MCR ADVANT Discharge Planning Comments: I SPOKE WITH THE PATIENT'S AND SHE WOULD LIKE [facility] SNF. I FAXED REFERRAL AND SHE WILL SIGN SANTOS. CM TO FOLLOW AND ASSIST. Pure Pak Machine Operator: April Strong DCP- Discharge Planning Updated by [id number]: April Strong on 05/05/19 3:[address] Patient Name: SHAYNE BRICEÑO Admission Status: ER Accout number: [id number] Admission Date: 04-22-2019 : 1945 Admission Diagnosis:EDEMA, UNSPECIFIED Attending: KHOI SPAIN Current LOS: 13 Anticipated DC Date: Planned Disposition: Nursing Home Facility Primary Insurance: HUMANA CHOICE PPO MCR ADVANT Discharge Planning Comments: CM AND DR. SPAIN SPOKE AT LENGTH WITH PATIENT TODAY. OTHER DAUGHTER IS COMING IN TONIGHT FROM OUT OF TOWN AND THEY WILL DISCUSS WHAT SNF. I WILL MEET WITH HER TOMORROW. CM TO FOLLOW. Pure Pak Machine Operator: April Strong DCP- Discharge Planning Updated by [id number]: Dinorah Fay on 05/04/19 1:[address] SPOKE WITH ISRAEL WITH CHRIST[facility]. SHE WANTED TO SEE IF I WAS AWARE OF THE PATIENT FILING A [employer] APPEAL TO DISCHARGE. I EXPLAINED YES AND THAT I HAVE ALREADY FAXED THE INFORMATION TO [employer] LETTING THEM KNOW THAT THE PATIENT IS NOT DISCHARGED. I HAVE EXPLAINED THAT THE HAD CALLED [facility] TO ASK THEM TO FIGHT THE DENIAL FOR INPATIENT REHAB FOR THEM THAT SHE WAS UNHAPPY THAT THE P2P WAS UNSUCCESSFUL. ALL INFORMATION WAS GIVEN TO ISRAEL THAT SHE REQUESTED. SHE NOW HAS MY DIRECT NUMBER AND WILL CALL ME IF SHE HAS ANY FURTHER QUESTIONS OR NEEDS ANY FURTHER INFORMATION. DCP- Discharge Planning Updated by [id number]: Geovanni Skinner on 05/03/19 4:[address] Patient Name: SHAYNE BRICEÑO Encounter No: [id number] : 1945 Primary Insurance: HUMANA CHOICE PPO MCR ADVANT Anticipated DC Date: Planned Disposition: Nursing Home Facility External Planned Provider: WAITING ON FAMILY DECISION DCP follow-up note: CM RECEIVED INPATIENT REHAB DENIAL. CM PROVIDED COPY TO PT WHO INSTRUCTED CM TO CALL HIS . CM ALLED CHRISTIE BRICEÑO, SPOUSE, , INFORMED OF DENIAL AND COPY IN PT'S ROOM. CHRISTIE STATES SHE WILL CALL INSURANCE COMPANY TOMORROW TO APPEAL THE DECISION. CHRISTIE HAS NOT MADE ANY DECISION REGARDING ASSISTED FACILITY PLACEMENT AND IS WAITING ON HER DAUGHTERS TO ASSIST HER WITH DECISION. CM EXPLAINED THAT PT IS MEDICALLY STABLE FOR DISCHARGE NOW AND ASSISTED CHOICES NEED TO BE MADE EVEN IF THEY ARE APPEALING INSURANCE DECISION. CHRISTIE REPORTS SHE WILL CALL INSURANCE AND PROVIDE ASSISTED FACILITY CHOICES SOON POSSIBLE. CHRISTIE IS NOT WANTING TO RETURN PT TO [facility]. INSURANCE DECLINED INPATIENT REHAB. IS GOING TO CALL INSURANCE TO APPEAL DENIAL OF INPATIENT REHAB. SPEAKING TO FAMILY TO MAKE ASSISTED FACILITY CHOICES. CM WAITING ON PT'S TO PROVIDE ASSISTED FACLITY CHOICES. Geovanni Skinner, CASE MANAGEMENT DCP- Discharge Planning Updated by [id number]: Geovanni Skinner on 05/02/19 11:[address] Patient Name: SHAYNE BRICEÑO Encounter No: [id number] : 1945 Primary Insurance: HUMANA CHOICE PPO MCR ADVANT Anticipated DC Date: Planned Disposition: Nursing Home Facility External Planned Provider: [facility] DCP follow-up note: CM SPOKE TO JODEE THOMPSON REGARDING INPATIENT REHAB DENIAL THAT WAS RECEIVED ON THURSDAY, JODEE THOMPSON AGREED WITH ASSISTED AND DIRECTED CM TO CHECK WITH DR. SPAIN REGARDING PEER TO PEER WITH INSURANCE COMPANY. CM CONTACTED DR. SPAIN WHO DECLINED PEER TO PEER AND AGREED WITH ASSISTED PLACEMENT FOR REHAB. CM CALLED AND SPOKE TO PT'S SPOUSE, CHRISTIE KEITA, WHO DISAGREED WITH THE INSURANCE COMPANY AND ASKED FOR APPEAL NUMBER THAT SHE CAN CALL. CM CALLED CARSON AT [facility], , WHO WILL CHECK TO SEE IF ANY FAX WAS RECEIVED FROM INSURANCE COMPANY. SHE WAS NOT ABLE TO LOCATE A FAXED DENIAL. CM CALLED PT'S INSURANCE COMPANY, [employer] AT , SPOKE TO DANIEL WHO ADVISED THAT THE CLAIM HAD NOT BEEN DENIED, AND THAT THE CANDLE WRAPPER REACHED OUT FOR PEER TO PEER WITH HOSPITAL PHYSICIAN PRIOR TO MAKING DETERMINATION REGARDING INPATIENT REHAB. DANIEL JACOBSON INFORMED CM THAT PT DOES NOT HAVE ANY APPEAL RIGHTS UNLESS THE CLAIM IS DENIEDS. CM SPOKE TO DR. SPAIN WHO IS WILLING FOR PEER TO PEER TOMORROW, 05-03-19. CM CALLED [employer] AT , SPOKE TO DANIEL AND ARRANGED FOR DR. ERICKSON OF [employer] TO CALL DR. SPAIN 05-03-19 BETWEEN 1:30PM AND 1:45 PM FOR PEER TO PEER. CM NOTIFIED DR. SPAIN AND PT'S SPOUSE. PT'S SPOUSE ADVISED THAT SHE IS NOT THINKING OF RETURNING PT TO [facility] IF INPATIENT IS DECLINED AND WILL LOOK INTO OTHER ASSISTED FACILITIES "PLAN B" AND WILL LET CM KNOW WHAT HER CHOICE WILL BE. CM WAITING PEER TO PEER DISCUSSION BETWEEN DR. SPAIN AND DR. ERICKSON FOR INSURANCE TO MAKE DETERMINATION REGARDING INPATIENT REHAB SERVICES. Geovanni Skinner, CASE MANAGEMENT Geovanni Skinner DCP- Discharge Planning Updated by [id number]: Geovanni Skinner on 05/02/19 7:[address] Patient Name: SHAYNE BRICEÑO Encounter No: [id number] : 1945 Primary Insurance: HUMANA CHOICE PPO MCR ADVANT Anticipated DC Date: Planned Disposition: Nursing Home Facility External Planned Provider: : DCP follow-up note: PT HAS BEEN DECLINED ON 04-29-19 BY INSURANCE FOR INPATIENT REHAB WITH RECOMMENDATION FOR ASSISTED REHAB. CM [facility], , FOR POSSIBLE RETURN TO ASSISTED REHAB IF PHYSICIAN AGREES WITH INSURANCE DETERMINATION. IF PEER TO PEER REVIEW IS DESIRED, IT CAN BE ARRANGED PRIOR TO 05-05-19, BY CALLING [employer] AT . BENIGNO Layton DCP- Discharge Planning Updated by [id number]: Geovanni Skinner on 04/29/19 3:[address] Patient Name: SHAYNE BRICEÑO Encounter No: [id number] : 1945 Primary Insurance: HUMANA CHOICE PPO MCR ADVANT Anticipated DC Date: Planned Disposition: Inpatient Rehab External Planned Provider: [facility] DCP follow-up note: CM RECEIVED PHONE MESSAGE FROM [facility] OF [employer], , EXTENSION [id number], WHO INFORMED CM THAT PT HAS BEEN DECLINED FOR INPATIENT REHAB WITH RECOMMENDATION FOR ASSISTED REHAB. CM NOTIFIED JODEE SANZ WHO WILL DISCUSS WITH PHYSICIAN. IF PEER TO PEER REVIEW IS DESIRED, IT CAN BE ARRANGED PRIOR TO 05-05-19, BY CALLING [employer] AT . BENIGNO Layton DCP- Discharge Planning Updated by [id number]: Geovanni Skinner on 04/29/19 6:[address] Patient Name: SHAYNE BRICEÑO Encounter No: [id number] : 1945 Primary Insurance: HUMANA CHOICE PPO MCR ADVANT Anticipated DC Date: Planned Disposition: Inpatient Rehab External Planned Provider: [facility] Discharge Planning Comments: CM FAXED REFERRAL UPDATE WITH OCCUPATIONAL THERAPY EVALUATION TO [facility] AT [phone]. CM WAITING ADMISSION DETERMINATION WELL INSURANCE AUTHORIZATION FOR INPATIENT REHAB SERVICES AT [facility]. Pure Pak Machine Operator: Geovanni Skinner DCP- Discharge Planning Updated by [id number]: Geovanni Skinner on 04/28/19 8:[address] Patient Name: SHAYNE BRICEÑO Encounter No: [id number] : 1945 Primary Insurance: HUMANA CHOICE PPO MCR ADVANT Anticipated DC Date: Planned Disposition: Inpatient Rehab External [facility] Discharge Planning Comments: CM CALLED CARSON OF [facility], , PROVIDED REFERRAL FOR INPATIENT REHAB SERVICES. CM FAXED REFERRAL TO [facility] AT [phone]. CM WAITING OT EVALUATION AND WILL FAX TO [facility] SOON DOCUMENTED IN CHART. PATIENT WILL REQUIRE INSURANCE AUTHORIZATION FOR INPATIENT REHAB SERVICES. Pure Pak Machine Operator: Geovanni Skinner DCP- Discharge Planning Updated by [id number]: Geovanni Skinner on 04/27/19 3:[address] Patient Name: SHAYNE BRICEÑO Admission Status: ER Accout number: [id number] Admission Date: 04-22-2019 : 1945 Admission Diagnosis:EDEMA, UNSPECIFIED Attending: KHOI SPAIN Current LOS: 5 Anticipated DC Date: Planned Disposition: Inpatient Rehab Primary Insurance: HUMANA CHOICE PPO MCR ADVANT PLANNED EXTERNAL [facility] Discharge Planning Comments: CM MET WITH PT IN ROOM TO DISCUSS DISCHARGE PLANNING AND NEEDS. PT STATES HE WAS AT [facility] FOR REHAB AND MAY BE RETURNING THERE. CHOICE SIGNED. PT REQUESTED CM SPEAK TO HIS . CM LATER MET WITH PT'S WHO REPORTS THAT SHE WOULD LIKE PT CONSIDERED FOR INPATIENT REHAB AT [facility] IN [place]; SHE HAS DISCUSSED THIS WITH [employer] AT [facility] AND SHE HOPES THIS LEVEL OF REHAB WILL BE APPROVED FOR PATIENT. IMPORTANT MESSAGE FROM MEDICARE PROVIDED AND EXPLAINED. CM TO CONTACT [facility] IN[facility]IENT RE[facility], [place], SOON POSSIBLE AND PROVIDE REFERRAL FOR INPATIENT REHAB SERVICES. PT WILL REQUIRE INSURANCE AUTHORIZATION FOR SERVICES. Pure Pak Machine Operator: Geovanni Skinner DCPIA - Discharge Planning Initial Assessment Updated by [id number]: Geovanni Skinner on 04/27/19 4:53 pm * Is the patient Alert and Oriented? Yes * How many steps to enter\\exit or inside your home? * PCP DR. LOCO * [facility] * Preadmission Environment Nursing Home Facility * Facility Name [facility] * ADLs Partial Dependent * Partial ADLs (Assistance needed) Ambulation Bathing Dressing Medication Management Toileting Transfers * Equipment None * Other Equipment NO MEDICAL EQUIPMENT PROVIDER PREFERENCE * List name and contact numbers for known caregivers / representatives who currently or will assist patient after discharge: CHRISTIE BRICEÑO, SPOUSE, * Verbal permission to speak to the caregivers and representatives has been obtained from the patient. Yes * Community resources currently utilized None * Please name any agencies selected above. NONE * Additional services required to return to the preadmission environment? No * Can the patient safely return to the preadmission environment? Yes * Has this patient been hospitalized within the prior 30 days at any hospital? Yes Coverage Notice Reviewer: [id number] Dez Strong Notice Issued Date-Time: 05/06/2019 15:59 Notice Type: Patient Choice Letter Notice Delivered To: Family Member Relationship to Patient: Bread Packer Name: Delivery Method: HAND - Hand Delivered Tg Days: Prior Verbal Notification: Recipient Understood Notice: Yes Recipient Signature: Yes Med Rec Note Co-signed by Attending: Coverage Notice Comment: [facility] Reviewer: [id number] Dez Skinner Notice Issued Date-Time: 04/27/2019 14:40 Notice Type: IM Discharge Notice Notice Delivered To: Family Member Relationship to Patient: Spouse Bread Packer Name: CHRISTIE BRICEÑO Delivery Method: HAND - Hand Delivered Tg Days: Prior Verbal Notification: Recipient Understood Notice: Yes Recipient Signature: Yes Med Rec Note Co-signed by Attending: Coverage Notice Comment: Reviewer: [id number] Skinner Notice Issued Date-Time: 05/16/2019 12:35 Notice Type: IM Discharge Notice Notice Delivered To: Patient Relationship to Patient: Bread Packer Name: Delivery Method: HAND - Hand Delivered Tg Days: Prior Verbal Notification: Recipient Understood Notice: Yes Recipient Signature: Yes Med Rec Note Co-signed by Attending: Coverage Notice Comment: Reviewer: [id number] Skinner Notice Issued Date-Time: 04/27/2019 9:05 Notice Type: Patient Choice Letter Notice Delivered To: Patient Relationship to Patient: Bread Packer Name: Delivery Method: HAND - Hand Delivered Tg Days: Prior Verbal Notification: Recipient Understood Notice: Yes Recipient Signature: Yes Med Rec Note Co-signed by Attending: Coverage Notice Comment: SANDEEP GAGE export: 05/16/19 1:02 p Patient Name: SHAYNE BRICEÑO Page [id number] at 1420 All edits/amendments must be made on the electronic document DICTATION DATE: 05/16/191418 FRESH WORK WRAPPER LAYER: LENIN 05/16/191418 RPT#: [id number] DC DATE: STATUS: ADM IN [facility] [address] [place] [address] END OF REPORT
--- NOTE | 2019-05-16 14:58 | NUR ---
I have reviewed this patient and I concur with the Shift Assessment completed by the Licensed Practical Nurse today this shift.
--- NOTE | 2019-05-16 15:14 | MORECARE ---
CASE MANAGEMENT DISCHARGE SUMMARY PATIENT: SHAYNE BRICEÑO UNIT: [id number] ADM DATE: 04/22/19 AGE: 73 : 47 SEX: M ROOM/BED: D.2111 AUTHOR: JAYRO,DOC PHYSICIAN: REFERRING PHYSICIAN: KHOI SPAIN MD DATE OF SERVICE: 05/16/19 Discharge Plan Patient Name: SHAYNE BRICEÑO Facility: [facility]:[place] : 1945 Planned Disposition: Senior Care Facility Anticipated Discharge Date: 05/16/19 Discharge Date: Expected LOS: 24 Initial Reviewer: [id number] Initial Review Date: 04/27/2019 Generated: 05/16/19 4:13 pm Comments DCP- Discharge Planning Updated by [id number]: Geovanni Skinner on 05/16/19 1:[address] Patient Name: SHAYNE BRICEÑO Encounter No: [id number] : 1945 Primary Insurance: HUMANA CHOICE PPO MCR ADVANT Anticipated DC Date: 05-16-2019 Planned Disposition: Senior Care Facility External Planned Provider: [facility], MEDICARE REHAB BED DCP follow-up note: EDIE CALLED AND SPOKE [place] [facility] ; NICK HAS TALKED TO PT'S SPOUSE WHO INFORMED NICK THAT SHE PLANS TO APPEAL THE DENIAL FOR SKILLED REHAB SERVICES WITH INSURANCE. CM CALLED AND SPOKE TO CHRISTIE BRICEÑO WHO INFORMED CM THAT SHE HAS APPEALED THE DENIAL FOR CORRECTION REHAB AND WILL CALL THE INSURANCE COMMMISSIONER TODAY. EDIE LATER INFORMED DR SPAIN AND TREATMENT TEAM OF THESE COMMUNICATIONS AT THE MULTIDISCIPLINARY TREATMENT TEAM MEETING. CM RECEIVED CALL FROM [facility], , THEY HAVE RECEIVED AUTHORIZATION FROM PT'S INSURANCE FOR CORRE[place], THEY WILL ACCEPT TODAY AND CAN DRY MOP MAKER AT 3:30PM. CM CALLED AND SPOKE TO PT'S SPOUSE VIA PHONE WHO IS IN AGREEMENT WITH DISCHARGE PLAN. CM SPOKE TO PT IN ROOM WHO IS IN AGREEMENT WITH DISCHARGE PLAN. IMPORTANT MESSAGE FROM MEDICARE PROVIDED AND EXPLAINED. CM FAXED DISCHARGE INFORMATION TO [facility] [employer] AT [phone]. ATHLETE MARKETING AGENT AND BEDSIDE NURSE NOTIFIED. NURSE REPORT TO BE CALLED TO [facility] AT [phone]; [facility] TO DRY MOP MAKER PT AT 4PM TODAY. Geovanni Skinner CASE MANAGEMENT DCP- Discharge Planning Updated by [id number]: Geovanni Skinner on 05/12/19 4:[address] Patient Name: SHAYNE BRICEÑO Encounter No: [id number] : 1945 Primary Insurance: HUMANA CHOICE PPO MCR ADVANT Anticipated DC Date: Planned Disposition: Senior Care Facility External Planned Provider: [facility], WELLNESS MANAGER CARE MEDICAID BED DCP follow-up note: CM RECEIVED CALL FROM NICK MANDEL OF [facility], , PT HAS BEEN DECLINED REHAB SERVICES BY INSURANCE AT [facility] AND RECOMMENDED [facility] CARE SERVICES. NICK WILL CALL PT'S SPOUSE AND DISCUSS DENIAL WELL POSSIBLE [facility] CARE AT [facility]; NICK REPORTS CH[facility] CARE BED IS AVAILABLE. CM WAITING ON WELLNESS MANAGER CARE ARRANGEMENTS BY [facility] AND PT'S SPOUSE. Geovanni Skinner CASE MANAGEMENT DCP- Discharge Planning Updated by [id number]: Geovanni Skinner on 05/11/19 3:[address] Patient Name: SHAYNE BRICEÑO Encounter No: [id number] : 1945 Primary Insurance: HUMANA CHOICE PPO MCR ADVANT Anticipated DC Date: Planned Disposition: Senior Care Facility External Planned Provider: [facility], MEDICARE REHAB BED DCP follow-up note: CM RECEIVED CALL FROM ZORAIDA WHO INFORMED CM THAT THEY ARE OFFERING PEER TO PEER REVIEW PRIOR TO DENIAL OF CORRECTION REHAB REQUEST AND IT CAN BE DONE BEFORE 05-12-19 AT NOON. THE NUMBER TO CALL IS [phone], OPTION 5. THE PROVIDER CAN CALL THIS DIRECTLY FOR PEER TO PEER. THE PENDING DENIAL IS BASED ON INFORMATION PROVIDED DOES NOT SUPPORT PT'S ABILITY FOR REHAB SERVICES AND PT APPEARS TO BE MORE APPROPRIATE FOR [facility] CARE. CM NOTIFIED JODEE SANZ WHO INFORMED CM SHE WILL DO THE PEER TO PEER. CM SPOKE TO DEBORAH OF [facility], , NOTIFIED OF ABOVE. CM WAITING RESULT OF PEER TO PEER CALL TO INSURANCE COMPANY IN HOPES OF GETTING FURTHER CORRECTION FACILITY SERVICES AUTHORIZED. BENIGNO Layton DCP- Discharge Planning Updated by [email or web address]: Geovanni Skinner on 05/11/19 6:[address] Patient Name: SHAYNE BRICEÑO Encounter No: [id number] : 1945 Primary Insurance: HUMANA CHOICE PPO MCR ADVANT Anticipated DC Date: Planned Disposition: Senior Care Facility External Planned Provider: [facility], MEDICARE REHAB BED LATE ENTRY FROM 05-10-19. DCP follow-up note: CM RECEIVED CALL FROM NICK [facility] WHO IS PROCESSING PT FOR REHAB ADMISSION TO [facility]. NICK REQUESTED UPDATED PHYSICIAN NOTES AND THERAPY NOTES TO SUBMIT TO INSURANCE. CM FAXED REQUESTED INFORMAITION TO NICK MANDEL, . CM WAITING INSURANCE AUTHORIZATION FOR REHAB SERVICES AT [facility]. BENIGNO LAYTON DCP- Discharge Planning Updated by [id number]: April Strong on 05/06/19 2:[address] Patient Name: SHAYNE BRICEÑO Admission Status: ER Accout number: [id number] Admission Date: 04-22-2019 : 1945 Admission Diagnosis:EDEMA, UNSPECIFIED Attending: KHOI SPAIN Current LOS: 14 Anticipated DC Date: Planned Disposition: Senior Care Facility Primary Insurance: HUMANA CHOICE PPO MCR ADVANT Discharge Planning Comments: I SPOKE WITH THE PATIENT'S AND SHE WOULD LIKE [facility]. I FAXED REFERRAL AND SHE WILL SIGN SANTOS. CM TO FOLLOW AND ASSIST. Resident Engineer: April Strong DCP- Discharge Planning Updated by [id number]: April Strong on 05/05/19 3:[address] Patient Name: SHAYNE BRICEÑO Admission Status: ER Accout number: [id number] Admission Date: 04-22-2019 : 1945 Admission Diagnosis:EDEMA, UNSPECIFIED Attending: KHOI SPAIN Current LOS: 13 Anticipated DC Date: Planned Disposition: Senior Care Facility Primary Insurance: HUMANA CHOICE PPO MCR ADVANT Discharge Planning Comments: CM AND DR. SPAIN SPOKE AT LENGTH WITH PATIENT TODAY. OTHER DAUGHTER IS COMING IN TONIGHT FROM OUT OF TOWN AND THEY WILL DISCUSS WHAT SNF. I WILL MEET WITH HER TOMORROW. CM TO FOLLOW. Resident Engineer: April Strong DCP- Discharge Planning Updated by [id number]: Dinorah Fay on 05/04/19 1:[address] SPOKE WITH ISRAEL WITH [facility]. SHE WANTED TO SEE IF I WAS AWARE OF THE PATIENT FILING A [employer] APPEAL TO DISCHARGE. I EXPLAINED YES AND THAT I HAVE ALREADY FAXED THE INFORMATION TO [employer] LETTING THEM KNOW THAT THE PATIENT IS NOT DISCHARGED. I HAVE EXPLAINED THAT THE HAD CALLED [employer] TO ASK THEM TO FIGHT THE DENIAL FOR INPATIENT REHAB FOR THEM THAT SHE WAS UNHAPPY THAT THE P2P WAS UNSUCCESSFUL. ALL INFORMATION WAS GIVEN TO ISRAEL THAT SHE REQUESTED. SHE NOW HAS MY DIRECT NUMBER AND WILL CALL ME IF SHE HAS ANY FURTHER QUESTIONS OR NEEDS ANY FURTHER INFORMATION. DCP- Discharge Planning Updated by [id number]: Geovanni Skinner on 05/03/19 4:[address] Patient Name: SHAYNE BRICEÑO Encounter No: [id number] : 1945 Primary Insurance: HUMANA CHOICE PPO MCR ADVANT Anticipated DC Date: Planned Disposition: Senior Care Facility External Planned Provider: WAITING ON FAMILY DECISION DCP follow-up note: CM RECEIVED INPATIENT REHAB DENIAL. CM PROVIDED COPY TO PT WHO INSTRUCTED CM TO CALL HIS . CM ALLED CHRISTIE BRICEÑO, SPOUSE, , INFORMED OF DENIAL AND COPY IN PT'S ROOM. CHRISTIE STATES SHE WILL CALL INSURANCE COMPANY TOMORROW TO APPEAL THE DECISION. CHRISTIE HAS NOT MADE ANY DECISION REGARDING CORRECTION FACILITY PLACEMENT AND IS WAITING ON HER DAUGHTERS TO ASSIST HER WITH DECISION. CM EXPLAINED THAT PT IS MEDICALLY STABLE FOR DISCHARGE NOW AND CORRECTION CHOICES NEED TO BE MADE EVEN IF THEY ARE APPEALING INSURANCE DECISION. CHRISTIE REPORTS SHE WILL CALL INSURANCE AND PROVIDE CORRECTION FACILITY CHOICES SOON POSSIBLE. CHRISTIE IS NOT WANTING TO RETURN PT TO [facility]. INSURANCE DECLINED INPATIENT REHAB. IS GOING TO CALL INSURANCE TO APPEAL DENIAL OF INPATIENT REHAB. SPEAKING TO FAMILY TO MAKE CORRECTION FACILITY CHOICES. CM WAITING ON PT'S TO PROVIDE CORRECTION FACLITY CHOICES. Geovanni Skinner, CASE MANAGEMENT DCP- Discharge Planning Updated by [id number]: Geovanni Skinenr on 05/02/19 11:[address] Patient Name: SHAYNE BRICEÑO Encounter No: [id number] : 1945 Primary Insurance: HUMANA CHOICE PPO MCR ADVANT Anticipated DC Date: Planned Disposition: Senior Care Facility External Planned Provider: [facility] DCP follow-up note: CM SPOKE TO JODEE THOMPSON REGARDING INPATIENT REHAB DENIAL THAT WAS RECEIVED ON THURSDAY, JODEE THOMPSON AGREED WITH CORRECTION AND DIRECTED CM TO CHECK WITH DR. SPAIN REGARDING PEER TO PEER WITH INSURANCE COMPANY. CM CONTACTED DR. SPAIN WHO DECLINED PEER TO PEER AND AGREED WITH CORRECTION PLACEMENT FOR REHAB. CM CALLED AND SPOKE TO PT'S SPOUSE, CHRISTIE KEITA, WHO DISAGREED WITH THE INSURANCE COMPANY AND ASKED FOR APPEAL NUMBER THAT SHE CAN CALL. CM CALLED CARSON AT [facility], , WHO WILL CHECK TO SEE IF ANY FAX WAS RECEIVED FROM INSURANCE COMPANY. SHE WAS NOT ABLE TO LOCATE A FAXED DENIAL. CM CALLED PT'S INSURANCE COMPANY, [employer] AT , SPOKE TO DANIEL WHO ADVISED THAT THE CLAIM HAD NOT BEEN DENIED, AND THAT THE BATCH ANALYST REACHED OUT FOR PEER TO PEER WITH HOSPITAL PHYSICIAN PRIOR TO MAKING DETERMINATION REGARDING INPATIENT REHAB. DANIEL JACOBSON INFORMED CM THAT PT DOES NOT HAVE ANY APPEAL RIGHTS UNLESS THE CLAIM IS DENIEDS. CM SPOKE TO DR. SPAIN WHO IS WILLING FOR PEER TO PEER TOMORROW, 05-03-19. CM CALLED [employer] AT , SPOKE TO DANIEL AND ARRANGED FOR DR. ERICKSON OF [employer] TO CALL DR. SPAIN 05-03-19 BETWEEN 1:30PM AND 1:45 PM FOR PEER TO PEER. CM NOTIFIED DR. SPAIN AND PT'S SPOUSE. PT'S SPOUSE ADVISED THAT SHE IS NOT THINKING OF RETURNING PT TO [facility] IF INPATIENT IS DECLINED AND WILL LOOK INTO OTHER CORRECTION FACILITIES "PLAN B" AND WILL LET CM KNOW WHAT HER CHOICE WILL BE. CM WAITING PEER TO PEER DISCUSSION BETWEEN DR. SPAIN AND DR. ERICKSON FOR INSURANCE TO MAKE DETERMINATION REGARDING INPATIENT REHAB SERVICES. Geovanni Skinner, CASE MANAGEMENT Geovanni Skinner DCP- Discharge Planning Updated by [id number]: Geovanni Skinner on 05/02/19 7:[address] Patient Name: SHAYNE BRICEÑO Encounter No: [id number] : 1945 Primary Insurance: HUMANA CHOICE PPO MCR ADVANT Anticipated DC Date: Planned Disposition: Senior Care Facility External Planned Provider: : DCP follow-up note: PT HAS BEEN DECLINED ON 04-29-19 BY INSURANCE FOR INPATIENT REHAB WITH RECOMMENDATION FOR CORRECTION REHAB. CM [facility], , FOR POSSIBLE RETURN TO CORRECTION REHAB IF PHYSICIAN AGREES WITH INSURANCE DETERMINATION. IF PEER TO PEER REVIEW IS DESIRED, IT CAN BE ARRANGED PRIOR TO 05-05-19, BY CALLING [employer] AT . BENIGNO Layton DCP- Discharge Planning Updated by [id number]: Geovanni Skinner on 04/29/19 3:[address] Patient Name: SHAYNE BRICEÑO Encounter No: [id number] : 1945 Primary Insurance: HUMANA CHOICE PPO MCR ADVANT Anticipated DC Date: Planned Disposition: Inpatient Rehab External Planned Provider: [facility] DCP follow-up note: CM RECEIVED PHONE MESSAGE FROM [facility] OF [employer], , EXTENSION [phone], WHO INFORMED CM THAT PT HAS BEEN DECLINED FOR INPATIENT REHAB WITH RECOMMENDATION FOR CORRECTION REHAB. CM NOTIFIED JODEE SANZ WHO WILL DISCUSS WITH PHYSICIAN. IF PEER TO PEER REVIEW IS DESIRED, IT CAN BE ARRANGED PRIOR TO 05-05-19, BY CALLING [employer] AT . BENIGNO Layton DCP- Discharge Planning Updated by [id number]: Geovanni Skinner on 04/29/19 6:[address] Patient Name: SHAYNE BRICEÑO Encounter No: [id number] : 1945 Primary Insurance: HUMANA CHOICE PPO MCR ADVANT Anticipated DC Date: Planned Disposition: Inpatient Rehab External Planned Provider: [facility] Discharge Planning Comments: CM FAXED REFERRAL UPDATE WITH OCCUPATIONAL THERAPY EVALUATION TO [facility] AT [phone]. CM WAITING ADMISSION DETERMINATION WELL INSURANCE AUTHORIZATION FOR INPATIENT REHAB SERVICES AT [facility]. Resident Engineer: Geovanni Skinner DCP- Discharge Planning Updated by [id number]: Geovanni Skinner on 04/28/19 8:[address] Patient Name: SHAYNE BRICEÑO Encounter No: [id number] : 1945 Primary Insurance: HUMANA CHOICE PPO MCR ADVANT Anticipated DC Date: Planned Disposition: Inpatient Rehab External Planned [facility] Discharge Planning Comments: CM CALLED CARSON OF [facility], , PROVIDED REFERRAL FOR INPATIENT REHAB SERVICES. CM FAXED REFERRAL TO [facility] AT [phone]. CM WAITING OT EVALUATION AND WILL FAX TO [facility] SOON DOCUMENTED IN CHART. PATIENT WILL REQUIRE INSURANCE AUTHORIZATION FOR INPATIENT REHAB SERVICES. Resident Engineer: Geovanni Skinner DCP- Discharge Planning Updated by [id number]: Geovanni Skinner on 04/27/19 3:[address] Patient Name: SHAYNE BRICEÑO Admission Status: ER Accout number: [id number] Admission Date: 04-22-2019 : 1945 Admission Diagnosis:EDEMA, UNSPECIFIED Attending: KHOI SPAIN Current LOS: 5 Anticipated DC Date: Planned Disposition: Inpatient Rehab Primary Insurance: HUMANA CHOICE PPO MCR ADVANT PLANNED EXTERNAL PROVIDER[facility] Discharge Planning Comments: CM MET WITH PT IN ROOM TO DISCUSS DISCHARGE PLANNING AND NEEDS. PT STATES HE WAS AT [facility] FOR REHAB AND MAY BE RETURNING THERE. CHOICE SIGNED. PT REQUESTED CM SPEAK TO HIS . CM LATER MET WITH PT'S WHO REPORTS THAT SHE WOULD LIKE PT CONSIDERED FOR INPATIENT REHAB AT [facility] IN [place]; SHE HAS DISCUSSED THIS WITH STUDENT SERVICES DEAN AT [facility] AND SHE HOPES THIS LEVEL OF REHAB WILL BE APPROVED FOR PATIENT. IMPORTANT MESSAGE FROM MEDICARE PROVIDED AND EXPLAINED. CM TO CONTACT [facility] INPATIENT REHAB, [place], SOON POSSIBLE AND PROVIDE REFERRAL FOR INPATIENT REHAB SERVICES. PT WILL REQUIRE INSURANCE AUTHORIZATION FOR SERVICES. Resident Engineer: Geovanni Skinner DCPIA - Discharge Planning Initial Assessment Updated by [id number]: Geovanni Skinner on 04/27/19 4:53 pm * Is the patient Alert and Oriented? Yes * How many steps to enter\\exit or inside your home? * PCP DR. LOCO * Pharmacy [facility] * Preadmission Environment Senior Care Facility * Facility Name [facility] * ADLs Partial Dependent * Partial ADLs (Assistance needed) Ambulation Bathing Dressing Medication Management Toileting Transfers * Equipment None * Other Equipment NO MEDICAL EQUIPMENT PROVIDER PREFERENCE * List name and contact numbers for known caregivers / representatives who currently or will assist patient after discharge: CHRISTIE BRICEÑO, SPOUSE, * Verbal permission to speak to the caregivers and representatives has been obtained from the patient. Yes * Community resources currently utilized None * Please name any agencies selected above. NONE * Additional services required to return to the preadmission environment? No * Can the patient safely return to the preadmission environment? Yes * Has this patient been hospitalized within the prior 30 days at any hospital? Yes Coverage Notice Reviewer: [id number] Dez Strong Notice Issued Date-Time: 05/06/2019 15:59 Notice Type: Patient Choice Letter Notice Delivered To: Family Member Relationship to Patient: Retail Stock Clerk Name: Delivery Method: HAND - Hand Delivered Tg Days: Prior Verbal Notification: Recipient Understood Notice: Yes Recipient Signature: Yes Med Rec Note Co-signed by Attending: Coverage Notice Comment: [facility] Reviewer: [email or web address] Dez Skinner Notice Issued Date-Time: 04/27/2019 14:40 Notice Type: IM Discharge Notice Notice Delivered To: Family Member Relationship to Patient: Spouse Retail Stock Clerk Name: CHRISTIE BRICEÑO Delivery Method: HAND - Hand Delivered Tg Days: Prior Verbal Notification: Recipient Understood Notice: Yes Recipient Signature: Yes Med Rec Note Co-signed by Attending: Coverage Notice Comment: Reviewer: [id number] Skinner Notice Issued Date-Time: 05/16/2019 12:35 Notice Type: IM Discharge Notice Notice Delivered To: Patient Relationship to Patient: Retail Stock Clerk Name: Delivery Method: HAND - Hand Delivered Tg Days: Prior Verbal Notification: Recipient Understood Notice: Yes Recipient Signature: Yes Med Rec Note Co-signed by Attending: Coverage Notice Comment: Reviewer: [id number] Skinner Notice Issued Date-Time: 04/27/2019 9:05 Notice Type: Patient Choice Letter Notice Delivered To: Patient Relationship to Patient: Retail Stock Clerk Name: Delivery Method: HAND - Hand Delivered Tg Days: Prior Verbal Notification: Recipient Understood Notice: Yes Recipient Signature: Yes Med Rec Note Co-signed by Attending: Coverage Notice Comment: SANDEEP GAGE export: 05/16/19 1:19 p Patient Name: SHAYNE BRICEÑO Page [id number] at 1514 All edits/amendments must be made on the electronic document DICTATION DATE: 05/16/191512 INDEPENDENT BEAUTY CONSULTANT: LENIN 05/16/191512 RPT#: [id number] DC DATE: STATUS: ADM IN [facility] [address] [place] [address] END OF REPORT
--- NOTE | 2019-05-16 16:23 | NUR ---
DC PAPERWORK GONE OVER AND SIGNED WITH PT. ALL QUESTIONS ANSWERED. PT PICKED UP BY TRANSPORT PERSONAL TO GO TO [facility] VIA WHEELCHAIR. ALL VALUBLES REMOVED FROM ROOM AT THIS TIME.
--- NOTE | 2019-05-16 18:02 | NUR ---
OT NOTE: PT COMPLETED LUE PROM TO FACILITATE FUNCTIONAL RETURN. PT COMPLETED LUE POSITIONING TO DECREASE RISK OF SKIN BREAKDOWN WITH MAX A. PT COMPLETED ORAL HYGIENE WITH SET UP USING RUE. PT COMPLETED FACE WASHING WITH SET UP USING RUE. THANK YOU, NANCY MO
--- NOTE | 2019-05-27 09:50 | CN ---
PATIENT NAME:SHAYNE MICHELLE MEDICAL RECORD: [id number] : [birth year] LOCATION:D. D.2111 ADMIT DATE: 04/22/19 ACCOUNT: [id number] CONSULTING PHYSICIAN: ISABELL LINDO MD REFERRING PHYSICIAN: KHOI SPAIN MD DATE OF CONSULTATION: 04/26/2019 HISTORY OF PRESENT ILLNESS: Mr. Michelle is a 73-year-old male admitted from detention a couple days ago with right facial swelling. He is on antibiotics, had a cc, it is just parotiditis. PHYSICAL EXAMINATION: ORAL CAVITY AND OROPHARYNX: He has obvious right parotitis. Mouth is extremely dry. NECK: No masses other than the right parotid gland swollen and tender slightly, but no trismus from that. NOSE: Normal. IMPRESSION: Right parotitis. White count is really not elevated. He is diabetic. His mouth is dry. Just recommended some rehydration, lemon wedges, mouth swabs. He is already on antibiotics including vancomycin and Rocephin. I am not sure what those are for, but either one of those would be fine. They should respond in a few days. TRANSINT:[id number] Voice Confirmation ID: [id number] DOCUMENT ID: [id number] ISABELL LINDO MD at 0950 CC: [id number] DICTATION DATE: 04/26/19 1213 CARBON CAPTURE POWER PLANT OPERATOR: 04/26/19 1249 DIS IN 05/16/19 [id number] [place] [address]
== END 2019-05-16 16:24 | DRG 154 ==
LOC: D.ER 17:12 → D.M2 22:26
PROVIDERS: Family Medicine; ADMIT Internal Medicine Nephrology; ATTEND Internal Medicine Nephrology
DX: K11.21 Acute sialoadenitis (principal); R53.2 Functional quadriplegia; N39.0 Urinary tract infection, site not specified; E87.1 Hypo-osmolality and hyponatremia; I48.92 Unspecified atrial flutter; B96.89 Other specified bacterial agents as the cause of diseases classified elsewhere; I10 Essential (primary) hypertension; E11.69 Type 2 diabetes mellitus with other specified complication; N40.0 Benign prostatic hyperplasia without lower urinary tract symptoms; F32.9 Major depressive disorder, single episode, unspecified; D50.9 Iron deficiency anemia, unspecified